=== PATIENT | female | born 1990 | race Caucasian/White ===

== ENCOUNTER 2018-03-24 19:22 | Emergency (ER) | payer OTHER, SELFPAY ==
[2018-03-24 19:31] VITALS: BP 121/98; PULSE 112; RESP 20; TEMP 37.1; O2SAT 100; BMI 26.6
[2018-03-24 19:55] LABS: Add Manual Diff / Slide Review NO; Basophils Percent Auto 0.9 % (0-2); Eosinophils Percent Auto 1.7 % (2-4); Hematocrit 42.7 % (36-46); Hemoglobin 14.2 g/dL (12.0-16.0); Lymphocytes Percent Auto 21.3 % (25-40); Mean Corpuscular HGB Conc 33.3 % (30-36); Mean Corpuscular Hemoglobin 31.9 PG (26-34); Mean Corpuscular Volume 95.7 fL (80-100); Monocytes Percent Auto 8.5 % (3-14); Neutrophils Absolute Auto 3800 /uL (3000-5900); Neutrophils Percent Auto 67.6 % (50-75); Platelet Count 272 X10^3/uL (150-400); Red Blood Cell Count 4.46 X10^6/uL (4.0-5.2); Red Cell Distribution Width 13.8 % (11.6-14.8); White Blood Cell Count 5.7 X10^3/uL (4.5-11.0)
[2018-03-24] MEDS: METOCLOPRAMIDE 10 MG/2 ML INJ IV (19:59)
[2018-03-24] MEDS: HYDROMORPHONE 1 MG INJ IV ×3 (19:59→21:45)
[2018-03-24] MEDS: diphenhydrAMINE 50 MG/ML VIAL 25 MG IV (19:59)
[2018-03-24 20:00] LABS: INR 1.1 (0.9-1.3); Prothrombin Time 11.7 SECONDS (10.1-12.7)
[2018-03-24] MEDS: SODIUM CHLORIDE 0.9% 1,000 ML 1000 ML IV (20:01)
[2018-03-24 20:03] LABS: PTT Partial Thromboplastin Tim 31 SECONDS (26.4-36.2)
[2018-03-24 20:04] LABS: Alanine Aminotransferase 27 IU/L (9-52); Albumin 4.8 g/dL (3.5-5.0); Albumin Globulin Ratio 1.4 (1.0-2.8); Alkaline Phosphatase 82 U/L (38-126); Aspartate Aminotransferase 47 IU/L (14-36); BUN Creatinine Ratio 11.4 (6-22); Bilirubin Total 0.7 mg/dL (0.2-1.3); Blood Urea Nitrogen 8 mg/dL (7-17); Carbon Dioxide 26 mmol/L (22-32); Chloride 101 mmol/L (98-107); Estimated Glomerular Filt Rate > 60.0 mL/min (>60); Globulin 3.5 g/dL (1.7-4.1); Glucose 105 mg/dL (70-100); Lactate Dehydrogenase 659 U/L (313-618); Lipase 35 U/L (23-300); Potassium 4.5 mmol/L (3.4-5.1); Sodium 142 mmol/L (137-145); Total Protein 8.3 g/dL (6.3-8.2)
[2018-03-24 20:05] LABS: HEMOLYSIS 58 (0-50)
[2018-03-24 20:14] VITALS: BP 127/97; PULSE 110; RESP 16; O2SAT 97
--- NOTE | 2018-03-24 20:21 | ED.ABDPAIN ---
HPI - Abdominal Pain General Chief Complaint: Abdominal Pain Stated Complaint: Severe abdominal pain, nausea Time Seen by Provider: 03/24/18 19:26 Source: patient and family Mode of arrival: ambulatory Limitations: no limitations History of Present Illness HPI narrative: 28-year-old female, nonsmoker with extensive history of chronic pancreatitis presents with a chief complaint of epigastric pain, nausea, vomiting and inability to tolerate food or liquids since being discharged from [facility] yesterday. 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 Since being discharged she has not been able to eat or drink anything due to provocation of her pain as well as persistent vomiting. Has stated her pain is worse with eating or drinking, she denies any palliation, but admits to radiation to her back. She is now dizzy, weak and lightheaded. She denies any fever. She states this feels the same as prior episodes of pancreatitis and not unlike what caused her admission a few days ago. Related Data Allergies Allergy/AdvReac Type Severity Reaction Status Date / Time clindamycin Allergy Verified 03/24/18 19:35 guaifenesin [From Mucinex] Allergy Verified 03/24/18 19:35 haloperidol [From Haldol] Allergy Verified 03/24/18 19:35 ketorolac [From Toradol] Allergy Verified 03/24/18 19:35 metoclopramide [From Reglan] Allergy Verified 03/24/18 19:35 promethazine [From Phenergan] Allergy Verified 03/24/18 19:35 zolpidem [From Ambien] Allergy Verified 03/24/18 19:35 Review of Systems Review of Systems All systems reviewed & are unremarkable except as noted in HPI and below Constitutional Denies chills, Denies fever(s), Denies lethargy and Denies weakness Eyes Denies change in vision, Denies eye discharge, Denies irritation and Denies loss of vision ENT Ears, Nose, Mouth, and Throat: Denies change in voice, Denies neck pain and Denies sore throat Cardiovascular Denies chest pain, Denies irregular heart rhythm, Denies lightheadedness, Denies palpitations, Denies dyspnea, Denies dyspnea on exertion and Denies orthopnea Respiratory Denies cough, Denies dyspnea, Denies dyspnea on exertion and Denies wheezing Gastrointestinal Gastrointestinal: Reports abdominal pain, Denies change in bowel habits, Denies diarrhea, Reports nausea and Reports vomiting Genitourinary Denies hematuria, Denies flank pain, Denies urinary incontinence and Denies urinary urgency Musculoskeletal Denies neck pain Integumentary/Breasts Denies pruritus, Denies erythema, Denies rash and Denies wounds Neurologic Denies confusion, Denies loss of vision and Denies weakness Psychiatric Denies anxiety, Denies confusion, Denies depression, Denies homicidal ideation and Denies suicidal ideation Endocrine Denies palpitations Hematologic/Lymphatic Denies easy bruising Allergic/Immunologic Denies wheezing PFSH Medical History Gastroparesis (Acute) Pancreatitis (Acute) Surgical History Hx of cholecystectomy (Acute) Social History Smoking Status: Never smoker Exam Narrative Exam Narrative: GENERAL: 28F, tearful, obviously in pain, clutching her epigastrum and an emesis bag HEAD: Atraumatic. Normocephalic. No temporal or scalp tenderness. EYES: Pupils equal round and reactive. Extraocular motions intact. No scleral icterus. No injection or drainage. ENT: Nose without bleeding, purulent drainage or septal hematoma. Throat without erythema, tonsillar hypertrophy or exudate. Uvula midline. Airway patent. NECK: Trachea midline. No JVD or lymphadenopathy. Supple, nontender, no meningeal signs. CARDIOVASCULAR: Regular rate and rhythm without murmurs, gallops, or rubs. RESPIRATORY: Clear to auscultation. Breath sounds equal bilaterally. No wheezes, rales, or rhonchi. GASTROINTESTINAL: Abdomen soft, quite tender in epigastrum, nondistended. No hepato-splenomegaly, or palpable masses. No guarding. EXTREMITIES: No clubbing, cyanosis, or edema. No joint tenderness, effusion, or edema noted. BACK: Nontender without deformity or crepitance. No flank tenderness. NEURO: AOx3. SKIN: No rash or erythema. Initial Vital Signs Initial Vital Signs: Vital Signs Temperature 98.7 F 03/24/18 19:31 Pulse Rate 112 H 03/24/18 19:31 Respiratory Rate 20 03/24/18 19:31 Blood Pressure 121/98 H 03/24/18 19:31 Pulse Oximetry 100 03/24/18 19:31 Course Orders Ordered: ED Orders 03/24/18 19:45 Complete Blood Count AUTO DIFF Stat Comprehensive Metabolic Panel Stat Lactate Dehydrogenase Stat Lipase Stat Partial Thromboplastin Time Stat Prothrombin Time INR Stat Discontinued Medications Diphenhydramine HCl (Benadryl) 25 mg IV NOW ONE Stop: 03/24/18 19:40 Last Admin: 03/24/18 19:59 Dose: 25 mg Hydromorphone HCl (Dilaudid) 1 mg IV Q1HR PRN PRN Reason: Pain, Severe (7-10) Stop: 03/24/18 21:01 Last Admin: 03/24/18 20:51 Dose: 1 mg Admin: 03/24/18 19:59 Dose: 1 mg Hydromorphone HCl (Dilaudid) 1 mg IV Q1HR PRN PRN Reason: Pain, Severe (7-10) Hydromorphone HCl (Dilaudid) 1 mg IV NOW ONE Stop: 03/24/18 21:45 Last Admin: 03/24/18 21:45 Dose: 1 mg Sodium Chloride (Normal Saline 0.9%) 1,000 mls @ 1,000 mls/hr IV BOLUS ONE Stop: 03/24/18 20:58 Last Infusion: 03/24/18 21:59 Dose: 0 mls/hr Admin: 03/24/18 20:01 Dose: 1,000 mls/hr Metoclopramide HCl (Reglan) 10 mg IV NOW ONE Stop: 03/24/18 19:40 Last Admin: 03/24/18 19:59 Dose: 10 mg Pantoprazole Sodium (Protonix) 40 mg IV NOW ONE Stop: 03/24/18 20:39 Last Admin: 03/24/18 20:53 Dose: 40 mg Reevaluation(s) Reevaluation #1: still having pain, requesting more dilaudid Time: 20:30 Consultations Consultation #1: call to hospitalist for transfer. Happy to accept Vital Signs - 8 hr 03/24/18 19:31 03/24/18 20:14 03/24/18 21:20 Temperature 98.7 F Pulse Rate 112 H 110 H 104 H Respiratory Rate 20 16 18 Blood Pressure 121/98 H Blood Pressure [Left Arm] 127/97 H 113/90 Pulse Oximetry 100 97 98 03/24/18 21:48 Temperature Pulse Rate 107 H Respiratory Rate 18 Blood Pressure Blood Pressure [Left Arm] 124/86 Pulse Oximetry 99 MDM - Abdominal Pain Differential Diagnosis Differential diagnosis: Likely abdominal pain and pancreatitis Medical Records Attestation: I reviewed the patient's medical records. Lab Data Attestation: I reviewed the patient's lab results. Result diagrams: 03/24/18 19:45 03/24/18 19:45 Lab Results 03/24/18 03/24/18 03/24/18 Range/Units 19:45 19:45 19:45 WBC 5.7 (4.5-11.0) X10^3/uL RBC 4.46 (4.0-5.2) X10^6/uL Hgb 14.2 (12.0-16.0) g/dL Hct 42.7 (36-46) % MCV 95.7 (80-100) fL MCH 31.9 (26-34) PG MCHC 33.3 (30-36) % RDW 13.8 (11.6-14.8) % Plt Count 272 (150-400) X10^3/uL Neut % (Auto) 67.6 (50-75) % Lymph % (Auto) 21.3 L (25-40) % Lawrence % (Auto) 8.5 (3-14) % Eos % (Auto) 1.7 L (2-4) % Baso % (Auto) 0.9 (0-2) % Neut # (Auto) 3800 (1145-3909) /uL PT 11.7 (10.1-12.7) SECONDS INR 1.1 (0.9-1.3) APTT 31 (26.4-36.2) SECONDS Sodium 142 (137-145) mmol/L Potassium 4.5 (3.4-5.1) mmol/L Chloride 101 (98-107) mmol/L Carbon Dioxide 26 (22-32) mmol/L BUN 8 (7-17) mg/dL Creatinine 0.70 (0.52-1.04) mg/dL Estimated GFR > 60.0 (>60) mL/min BUN/Creatinine Ratio 11.4 (6-22) Glucose 105 H (70-100) mg/dL Calcium 10.0 (8.4-10.2) mg/dL Total Bilirubin 0.7 (0.2-1.3) mg/dL AST 47 H (14-36) IU/L ALT 27 (9-52) IU/L Alkaline Phosphatase 82 (38-126) U/L Lactate Dehydrogenase 659 H (313-618) U/L Total Protein 8.3 H (6.3-8.2) g/dL Albumin 4.8 (3.5-5.0) g/dL Globulin 3.5 (1.7-4.1) g/dL Albumin/Globulin Ratio 1.4 (1.0-2.8) Lipase 35 (23-300) U/L MDM Narrative Medical decision making narrative: 28-year-old female with long history of pancreatitis and recent hospitalization at outside facility presents with intractable pain and vomiting as well as inability to eat and drink. Labs are essentially unremarkable but patient states this is her norm. Given lack of available specialty care at our facility and desire to maintain continuity of care transfer to [facility] is most reasonable and in the patient's best interest Discharge Plan Departure Patient Disposition: [facility] Clinical Impression: Acute pancreatitis Discharge Date/Time: 03/24/18 22:00 Interventions: ED Discharge Assessment Last Done: 03/24/18 22:00
[2018-03-24] MEDS: PANTOPRAZOLE 40 MG VIAL IV (20:53)
[2018-03-24 21:20] VITALS: BP 113/90; PULSE 104; RESP 18; O2SAT 98
[2018-03-24 21:48] VITALS: BP 124/86; PULSE 107; RESP 18; O2SAT 99
== END 2018-03-24 22:00 | disposition short-term general hospital (02) ==
PROVIDERS: Emergency Provider Emergency Medicine
DX: K85.90 Acute pancreatitis without necrosis or infection, unspecified (principal)
CPT/HCPCS: 36591; 80053; 83615; 83690; 85025; 85610; 85730; 96361; 96374; 96375; 99283; 99284; C9113; J1170; J1200; J2765

== ENCOUNTER 2018-03-28 17:20 | Emergency (ER) | payer OTHER, SELFPAY ==
[2018-03-28 17:56] VITALS: BP 153/103; PULSE 117; RESP 22; TEMP 37.1; O2SAT 99; BMI 26.6
[2018-03-28] MEDS: SODIUM CHLORIDE 0.9% 1,000 ML 150 ML IV (19:50)
--- NOTE | 2018-03-28 19:50 | ED.ABDPAIN ---
HPI - Abdominal Pain General Chief Complaint: Abdominal Pain Stated Complaint: STATES SEVERE UPPER ABDOMINAL PAIN WITH N/V Time Seen by Provider: 03/28/18 19:20 Source: patient Mode of arrival: ambulatory Limitations: no limitations History of Present Illness HPI narrative: Patient states she has a history of chronic pancreatitis, and has a major ?flare up? about every 3 or 4 months. She states her last flare-up was in October. Patient states that for about the past week, she has been having upper abdominal pain and nausea. She was seen here around that time, and was worked up, with ultimate transfer to [facility] due to bed availability issues. Patient states she stated [facility] for 3-4 days, and then was discharged. However, patient states that she has continued to have symptoms at home, and that her home medications are not providing adequate relief. 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 She has had a cholecystectomy for biliary sludge and pancreatitis. She has been told that she may need to have stenting or other procedure to widen her duct if she continues to have bouts of pancreatitis. Patient denies alcohol use. Related Data Allergies Allergy/AdvReac Type Severity Reaction Status Date / Time clindamycin Allergy Rash Verified 03/28/18 18:02 guaifenesin [From Mucinex] Allergy Rash Verified 03/28/18 18:02 haloperidol [From Haldol] Allergy Irritable Verified 03/28/18 18:02 ketorolac [From Toradol] Allergy Anxiety Verified 03/28/18 18:02 metoclopramide [From Reglan] Allergy Anxiety Verified 03/28/18 18:02 promethazine [From Phenergan] Allergy Anxiety Verified 03/28/18 18:02 zolpidem [From Ambien] Allergy Hallucinati Verified 03/28/18 18:02 ng Review of Systems Review of Systems All systems reviewed & are unremarkable except as noted in HPI and below Constitutional Denies chills, Denies fever(s), Denies lethargy and Denies weakness Eyes Denies change in vision, Denies eye discharge, Denies irritation and Denies loss of vision ENT Ears, Nose, Mouth, and Throat: Denies change in voice, Denies neck pain and Denies sore throat Cardiovascular Denies chest pain, Denies irregular heart rhythm, Denies lightheadedness, Denies palpitations, Denies dyspnea, Denies dyspnea on exertion and Denies orthopnea Respiratory Denies cough, Denies dyspnea, Denies dyspnea on exertion and Denies wheezing Gastrointestinal Gastrointestinal: Reports abdominal pain, Denies change in bowel habits, Denies diarrhea, Reports nausea and Reports vomiting Genitourinary Denies hematuria, Denies flank pain, Denies urinary incontinence and Denies urinary urgency Musculoskeletal Denies neck pain Integumentary/Breasts Denies pruritus, Denies erythema, Denies rash and Denies wounds Neurologic Denies confusion, Denies loss of vision and Denies weakness Psychiatric Denies anxiety, Denies confusion, Denies depression, Denies homicidal ideation and Denies suicidal ideation Endocrine Denies palpitations Hematologic/Lymphatic Denies easy bruising Allergic/Immunologic Denies wheezing [facility] Medical History Gastroparesis (Acute) Pancreatitis (Acute) Surgical History Hx of cholecystectomy (Acute) Social History Smoking Status: Never smoker Exam Narrative Exam Narrative: The patient appears moderately uncomfortable. Initial Vital Signs Initial Vital Signs: Vital Signs Temperature 98.7 F 03/28/18 17:56 Pulse Rate 117 H 03/28/18 17:56 Respiratory Rate 22 03/28/18 17:56 Blood Pressure 153/103 H 03/28/18 17:56 Pulse Oximetry 99 03/28/18 17:56 Const General: cooperative and well developed Nutritional Appearance: well nourished Orientation: alert, awake, oriented x3 and not confused [facility] Head: normocephalic and atraumatic Ears: external ears normal Nose: external nose normal and No nasal discharge Face and sinus: face symmetric and No dry mucous membranes Mouth: oral mucosae normal and moist mucous membranes Teeth and gingiva: dentition normal Eyes General: appearance normal, both eyes and all related structures Eyelids: eyelids normal Conjunctivae: conjunctivae normal Sclera: sclerae normal Pupils: PERRL EOM: EOM intact bilaterally Neck Neck: normal visual inspection, trachea midline, No lymphadenopathy, No midline deformity and No JVD Lymphatic: No lymphedema Chest Chest: normal inspection of the chest Resp Effort & Inspection: normal respiratory effort, able to speak in complete sentences, no respiratory distress and no use of accessory muscles Auscultation: clear to auscultation bilaterally, no rales, no rhonchi and no wheezes Cardio Rate: regular rate Rhythm: regular rhythm Heart Sounds: no click, no gallops, no murmurs and no rubs Pulses: normal peripheral pulses GI Inspection: non-distended Palpation: soft, no hepatosplenomegaly, No guarding, No pulsatile mass and tender (Moderate, epigastrium and left upper quadrant.) Back/Spine/Pelvis Back: No CVA tenderness Cervical Spine: cervical ROM normal and No pain with cervical ROM Thoracic/Lumbar Spine: thoracic and lumbar spine normal to inspection Skin General: no rashes or lesions noted, No jaundice and No petechiae Neuro General: alert, oriented x3, gait normal and no focal motor deficits Speech: speech normal Extrem General: full ROM, no clubbing, cyanosis or edema, no pedal edema and no calf tenderness Psych Appearance: well kempt Mental Status: mental status grossly normal Attitude: cooperative Thought Content: normal and suicidality Judgment: judgment good Course Course Narrative: Patient was worked up with laboratory studies, and treated with IV fluids, Dilaudid, Benadryl, and Reglan. Labs were unremarkable. CT scan of the abdomen and pelvis was performed, and also found to be unremarkable. Patient did require a cane other round of analgesia and antiemetics, but was found to be feeling quite a bit better after this. I did discuss with her that her studies are unremarkable, and that she will need to follow up with her primary doctor to figure out a long-term, workable plan for her chronic abdominal pain. The patient is deemed stable for discharge home. We have discussed the usual indications for return. Orders Ordered: ED Orders 03/28/18 19:45 Complete Blood Count AUTO DIFF Stat Comprehensive Metabolic Panel Stat Lipase Stat 03/28/18 22:24 CT abdomen pelvis w con Stat Discontinued Medications Diphenhydramine HCl (Benadryl) 25 mg IV NOW ONE Stop: 03/28/18 19:51 Last Admin: 03/28/18 20:06 Dose: 25 mg Diphenhydramine HCl (Benadryl) 25 mg IV NOW ONE Stop: 03/29/18 00:38 Last Admin: 03/29/18 00:48 Dose: 25 mg Hydromorphone HCl (Dilaudid) 1 mg IV NOW ONE Stop: 03/28/18 19:57 Last Admin: 03/28/18 20:06 Dose: 1 mg Hydromorphone HCl (Dilaudid) 2 mg IV NOW ONE Stop: 03/28/18 21:07 Last Admin: 03/28/18 21:25 Dose: 2 mg Hydromorphone HCl (Dilaudid) 2 mg IV NOW ONE Stop: 03/28/18 22:51 Last Admin: 03/29/18 00:48 Dose: 2 mg Hydroxyzine HCl (Vistaril) 50 mg IM NOW ONE Stop: 03/28/18 22:50 Last Admin: 03/29/18 01:04 Dose: Not Given Sodium Chloride (Normal Saline 0.9%) 1,000 mls @ 150 mls/hr IV CONT DHIRAJ Last Infusion: 03/28/18 22:15 Dose: 0 mls/hr Infusion: 03/28/18 20:30 Dose: 1,000 mls/hr Admin: 03/28/18 19:50 Dose: 150 mls/hr Sodium Chloride (Normal Saline 0.9%) 1,000 mls @ 1,000 mls/hr IV BOLUS ONE Stop: 03/28/18 20:49 Last Admin: 03/28/18 22:57 Dose: Metoclopramide HCl (Reglan) 10 mg IV NOW ONE Stop: 03/28/18 19:51 Last Admin: 03/28/18 20:06 Dose: 10 mg Prochlorperazine (Compazine) 10 mg IV NOW ONE Stop: 03/29/18 00:38 Last Admin: 03/29/18 00:48 Dose: 10 mg Vital Signs - 8 hr 03/28/18 21:51 03/29/18 01:07 Temperature 98.2 F Pulse Rate 94 H 80 Respiratory Rate 17 18 Blood Pressure 133/92 H Blood Pressure [Left Wrist] 133/98 H Pulse Oximetry 96 100 MDM - Abdominal Pain Medical Records Attestation: I reviewed the patient's medical records. Lab Data Attestation: I reviewed the patient's lab results. Result diagrams: 03/28/18 19:45 03/28/18 19:45 Lab Results 11/26/18 11/26/18 Range/Units 19:45 19:45 WBC 6.8 (4.5-11.0) X10^3/uL RBC 4.25 (4.0-5.2) X10^6/uL Hgb 13.7 (12.0-16.0) g/dL Hct 40.0 (36-46) % MCV 94.0 (80-100) fL MCH 32.2 (26-34) PG MCHC 34.3 (30-36) % RDW 13.1 (11.6-14.8) % Plt Count 292 (150-400) X10^3/uL Neut % (Auto) 64.9 (50-75) % Lymph % (Auto) 26.5 (25-40) % Banner % (Auto) 7.1 (3-14) % Eos % (Auto) 1.1 L (2-4) % Baso % (Auto) 0.4 (0-2) % Neut # (Auto) 4400 (1831-1943) /uL Sodium 142 (137-145) mmol/L Potassium 3.9 (3.4-5.1) mmol/L Chloride 101 (98-107) mmol/L Carbon Dioxide 27 (22-32) mmol/L BUN 5 L (7-17) mg/dL Creatinine 0.90 (0.52-1.04) mg/dL Estimated GFR > 60.0 (>60) mL/min BUN/Creatinine Ratio 5.6 L (6-22) Glucose 103 H (70-100) mg/dL Calcium 9.8 (8.4-10.2) mg/dL Total Bilirubin 0.4 (0.2-1.3) mg/dL AST 24 (14-36) IU/L ALT 20 (9-52) IU/L Alkaline Phosphatase 72 (38-126) U/L Total Protein 7.8 (6.3-8.2) g/dL Albumin 4.5 (3.5-5.0) g/dL Globulin 3.3 (1.7-4.1) g/dL Albumin/Globulin Ratio 1.4 (1.0-2.8) Lipase 26 (23-300) U/L Point of care testing: Urine Dip Bedside Urine Glucose Negative Bedside Urine Bilirubin - Negative Bedside Urine Ketone - Negative Urine Specific [place] 1.010 Bedside Urine Occult Blood - Negative Bedside Urine pH 8.5 Bedside Urine Protein - Negative Bedside Urine Urobilinogen - Negative Bedside Urine Nitrite - Negative Bedside Urine Leukocytes - Negative Esterase Imaging Data CT scan - abdomen: Radiologist's impression: 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 Possible mild gastroenteritis or ileus, correlate clinically. Normal appendix. Discharge Plan Departure Patient Disposition: Home Clinical Impression: Abdominal pain Discharge Date/Time: 03/29/18 01:09 Interventions: ED Discharge Assessment Last Done: 03/29/18 01:07 Instructions: DI for Abdominal Pain-Adult Activity Restrictions/Additional Instructions: Your labs look good. Your CT is still being evaluated by the radiologist, but no obvious abnormalities have shown up in the preliminary evaluation. Please take your pain and nausea medications at home, as needed, and follow up with your doctor within the next couple of days.
[2018-03-28 19:57] LABS: Add Manual Diff / Slide Review NO; Basophils Percent Auto 0.4 % (0-2); Eosinophils Percent Auto 1.1 % (2-4); Hemoglobin 13.7 g/dL (12.0-16.0); Lymphocytes Percent Auto 26.5 % (25-40); Mean Corpuscular HGB Conc 34.3 % (30-36); Mean Corpuscular Hemoglobin 32.2 PG (26-34); Monocytes Percent Auto 7.1 % (3-14); Neutrophils Absolute Auto 4400 /uL (3000-5900); Neutrophils Percent Auto 64.9 % (50-75); Platelet Count 292 X10^3/uL (150-400); Red Blood Cell Count 4.25 X10^6/uL (4.0-5.2); Red Cell Distribution Width 13.1 % (11.6-14.8); White Blood Cell Count 6.8 X10^3/uL (4.5-11.0)
[2018-03-28] MEDS: HYDROMORPHONE 1 MG INJ IV (20:06)
[2018-03-28] MEDS: diphenhydrAMINE 50 MG/ML VIAL 25 MG IV (20:06)
[2018-03-28] MEDS: METOCLOPRAMIDE 10 MG/2 ML INJ IV (20:06)
[2018-03-28 20:09] LABS: Alanine Aminotransferase 20 IU/L (9-52); Albumin 4.5 g/dL (3.5-5.0); Albumin Globulin Ratio 1.4 (1.0-2.8); Alkaline Phosphatase 72 U/L (38-126); Aspartate Aminotransferase 24 IU/L (14-36); BUN Creatinine Ratio 5.6 (6-22); Bilirubin Total 0.4 mg/dL (0.2-1.3); Blood Urea Nitrogen 5 mg/dL (7-17); Calcium 9.8 mg/dL (8.4-10.2); Carbon Dioxide 27 mmol/L (22-32); Chloride 101 mmol/L (98-107); Estimated Glomerular Filt Rate > 60.0 mL/min (>60); Globulin 3.3 g/dL (1.7-4.1); Glucose 103 mg/dL (70-100); HEMOLYSIS < 15 (0-50); Lipase 26 U/L (23-300); Potassium 3.9 mmol/L (3.4-5.1); Sodium 142 mmol/L (137-145); Total Protein 7.8 g/dL (6.3-8.2)
[2018-03-28] MEDS: HYDROMORPHONE 1 MG INJ 2 MG IV (21:25)
[2018-03-28 21:51] VITALS: BP 133/98; PULSE 94; RESP 17; O2SAT 96
--- NOTE | 2018-03-28 22:24 | DI.CT.S_ITS ---
PROCEDURE: CT ABDOMEN PELVIS W CON INDICATIONS: abdominal pain TECHNIQUE: After the administration of intravenous contrast, 5 mm thick sections acquired from the diaphragm to the symphysis. 5 mm coronal and sagittal reformats were acquired. For radiation dose reduction, the following was used: automated exposure control, adjustment of mA and/or kV according to patient size. COMPARISON: [facility], CT, CT ABDOMEN PELVIS WITH CONTRAST, 01/18/2018, 18:46. FINDINGS: Image quality: Excellent. ABDOMEN: Lung bases: Lung bases are clear. Heart size is normal. Solid organs: Liver is normal in size and enhancement. Gallbladder is surgically absent. Biliary system is non dilated. Pancreas enhances normally. Spleen is normal in size and enhancement. No adrenal nodules. Kidneys demonstrate normal size and enhancement, without hydronephrosis. Peritoneum and bowel: Moderate amount of fluid within the small bowel. Normal appendix. Bowel loops demonstrate otherwise normal wall thickness and caliber. No free fluid or air. Nodes and vessels: No retroperitoneal or mesenteric adenopathy by size criteria. Aorta and inferior vena cava are normal in size. Miscellaneous: There is a fat containing umbilical hernia and ring 10 mm. PELVIS: Genitourinary: Bladder wall thickness is normal. Miscellaneous: No inguinal hernias or adenopathy. Bones: No suspicious bony lesions. No vertebral body compression fractures. IMPRESSION: 1. Findings consistent with mild gastroenteritis in the appropriate clinical setting. Clinical correlation recommended. 2. Normal appendix. 3. Concordant with preliminary interpretation. Dictated by: Rosanna Lowery M.D. on 03/29/2018 at 8:18 Approved by: Rosanna Lowery M.D. on 03/29/2018 at 8:21
[2018-03-29] MEDS: PROCHLORPERAZINE 10 MG/2 ML VIAL IV (00:48)
[2018-03-29] MEDS: diphenhydrAMINE 50 MG/ML VIAL 25 MG IV (00:48)
[2018-03-29] MEDS: HYDROMORPHONE 1 MG INJ 2 MG IV (00:48)
[2018-03-29 01:07] VITALS: BP 133/92; PULSE 80; RESP 18; TEMP 36.8; O2SAT 100
== END 2018-03-29 01:09 | disposition home or self-care (01) ==
PROVIDERS: Emergency Provider Emergency Medicine
DX: R10.9 Unspecified abdominal pain (principal)
CPT/HCPCS: 36591; 74177; 80053; 81003; 83690; 85025; 96361; 96374; 96375; 96376; 99283; 99285; J0780; J1170; J1200; J2765

== ENCOUNTER 2018-03-29 22:22 | Emergency (ER) | payer OTHER, SELFPAY ==
[2018-03-29 22:25] VITALS: BP 139/104; PULSE 101; RESP 22; TEMP 36.3; O2SAT 100
--- NOTE | 2018-03-29 22:33 | ED.ABDPAIN ---
HPI - Abdominal Pain General Chief Complaint: Abdominal Pain Stated Complaint: Abd Pain Time Seen by Provider: 03/29/18 22:27 Source: patient Mode of arrival: ambulatory Limitations: no limitations History of Present Illness HPI narrative: Patient is a 28-year-old female here in the emergency department today for evaluation of abdominal pain. Patient states that she has a history of pancreatitis. She has been seen here in this emergency department several times in the past 7-10 days. She was transferred to [facility] during 1 of these visits. she was transferred there according to that note secondary to pancreatitis because this is where her GI doctor was located. She states that she was there for 4 days. She did state that she left against medical advice. She states that her signed her out [facility] because he was unhappy with all the doctors were keeping him informed of her medical condition. On the day of discharge she was seen here in this emergency department which was approximately 24 hr ago. Received multiple doses of pain medication and nausea medication. She was discharged home after feeling better. She returns today for the same symptoms. She has not seen her primary doctor, her GI doctor, or her shipyard painter helper. She states that she always gets pancreatitis and that my labs are always normal. she does have a VICKY report showing 55 emergency department visits in the past year. The vast majority of these or for abdominal pain. Related Data Allergies Allergy/AdvReac Type Severity Reaction Status Date / Time clindamycin Allergy Rash Verified 03/29/18 22:30 guaifenesin [From Mucinex] Allergy Rash Verified 03/29/18 22:30 haloperidol [From Haldol] Allergy Irritable Verified 03/29/18 22:30 ketorolac [From Toradol] Allergy Anxiety Verified 03/29/18 22:30 metoclopramide [From Reglan] Allergy Anxiety Verified 03/29/18 22:30 promethazine [From Phenergan] Allergy Anxiety Verified 03/29/18 22:30 zolpidem [From Ambien] Allergy Hallucinati Verified 03/29/18 22:30 ng Review of Systems Constitutional Denies fever(s) and Denies headache(s) ENT Ears, Nose, Mouth, and Throat: Denies headache(s) Cardiovascular Denies chest pain and Denies dyspnea Respiratory Denies dyspnea Gastrointestinal Gastrointestinal: Reports abdominal pain, Denies melena, Denies change in bowel habits, Denies constipation, Reports nausea, Reports vomiting and Denies hematemesis Genitourinary Denies dysuria and Denies vaginal discharge Musculoskeletal Denies myalgias and Denies arthralgias Integumentary/Breasts Denies rash Neurologic Denies headache(s) Hematologic/Lymphatic Comments: not on anticoagulation [facility] Social History marital status: Smoking Status: Never smoker Exam Initial Vital Signs Initial Vital Signs: Vital Signs Temperature 97.4 F L 03/29/18 22:25 Pulse Rate 101 H 03/29/18 22:25 Respiratory Rate 22 03/29/18 22:25 Blood Pressure 139/104 H 03/29/18 22:25 Pulse Oximetry 100 03/29/18 22:25 Const General: cooperative, well developed, well groomed and No acute distress Orientation: alert, awake and oriented x3 HENMT Head: normal to inspection and normocephalic Resp Effort & Inspection: normal respiratory effort Cardio Rate: regular rate GI Inspection: non-distended Palpation: soft, No firm, No guarding, No rigid and tender ( epigastric and left upper quadrant) Skin Rashes: no rashes Neuro General: alert, awake and oriented x3 Extrem General: normal to inspection and capillary refill normal Psych Appearance: grossly normal and well kempt Course Orders Ordered: ED Orders 03/29/18 23:29 Basic Metabolic Panel Stat Complete Blood Count AUTO DIFF Stat Hepatic (Liver) Panel Stat Lipase Stat Discontinued Medications Hydrocodone Bitart/Acetaminophen ([place] 5/325) 1 tab PO NOW ONE Stop: 03/30/18 01:27 Last Admin: 03/30/18 01:37 Dose: 1 tab Diphenhydramine HCl (Benadryl) 25 mg IV NOW ONE Stop: 03/29/18 22:45 Last Admin: 03/29/18 23:44 Dose: 25 mg Diphenhydramine HCl (Benadryl) 25 mg IV NOW ONE Stop: 03/30/18 01:27 Last Admin: 03/30/18 01:37 Dose: 25 mg Hydromorphone HCl (Dilaudid) 1 mg IV NOW ONE Stop: 03/29/18 22:45 Last Admin: 03/29/18 23:44 Dose: 1 mg Hydromorphone HCl (Dilaudid) 2 mg IV NOW ONE Stop: 03/30/18 00:33 Last Admin: 03/30/18 00:50 Dose: 2 mg Sodium Chloride (Normal Saline 0.9%) 1,000 mls @ 150 mls/hr IV CONT DHIRAJ Sodium Chloride (Normal Saline 0.9%) 1,000 mls @ 1,000 mls/hr IV BOLUS ONE Stop: 03/29/18 23:43 Last Infusion: 03/30/18 01:18 Dose: 0 mls/hr Admin: 03/30/18 00:13 Dose: 1,000 mls/hr Metoclopramide HCl (Reglan) 10 mg IV NOW ONE Stop: 03/29/18 22:45 Last Admin: 03/29/18 23:44 Dose: 10 mg Prochlorperazine (Compazine) 5 mg IV NOW ONE Stop: 03/30/18 01:27 Last Admin: 03/30/18 01:36 Dose: 5 mg Vital Signs - 8 hr 03/29/18 22:25 03/30/18 01:50 Temperature 97.4 F L Pulse Rate 101 H 80 Respiratory Rate 22 18 Blood Pressure 139/104 H Blood Pressure [Right Arm] 123/86 Pulse Oximetry 100 99 MDM - Abdominal Pain Medical Records Attestation: I reviewed the patient's medical records. Lab Data Attestation: I reviewed the patient's lab results. Result diagrams: 03/29/18 23:29 03/29/18 23:29 Lab Results 03/29/18 03/29/18 Range/Units 23:29 23:29 WBC 7.7 (4.5-11.0) X10^3/uL RBC 4.17 (4.0-5.2) X10^6/uL Hgb 13.4 (12.0-16.0) g/dL Hct 39.7 (36-46) % MCV 95.2 (80-100) fL MCH 32.2 (26-34) PG MCHC 33.8 (30-36) % RDW 13.4 (11.6-14.8) % Plt Count 286 (150-400) X10^3/uL Neut % (Auto) 61.5 (50-75) % Lymph % (Auto) 27.7 (25-40) % [place] % (Auto) 8.3 (3-14) % Eos % (Auto) 2.0 (2-4) % Baso % (Auto) 0.5 (0-2) % Neut # (Auto) 4700 (5688-4657) /uL Sodium 140 (137-145) mmol/L Potassium 4.5 (3.4-5.1) mmol/L Chloride 101 (98-107) mmol/L Carbon Dioxide 25 (22-32) mmol/L BUN 10 (7-17) mg/dL Creatinine 0.80 (0.52-1.04) mg/dL Estimated GFR > 60.0 (>60) mL/min BUN/Creatinine Ratio 12.5 (6-22) Glucose 100 (70-100) mg/dL Calcium 9.5 (8.4-10.2) mg/dL Total Bilirubin 0.4 (0.2-1.3) mg/dL Conjugated Bilirubin 0.0 (0.0-0.3) md/dL Unconjugated Bilirubin 0.1 (0.0-1.1) mg/dL AST 27 (14-36) IU/L ALT 16 (9-52) IU/L Alkaline Phosphatase 60 (38-126) U/L Total Protein 7.6 (6.3-8.2) g/dL Albumin 4.4 (3.5-5.0) g/dL Globulin 3.2 (1.7-4.1) g/dL Albumin/Globulin Ratio 1.4 (1.0-2.8) Lipase 24 (23-300) U/L MDM Narrative Medical decision making narrative: patient again with normal labs here in the emergency department. She does have epigastric and left upper quadrant tenderness. Multiple allergies to medications. I do have a strong suspicion for drug-seeking behavior in this individual given her multiple emergency department visits over the past year. She does take oral Dilaudid at home. She received a total of 5 mg of Dilaudid during her last emergency department visit within the past 24 hr. Patient questioned every medication that she was being given and how much of that medication that she was being given. She asked for specific medications And at certain doses. After receiving her 1st dose of pain medication here in the emergency department I told the patient that I would only give her 1 more dose of pain meds. I informed her that Jennifer evans would most likely be reluctant to take her back for admission because she left against medical advice during her last visit. I also informed her that it would be difficult to find another GI specialist to take her for transport given her normal lab results. I had a long discussion with her and her . I did inform her that the emergency department does not treat chronic pain. I informed her that she needed to contact her primary care doctor, her shipyard painter helper and her GI doctor to come up with the plan as to further treatment of any of her symptoms. just prior to discharge the patient's asked me if I could give her more pain medication through the IV to get her home. I told her that I would give her 1 oral pain medication which she did tolerate. The patient was discharged home with return precautions. Prior to this note being completed we received a call from [facility] stating that the patient checked into their emergency department with abdominal pain. Discharge Plan Departure Patient Disposition: Home Clinical Impression: Abdominal pain Discharge Date/Time: 03/30/18 02:07 Interventions: ED Discharge Assessment Last Done: 03/30/18 02:06 Instructions: DI for Abdominal Pain-Adult Activity Restrictions/Additional Instructions: your chronic abdominal pain /pancreatitis needs to be managed by her shipyard painter helper, primary care doctor and GI provider. The emergency department does not provide chronic pain control. you need to talk with your GI provider about what to do if your symptoms worsen. Call your primary care doctor tomorrow for follow-up. Continue all of your medications as directed
[2018-03-29 23:38] LABS: Add Manual Diff / Slide Review NO; Basophils Percent Auto 0.5 % (0-2); Hematocrit 39.7 % (36-46); Hemoglobin 13.4 g/dL (12.0-16.0); Lymphocytes Percent Auto 27.7 % (25-40); Mean Corpuscular HGB Conc 33.8 % (30-36); Mean Corpuscular Hemoglobin 32.2 PG (26-34); Mean Corpuscular Volume 95.2 fL (80-100); Monocytes Percent Auto 8.3 % (3-14); Neutrophils Absolute Auto 4700 /uL (3000-5900); Neutrophils Percent Auto 61.5 % (50-75); Platelet Count 286 X10^3/uL (150-400); Red Blood Cell Count 4.17 X10^6/uL (4.0-5.2); Red Cell Distribution Width 13.4 % (11.6-14.8); White Blood Cell Count 7.7 X10^3/uL (4.5-11.0)
[2018-03-29 23:43] LABS: Alanine Aminotransferase 16 IU/L (9-52); Albumin 4.4 g/dL (3.5-5.0); Albumin Globulin Ratio 1.4 (1.0-2.8); Alkaline Phosphatase 60 U/L (38-126); Aspartate Aminotransferase 27 IU/L (14-36); BUN Creatinine Ratio 12.5 (6-22); Bilirubin Total 0.4 mg/dL (0.2-1.3); Bilirubin Unconjugated 0.1 mg/dL (0.0-1.1); Blood Urea Nitrogen 10 mg/dL (7-17); Calcium 9.5 mg/dL (8.4-10.2); Carbon Dioxide 25 mmol/L (22-32); Chloride 101 mmol/L (98-107); Estimated Glomerular Filt Rate > 60.0 mL/min (>60); Globulin 3.2 g/dL (1.7-4.1); Glucose 100 mg/dL (70-100); HEMOLYSIS 38 (0-50); Lipase 24 U/L (23-300); Potassium 4.5 mmol/L (3.4-5.1); Sodium 140 mmol/L (137-145); Total Protein 7.6 g/dL (6.3-8.2)
[2018-03-29] MEDS: HYDROMORPHONE 0.5 MG INJ 1 MG IV (23:44)
[2018-03-29] MEDS: METOCLOPRAMIDE 10 MG/2 ML INJ IV (23:44)
[2018-03-29] MEDS: diphenhydrAMINE 50 MG/ML VIAL 25 MG IV (23:44)
[2018-03-30] MEDS: SODIUM CHLORIDE 0.9% 1,000 ML 1000 ML IV (00:13)
[2018-03-30] MEDS: HYDROMORPHONE 1 MG INJ 2 MG IV (00:50)
[2018-03-30] MEDS: PROCHLORPERAZINE 10 MG/2 ML VIAL 5 MG IV (01:36)
[2018-03-30] MEDS: HYDROCODONE/ACET 5/325 TABLET 1 TAB PO (01:37)
[2018-03-30] MEDS: diphenhydrAMINE 50 MG/ML VIAL 25 MG IV (01:37)
[2018-03-30 01:50] VITALS: BP 123/86; PULSE 80; RESP 18; O2SAT 99
== END 2018-03-30 02:07 | disposition home or self-care (01) ==
PROVIDERS: Emergency Provider Emergency Medicine
DX: R10.9 Unspecified abdominal pain (principal)
CPT/HCPCS: 36591; 80048; 80076; 83690; 85025; 96361; 96374; 96375; 96376; 99283; 99284; J0780; J1170; J1200; J2765

== ENCOUNTER 2018-04-03 08:49 | Emergency (ER) | payer OTHER, SELFPAY ==
[2018-04-03 08:50] VITALS: BP 126/99; PULSE 116; RESP 18; TEMP 36.9; O2SAT 100; BMI 26.6
--- NOTE | 2018-04-03 08:50 | ED.ABDPAIN ---
HPI - Abdominal Pain General Chief Complaint: Abdominal Pain Stated Complaint: severe abdominal pain, vomitting Time Seen by Provider: 04/03/18 08:49 Source: patient Mode of arrival: ambulatory Limitations: no limitations History of Present Illness HPI narrative: Patient is a 28-year-old female who I evaluated this merge department in the past for which she states is a chronic pancreatitis and chronic abdominal pain. She returns today for her abdominal pain. She states that she drank wine last night and started vomiting. States she has been unable to hold down her pain medication. She states that is the upper abdominal pain. Related Data Allergies Allergy/AdvReac Type Severity Reaction Status Date / Time clindamycin Allergy Rash Verified 04/03/18 08:58 guaifenesin [From Mucinex] Allergy Rash Verified 04/03/18 08:58 haloperidol [From Haldol] Allergy Irritable Verified 04/03/18 08:58 ketorolac [From Toradol] Allergy Anxiety Verified 04/03/18 08:58 metoclopramide [From Reglan] Allergy Anxiety Verified 04/03/18 08:58 promethazine [From Phenergan] Allergy Anxiety Verified 04/03/18 08:58 zolpidem [From Ambien] Allergy Hallucinati Verified 04/03/18 08:58 ng Review of Systems Constitutional Denies fever(s) Cardiovascular Denies dyspnea Respiratory Denies dyspnea Gastrointestinal Gastrointestinal: Reports abdominal pain, Reports nausea and Reports vomiting Integumentary/Breasts Denies rash Hematologic/Lymphatic Comments: Not on anticoagulation PFSH Social History marital status: Smoking Status: Never smoker Exam Initial Vital Signs Initial Vital Signs: Vital Signs Temperature 98.4 F 04/03/18 08:50 Pulse Rate 116 H 04/03/18 08:50 Respiratory Rate 18 04/03/18 08:50 Blood Pressure 126/99 H 04/03/18 08:50 Pulse Oximetry 100 04/03/18 08:50 Const General: well developed and well groomed Orientation: alert, awake and oriented x3 Resp Effort & Inspection: normal respiratory effort Auscultation: clear to auscultation bilaterally Cardio Rate: regular rate Rhythm: regular rhythm GI Inspection: non-distended Palpation: tender (Upper abdomen) Skin Lesions: no lesions Rashes: no rashes Neuro General: alert, awake and oriented x3 Extrem General: normal to inspection and capillary refill normal Psych Appearance: grossly normal and well kempt Course Orders Ordered: ED Orders 04/03/18 09:15 Complete Blood Count AUTO DIFF Stat Comprehensive Metabolic Panel Stat Lipase Stat Test Serum,Qual Stat Discontinued Medications Diphenhydramine HCl (Benadryl) 25 mg IV NOW ONE Stop: 04/03/18 09:04 Last Admin: 04/03/18 09:43 Dose: 25 mg Sodium Chloride (Normal Saline 0.9%) 1,000 mls @ 1,000 mls/hr IV BOLUS ONE Stop: 04/03/18 09:55 Last Admin: 04/03/18 09:43 Dose: 1,000 mls/hr Metoclopramide HCl (Reglan) 10 mg IV NOW ONE Stop: 04/03/18 09:04 Last Admin: 04/03/18 09:43 Dose: 10 mg Vital Signs - 8 hr 04/03/18 08:50 04/03/18 09:57 Temperature 98.4 F Pulse Rate 116 H 120 H Respiratory Rate 18 24 Blood Pressure 126/99 H Blood Pressure [Left Arm] 136/100 H Pulse Oximetry 100 96 MDM - Abdominal Pain Lab Data Attestation: I reviewed the patient's lab results. Result diagrams: 04/03/18 09:15 04/03/18 09:15 Lab Results 04/03/18 04/03/18 04/03/18 Range/Units 09:15 09:15 09:15 WBC 9.2 (4.5-11.0) X10^3/uL RBC 4.56 (4.0-5.2) X10^6/uL Hgb 14.8 (12.0-16.0) g/dL Hct 42.6 (36-46) % MCV 93.5 (80-100) fL MCH 32.4 (26-34) PG MCHC 34.7 (30-36) % RDW 13.4 (11.6-14.8) % Plt Count 361 (150-400) X10^3/uL Neut % (Auto) 57.0 (50-75) % Lymph % (Auto) 34.8 (25-40) % [place] % (Auto) 5.8 (3-14) % Eos % (Auto) 1.5 L (2-4) % Baso % (Auto) 0.9 (0-2) % Neut # (Auto) 5200 (7079-6142) /uL Sodium 145 (137-145) mmol/L Potassium 4.1 (3.4-5.1) mmol/L Chloride 101 (98-107) mmol/L Carbon Dioxide 24 (22-32) mmol/L BUN 11 (7-17) mg/dL Creatinine 0.80 (0.52-1.04) mg/dL Estimated GFR > 60.0 (>60) mL/min BUN/Creatinine Ratio 13.8 (6-22) Glucose 87 (70-100) mg/dL Calcium 9.5 (8.4-10.2) mg/dL Total Bilirubin 0.3 (0.2-1.3) mg/dL AST 37 H (14-36) IU/L ALT 25 (9-52) IU/L Alkaline Phosphatase 84 (38-126) U/L Total Protein 8.3 H (6.3-8.2) g/dL Albumin 4.9 (3.5-5.0) g/dL Globulin 3.4 (1.7-4.1) g/dL Albumin/Globulin Ratio 1.4 (1.0-2.8) Lipase 29 (23-300) U/L Serum , Qual Negative (Negative) MDM Narrative Medical decision making narrative: Patient's labs today were again unremarkable. She again has the epigastric abdominal pain. Since I evaluated her in the emergency department on March 29 and discharged her after midnight on March 30 she has since been to [facility] on March 30 [facility] March 31 and was evaluated at [facility] in [place] this morning prior to coming here to this emergency department. Upon my initial conversation with her I informed her that I would treat her nausea however she would not be receiving any opioid pain medications. I informed her that I would treat her with non opioid options. She stated that she did feel better after the Reglan and Benadryl and was asking to go home. The patient has had 59 visits in the past year. I did inform her of this. I informed her that she needed to contact her primary care doctor today and also her electrostatic painter today to get a grasp on how to treat her pain issues. Her is at bedside for these discussions. They expressed understanding. Discharge Plan Departure Patient Disposition: Home Clinical Impression: Abdominal pain, Nausea & vomiting Instructions: DI for Abdominal Pain-Adult Activity Restrictions/Additional Instructions: You have had 59 emergency department visits in the past year. You do need to contact your primary care doctor and also your electrostatic painter. These individuals need to be the ones treating your chronic pain and you need to come up with a plan with your electrostatic painter to treat increase in your pain. This emergency department does not treat chronic pain. You can return to the emergency department for any new symptoms.
[2018-04-03 09:21] LABS: Add Manual Diff / Slide Review NO; Basophils Percent Auto 0.9 % (0-2); Eosinophils Percent Auto 1.5 % (2-4); Hematocrit 42.6 % (36-46); Hemoglobin 14.8 g/dL (12.0-16.0); Lymphocytes Percent Auto 34.8 % (25-40); Mean Corpuscular HGB Conc 34.7 % (30-36); Mean Corpuscular Hemoglobin 32.4 PG (26-34); Mean Corpuscular Volume 93.5 fL (80-100); Monocytes Percent Auto 5.8 % (3-14); Neutrophils Absolute Auto 5200 /uL (3000-5900); Platelet Count 361 X10^3/uL (150-400); Red Blood Cell Count 4.56 X10^6/uL (4.0-5.2); Red Cell Distribution Width 13.4 % (11.6-14.8); White Blood Cell Count 9.2 X10^3/uL (4.5-11.0)
[2018-04-03 09:33] LABS: Alanine Aminotransferase 25 IU/L (9-52); Albumin 4.9 g/dL (3.5-5.0); Albumin Globulin Ratio 1.4 (1.0-2.8); Alkaline Phosphatase 84 U/L (38-126); Aspartate Aminotransferase 37 IU/L (14-36); BUN Creatinine Ratio 13.8 (6-22); Bilirubin Total 0.3 mg/dL (0.2-1.3); Blood Urea Nitrogen 11 mg/dL (7-17); Calcium 9.5 mg/dL (8.4-10.2); Carbon Dioxide 24 mmol/L (22-32); Chloride 101 mmol/L (98-107); Estimated Glomerular Filt Rate > 60.0 mL/min (>60); Globulin 3.4 g/dL (1.7-4.1); Glucose 87 mg/dL (70-100); HEMOLYSIS 19 (0-50); Lipase 29 U/L (23-300); Potassium 4.1 mmol/L (3.4-5.1); Sodium 145 mmol/L (137-145); Total Protein 8.3 g/dL (6.3-8.2)
[2018-04-03 09:38] LABS: Pregnancy Test Serum,Qual Negative (Negative)
[2018-04-03] MEDS: SODIUM CHLORIDE 0.9% 1,000 ML 1000 ML IV (09:43)
[2018-04-03] MEDS: METOCLOPRAMIDE 10 MG/2 ML INJ IV (09:43)
[2018-04-03] MEDS: diphenhydrAMINE 50 MG/ML VIAL 25 MG IV (09:43)
--- NOTE | 2018-04-03 09:55 | PC.NURSE ---
as soon as medications given, then pt requested to go home. dr velazquez made aware/
[2018-04-03 09:57] VITALS: BP 136/100; PULSE 120; RESP 24; O2SAT 96
--- NOTE | 2018-04-03 09:58 | PC.NURSE ---
crying, states, she is not getting treatment anywhere she go, she was evaluated at [facility], no treatment given.
--- NOTE | 2018-04-03 10:20 | PC.NURSE ---
by franco doe rn
--- NOTE | 2018-04-03 10:21 | PC.NURSE ---
on arrival, crying and doubled over and restless, skin warm dry pink.
== END 2018-04-03 10:25 | disposition home or self-care (01) ==
PROVIDERS: Emergency Provider Emergency Medicine
DX: R10.9 Unspecified abdominal pain (principal); R11.2 Nausea with vomiting, unspecified
CPT/HCPCS: 36415; 36591; 80053; 83690; 84703; 85025; 96361; 96374; 96375; 99283; 99284; J1200; J2765

== ENCOUNTER 2019-04-14 21:35 | Emergency (ER) | payer OTHER, SELFPAY ==
[2019-04-14 21:42] VITALS: BP 141/67; PULSE 120; RESP 20; TEMP 36.8; O2SAT 100; BMI 27.4
--- NOTE | 2019-04-14 22:35 | ED_ITS ---
HPI - General Adult General Chief complaint: Abdominal Pain Stated complaint: NAUSEA LOWER ABD PAIN Time Seen by Provider: 04/14/19 22:19 Source: patient Mode of arrival: Ambulatory Limitations: no limitations History of Present Illness HPI narrative: 29-year-old female here for evaluation of lower abdominal pain and nausea and vomiting. Patient underwent a laparoscopic surgery today for evaluation of endometriosis. She stated that she was told that she did have several areas cauterized. With discharged home today. Since then she has had increasing pain and vomiting. States she could not take her pain medication at home. States that the Zofran and Phenergan she had on was not improving his Related Data Allergies Allergy/AdvReac Type Severity Reaction Status Date / Time clindamycin Allergy Rash Verified 04/14/19 21:47 guaifenesin [From Mucinex] Allergy Rash Verified 04/14/19 21:47 haloperidol [From Haldol] Allergy Irritable Verified 04/14/19 21:47 ketorolac [From Toradol] Allergy Anxiety Verified 04/14/19 21:47 metoclopramide [From Reglan] Allergy Anxiety Verified 04/14/19 21:47 promethazine [From Phenergan] Allergy Anxiety Verified 04/14/19 21:47 zolpidem [From Ambien] Allergy Hallucinati Verified 04/14/19 21:47 ng Review of Systems Constitutional Constitutional: Denies fever(s) Cardiovascular Cardiovascular: Denies chest pain and Denies dyspnea Respiratory Respiratory: Denies dyspnea Gastrointestinal Gastrointestinal: Reports abdominal pain, Reports nausea and Reports vomiting Genitourinary Genitourinary: Denies dysuria Musculoskeletal Musculoskeletal: Denies arthralgias Integumentary/Breasts Skin/Breast: Denies rash Neurologic Neurologic: Denies behavioral changes Psychiatric Psychiatric: Denies behavioral changes Patient History Social History (Updated 03/30/18 @ 04:03 by Ramone De León DO) marital status: Smoking Status: Never smoker Smoking Status: Never smoker alcohol intake frequency: a few times a month Substance Use Type: does not use Exam Initial Vital Signs Initial Vital Signs: Vital Signs Temperature 98.2 F 04/14/19 21:42 Pulse Rate 120 H 04/14/19 21:42 Respiratory Rate 20 04/14/19 21:42 Blood Pressure 141/67 H 04/14/19 21:42 Pulse Oximetry 100 04/14/19 21:42 Const General: cooperative, healthy appearing and well developed [facility] Head: normal to inspection and normocephalic Resp Effort & Inspection: normal respiratory effort Auscultation: clear to auscultation bilaterally GI Palpation: soft and tender (Diffuse) Skin Other: Surgical incisions consistent with her stated surgery today Neuro General: alert and awake Cognition: normal cognition Speech: speech normal Extrem General: normal to inspection and capillary refill normal Psych Appearance: grossly normal and well kempt Course Orders Ordered: Discontinued Medications Diphenhydramine HCl (Benadryl) 25 mg IV NOW ONE Stop: 04/14/19 23:58 Last Admin: 04/15/19 00:00 Dose: 25 mg Documented by: KELLEY Hydromorphone HCl (Dilaudid) 1 mg IV NOW ONE Stop: 04/14/19 22:37 Last Admin: 04/14/19 22:43 Dose: 1 mg Documented by: KELLEY Hydromorphone HCl (Dilaudid) 1 mg IV NOW ONE Stop: 04/14/19 23:44 Last Admin: 04/14/19 23:55 Dose: 1 mg Documented by: KELLEY Sodium Chloride (Normal Saline 0.9%) 1,000 mls @ 1,000 mls/hr IV BOLUS ONE Stop: 04/14/19 23:35 Last Infusion: 04/14/19 23:51 Dose: 0 mls/hr Documented by: Admin: 04/14/19 22:43 Dose: 1,000 mls/hr Documented by: KELLEY Ondansetron HCl (Zofran) 4 mg IV NOW ONE Stop: 04/14/19 22:37 Last Admin: 04/14/19 22:43 Dose: 4 mg Documented by: KELLEY Prochlorperazine (Compazine) 10 mg IV NOW ONE Stop: 04/14/19 23:50 Last Admin: 04/14/19 23:54 Dose: 10 mg Documented by: KELLEY Vital Signs Vital signs: Vital Signs - 8 hr 04/14/19 21:42 04/14/19 22:40 04/15/19 00:52 Temperature 98.2 F Pulse Rate 120 H 100 H 97 H Respiratory Rate 20 24 Blood Pressure 141/67 H Blood Pressure [Right Arm] 138/87 138/87 Pulse Oximetry 100 98 98 Medical Decision Making Lab Data Lab results reviewed: Yes I reviewed the patient's lab results. Labs: Point of Care Testing Test Results Negative Urine Dip Bedside Urine Glucose Negative Bedside Urine Bilirubin - Negative Bedside Urine Ketone - Negative Urine Specific [place] 1.010 Bedside Urine Occult Blood - Negative Bedside Urine pH 7.0 Bedside Urine Protein +/- 15 Bedside Urine Urobilinogen - Negative Bedside Urine Nitrite - Negative Bedside Urine Leukocytes - Negative Esterase Point of care testing: Point of Care Testing Test Results Negative Urine Dip Bedside Urine Glucose Negative Bedside Urine Bilirubin - Negative Bedside Urine Ketone - Negative Urine Specific [place] 1.010 Bedside Urine Occult Blood - Negative Bedside Urine pH 7.0 Bedside Urine Protein +/- 15 Bedside Urine Urobilinogen - Negative Bedside Urine Nitrite - Negative Bedside Urine Leukocytes - Negative Esterase MDM Narrative Medical decision making narrative: I do suspect all of her pain is expected postoperatively. She felt much better after medications here in the emergency department. She was given return precautions follow up instructions. She expressed understanding and agreement Discharge Plan Departure Patient Disposition: Home Clinical Impression: Post-operative pain Discharge Date/Time: 04/15/19 01:23 Instructions: DI for Nausea -- Adult Activity Restrictions/Additional Instructions: Continue all of your postoperative instructions given to you by the surgeon. Keep all of your scheduled medical appointments. Return to the emergency department for any new or worsening symptoms
[2019-04-14 22:40] VITALS: BP 138/87; PULSE 100; RESP 24; O2SAT 98
[2019-04-14] MEDS: HYDROMORPHONE 1 MG INJ IV ×2 (22:43→23:55)
[2019-04-14] MEDS: ONDANSETRON 4 MG/2 ML INJ IV (22:43)
[2019-04-14] MEDS: SODIUM CHLORIDE 0.9% 1,000 ML 1000 ML IV (22:43)
[2019-04-14] MEDS: PROCHLORPERAZINE 10 MG/2 ML VIAL IV (23:54)
[2019-04-15] MEDS: diphenhydrAMINE 50 MG/ML VIAL 25 MG IV
[2019-04-15 00:52] VITALS: BP 138/87; PULSE 97; O2SAT 98
== END 2019-04-15 01:23 | disposition home or self-care (01) ==
PROVIDERS: Emergency Provider Emergency Medicine
DX: G89.18 Other acute postprocedural pain (principal); N80.9 Endometriosis, unspecified; R11.2 Nausea with vomiting, unspecified
CPT/HCPCS: 36415; 81003; 81025; 96361; 96374; 96375; 96376; 99284; J0780; J1170; J1200; J2405

== ENCOUNTER 2019-04-16 15:52 | Emergency (ER) | payer OTHER, SELFPAY ==
[2019-04-16 16:35] VITALS: PULSE 127; RESP 22; TEMP 36.3; O2SAT 100; BMI 27.0
--- NOTE | 2019-04-16 16:41 | DI.RAD.S_ITS ---
PROCEDURE: XR CHEST 1V INDICATIONS: suspected sepsis TECHNIQUE: One view of the chest was acquired. COMPARISON: None. FINDINGS: Surgical changes and devices: None. Lungs and pleura: Lungs are clear. No pleural effusions or pneumothorax. Mediastinum: Mediastinal contours appear normal. Heart size is normal. Bones and chest wall: No suspicious bony lesions. Overlying soft tissues appear unremarkable. IMPRESSION: No acute cardiopulmonary pathology. Dictated by: Dylon Thornton M.D. on 04/16/2019 at 17:37 Approved by: Dylon Thornton M.D. on 04/16/2019 at 17:42
[2019-04-16 17:17] LABS: Add Manual Diff / Slide Review NO; Basophils Absolute Auto 0 /uL (0-100); Basophils Percent Auto 0.6 % (0-2); Eosinophils Absolute Auto 500 /uL (0-450); Eosinophils Percent Auto 5.6 % (2-4); Hematocrit 36.8 % (36-46); Hemoglobin 12.7 g/dL (12.0-16.0); Lymphocytes Absolute Auto 2100 /uL (1100-4500); Lymphocytes Percent Auto 25.2 % (25-40); Mean Corpuscular HGB Conc 34.6 % (30-36); Mean Corpuscular Hemoglobin 32.9 PG (26-34); Mean Corpuscular Volume 95.2 fL (80-100); Monocytes Absolute Auto 900 /uL (0-900); Monocytes Percent Auto 10.4 % (3-14); Neutrophils Absolute Auto 4800 /uL (1500-7000); Neutrophils Percent Auto 58.2 % (50-75); Platelet Count 208 X10^3/uL (150-400); Red Blood Cell Count 3.87 X10^6/uL (4.0-5.2); Red Cell Distribution Width 12.7 % (11.6-14.8); White Blood Cell Count 8.2 X10^3/uL (4.5-11.0)
[2019-04-16 17:18] LABS: INR 0.9 (0.9-1.3); Prothrombin Time 10.4 SECONDS (10.1-12.7)
[2019-04-16 17:21] LABS: PTT Partial Thromboplastin Tim 28 SECONDS (26.4-36.2)
[2019-04-16 17:23] LABS: Lactate (Lactic Acid) 1.9 mmol/L (0.7-2.1)
[2019-04-16 17:25] LABS: Alanine Aminotransferase 14 IU/L (<35); Albumin 4.3 g/dL (3.5-5.0); Albumin Globulin Ratio 1.4 (1.0-2.8); Alkaline Phosphatase 81 U/L (38-126); Aspartate Aminotransferase 34 IU/L (14-36); BUN Creatinine Ratio 8.8 (6-22); Bilirubin Total 0.8 mg/dL (0.2-1.3); Blood Urea Nitrogen 7 mg/dL (7-17); Calcium 9.2 mg/dL (8.4-10.2); Carbon Dioxide 29 mmol/L (22-32); Chloride 100 mmol/L (98-107); Estimated Glomerular Filt Rate > 60.0 mL/min (>60); Glucose 101 mg/dL (70-100); HEMOLYSIS 18 (0-50); Lipase 25 U/L (23-300); Potassium 3.5 mmol/L (3.4-5.1); Sodium 137 mmol/L (137-145); Total Protein 7.3 g/dL (6.3-8.2)
[2019-04-16 17:40] LABS: Procalcitonin < 0.05 ng/mL (<0.5)
--- NOTE | 2019-04-16 18:12 | ED.NAVMDI ---
HPI - Nausea/Vomiting/Diarrhea General Chief complaint: Nausea/Vomiting/Diarrhea Stated complaint: nausea/vomiting/abd pain/surgery Time Seen by Provider: 04/16/19 18:11 Source: patient Mode of arrival: Ambulatory Limitations: no limitations History of Present Illness HPI Narrative: The patient has severe endometriosis. She underwent laparoscopic surgery 3 days ago at [facility] to treat the endometriosis. There apparently several sites or cauterized. She did return to this ER that same day, following the surgery with lower abdominal pain. Lab evaluation was done, she was treated for pain and nausea, it was discharged home with postoperative pain. She returns on her 3rd day postop complained of ongoing pain, no relief. She has no fever. She does have shakes and chills. She has nausea and vomiting. She has no ENT complaints, chest discomfort or respiratory complaints. She is not . She has no urinary complaints with above symptoms. She is not a suffering constipation or diarrhea with the GI symptoms. Related Data Allergies Allergy/AdvReac Type Severity Reaction Status Date / Time clindamycin Allergy Rash Verified 04/14/19 21:47 guaifenesin [From Mucinex] Allergy Rash Verified 04/14/19 21:47 haloperidol [From Haldol] Allergy Irritable Verified 04/14/19 21:47 ketorolac [From Toradol] Allergy Anxiety Verified 04/14/19 21:47 metoclopramide [From Reglan] Allergy Anxiety Verified 04/14/19 21:47 promethazine [From Phenergan] Allergy Anxiety Verified 04/14/19 21:47 zolpidem [From Ambien] Allergy Hallucinati Verified 04/14/19 21:47 ng Review of Systems Review of Systems ROS Unobtainable: All systems reviewed & are unremarkable except as noted in HPI and below Constitutional Constitutional: Denies chills, Denies fever(s), Denies lethargy and Denies weakness Eyes Comments: No eye complaints ENT Ears, Nose, Mouth, and Throat: Denies mouth pain, Denies neck pain, Denies sinus pressure and Denies sore throat Cardiovascular Cardiovascular: Denies chest pain, Denies irregular heart rhythm, Denies lightheadedness, Denies palpitations, Denies dyspnea and Denies orthopnea Respiratory Respiratory: Denies cough, Denies dyspnea and Denies wheezing Gastrointestinal Gastrointestinal: Reports as per HPI, Denies change in bowel habits, Denies diarrhea, Reports nausea and Reports vomiting Comments: Lower abdominal pain as described in HPI. Genitourinary Genitourinary: Denies dysuria Musculoskeletal Musculoskeletal: Denies back pain, Denies neck pain and Denies numbness Integumentary/Breasts Skin/Breast: Denies pruritus, Denies erythema, Denies rash and Denies wounds Neurologic Neurologic: Denies numbness and Denies weakness Endocrine Endocrine: Denies palpitations Allergic/Immunologic Allergic/Immunologic: Denies wheezing Patient History Medical History Endometriosis (Acute) Gastroparesis (Acute) Pancreatitis (Acute) Surgical History H/O laparoscopy (Acute) Hx of cholecystectomy (Acute) Social History marital status: Smoking Status: Never smoker Smoking Status: Never smoker alcohol intake frequency: a few times a month Substance Use Type: does not use Exam Initial Vital Signs Initial Vital Signs: Vital Signs Temperature 97.3 F L 04/16/19 16:35 Pulse Rate 127 H 04/16/19 16:35 Respiratory Rate 22 04/16/19 16:35 Pulse Oximetry 100 04/16/19 16:35 Const General: cooperative and well developed Nutritional Appearance: well nourished Orientation: alert, awake, oriented x3 and not confused Eyes Conjunctivae: conjunctivae normal Resp Effort & Inspection: normal respiratory effort, able to speak in complete sentences, no respiratory distress and no use of accessory muscles Auscultation: clear to auscultation bilaterally, no rales, no rhonchi and no wheezes Cardio Rate: regular rate Rhythm: regular rhythm Heart Sounds: no click, no gallops, no murmurs and no rubs Pulses: normal peripheral pulses GI Inspection: non-distended Palpation: soft Auscultation: normal bowel sounds Other: Lower abdominal diffuse tenderness. No distention. Guarding without rebound. Recent laparoscopy sites, no drainage or evidence of infection. Skin General: no rashes or lesions noted, No jaundice and No petechiae Course Course Course Narrative: The patient was given Dilaudid for pain. She vomited after Zofran. Zofran has not been controlling her nausea at home. Compazine worked well the last time she was here, the Compazine has been repeated. She also has Phenergan suppositories at home, she has not been using his medications. The CT results were discussed with her. CT results and lab results are not consistent with infection or active bleeding. The pelvic fluid is most likely associated with the procedure she had 3 days ago. This should resolve in the next few days, I've advised to return for increasing pain, or fever. Orders Ordered: ED Orders 04/16/19 16:41 XR chest 1V Stat 04/16/19 17:00 Complete Blood Count AUTO DIFF Stat Comprehensive Metabolic Panel Stat Lactate (Lactic Acid) Stat Lipase Stat Partial Thromboplastin Time Stat Procalcitonin Stat Prothrombin Time INR Stat 04/16/19 17:39 Blood Culture Stat 04/16/19 18:31 CT abdomen pelvis w con Stat Discontinued Medications Diphenhydramine HCl (Benadryl) 25 mg IV NOW ONE Stop: 04/16/19 21:56 Last Admin: 04/16/19 22:15 Dose: 25 mg Documented by: IAN Hydromorphone HCl (Dilaudid) 1 mg IV NOW ONE Stop: 04/16/19 18:32 Last Admin: 04/16/19 19:04 Dose: 1 mg Documented by: MARS Hydromorphone HCl (Dilaudid) 0.5 mg IV NOW ONE Stop: 04/16/19 19:55 Last Admin: 04/16/19 20:11 Dose: 0.5 mg Documented by: IAN Hydromorphone HCl (Dilaudid) 1 mg IV NOW ONE Stop: 04/16/19 21:56 Last Admin: 04/16/19 22:16 Dose: 1 mg Documented by: IAN Sodium Chloride (Normal Saline 0.9%) 1,000 mls @ 1,000 mls/hr IV BOLUS ONE Stop: 04/16/19 17:40 Last Infusion: 04/16/19 20:11 Dose: 0 mls/hr Documented by: Admin: 04/16/19 19:04 Dose: 1,000 mls/hr Documented by: MARS Ondansetron HCl (Zofran) 4 mg IV NOW ONE Stop: 04/16/19 18:32 Last Admin: 04/16/19 19:04 Dose: 4 mg Documented by: MARS Ondansetron HCl (Zofran) 4 mg IV NOW ONE Stop: 04/16/19 19:55 Last Admin: 04/16/19 20:11 Dose: 4 mg Documented by: IAN Prochlorperazine (Compazine) 10 mg IV NOW ONE Stop: 04/16/19 21:56 Last Admin: 04/16/19 22:15 Dose: 10 mg Documented by: IAN Vital Signs Vital signs: Vital Signs - 8 hr 04/16/19 21:20 04/16/19 22:18 04/16/19 22:57 Temperature 97.7 F Pulse Rate 105 H 101 H 112 H Respiratory Rate 22 16 16 Blood Pressure 137/79 Blood Pressure [Left Arm] 149/92 H 137/94 H Pulse Oximetry 100 99 97 MDM - Nausea/Vomiting/Diarrhea Lab Data Result diagrams: 04/16/19 17:00 04/16/19 17:00 Labs: Lab Results 04/16/19 04/16/19 04/16/19 Range/Units 17:00 17:00 17:00 WBC 8.2 (4.5-11.0) X10^3/uL RBC 3.87 L (4.0-5.2) X10^6/uL Hgb 12.7 (12.0-16.0) g/dL Hct 36.8 (36-46) % MCV 95.2 (80-100) fL MCH 32.9 (26-34) PG MCHC 34.6 (30-36) % RDW 12.7 (11.6-14.8) % Plt Count 208 (150-400) X10^3/uL Neut % (Auto) 58.2 (50-75) % Lymph % (Auto) 25.2 (25-40) % Kaufman % (Auto) 10.4 (3-14) % Eos % (Auto) 5.6 H (2-4) % Baso % (Auto) 0.6 (0-2) % Neut # (Auto) 4800 (4673-5800) /uL Lymph # (Auto) 2100 (3673-0843) /uL Kaufman # (Auto) 900 (0-900) /uL Eos # (Auto) 500 H (0-450) /uL Baso # (Auto) 0 (0-100) /uL PT 10.4 (10.1-12.7) SECONDS INR 0.9 (0.9-1.3) APTT 28 D (26.4-36.2) SECONDS Sodium (137-145) mmol/L Potassium (3.4-5.1) mmol/L Chloride (98-107) mmol/L Carbon Dioxide (22-32) mmol/L BUN (7-17) mg/dL Creatinine (0.52-1.04) mg/dL Estimated GFR (>60) mL/min BUN/Creatinine Ratio (6-22) Glucose (70-100) mg/dL Lactate (0.7-2.1) mmol/L Calcium (8.4-10.2) mg/dL Total Bilirubin (0.2-1.3) mg/dL AST (14-36) IU/L ALT (<35) IU/L Alkaline Phosphatase (38-126) U/L Total Protein (6.3-8.2) g/dL Albumin (3.5-5.0) g/dL Globulin (1.7-4.1) g/dL Albumin/Globulin Ratio (1.0-2.8) Lipase (23-300) U/L Procalcitonin < 0.05 (<0.5) ng/mL 04/16/19 04/16/19 Range/Units 17:00 17:00 WBC (4.5-11.0) X10^3/uL RBC (4.0-5.2) X10^6/uL Hgb (12.0-16.0) g/dL Hct (36-46) % MCV (80-100) fL MCH (26-34) PG MCHC (30-36) % RDW (11.6-14.8) % Plt Count (150-400) X10^3/uL Neut % (Auto) (50-75) % Lymph % (Auto) (25-40) % Kaufman % (Auto) (3-14) % Eos % (Auto) (2-4) % Baso % (Auto) (0-2) % Neut # (Auto) (3208-2251) /uL Lymph # (Auto) (5810-7727) /uL Kaufman # (Auto) (0-900) /uL Eos # (Auto) (0-450) /uL Baso # (Auto) (0-100) /uL PT (10.1-12.7) SECONDS INR (0.9-1.3) APTT (26.4-36.2) SECONDS Sodium 137 (137-145) mmol/L Potassium 3.5 (3.4-5.1) mmol/L Chloride 100 (98-107) mmol/L Carbon Dioxide 29 (22-32) mmol/L BUN 7 (7-17) mg/dL Creatinine 0.80 (0.52-1.04) mg/dL Estimated GFR > 60.0 (>60) mL/min BUN/Creatinine Ratio 8.8 (6-22) Glucose 101 H (70-100) mg/dL Lactate 1.9 (0.7-2.1) mmol/L Calcium 9.2 (8.4-10.2) mg/dL Total Bilirubin 0.8 (0.2-1.3) mg/dL AST 34 (14-36) IU/L ALT 14 (<35) IU/L Alkaline Phosphatase 81 (38-126) U/L Total Protein 7.3 (6.3-8.2) g/dL Albumin 4.3 (3.5-5.0) g/dL Globulin 3.0 (1.7-4.1) g/dL Albumin/Globulin Ratio 1.4 (1.0-2.8) Lipase 25 (23-300) U/L Procalcitonin (<0.5) ng/mL Point of Care Testing Test Results Negative Urine Dip Bedside Urine Glucose Negative Bedside Urine Bilirubin - Negative Bedside Urine Ketone - Negative Urine Specific Baxley 1.010 Bedside Urine Occult Blood - Negative Bedside Urine pH 7.5 Bedside Urine Protein - Negative Bedside Urine Urobilinogen - Negative Bedside Urine Nitrite - Negative Bedside Urine Leukocytes - Negative Esterase Imaging Data Chest x-ray: Radiologist's impression: No acute cardiopulmonary disease per CT scan - abdomen: Radiologist's impression: 25 Kashif Angel MD [facility] - [place] 29 F 1990 ACTIVITY DATE EXAM STATUS AUTHOR 04/16/19 18:31 Signed Dylon Thornton 04/16/19 16:41 Signed Dylon Thornton [address] [address] [address] Scan Report Signed Patient: Gogo Rosenberg KMR#: [id number] : 1990Acct:[id number] Age/Sex: 29 / FDate of Service: 04/16/19 Loc: ED Accession Number: [id number] Procedure: CT abdomen pelvis w con Ordering Provider: Kashif Angel MD PROCEDURE: CT ABDOMEN PELVIS W CON INDICATIONS: Lower abdominal pain, status post ex lap for endometriosis TECHNIQUE: After the administration of intravenous contrast, 5 mm thick sections acquired from the diaphragm to the symphysis. 5 mm coronal and sagittal reformats were acquired. For radiation dose reduction, the following was used: automated exposure control, adjustment of mA and/or kV according to patient size. COMPARISON: [facility], CT, CT ABDOMEN PELVIS W CON, 03/28/2018, 22:28. FINDINGS: Image quality: Excellent. ABDOMEN: Lung bases: Lung bases are clear. Heart size is normal. Solid organs: Liver is normal in size. Hepatic steatosis is seen. No discrete hepatic lesion. Gallbladder is surgically absent. Biliary system is non dilated. Pancreas enhances normally. Spleen is normal in size and enhancement. No adrenal nodules. Kidneys demonstrate normal size and enhancement, without hydronephrosis. Peritoneum and bowel: Bowel loops demonstrate normal wall thickness and caliber. No abdominal free fluid or free air. Mild fecal stasis in the colon is seen. Nodes and vessels: No retroperitoneal or mesenteric adenopathy by size criteria. Aorta and inferior vena cava are normal in size. Miscellaneous: No ventral hernias. PELVIS: Genitourinary: Bladder wall thickness is normal. Miscellaneous: No inguinal hernias or adenopathy. Moderate amount of free fluid is noted in lower pelvis within the cul-de-sac extending to right hilar region. 1.7 x 1.6 cm right ovarian cyst is seen. No free air is seen. Bones: No suspicious bony lesions. No vertebral body compression fractures. IMPRESSION: 1. Moderate amount of pelvic free fluid extending to right adnexa which may represent postsurgical changes given patient's history of recent ex-lap for endometriosis. No peritoneal free air. No evidence of abscess collection is noted at this time. 2. No bowel obstruction. No abnormal bowel wall thickening. No evidence of acute appendicitis or diverticulitis. Mild fecal stasis in the colon. Dictated by: Dylon Thornton M.D. on 04/16/2019 at 19:57 Approved by: Dylon Thornton M.D. on 04/16/2019 at 20:05 Discharge Plan Departure Patient Disposition: Home Clinical Impression: Post-operative pain Discharge Date/Time: 04/16/19 23:01 Instructions: DI for Vomiting -- Adult Activity Restrictions/Additional Instructions: Drink plenty of fluids, stay well hydrated. Oxycodone every 3-4 hours as needed for pain. Zofran every 4 hours as needed for nausea. Promethazine suppositories every 4 hours as needed for added nausea control. Return the ER for persistent vomiting, fever, or increased pain. Follow-up with your surgeon later this week if symptoms are not improving. Referrals: Prince Zee MD [Primary Care Provider] -
--- NOTE | 2019-04-16 18:31 | DI.CT.S_ITS ---
PROCEDURE: CT ABDOMEN PELVIS W CON INDICATIONS: Lower abdominal pain, status post ex lap for endometriosis TECHNIQUE: After the administration of intravenous contrast, 5 mm thick sections acquired from the diaphragm to the symphysis. 5 mm coronal and sagittal reformats were acquired. For radiation dose reduction, the following was used: automated exposure control, adjustment of mA and/or kV according to patient size. COMPARISON: [facility], CT, CT ABDOMEN PELVIS W CON, 03/28/2018, 22:28. FINDINGS: Image quality: Excellent. ABDOMEN: Lung bases: Lung bases are clear. Heart size is normal. Solid organs: Liver is normal in size. Hepatic steatosis is seen. No discrete hepatic lesion. Gallbladder is surgically absent. Biliary system is non dilated. Pancreas enhances normally. Spleen is normal in size and enhancement. No adrenal nodules. Kidneys demonstrate normal size and enhancement, without hydronephrosis. Peritoneum and bowel: Bowel loops demonstrate normal wall thickness and caliber. No abdominal free fluid or free air. Mild fecal stasis in the colon is seen. Nodes and vessels: No retroperitoneal or mesenteric adenopathy by size criteria. Aorta and inferior vena cava are normal in size. Miscellaneous: No ventral hernias. PELVIS: Genitourinary: Bladder wall thickness is normal. Miscellaneous: No inguinal hernias or adenopathy. Moderate amount of free fluid is noted in lower pelvis within the cul-de-sac extending to right hilar region. 1.7 x 1.6 cm right ovarian cyst is seen. No free air is seen. Bones: No suspicious bony lesions. No vertebral body compression fractures. IMPRESSION: 1. Moderate amount of pelvic free fluid extending to right adnexa which may represent postsurgical changes given patient's history of recent ex-lap for endometriosis. No peritoneal free air. No evidence of abscess collection is noted at this time. 2. No bowel obstruction. No abnormal bowel wall thickening. No evidence of acute appendicitis or diverticulitis. Mild fecal stasis in the colon. Dictated by: Dylon Thornton M.D. on 04/16/2019 at 19:57 Approved by: Dylon Thornton M.D. on 04/16/2019 at 20:05
[2019-04-16] MEDS: ONDANSETRON 4 MG/2 ML INJ IV ×2 (19:04→20:11)
[2019-04-16] MEDS: HYDROMORPHONE 1 MG INJ IV ×2 (19:04→22:16)
[2019-04-16] MEDS: SODIUM CHLORIDE 0.9% 1,000 ML 1000 ML IV (19:04)
[2019-04-16] MEDS: HYDROMORPHONE 0.5 MG INJ IV (20:11)
[2019-04-16 21:20] VITALS: BP 149/92; PULSE 105; RESP 22; O2SAT 100
[2019-04-16] MEDS: PROCHLORPERAZINE 10 MG/2 ML VIAL IV (22:15)
[2019-04-16] MEDS: diphenhydrAMINE 50 MG/ML VIAL 25 MG IV (22:15)
[2019-04-16 22:18] VITALS: BP 137/94; PULSE 101; RESP 16; TEMP 36.5; O2SAT 99
[2019-04-16 22:57] VITALS: BP 137/79; PULSE 112; RESP 16; O2SAT 97
== END 2019-04-16 23:01 | disposition home or self-care (01) ==
PROVIDERS: Emergency Medicine; Emergency Provider Emergency Medicine; PCP Family Medicine
DX: G89.18 Other acute postprocedural pain (principal); R10.30 Lower abdominal pain, unspecified; N80.9 Endometriosis, unspecified
CPT/HCPCS: 36415; 71045; 74177; 80053; 81003; 81025; 83605; 83690; 84145; 85025; 85610; 85730; 87040; 96361; 96374; 96375; 96376; 99284; J0780; J1170; J1200; J2405; Q9967

== ENCOUNTER 2019-05-01 17:37 | Emergency (ER) | payer OTHER, SELFPAY ==
[2019-05-01 17:39] VITALS: BP 138/91; PULSE 126; RESP 28; TEMP 36.8; O2SAT 100; BMI 27.0
[2019-05-01] MEDS: ONDANSETRON 4 MG/2 ML INJ IV (18:07)
[2019-05-01] MEDS: SODIUM CHLORIDE 0.9% 1,000 ML 1000 ML IV ×3 (18:07→19:34)
[2019-05-01 18:13] LABS: Alanine Aminotransferase 27 IU/L (<35); Albumin 5.1 g/dL (3.5-5.0); Albumin Globulin Ratio 1.4 (1.0-2.8); Alkaline Phosphatase 117 U/L (38-126); Aspartate Aminotransferase 101 IU/L (14-36); BUN Creatinine Ratio 12.5 (6-22); Bilirubin Total 0.5 mg/dL (0.2-1.3); Blood Urea Nitrogen 10 mg/dL (7-17); Calcium 9.5 mg/dL (8.4-10.2); Carbon Dioxide 25 mmol/L (22-32); Chloride 100 mmol/L (98-107); Estimated Glomerular Filt Rate > 60.0 mL/min (>60); Globulin 3.6 g/dL (1.7-4.1); Glucose 92 mg/dL (70-100); HEMOLYSIS 16 (0-50); Potassium 4.3 mmol/L (3.4-5.1); Sodium 141 mmol/L (137-145); Total Protein 8.7 g/dL (6.3-8.2)
[2019-05-01 18:14] LABS: Add Manual Diff / Slide Review NO; Basophils Absolute Auto 100 /uL (0-100); Basophils Percent Auto 0.8 % (0-2); Eosinophils Absolute Auto 200 /uL (0-450); Eosinophils Percent Auto 1.8 % (2-4); Hematocrit 42.3 % (36-46); Hemoglobin 14.7 g/dL (12.0-16.0); Lymphocytes Absolute Auto 2700 /uL (1100-4500); Lymphocytes Percent Auto 25.1 % (25-40); Mean Corpuscular HGB Conc 34.7 % (30-36); Mean Corpuscular Hemoglobin 33.4 PG (26-34); Mean Corpuscular Volume 96.5 fL (80-100); Monocytes Absolute Auto 800 /uL (0-900); Neutrophils Absolute Auto 7100 /uL (1500-7000); Neutrophils Percent Auto 65.3 % (50-75); Platelet Count 299 X10^3/uL (150-400); Red Blood Cell Count 4.39 X10^6/uL (4.0-5.2); Red Cell Distribution Width 13.5 % (11.6-14.8); White Blood Cell Count 10.9 X10^3/uL (4.5-11.0)
--- NOTE | 2019-05-01 18:52 | ED_ITS ---
HPI - Abdominal Pain General Chief Complaint: Abdominal Pain Stated Complaint: VOMITING Time Seen by Provider: 05/01/19 18:27 Source: patient Mode of arrival: Ambulatory Limitations: no limitations History of Present Illness HPI narrative: 29-year-old female nonsmoker presents with her in the chief complaint of severe lower abdominal pain. She has had some nausea and vomiting but denies any fever or chills. A few weeks ago she had laparoscopic surgery for endometriosis and has been seen once in the interim for similar symptoms. She was seen by her surgeon in the past few days whom questions whether not her new me to assess has returned. Her pain is worse with motion and improves with rest. She has access to Percocet as well as various antiemetics. MD complaint: abdominal pain Onset (ago): hour(s) Pain Consistency: constant Location: LLQ Severity: moderate Quality: cramping and stabbing Radiation: none Relieving factors: rest Exacerbating factors: movement Related Data Allergies Allergy/AdvReac Type Severity Reaction Status Date / Time clindamycin Allergy Rash Verified 05/01/19 17:39 guaifenesin [From Mucinex] Allergy Rash Verified 05/01/19 17:39 haloperidol [From Haldol] Allergy Irritable Verified 05/01/19 17:39 ketorolac [From Toradol] Allergy Anxiety Verified 05/01/19 17:39 metoclopramide [From Reglan] Allergy Anxiety Verified 05/01/19 17:39 promethazine [From Phenergan] Allergy Anxiety Verified 05/01/19 17:39 zolpidem [From Ambien] Allergy Hallucinati Verified 05/01/19 17:39 ng Review of Systems Constitutional Constitutional: Denies chills, Denies fatigue, Denies fever(s), Denies frequent falls, Denies lethargy and Denies weakness Eyes Eyes: Denies change in vision, Denies eye discharge, Denies irritation and Denies loss of vision ENT Ears, Nose, Mouth, and Throat: Denies change in voice, Denies dizziness, Denies neck pain, Denies sore throat and Denies throat swelling Cardiovascular Cardiovascular: Denies chest pain, Denies irregular heart rhythm, Denies lightheadedness, Denies palpitations, Denies dyspnea, Denies dyspnea on exertion and Denies orthopnea Respiratory Respiratory: Denies cough, Denies dyspnea, Denies dyspnea on exertion and Denies wheezing Gastrointestinal Gastrointestinal: Reports abdominal pain, Denies change in bowel habits, Denies diarrhea, Reports nausea and Reports vomiting Genitourinary Genitourinary: Denies hematuria, Denies flank pain, Denies urinary incontinence and Denies urinary urgency Musculoskeletal Musculoskeletal: Denies back pain, Denies muscle weakness, Denies neck pain, Denies numbness and Denies tingling Integumentary/Breasts Skin/Breast: Denies pruritus, Denies erythema, Denies rash and Denies wounds Neurologic Neurologic: Denies behavioral changes, Denies confusion, Denies dizziness, Denies frequent falls, Denies loss of vision, Denies numbness, Denies tingling and Denies weakness Psychiatric Psychiatric: Denies anxiety, Denies behavioral changes, Denies confusion, Denies depression, Denies homicidal ideation and Denies suicidal ideation Endocrine Endocrine: Denies fatigue, Denies flushing and Denies palpitations Hematologic/Lymphatic Hematologic/Lymphatic: Denies easy bruising Allergic/Immunologic Allergic/Immunologic: Denies urticaria, Denies throat swelling and Denies wheezing Patient History Medical History Endometriosis (Acute) Gastroparesis (Acute) Pancreatitis (Acute) Surgical History H/O laparoscopy (Acute) Hx of cholecystectomy (Acute) Social History marital status: Smoking Status: Never smoker Smoking Status: Never smoker alcohol intake frequency: a few times a month Substance Use Type: does not use Exam Narrative Exam Narrative: GENERAL: [29] year old patient appears stated age. Well- nourished, well-developed patient, in mild distress. In pain, rubbing her abdomen, tearful, holding an emesis bag HEAD: Atraumatic. Normocephalic. EYES: Pupils equal round and reactive. Extraocular motions intact. No scleral icterus. No injection or drainage. ENT: Nose without bleeding, purulent drainage. Throat without erythema, tonsillar hypertrophy or exudate. Airway patent. NECK: Trachea midline. Non tender CARDIOVASCULAR: Regular rate and rhythm without murmurs, gallops, or rubs. RESPIRATORY: Clear to auscultation. Breath sounds equal bilaterally. No wheezes, rales, or rhonchi. GASTROINTESTINAL: Abdomen soft, mild left lower quadrant tenderness, no rebound, nondistended. Incisions clean, dry and intact, no drainage, erythema or dehiscence EXTREMITIES: No edema or joint tenderness. BACK: Nontender without deformity or crepitance. No flank tenderness. NEURO: AOx3. SKIN: No rash or erythema of visible areas Initial Vital Signs Initial Vital Signs: Vital Signs Temperature 98.2 F 05/01/19 17:39 Pulse Rate 126 H 05/01/19 17:39 Respiratory Rate 28 H 05/01/19 17:39 Blood Pressure 138/91 H 05/01/19 17:39 Pulse Oximetry 100 05/01/19 17:39 Course Orders Ordered: Discontinued Medications Diphenhydramine HCl (Benadryl) 25 mg IV NOW ONE Stop: 05/01/19 19:03 Last Admin: 05/01/19 19:33 Dose: 25 mg Documented by: WILFRIDO Hydromorphone HCl (Dilaudid) 1 mg IV NOW ONE Stop: 05/01/19 19:03 Last Admin: 05/01/19 19:33 Dose: 1 mg Documented by: WILFRIDO Sodium Chloride (Normal Saline 0.9%) 1,000 mls @ 1,000 mls/hr IV BOLUS ONE Stop: 05/01/19 18:43 Last Infusion: 05/01/19 20:47 Dose: 0 mls/hr Documented by: Admin: 05/01/19 18:07 Dose: 1,000 mls/hr Documented by: JA Sodium Chloride (Normal Saline 0.9%) 1,000 mls @ 1,000 mls/hr IV BOLUS ONE Stop: 05/01/19 19:51 Last Infusion: 05/01/19 20:48 Dose: 0 mls/hr Documented by: Admin: 05/01/19 19:34 Dose: 1,000 mls/hr Documented by: LYRICEED Sodium Chloride (Normal Saline 0.9%) 1,000 mls @ 1,000 mls/hr IV BOLUS ONE Stop: 05/01/19 20:00 Last Infusion: 05/01/19 20:48 Dose: 0 mls/hr Documented by: Admin: 05/01/19 19:34 Dose: 1,000 mls/hr Documented by: WILFRIDO Ondansetron HCl (Zofran) 4 mg IV NOW ONE Stop: 05/01/19 17:45 Last Admin: 05/01/19 18:07 Dose: 4 mg Documented by: JA Prochlorperazine (Compazine) 10 mg IV NOW ONE Stop: 05/01/19 19:03 Last Admin: 05/01/19 19:33 Dose: 10 mg Documented by: WILFRIDO Vital Signs Vital signs: Vital Signs - 8 hr 05/01/19 17:39 Temperature 98.2 F Pulse Rate 126 H Respiratory Rate 28 H Blood Pressure 138/91 H Pulse Oximetry 100 MDM - Abdominal Pain Lab Data Attestation: I reviewed the patient's lab results. Result diagrams: 05/01/19 17:52 05/01/19 17:52 Labs: Lab Results 05/01/19 05/01/19 05/01/19 Range/Units 17:52 17:52 18:15 WBC 10.9 (4.5-11.0) X10^3/uL RBC 4.39 (4.0-5.2) X10^6/uL Hgb 14.7 (12.0-16.0) g/dL Hct 42.3 (36-46) % MCV 96.5 (80-100) fL MCH 33.4 (26-34) PG MCHC 34.7 (30-36) % RDW 13.5 (11.6-14.8) % Plt Count 299 (150-400) X10^3/uL Neut % (Auto) 65.3 (50-75) % Lymph % (Auto) 25.1 (25-40) % [place] % (Auto) 7.0 (3-14) % Eos % (Auto) 1.8 L (2-4) % Baso % (Auto) 0.8 (0-2) % Neut # (Auto) 7100 H (2000-9423) /uL Lymph # (Auto) 2700 (3903-1098) /uL [place] # (Auto) 800 (0-900) /uL Eos # (Auto) 200 (0-450) /uL Baso # (Auto) 100 (0-100) /uL Sodium 141 (137-145) mmol/L Potassium 4.3 (3.4-5.1) mmol/L Chloride 100 (98-107) mmol/L Carbon Dioxide 25 (22-32) mmol/L BUN 10 (7-17) mg/dL Creatinine 0.80 (0.52-1.04) mg/dL Estimated GFR > 60.0 (>60) mL/min BUN/Creatinine Ratio 12.5 (6-22) Glucose 92 (70-100) mg/dL Calcium 9.5 (8.4-10.2) mg/dL Total Bilirubin 0.5 (0.2-1.3) mg/dL AST 101 H (14-36) IU/L ALT 27 (<35) IU/L Alkaline Phosphatase 117 (38-126) U/L Total Protein 8.7 H (6.3-8.2) g/dL Albumin 5.1 H (3.5-5.0) g/dL Globulin 3.6 (1.7-4.1) g/dL Albumin/Globulin Ratio 1.4 (1.0-2.8) Urine Test Negative (Negative) Point of care testing: Urine Dip Bedside Urine Glucose Negative Bedside Urine Bilirubin - Negative Bedside Urine Ketone - Negative Urine Specific [place] 1.020 Bedside Urine Occult Blood - Negative Bedside Urine pH 6.0 Bedside Urine Protein +/- 15 Bedside Urine Urobilinogen +/- 1mg Bedside Urine Nitrite - Negative Bedside Urine Leukocytes - Negative Esterase Imaging Data CT scan - abdomen/pelvis: Radiologist's Impression: Chart Viewer Diagnostics DATE TYPE STATUS AUTHOR Hx 05/01/19 19:02 Jamir Wright 04/16/19 18:31 Dylon Thornton 04/16/19 16:41 Dylon Thornton 03/28/18 22:24 Rosanna Lowery Anna K 29, F0 1990 [facility]P ER, [facility] 168.91cm 77.111kg BMI: 27.0kg/m? Abdominal Pain Search Chart No Data to Display No Data to Display Rash Rash Irritable Anxiety Anxiety Anxiety Hallucinating ONSET 05/01/19 20:56 Gogo Rosenberg 29 F [address] [address] [address] Scan Report Signed Patient: Gogo Rosenberg KMR#: [id number] : 1990Acct:[id number] Age/Sex: 29 / FDate of Service: 05/01/19 Loc: ED Accession Number: [id number] Procedure: CT abdomen pelvis w con Ordering Provider: Michele Payton D.O. PROCEDURE: CT ABDOMEN PELVIS W CON INDICATIONS: severe LLQ pain, recent surgery, vomiting TECHNIQUE: After the administration of intravenous contrast, 5 mm thick sections acquired from the diaphragm to the symphysis. 5 mm coronal and sagittal reformats were acquired. For radiation dose reduction, the following was used: automated exposure control, adjustment of mA and/or kV according to patient size. COMPARISON: [facility], CT, CT ABDOMEN PELVIS W CON, 04/16/2019, 19:18. FINDINGS: Image quality: Excellent. ABDOMEN: Lung bases: Lung bases are clear. Heart size is normal. Solid organs: Liver is normal in size and enhancement. Gallbladder is surgic ally absent. Biliary system is non dilated. CBD is within normal limits postcholecystectomy. Pancreas enhances normally. Pancreas is atrophic for age. Spleen is normal in size and enhancement. No adrenal nodules. Kidneys demonstrate normal size and enhancement, without hydronephrosis. Peritoneum and bowel: Bowel loops demonstrate normal wall thickness and caliber. No free fluid or air. Nodes and vessels: No retroperitoneal or mesenteric adenopathy by size criteria. Aorta and inferior vena cava are normal in size. Miscellaneous: Small fat-containing periumbilical hernia. PELVIS: Genitourinary: Bladder is only partially distended. Small cyst in the right adnexal region and trace fluid, (08/25), decreased compared to . Right pelvic clip. Right adnexal surgical clip. Uterus is unremarkable. Tampon in the vagina. Miscellaneous: No inguinal hernias or adenopathy. Bones: No suspicious bony lesions. No vertebral body compression fractures. IMPRESSION: Right adnexal cyst is decreased in size. Decreased free fluid in the pelvis. No loculated fluid collection. No bowel obstruction. Dictated by: Jamir Wright M.D. on 05/01/2019 at 20:04 Approved by: Jamir Wright M.D. on 05/01/2019 at 20:10 Discharge Plan Departure Patient Disposition: Home Clinical Impression: Endometriosis, Post-operative pain Discharge Date/Time: 05/01/19 20:57 Instructions: Chronic Pelvic Pain-Female Activity Restrictions/Additional Instructions: *You have been diagnosed with [postoperative pain] *What to do: * continue to take medications as directed *Follow up with your surgeon within 2-3 days, call for an appointment. Let them know you were seen in the Emergency Department and that we ask that you be seen in follow up *Return to ER if you should have any new, worsening or concerning symptoms Referrals: Prince Zee MD [Primary Care Provider] -
--- NOTE | 2019-05-01 19:02 | DI.CT.S_ITS ---
PROCEDURE: CT ABDOMEN PELVIS W CON INDICATIONS: severe LLQ pain, recent surgery, vomiting TECHNIQUE: After the administration of intravenous contrast, 5 mm thick sections acquired from the diaphragm to the symphysis. 5 mm coronal and sagittal reformats were acquired. For radiation dose reduction, the following was used: automated exposure control, adjustment of mA and/or kV according to patient size. COMPARISON: [facility], CT, CT ABDOMEN PELVIS W CON, 04/16/2019, 19:18. FINDINGS: Image quality: Excellent. ABDOMEN: Lung bases: Lung bases are clear. Heart size is normal. Solid organs: Liver is normal in size and enhancement. Gallbladder is surgically absent. Biliary system is non dilated. CBD is within normal limits postcholecystectomy. Pancreas enhances normally. Pancreas is atrophic for age. Spleen is normal in size and enhancement. No adrenal nodules. Kidneys demonstrate normal size and enhancement, without hydronephrosis. Peritoneum and bowel: Bowel loops demonstrate normal wall thickness and caliber. No free fluid or air. Nodes and vessels: No retroperitoneal or mesenteric adenopathy by size criteria. Aorta and inferior vena cava are normal in size. Miscellaneous: Small fat-containing periumbilical hernia. PELVIS: Genitourinary: Bladder is only partially distended. Small cyst in the right adnexal region and trace fluid, (08/25), decreased compared to . Right pelvic clip. Right adnexal surgical clip. Uterus is unremarkable. Tampon in the vagina. Miscellaneous: No inguinal hernias or adenopathy. Bones: No suspicious bony lesions. No vertebral body compression fractures. IMPRESSION: Right adnexal cyst is decreased in size. Decreased free fluid in the pelvis. No loculated fluid collection. No bowel obstruction. Dictated by: Jamir Wright M.D. on 05/01/2019 at 20:04 Approved by: Jamir Wright M.D. on 05/01/2019 at 20:10
[2019-05-01 19:20] VITALS: BP 146/93; PULSE 115; RESP 21; O2SAT 100
[2019-05-01 19:21] LABS: Pregnancy Test Urine Negative (Negative)
[2019-05-01] MEDS: diphenhydrAMINE 50 MG/ML VIAL 25 MG IV (19:33)
[2019-05-01] MEDS: PROCHLORPERAZINE 10 MG/2 ML VIAL IV (19:33)
[2019-05-01] MEDS: HYDROMORPHONE 1 MG INJ IV (19:33)
[2019-05-01 20:00] VITALS: BP 123/72; PULSE 102; RESP 19; O2SAT 98
--- NOTE | 2019-05-01 20:42 | PC.NURSE ---
iv placed in triage by triage nurse
[2019-05-01 20:56] VITALS: BP 131/85; PULSE 98; RESP 14; O2SAT 98
== END 2019-05-01 20:57 | disposition home or self-care (01) ==
PROVIDERS: Emergency Medicine; Emergency Provider Emergency Medicine; PCP Family Medicine
DX: G89.18 Other acute postprocedural pain (principal); R10.30 Lower abdominal pain, unspecified; N80.9 Endometriosis, unspecified
CPT/HCPCS: 36415; 74177; 80053; 81003; 81025; 85025; 96361; 96374; 96375; 99284; J0780; J1170; J1200; J2405; Q9967

== ENCOUNTER 2019-05-30 22:04 | Emergency (ER) | payer OTHER, SELFPAY ==
[2019-05-30 22:07] VITALS: BP 150/102; PULSE 107; RESP 24; TEMP 36.9; O2SAT 100
[2019-05-30] MEDS: ONDANSETRON 4 MG/2 ML INJ IV (22:24)
[2019-05-30 22:29] LABS: Add Manual Diff / Slide Review NO; Basophils Absolute Auto 0 /uL (0-100); Basophils Percent Auto 0.5 % (0-2); Eosinophils Absolute Auto 100 /uL (0-450); Eosinophils Percent Auto 1.2 % (2-4); Hematocrit 38.8 % (36-46); Hemoglobin 13.3 g/dL (12.0-16.0); Lymphocytes Absolute Auto 2500 /uL (1100-4500); Lymphocytes Percent Auto 28.4 % (25-40); Mean Corpuscular HGB Conc 34.3 % (30-36); Mean Corpuscular Hemoglobin 33.3 PG (26-34); Mean Corpuscular Volume 97.1 fL (80-100); Monocytes Absolute Auto 900 /uL (0-900); Monocytes Percent Auto 10.3 % (3-14); Neutrophils Absolute Auto 5200 /uL (1500-7000); Neutrophils Percent Auto 59.6 % (50-75); Platelet Count 239 X10^3/uL (150-400); Red Cell Distribution Width 13.2 % (11.6-14.8); White Blood Cell Count 8.7 X10^3/uL (4.5-11.0)
[2019-05-30] MEDS: SODIUM CHLORIDE 0.9% 1,000 ML 1000 ML IV (22:33)
[2019-05-30 22:36] LABS: Prothrombin Time 11.7 SECONDS (10.1-12.7)
[2019-05-30 22:39] LABS: PTT Partial Thromboplastin Tim 31 SECONDS (26.4-36.2)
[2019-05-30 22:41] LABS: Alanine Aminotransferase 20 IU/L (<35); Albumin Globulin Ratio 1.3 (1.0-2.8); Alkaline Phosphatase 107 U/L (38-126); Aspartate Aminotransferase 59 IU/L (14-36); Bilirubin Total 0.9 mg/dL (0.2-1.3); Blood Urea Nitrogen 12 mg/dL (7-17); Carbon Dioxide 26 mmol/L (22-32); Chloride 95 mmol/L (98-107); Estimated Glomerular Filt Rate > 60.0 mL/min (>60); Globulin 3.9 g/dL (1.7-4.1); Glucose 104 mg/dL (70-100); HEMOLYSIS < 15 (0-50); Lipase 41 U/L (23-300); Potassium 3.3 mmol/L (3.4-5.1); Sodium 136 mmol/L (137-145); Total Protein 8.9 g/dL (6.3-8.2)
[2019-05-30 22:56] LABS: Bacteria Urine Moderate (10-30); RBC Urine 5-10/HPF (0-5/HPF); Squamous Epithelial Cell Urine 5-10 /HPF (0-5/HPF); WBC Urine 1-5/HPF (0-5/HPF)
[2019-05-30 22:57] LABS: Culture Indicated Urine Cult Not Indicated; Mucus Urine 1+ (Negative)
--- NOTE | 2019-05-30 22:58 | ED.GENADULT ---
HPI - General Adult General Chief complaint: Abdominal Pain Stated complaint: nausea, vomiting, abd pain Time Seen by Provider: 05/30/19 22:27 Source: patient Mode of arrival: Ambulatory Limitations: no limitations History of Present Illness HPI narrative: 29-year-old female with a history of endometriosis has had an ablation in the past here for evaluation of nausea and vomiting abdominal pain. She states that had started when she started her menstrual cycle 3 days ago. She is not currently on any control. States that it feels like her normal endometrial pain. She took her home medications that any improvement. Related Data Previous Rx's Medication Instructions Recorded metoclopramide HCl [Reglan] 10 mg PO Q6H PRN #10 tab 05/31/19 Allergies Allergy/AdvReac Type Severity Reaction Status Date / Time clindamycin Allergy Rash Verified 05/30/19 22:10 guaifenesin [From Mucinex] Allergy Rash Verified 05/30/19 22:10 haloperidol [From Haldol] Allergy Irritable Verified 05/30/19 22:10 ketorolac [From Toradol] Allergy Anxiety Verified 05/30/19 22:10 metoclopramide [From Reglan] Allergy Anxiety Verified 05/30/19 22:10 promethazine [From Phenergan] Allergy Anxiety Verified 05/30/19 22:10 zolpidem [From Ambien] Allergy Hallucinati Verified 05/30/19 22:10 ng Review of Systems Constitutional Constitutional: Denies fever(s) Cardiovascular Cardiovascular: Denies chest pain and Denies dyspnea Respiratory Respiratory: Denies dyspnea Gastrointestinal Gastrointestinal: Reports abdominal pain, Reports nausea and Reports vomiting Genitourinary Genitourinary: Denies dysuria Comments: Menstrual cycle Integumentary/Breasts Skin/Breast: Denies lesions and Denies rash Neurologic Neurologic: Denies behavioral changes Psychiatric Psychiatric: Denies behavioral changes Hematologic/Lymphatic Hematologic/Lymphatic: Denies easy bleeding Patient History Medical History Endometriosis (Acute) Gastroparesis (Acute) Pancreatitis (Acute) Social History marital status: Smoking Status: Never smoker Smoking Status: Never smoker alcohol intake frequency: a few times a month Substance Use Type: does not use Exam Initial Vital Signs Initial Vital Signs: Vital Signs Temperature 98.4 F 01/28/20 22:07 Pulse Rate 107 H 05/30/19 22:07 Respiratory Rate 24 05/30/19 22:07 Blood Pressure 150/102 H 05/30/19 22:07 Pulse Oximetry 100 05/30/19 22:07 Const General: cooperative, well developed and well groomed Limitations: mental status not altered HENMT Head: normal to inspection and normocephalic Resp Effort & Inspection: normal respiratory effort Cardio Rate: tachycardic GI Inspection: non-distended Palpation: tender Skin Lesions: no lesions Rashes: no rashes Neuro General: alert, awake and oriented x3 Cognition: normal cognition Speech: speech normal Extrem General: normal to inspection and capillary refill normal Psych Appearance: grossly normal and well kempt Course Orders Ordered: ED Orders 05/30/19 22:23 Complete Blood Count AUTO DIFF Stat Comprehensive Metabolic Panel Stat Lipase Stat Partial Thromboplastin Time Stat Prothrombin Time INR Stat 05/30/19 22:50 Urine Microscopic Stat Discontinued Medications Diphenhydramine HCl (Benadryl) 25 mg IV NOW ONE Stop: 05/30/19 22:59 Last Admin: 05/30/19 23:14 Dose: 25 mg Documented by: ABIGAIL Hydromorphone HCl (Dilaudid) 0.5 mg IV NOW ONE Stop: 05/30/19 22:59 Last Admin: 05/30/19 23:14 Dose: 0.5 mg Documented by: ABIGAIL Hydromorphone HCl (Dilaudid) 0.5 mg IV NOW ONE Stop: 05/31/19 00:12 Last Admin: 05/31/19 00:17 Dose: 0.5 mg Documented by: JESI Sodium Chloride (Normal Saline 0.9%) 1,000 mls @ 1,000 mls/hr IV BOLUS ONE Stop: 05/30/19 23:26 Last Infusion: 05/31/19 00:21 Dose: 0 mls/hr Documented by: Admin: 05/30/19 22:33 Dose: 1,000 mls/hr Documented by: SAULO Metoclopramide HCl (Reglan) 10 mg IV NOW ONE Stop: 05/30/19 22:59 Last Admin: 05/30/19 23:14 Dose: 10 mg Documented by: ABIGAIL Ondansetron HCl (Zofran) 4 mg IV NOW ONE Stop: 05/30/19 22:14 Last Admin: 05/30/19 22:24 Dose: 4 mg Documented by: SAULO Vital Signs Vital signs: Vital Signs - 8 hr 05/30/19 22:07 05/30/19 23:28 Temperature 98.4 F Pulse Rate 107 H 80 Respiratory Rate 24 18 Blood Pressure 150/102 H Blood Pressure [Left Arm] 150/99 H Pulse Oximetry 100 99 Medical Decision Making Lab Data Lab results reviewed: Yes I reviewed the patient's lab results. Result diagrams: 05/30/19 22:23 05/30/19 22:23 Labs: Lab Results 05/30/19 05/30/19 05/30/19 Range/Units 22:23 22:23 22:23 WBC 8.7 (4.5-11.0) X10^3/uL RBC 4.00 (4.0-5.2) X10^6/uL Hgb 13.3 (12.0-16.0) g/dL Hct 38.8 (36-46) % MCV 97.1 (80-100) fL MCH 33.3 (26-34) PG MCHC 34.3 (30-36) % RDW 13.2 (11.6-14.8) % Plt Count 239 (150-400) X10^3/uL Neut % (Auto) 59.6 (50-75) % Lymph % (Auto) 28.4 (25-40) % [place] % (Auto) 10.3 (3-14) % Eos % (Auto) 1.2 L (2-4) % Baso % (Auto) 0.5 (0-2) % Neut # (Auto) 5200 (8567-6294) /uL Lymph # (Auto) 2500 (8571-3371) /uL [place] # (Auto) 900 (0-900) /uL Eos # (Auto) 100 (0-450) /uL Baso # (Auto) 0 (0-100) /uL PT 11.7 (10.1-12.7) SECONDS INR 1.0 (0.9-1.3) APTT 31 D (26.4-36.2) SECONDS Sodium 136 L (137-145) mmol/L Potassium 3.3 L (3.4-5.1) mmol/L Chloride 95 L (98-107) mmol/L Carbon Dioxide 26 (22-32) mmol/L BUN 12 (7-17) mg/dL Creatinine 0.80 (0.52-1.04) mg/dL Estimated GFR > 60.0 (>60) mL/min BUN/Creatinine Ratio 15.0 (6-22) Glucose 104 H (70-100) mg/dL Calcium 10.0 (8.4-10.2) mg/dL Total Bilirubin 0.9 (0.2-1.3) mg/dL AST 59 H (14-36) IU/L ALT 20 (<35) IU/L Alkaline Phosphatase 107 (38-126) U/L Total Protein 8.9 H (6.3-8.2) g/dL Albumin 5.0 (3.5-5.0) g/dL Globulin 3.9 (1.7-4.1) g/dL Albumin/Globulin Ratio 1.3 (1.0-2.8) Lipase 41 (23-300) U/L Urine RBC (0-5/HPF) Urine WBC (0-5/HPF) Ur Squamous Epith Cells (0-5/HPF) Urine Bacteria (None) Urine Mucus (Negative) Urine Yeast (None) Ur Culture Indicated? 05/30/19 Range/Units 22:50 WBC (4.5-11.0) X10^3/uL RBC (4.0-5.2) X10^6/uL Hgb (12.0-16.0) g/dL Hct (36-46) % MCV (80-100) fL MCH (26-34) PG MCHC (30-36) % RDW (11.6-14.8) % Plt Count (150-400) X10^3/uL Neut % (Auto) (50-75) % Lymph % (Auto) (25-40) % [place] % (Auto) (3-14) % Eos % (Auto) (2-4) % Baso % (Auto) (0-2) % Neut # (Auto) (9147-6488) /uL Lymph # (Auto) (3822-5926) /uL [place] # (Auto) (0-900) /uL Eos # (Auto) (0-450) /uL Baso # (Auto) (0-100) /uL PT (10.1-12.7) SECONDS INR (0.9-1.3) APTT (26.4-36.2) SECONDS Sodium (137-145) mmol/L Potassium (3.4-5.1) mmol/L Chloride (98-107) mmol/L Carbon Dioxide (22-32) mmol/L BUN (7-17) mg/dL Creatinine (0.52-1.04) mg/dL Estimated GFR (>60) mL/min BUN/Creatinine Ratio (6-22) Glucose (70-100) mg/dL Calcium (8.4-10.2) mg/dL Total Bilirubin (0.2-1.3) mg/dL AST (14-36) IU/L ALT (<35) IU/L Alkaline Phosphatase (38-126) U/L Total Protein (6.3-8.2) g/dL Albumin (3.5-5.0) g/dL Globulin (1.7-4.1) g/dL Albumin/Globulin Ratio (1.0-2.8) Lipase (23-300) U/L Urine RBC 5-10/hpf H (0-5/HPF) Urine WBC 1-5/hpf (0-5/HPF) Ur Squamous Epith Cells 5-10 /hpf H (0-5/HPF) Urine Bacteria Moderate (10-30) H (None) Urine Mucus 1+ H (Negative) Urine Yeast 0-1/hpf (None) Ur Culture Indicated? Cult not indicated Point of Care Testing Test Results Negative Urine Dip Bedside Urine Glucose Negative Bedside Urine Bilirubin - Negative Bedside Urine Ketone +/- 5 Urine Specific [place] 1.015 Bedside Urine Occult Blood +++ Bedside Urine pH 6.0 Bedside Urine Protein + 30 Bedside Urine Urobilinogen +/- 1mg Bedside Urine Nitrite - Negative Bedside Urine Leukocytes +/- 15 Esterase Point of care testing: Point of Care Testing Test Results Negative Urine Dip Bedside Urine Glucose Negative Bedside Urine Bilirubin - Negative Bedside Urine Ketone +/- 5 Urine Specific [place] 1.015 Bedside Urine Occult Blood +++ Bedside Urine pH 6.0 Bedside Urine Protein + 30 Bedside Urine Urobilinogen +/- 1mg Bedside Urine Nitrite - Negative Bedside Urine Leukocytes +/- 15 Esterase [facility] Narrative Medical decision making narrative: Patient has a reported allergy to Reglan however she stated that her response to it is that she gets very anxious. She states she can take it with Benadryl. She was given Reglan and Benadryl also pain medication. Labs unremarkable. I do suspect that this is for chronic endometrial pain. Patient did ask for multiple doses of pain medication. She has a VICKY report. Would be extremely cautious in the future about medications that she is provided especially opioid pain medication. The report even makes mention of patient leaving Against Medical Advice if not given pain medication. Informed the patient that she should contact her primary provider for follow-up. She was given return precautions. She expressed understanding agreement plan. Discharge Plan Departure Patient Disposition: Home Clinical Impression: Endometriosis Abdominal pain Qualifiers: Abdominal location: generalized Qualified Code(s): R10.84 - Generalized abdominal pain Nausea & vomiting Qualifiers: Vomiting type: unspecified Vomiting Intractability: non-intractable Qualified Code(s): R11.2 - Nausea with vomiting, unspecified Discharge Date/Time: 05/31/19 00:33 Instructions: DI for Endometriosis Activity Restrictions/Additional Instructions: Keep all of your scheduled medical appointments. Take all of your medications as directed. Return to the emergency department for any new or worsening symptoms Prescriptions: New metoclopramide HCl [Reglan] 10 mg tablet 10 mg PO Q6H PRN (Reason: nausea and vomiting) Qty: 10 RF: 0 Referrals: Prince Zee MD [Primary Care Provider] - Stand Alone Forms: Work Release Note
[2019-05-30] MEDS: METOCLOPRAMIDE 10 MG/2 ML INJ IV (23:14)
[2019-05-30] MEDS: diphenhydrAMINE 50 MG/ML VIAL 25 MG IV (23:14)
[2019-05-30] MEDS: HYDROMORPHONE 0.5 MG INJ IV (23:14)
[2019-05-30 23:28] VITALS: BP 150/99; PULSE 80; RESP 18; O2SAT 99
[2019-05-31] MEDS: HYDROMORPHONE 0.5 MG INJ IV (00:17)
== END 2019-05-31 00:33 | disposition home or self-care (01) ==
PROVIDERS: Emergency Provider Emergency Medicine; PCP Family Medicine
DX: N80.9 Endometriosis, unspecified (principal); R10.84 Generalized abdominal pain; R11.2 Nausea with vomiting, unspecified
CPT/HCPCS: 36415; 80053; 81003; 81015; 81025; 83690; 85025; 85610; 85730; 96361; 96374; 96375; 96376; 99284; J1170; J1200; J2405; J2765

== ENCOUNTER 2019-05-31 11:20 | Emergency (ER) | payer OTHER, SELFPAY ==
[2019-05-31 11:25] VITALS: BP 146/114; PULSE 112; RESP 22; TEMP 36.4; O2SAT 100
--- NOTE | 2019-05-31 12:45 | ED_ITS ---
HPI - Abdominal Pain <HUNTER Cao - Last Filed: 05/31/19 22:11> General Chief Complaint: Abdominal Pain Stated Complaint: vomitting bowl problems in yesturday 10 times wors Time Seen by Provider: 05/31/19 12:09 Source: patient Mode of arrival: Ambulatory History of Present Illness HPI narrative: 29-year-old female with a history of endometriosis and pancreatitis, presents emergency department for worsening pelvic pain and increased bleeding since yesterday. Patient reports she saturates a pad every 2 hours, she has been trying to take Zofran and Reglan but has not been able to keep this down his she reports vomiting since 2:00 a.m. due to pain. She has been seen in the emergency department multiple times over the past few months for similar complaints and was recently seen yesterday. Patient has an appointment with her Associate Engineer, Dr. Romo, tomorrow for follow-up. She states she has had surgery in April and had multiple areas cauterized to help with bleeding. Patient denies fevers, chills, diarrhea, shortness of breath, cough, chest pain, or other concerns. Patient has a history of a VICKY report. Related Data Previous Rx's Medication Instructions Recorded metoclopramide HCl [Reglan] 10 mg PO Q6H PRN #10 tab 05/31/19 Allergies Allergy/AdvReac Type Severity Reaction Status Date / Time clindamycin Allergy Rash Verified 05/31/19 12:18 guaifenesin [From Mucinex] Allergy Rash Verified 05/31/19 12:18 haloperidol [From Haldol] Allergy Irritable Verified 05/31/19 12:18 ketorolac [From Toradol] Allergy Anxiety Verified 05/31/19 12:18 metoclopramide [From Reglan] Allergy Anxiety Verified 05/31/19 12:18 promethazine [From Phenergan] Allergy Anxiety Verified 05/31/19 12:18 zolpidem [From Ambien] Allergy Hallucinati Verified 05/31/19 12:18 ng Review of Systems <HUNTER Cao - Last Filed: 05/31/19 22:11> Review of Systems Narrative: REVIEW OF SYSTEMS: GENERAL: Denies fever, chills, malaise, or wt. loss. HENT: No head trauma, sore throat, or dysphagia. EYES: No loss of vision, double vision, eye pain, or irritation. CARDIOVASCULAR: No chest pain, palpitations, or orthopnea. RESPIRATORY: No shortness of breath or cough. GASTROINTESTINAL: Patient reports nausea and vomiting. GENITOURINARY: No flank pain, urinary incontinence, hesitancy, frequency, or dysuria. Patient reports lower pelvic pain, see HPI. MUSCULOSKELETAL: No pain, weakness, or trauma. INTEGUMENTARY: No rash, lesions, or pruritus. NEURO: No numbness, tingling, memory loss, confusion, or headaches. PSYCH: No behavior or mood changes. Patient History <HUNTER Cao - Last Filed: 05/31/19 22:11> Medical History Endometriosis (Acute) Gastroparesis (Acute) Pancreatitis (Acute) Surgical History H/O laparoscopy (Acute) Hx of cholecystectomy (Acute) Social History marital status: Smoking Status: Never smoker Smoking Status: Never smoker alcohol intake frequency: a few times a month Substance Use Type: does not use Exam <HUNTER Cao - Last Filed: 05/31/19 22:11> Initial Vital Signs Initial Vital Signs: Vital Signs Temperature 97.6 F 05/31/19 11:25 Pulse Rate 112 H 05/31/19 11:25 Respiratory Rate 22 05/31/19 11:25 Blood Pressure 146/114 H 05/31/19 11:25 Pulse Oximetry 100 05/31/19 11:25 PHYSICAL EXAMINATION: GENERAL: Well groomed, alert, and cooperative. Patient was hyperventilating and tearful during initial examination, this resolved upon discharge. Answers questions promptly and appropriately. Vital signs noted. HENT: Normocephalic, atraumatic. Hearing intact. Oral mucosa is pink and moist. EYES: Conjunctiva pink, sclera white, no periorbital swelling. CARDIOVASCULAR: S1 and S2 sounds normal. Regular rate and rhythm, no murmurs, clicks, or bruits. No pedal edema. RESPIRATORY: Normal respiratory rate, trachea midline, airway patent. No stridor, nasal flaring or accessory muscle use. Lungs are clear in all [place] without wheeze, rhonchi, or crackles. GASTROINTESTINAL: Bowel sounds normoactive. Abdomen is soft and diffusely tende r, abdominal exam improved after administration pain medication. No organomegaly, no palpable masses. GENITALURINARY: No flank tenderness. MUSCULOSKELETAL: Normal gait and coordination. Equal tone and mass bilaterally. EXTREMITIES: CMS intact, no pedal edema. SKIN: Warm, dry, soft, appropriate color for ethnicity. No lesions, rashes, or wounds to visualized areas. NEURO: Alert and Oriented X 3. Good coordination. No ataxia, or sensory deficits, or cognitive issues. PSYCH: Appropriate affect and mood. <Thomas Esposito MD - Last Filed: 06/01/19 20:14> Initial Vital Signs Initial Vital Signs: Vital Signs Temperature 97.6 F 05/31/19 11:25 Pulse Rate 112 H 05/31/19 11:25 Respiratory Rate 22 05/31/19 11:25 Blood Pressure 146/114 H 05/31/19 11:25 Pulse Oximetry 100 05/31/19 11:25 Course <HUNTER Cao - Last Filed: 05/31/19 22:11> Course Course Narrative: After discussion with patient, patient reports that Toradol gives her anxiety. We discussed how multiple rounds of Dilaudid over the past few days were not helping her pain, after much discussion and confirmation that patient did not have a significant allergic reaction to Toradol such as hives, throat swelling, syncope, or etc, patient was given Toradol and a small dose of Ativan. Patient then refused to have an ultrasound until her pain was appropriately medicated. A small dose of Dilaudid was given. I had an extensive conversation with patient about the use of narcotic medications and her chronic pain management. Patient was given a copy of the narcotic pain management from [facility] and instructed that she can no longer receive narcotics as she has reached a maximum of pain medication for > 3 visits a year. Orders Ordered: Discontinued Medications Hydromorphone HCl (Dilaudid) 0.5 mg IV NOW ONE Stop: 05/31/19 13:32 Last Admin: 05/31/19 13:50 Dose: 0.5 mg Documented by: MEISENB Sodium Chloride (Normal Saline 0.9%) 1,000 mls @ 1,000 mls/hr IV BOLUS ONE Stop: 05/31/19 13:38 Last Infusion: 05/31/19 15:02 Dose: 0 mls/hr Documented by: Admin: 05/31/19 13:51 Dose: 1,000 mls/hr Documented by: EVELYNE Ketorolac Tromethamine (Toradol) 30 mg IV NOW ONE Stop: 05/31/19 12:45 Last Admin: 05/31/19 13:10 Dose: 30 mg Documented by: EVELYNE Lorazepam (Ativan) 0.5 mg IV NOW ONE Stop: 05/31/19 12:45 Last Admin: 05/31/19 13:11 Dose: 0.5 mg Documented by: EVELYNE Ondansetron HCl (Zofran) 4 mg IV NOW ONE Stop: 05/31/19 12:40 Last Admin: 05/31/19 13:10 Dose: 4 mg Documented by: EVELYNE Vital Signs Vital signs: Vital Signs - 8 hr 05/31/19 15:21 Pulse Rate 100 H Blood Pressure 161/74 H Pulse Oximetry 100 <Thomas Esposito MD - Last Filed: 06/01/19 20:14> Orders Ordered: Discontinued Medications Hydromorphone HCl (Dilaudid) 0.5 mg IV NOW ONE Stop: 05/31/19 13:32 Last Admin: 05/31/19 13:50 Dose: 0.5 mg Documented by: EVELYNE Sodium Chloride (Normal Saline 0.9%) 1,000 mls @ 1,000 mls/hr IV BOLUS ONE Stop: 05/31/19 13:38 Last Infusion: 05/31/19 15:02 Dose: 0 mls/hr Documented by: Admin: 05/31/19 13:51 Dose: 1,000 mls/hr Documented by: EVELYNE Ketorolac Tromethamine (Toradol) 30 mg IV NOW ONE Stop: 05/31/19 12:45 Last Admin: 05/31/19 13:10 Dose: 30 mg Documented by: EVELYNE Lorazepam (Ativan) 0.5 mg IV NOW ONE Stop: 05/31/19 12:45 Last Admin: 05/31/19 13:11 Dose: 0.5 mg Documented by: EVELYNE Ondansetron HCl (Zofran) 4 mg IV NOW ONE Stop: 05/31/19 12:40 Last Admin: 05/31/19 13:10 Dose: 4 mg Documented by: EVELYNE Vital Signs Vital signs: Vital Signs - 8 hr 05/31/19 15:21 Pulse Rate 100 H Blood Pressure 161/74 H Pulse Oximetry 100 MDM - Abdominal Pain <HUNTER Cao - Last Filed: 05/31/19 22:11> Medical Records Attestation: I reviewed the patient's medical records. Lab Data Attestation: I reviewed the patient's lab results. Result diagrams: 05/31/19 12:55 05/31/19 12:55 Labs: Lab Results 05/31/19 05/31/19 05/31/19 Range/Units 12:55 12:55 13:10 WBC 5.3 (4.5-11.0) X10^3/uL RBC 4.08 (4.0-5.2) X10^6/uL Hgb 13.6 (12.0-16.0) g/dL Hct 39.6 (36-46) % MCV 97.0 (80-100) fL MCH 33.4 (26-34) PG MCHC 34.4 (30-36) % RDW 13.3 (11.6-14.8) % Plt Count 237 (150-400) X10^3/uL Neut % (Auto) 58.2 (50-75) % Lymph % (Auto) 27.3 (25-40) % [place] % (Auto) 11.7 (3-14) % Eos % (Auto) 2.1 (2-4) % Baso % (Auto) 0.7 (0-2) % Neut # (Auto) 3100 (9526-0025) /uL Lymph # (Auto) 1500 (8218-8815) /uL [place] # (Auto) 600 (0-900) /uL Eos # (Auto) 100 (0-450) /uL Baso # (Auto) 0 (0-100) /uL Sodium 139 (137-145) mmol/L Potassium 3.7 (3.4-5.1) mmol/L Chloride 101 (98-107) mmol/L Carbon Dioxide 22 (22-32) mmol/L BUN 7 (7-17) mg/dL Creatinine 0.70 (0.52-1.04) mg/dL Estimated GFR > 60.0 (>60) mL/min BUN/Creatinine Ratio 10.0 (6-22) Glucose 102 H (70-100) mg/dL Calcium 9.7 (8.4-10.2) mg/dL Total Bilirubin 1.0 (0.2-1.3) mg/dL AST 57 H (14-36) IU/L ALT 21 (<35) IU/L Alkaline Phosphatase 105 (38-126) U/L Total Protein 8.5 H (6.3-8.2) g/dL Albumin 4.8 (3.5-5.0) g/dL Globulin 3.7 (1.7-4.1) g/dL Albumin/Globulin Ratio 1.3 (1.0-2.8) Urine RBC 1-5/hpf (0-5/HPF) Urine WBC None seen (0-5/HPF) Ur Squamous Epith Cells 1-5 /hpf (0-5/HPF) Urine Bacteria None seen (None) Ur Culture Indicated? Cult not indicated Point of care testing: Point of Care Testing Test Results Negative Urine Dip Bedside Urine Glucose Negative Bedside Urine Bilirubin - Negative Bedside Urine Ketone - Negative Urine Specific Orange 1.010 Bedside Urine Occult Blood +++ Bedside Urine pH 7.5 Bedside Urine Protein +/- 15 Bedside Urine Urobilinogen - Negative Bedside Urine Nitrite - Negative Bedside Urine Leukocytes - Negative Esterase Imaging Data US - LITIGATION SERVICES MANAGER: Radiologist's Impression: [address] [address] Ultrasound Report Signed Patient: Gogo Rosenberg KMR#: [id number] : 1990Acct:[id number] Age/Sex: te of Service: 05/31/19 Loc: ED Accession Number: [id number] Procedure: US pelvic complete Ordering Provider: Stacey Taylor PROCEDURE: US PELVIC COMPLETE INDICATIONS: ENDOMETRIOSIS, WORSENING PELVIC PAIN TECHNIQUE: Real-time scanning was performed of the pelvic organs, with image documentation. Additional endovaginal scanning was necessary due to incomplete visualization of the adnexal and endometrial structures by transabdominal scanning. COMPARISON: [facility], CT, CT ABDOMEN PELVIS W CON, 05/01/2019, 19:20. [facility], US, US PELVIC COMPLETE WITH TRANSVAGINAL, 10/19/2018, 12:37. FINDINGS: Transabdominal scanning: Limited scanning through the kidneys shows no hy dronephrosis. No pathologic free abdominal or pelvic fluid. Endovaginal scanning: Uterus: Uterus is normal in size at 7.2 x 2.4 x 4.1 cm. The endometrium measures 5 mm in combined thickness. No focal myometrial lesions are identified. There is no significant fluid contained within the endometrium, which has a homogeneous appearance. Small nabothian cysts involving the cervix are incidentally noted. Ovaries: The right ovary measures 1.9 x 1.7 x 1.6 cm and is normal in size, containing small follicles. No cystic or solid abnormality is present. Blood flow is demonstrated to the right ovary, which is a normal arterial Doppler waveform. The left ovary was not definitely seen. No left adnexal abnormalities are appreciated. IMPRESSION: 1. Unremarkable uterus and right ovary. 2. The left ovary was not identified, felt to be obscured by overlying bowel gas. 3. No pelvic cysts are identified. Dictated by: Keshav Man M.D. on 05/31/2019 at 13:20 Approved by: Keshav Man M.D. on 05/31/2019 at 13:22 MDM Narrative Medical decision making narrative: 29-year-old female with extensive history of endometriosis, has been seen in the emergency department multiple times in the past month including yesterday for similar. She has had 3 scans in the past months. Returns emergency department for continued pelvic pain reports of increased bleeding. Laboratory work is non-remarkable, pelvic ultrasound does not show any concerning etiology. Patient's symptoms improved after pain me dication. I suspect this is most likely chronic endometriosis pain due to description of pain, resolution of pain after administration medication and lack of any concerning findings on laboratory work and ultrasound. Less likely acute abdomen such as appendicitis due to lack of elevated white blood cell count, fevers, or localized right lower quadrant pain. Discussed with patient extensively about cardiac administration the emergency department, she was given a copy of the policy and explained that knees to discuss pain management with her primary care provider as will no longer be able to prescribe her medication as she has been seen multiple times for this in the past year. Patient has an appointment with her facility supervisor tomorrow, she was also encouraged to discuss further testing and a planned if she continues to have pain. Patient agrees with plan of care verbalized understanding. <Thomas Esposito MD - Last Filed: 06/01/19 20:14> Lab Data Labs: Lab Results 05/31/19 05/31/19 05/31/19 Range/Units 12:55 12:55 13:10 WBC 5.3 (4.5-11.0) X10^3/uL RBC 4.08 (4.0-5.2) X10^6/uL Hgb 13.6 (12.0-16.0) g/dL Hct 39.6 (36-46) % MCV 97.0 (80-100) fL MCH 33.4 (26-34) PG MCHC 34.4 (30-36) % RDW 13.3 (11.6-14.8) % Plt Count 237 (150-400) X10^3/uL Neut % (Auto) 58.2 (50-75) % Lymph % (Auto) 27.3 (25-40) % [place] % (Auto) 11.7 (3-14) % Eos % (Auto) 2.1 (2-4) % Baso % (Auto) 0.7 (0-2) % Neut # (Auto) 3100 (1864-4663) /uL Lymph # (Auto) 1500 (3074-3097) /uL [place] # (Auto) 600 (0-900) /uL Eos # (Auto) 100 (0-450) /uL Baso # (Auto) 0 (0-100) /uL Sodium 139 (137-145) mmol/L Potassium 3.7 (3.4-5.1) mmol/L Chloride 101 (98-107) mmol/L Carbon Dioxide 22 (22-32) mmol/L BUN 7 (7-17) mg/dL Creatinine 0.70 (0.52-1.04) mg/dL Estimated GFR > 60.0 (>60) mL/min BUN/Creatinine Ratio 10.0 (6-22) Glucose 102 H (70-100) mg/dL Calcium 9.7 (8.4-10.2) mg/dL Total Bilirubin 1.0 (0.2-1.3) mg/dL AST 57 H (14-36) IU/L ALT 21 (<35) IU/L Alkaline Phosphatase 105 (38-126) U/L Total Protein 8.5 H (6.3-8.2) g/dL Albumin 4.8 (3.5-5.0) g/dL Globulin 3.7 (1.7-4.1) g/dL Albumin/Globulin Ratio 1.3 (1.0-2.8) Urine RBC 1-5/hpf (0-5/HPF) Urine WBC None seen (0-5/HPF) Ur Squamous Epith Cells 1-5 /hpf (0-5/HPF) Urine Bacteria None seen (None) Ur Culture Indicated? Cult not indicated Point of care testing: Point of Care Testing Test Results Negative Urine Dip Bedside Urine Glucose Negative Bedside Urine Bilirubin - Negative Bedside Urine Ketone - Negative Urine Specific Orange 1.010 Bedside Urine Occult Blood +++ Bedside Urine pH 7.5 Bedside Urine Protein +/- 15 Bedside Urine Urobilinogen - Negative Bedside Urine Nitrite - Negative Bedside Urine Leukocytes - Negative Esterase Discharge Plan Departure Patient Disposition: Home Clinical Impression: Endometriosis Nausea & vomiting Qualifiers: Vomiting type: unspecified Vomiting Intractability: non-intractable Qualified Code(s): R11.2 - Nausea with vomiting, unspecified Discharge Date/Time: 05/31/19 15:21 Instructions: DI for Endometriosis Prescriptions: No Action metoclopramide HCl [Reglan] 10 mg tablet 10 mg PO Q6H PRN (Reason: nausea and vomiting) Qty: 10 RF: 0 Referrals: Prince Zee MD [Primary Care Provider] -
[2019-05-31 13:09] LABS: Add Manual Diff / Slide Review NO; Basophils Absolute Auto 0 /uL (0-100); Basophils Percent Auto 0.7 % (0-2); Eosinophils Absolute Auto 100 /uL (0-450); Eosinophils Percent Auto 2.1 % (2-4); Hematocrit 39.6 % (36-46); Hemoglobin 13.6 g/dL (12.0-16.0); Lymphocytes Absolute Auto 1500 /uL (1100-4500); Lymphocytes Percent Auto 27.3 % (25-40); Mean Corpuscular HGB Conc 34.4 % (30-36); Mean Corpuscular Hemoglobin 33.4 PG (26-34); Monocytes Absolute Auto 600 /uL (0-900); Monocytes Percent Auto 11.7 % (3-14); Neutrophils Absolute Auto 3100 /uL (1500-7000); Neutrophils Percent Auto 58.2 % (50-75); Platelet Count 237 X10^3/uL (150-400); Red Blood Cell Count 4.08 X10^6/uL (4.0-5.2); Red Cell Distribution Width 13.3 % (11.6-14.8); White Blood Cell Count 5.3 X10^3/uL (4.5-11.0)
[2019-05-31] MEDS: KETOROLAC 60 MG/2 ML VIAL 30 MG IV (13:10)
[2019-05-31] MEDS: ONDANSETRON 4 MG/2 ML INJ IV (13:10)
[2019-05-31] MEDS: LORazepam 2 MG/ML INJ 0.5 MG IV (13:11)
[2019-05-31 13:17] VITALS: BP 162/94; PULSE 108; RESP 22
[2019-05-31 13:18] LABS: Alanine Aminotransferase 21 IU/L (<35); Albumin 4.8 g/dL (3.5-5.0); Albumin Globulin Ratio 1.3 (1.0-2.8); Alkaline Phosphatase 105 U/L (38-126); Aspartate Aminotransferase 57 IU/L (14-36); Blood Urea Nitrogen 7 mg/dL (7-17); Calcium 9.7 mg/dL (8.4-10.2); Carbon Dioxide 22 mmol/L (22-32); Chloride 101 mmol/L (98-107); Estimated Glomerular Filt Rate > 60.0 mL/min (>60); Globulin 3.7 g/dL (1.7-4.1); Glucose 102 mg/dL (70-100); HEMOLYSIS < 15 (0-50); Potassium 3.7 mmol/L (3.4-5.1); Sodium 139 mmol/L (137-145); Total Protein 8.5 g/dL (6.3-8.2)
[2019-05-31 13:27] LABS: Bacteria Urine None Seen; WBC Urine None Seen (0-5/HPF)
[2019-05-31 13:36] LABS: Culture Indicated Urine Cult Not Indicated; RBC Urine 1-5/HPF (0-5/HPF); Squamous Epithelial Cell Urine 1-5 /HPF (0-5/HPF)
[2019-05-31] MEDS: HYDROMORPHONE 0.5 MG INJ IV (13:50)
[2019-05-31] MEDS: SODIUM CHLORIDE 0.9% 1,000 ML 1000 ML IV (13:51)
[2019-05-31 15:21] VITALS: BP 161/74; PULSE 100; O2SAT 100
== END 2019-05-31 15:21 | disposition home or self-care (01) ==
PROVIDERS: Emergency Provider Nurse Practitioner; PCP Family Medicine
DX: N80.9 Endometriosis, unspecified (principal); R11.2 Nausea with vomiting, unspecified; F41.9 Anxiety disorder, unspecified
CPT/HCPCS: 36415; 76830; 76856; 80053; 81003; 81015; 81025; 85025; 96361; 96374; 96375; 99284; J1170; J1885; J2060; J2405

== ENCOUNTER 2019-06-18 20:14 | Inpatient (IN) | payer OTHER, SELFPAY ==
[2019-06-18] VITALS (9 sets, daily range): BP systolic 122–183; BP diastolic 72–107; PULSE 97–138; RESP 12–39; TEMP 36.9; O2SAT 96–100; BMI 27.4
[2019-06-18 21:00] LABS: Add Manual Diff / Slide Review NO; Basophils Absolute Auto 0 /uL (0-100); Basophils Percent Auto 0.4 % (0-2); Eosinophils Absolute Auto 0 /uL (0-450); Eosinophils Percent Auto 0.5 % (2-4); Hematocrit 40.5 % (36-46); Hemoglobin 13.9 g/dL (12.0-16.0); Lymphocytes Absolute Auto 1400 /uL (1100-4500); Lymphocytes Percent Auto 16.2 % (25-40); Mean Corpuscular HGB Conc 34.3 % (30-36); Mean Corpuscular Hemoglobin 33.2 PG (26-34); Monocytes Absolute Auto 600 /uL (0-900); Monocytes Percent Auto 7.5 % (3-14); Neutrophils Absolute Auto 6500 /uL (1500-7000); Neutrophils Percent Auto 75.4 % (50-75); Platelet Count 147 X10^3/uL (150-400); Red Blood Cell Count 4.18 X10^6/uL (4.0-5.2); Red Cell Distribution Width 13.6 % (11.6-14.8); White Blood Cell Count 8.6 X10^3/uL (4.5-11.0)
--- NOTE | 2019-06-18 21:06 | ED.ABDPAIN ---
HPI - Abdominal Pain General Chief Complaint: Abdominal Pain Stated Complaint: thinks full blown pancretits attack Time Seen by Provider: 06/18/19 20:46 Source: patient Mode of arrival: Family Vehicle Limitations: no limitations History of Present Illness HPI narrative: 29-year-old female nonsmoker with extensive history of endometriosis and pancreatitis presents with a chief complaint of severe epigastric pain with radiation to her back which started after drinking wine last night. She can't keep anything down and has significant epigastric pain, this is very reminiscent of her prior episodes of pancreatitis. She has a surgically absent gallbladder. She denies any fever chills nor change in bowel habits. She denies dysuria, frequency or urgency. MD complaint: abdominal pain Onset (ago): hour(s) Pain Consistency: constant Location: epigastric Severity: severe Quality: stabbing Radiation: back Relieving factors: rest Exacerbating factors: eating and movement Associated symptoms: nausea and vomiting Related Data Previous Rx's Medication Instructions Recorded metoclopramide HCl [Reglan] 10 mg PO Q6H PRN #10 tab 05/31/19 Allergies Allergy/AdvReac Type Severity Reaction Status Date / Time clindamycin Allergy Rash Verified 06/18/19 20:28 guaifenesin [From Mucinex] Allergy Rash Verified 06/18/19 20:28 haloperidol [From Haldol] Allergy Irritable Verified 06/18/19 20:28 ketorolac [From Toradol] Allergy Anxiety Verified 06/18/19 20:28 metoclopramide [From Reglan] Allergy Anxiety Verified 06/18/19 20:28 promethazine [From Phenergan] Allergy Anxiety Verified 06/18/19 20:28 zolpidem [From Ambien] Allergy Hallucinati Verified 06/18/19 20:28 ng Review of Systems Constitutional Constitutional: Denies chills, Denies fatigue, Denies fever(s), Denies frequent falls, Denies lethargy and Denies weakness Eyes Eyes: Denies change in vision, Denies eye discharge, Denies irritation and Denies loss of vision ENT Ears, Nose, Mouth, and Throat: Denies change in voice, Denies dizziness, Denies neck pain, Denies sore throat and Denies throat swelling Cardiovascular Cardiovascular: Denies chest pain, Denies irregular heart rhythm, Denies lightheadedness, Denies palpitations, Denies dyspnea, Denies dyspnea on exertion and Denies orthopnea Respiratory Respiratory: Denies cough, Denies dyspnea, Denies dyspnea on exertion and Denies wheezing Gastrointestinal Gastrointestinal: Reports abdominal pain, Denies change in bowel habits, Denies diarrhea, Reports nausea and Reports vomiting Genitourinary Genitourinary: Denies hematuria, Denies flank pain, Denies urinary incontinence and Denies urinary urgency Musculoskeletal Musculoskeletal: Denies back pain, Denies muscle weakness, Denies neck pain, Denies numbness and Denies tingling Integumentary/Breasts Skin/Breast: Denies pruritus, Denies erythema, Denies rash and Denies wounds Neurologic Neurologic: Denies behavioral changes, Denies confusion, Denies dizziness, Denies frequent falls, Denies loss of vision, Denies numbness, Denies tingling and Denies weakness Psychiatric Psychiatric: Denies anxiety, Denies behavioral changes, Denies confusion, Denies depression, Denies homicidal ideation and Denies suicidal ideation Endocrine Endocrine: Denies fatigue, Denies flushing and Denies palpitations Hematologic/Lymphatic Hematologic/Lymphatic: Denies easy bruising Allergic/Immunologic Allergic/Immunologic: Denies urticaria, Denies throat swelling and Denies wheezing Patient History Medical History Endometriosis (Acute) Gastroparesis (Acute) Pancreatitis (Acute) Surgical History H/O laparoscopy (Acute) Hx of cholecystectomy (Acute) Social History marital status: household members: spouse and children Smoking Status: Never smoker Smoking Status: Never smoker alcohol intake frequency: a few times a month Substance Use Type: does not use Exam Narrative Exam Narrative: GENERAL: [29] year old patient appears stated age. Well-nourished, well-developed patient, in moderate, clutching her epigastrium and holding an emesis bag. HEAD: Atraumatic. Normocephalic. EYES: Pupils equal round and reactive. Extraocular motions intact. No scleral icterus. No injection or drainage. ENT: Nose without bleeding, purulent drainage. Throat without erythema, tonsillar hypertrophy or exudate. Airway patent. NECK: Trachea midline. Non tender CARDIOVASCULAR: Regular rate and rhythm without murmurs, gallops, or rubs. RESPIRATORY: Clear to auscultation. Breath sounds equal bilaterally. No wheezes, rales, or rhonchi. GASTROINTESTINAL: Abdomen soft, severe epigastric pain to palpation, nondistended. EXTREMITIES: No edema or joint tenderness. BACK: Nontender without deformity or crepitance. No flank tenderness. NEURO: AOx3. SKIN: No rash or erythema of visible areas Initial Vital Signs Initial Vital Signs: Vital Signs Temperature 98.4 F 06/18/19 20:22 Pulse Rate 133 H 06/18/19 20:22 Respiratory Rate 26 H 06/18/19 20:22 Blood Pressure 158/107 H 06/18/19 20:22 Pulse Oximetry 100 06/18/19 20:22 Course Orders Ordered: Diphenhydramine HCl (Benadryl) 25 mg IV Q6HR PRN PRN Reason: Nausea Last Admin: 06/19/19 03:45 Dose: 25 mg Documented by: LORETTA Hydromorphone HCl (Dilaudid) 2 mg IV Q3H PRN PRN Reason: Pain, Severe (7-10) Last Admin: 06/19/19 05:38 Dose: 2 mg Documented by: Admin: 06/19/19 02:37 Dose: 2 mg Documented by: LORETTA Lactated Ringer's (Lactated Ringers) 1,000 mls @ 200 mls/hr IV CONT DHIRAJ Last Admin: 06/19/19 05:44 Dose: 200 mls/hr Documented by: Infusion: 06/19/19 05:44 Dose: 200 mls/hr Documented by: Admin: 06/19/19 01:27 Dose: 200 mls/hr Documented by: LORETTA Naloxone HCl (Narcan) 0.2 mg IV Q2MIN PRN PRN Reason: Opiate Reversal Prochlorperazine (Compazine) 10 mg IV Q6HR PRN PRN Reason: Nausea Last Admin: 06/19/19 03:40 Dose: 10 mg Documented by: LORETTA Discontinued Medications Diphenhydramine HCl (Benadryl) 25 mg IV NOW ONE Stop: 06/18/19 23:43 Last Admin: 06/18/19 23:48 Dose: 25 mg Documented by: LUIS ANTONIO Hydromorphone HCl (Dilaudid) 1 mg IV NOW ONE Stop: 06/18/19 21:54 Last Admin: 06/18/19 21:59 Dose: 1 mg Documented by: LUIS ANTONIO Hydromorphone HCl (Dilaudid) 1 mg IV NOW ONE Stop: 06/18/19 22:38 Last Admin: 06/18/19 22:44 Dose: 1 mg Documented by: LUIS ANTONIO Hydromorphone HCl (Dilaudid) 1 mg IV Q2HR DHIRAJ Last Admin: 06/19/19 00:47 Dose: 1 mg Documented by: LORETTA Sodium Chloride (Normal Saline 0.9%) 1,000 mls @ 1,000 mls/hr IV BOLUS ONE Stop: 06/18/19 22:52 Last Infusion: 06/18/19 23:00 Dose: 0 mls/hr Documented by: LUIS ANTONIO Admin: 06/18/19 21:59 Dose: 1,000 mls/hr Documented by: LUIS ANTONIO Ketorolac Tromethamine (Toradol) 30 mg IV NOW ONE Stop: 06/19/19 04:01 Last Admin: 06/19/19 03:45 Dose: 30 mg Documented by: LORETTA Ondansetron HCl (Zofran) 4 mg IV NOW ONE Stop: 06/18/19 21:54 Last Admin: 06/18/19 21:59 Dose: 4 mg Documented by: LUIS ANTONIO Pantoprazole Sodium (Protonix) 40 mg IV NOW ONE Stop: 06/18/19 22:43 Last Admin: 06/18/19 22:44 Dose: 40 mg Documented by: LUIS ANTONIO Vital Signs Vital signs: Vital Signs - 8 hr 06/18/19 20:22 06/18/19 20:55 Temperature 98.4 F Pulse Rate 133 H 115 H Respiratory Rate 26 H 12 Blood Pressure 158/107 H Blood Pressure [Left Arm] 158/97 H Pulse Oximetry 100 98 MDM - Abdominal Pain Lab Data Result diagrams: 06/18/19 20:53 06/19/19 06:34 Labs: Lab Results 06/18/19 06/18/19 06/18/19 Range/Units 20:53 20:53 20:53 WBC 8.6 (4.5-11.0) X10^3/uL RBC 4.18 (4.0-5.2) X10^6/uL Hgb 13.9 (12.0-16.0) g/dL Hct 40.5 (36-46) % MCV 97.0 (80-100) fL MCH 33.2 (26-34) PG MCHC 34.3 (30-36) % RDW 13.6 (11.6-14.8) % Plt Count 147 L (150-400) X10^3/uL Neut % (Auto) 75.4 H (50-75) % Lymph % (Auto) 16.2 L (25-40) % [place] % (Auto) 7.5 (3-14) % Eos % (Auto) 0.5 L (2-4) % Baso % (Auto) 0.4 (0-2) % Neut # (Auto) 6500 (3302-6346) /uL Lymph # (Auto) 1400 (5878-6526) /uL [place] # (Auto) 600 (0-900) /uL Eos # (Auto) 0 (0-450) /uL Baso # (Auto) 0 (0-100) /uL PT 11.5 (10.1-12.7) SECONDS INR 1.0 (0.9-1.3) APTT 30 (26.4-36.2) SECONDS Sodium 137 (137-145) mmol/L Potassium 3.9 (3.4-5.1) mmol/L Chloride 99 (98-107) mmol/L Carbon Dioxide 26 (22-32) mmol/L BUN 9 (7-17) mg/dL Creatinine 0.70 (0.52-1.04) mg/dL Estimated GFR > 60.0 (>60) mL/min BUN/Creatinine Ratio 12.9 (6-22) Glucose 128 H (70-100) mg/dL Calcium 9.9 (8.4-10.2) mg/dL Total Bilirubin 0.7 (0.2-1.3) mg/dL AST 48 H (14-36) IU/L ALT 18 (<35) IU/L Alkaline Phosphatase 113 (38-126) U/L Lactate Dehydrogenase (313-618) U/L Total Protein 8.4 H (6.3-8.2) g/dL Albumin 4.7 (3.5-5.0) g/dL Globulin 3.7 (1.7-4.1) g/dL Albumin/Globulin Ratio 1.3 (1.0-2.8) Lipase 790 H (23-300) U/L Urine RBC (0-5/HPF) Urine WBC (0-5/HPF) Ur Squamous Epith Cells (0-5/HPF) Urine Bacteria (None) Urine Yeast (None) Ur Culture Indicated? Urine Test (Negative) Ethyl Alcohol ( - 10) mg/dL 06/18/19 06/18/19 06/18/19 Range/Units 20:53 21:05 21:05 WBC (4.5-11.0) X10^3/uL RBC (4.0-5.2) X10^6/uL Hgb (12.0-16.0) g/dL Hct (36-46) % MCV (80-100) fL MCH (26-34) PG MCHC (30-36) % RDW (11.6-14.8) % Plt Count (150-400) X10^3/uL Neut % (Auto) (50-75) % Lymph % (Auto) (25-40) % [place] % (Auto) (3-14) % Eos % (Auto) (2-4) % Baso % (Auto) (0-2) % Neut # (Auto) (8442-0352) /uL Lymph # (Auto) (3781-0708) /uL [place] # (Auto) (0-900) /uL Eos # (Auto) (0-450) /uL Baso # (Auto) (0-100) /uL PT (10.1-12.7) SECONDS INR (0.9-1.3) APTT (26.4-36.2) SECONDS Sodium (137-145) mmol/L Potassium (3.4-5.1) mmol/L Chloride (98-107) mmol/L Carbon Dioxide (22-32) mmol/L BUN (7-17) mg/dL Creatinine (0.52-1.04) mg/dL Estimated GFR (>60) mL/min BUN/Creatinine Ratio (6-22) Glucose (70-100) mg/dL Calcium (8.4-10.2) mg/dL Total Bilirubin (0.2-1.3) mg/dL AST (14-36) IU/L ALT (<35) IU/L Alkaline Phosphatase (38-126) U/L Lactate Dehydrogenase 545 (313-618) U/L Total Protein (6.3-8.2) g/dL Albumin (3.5-5.0) g/dL Globulin (1.7-4.1) g/dL Albumin/Globulin Ratio (1.0-2.8) Lipase (23-300) U/L Urine RBC None seen (0-5/HPF) Urine WBC None seen (0-5/HPF) Ur Squamous Epith Cells 0-1 /hpf (0-5/HPF) Urine Bacteria Occasional (0-1) (None) Urine Yeast 0-1/hpf (None) Ur Culture Indicated? Cult not indicated Urine Test Negative (Negative) Ethyl Alcohol < 10 ( - 10) mg/dL Point of care testing: Point of Care Testing Test Results Negative Urine Dip Bedside Urine Glucose Negative Bedside Urine Bilirubin + 1 Bedside Urine Ketone +/- 5 Urine Specific [place] 1.030 Bedside Urine Occult Blood - Negative Bedside Urine pH 6.0 Bedside Urine Protein + 30 Bedside Urine Urobilinogen +/- 1mg Bedside Urine Nitrite - Negative Bedside Urine Leukocytes - Negative Esterase MDM Narrative Medical decision making narrative: Patient with known history of pancreatitis has epigastric pain with radiation to her back after consumes wine. Her lipase is in the upper 700s and patient has required multiple doses of narcotic pain meds yet still unable to tolerate oral medications or liquids. Patient will require hospitalization for ongoing pain control and evaluation of her symptoms. Her pain was certainly moving in the right direction with IV Dilaudid, however after administration of Protonix it seemed to exacerbate her symptoms. Discharge Plan Departure Patient Disposition: Admitted as Observation Clinical Impression: Acute pancreatitis Qualifiers: Pancreatitis type: alcohol induced Acute pancreatitis complication: unspecified Qualified Code(s): K85.20 - Alcohol induced acute pancreatitis without necrosis or infection Discharge Date/Time: 06/18/19 23:50 Admit Date/Time: 06/18/19 23:00 Admit Provider: Dmitriy Samayoa
[2019-06-18 21:09] LABS: Prothrombin Time 11.5 SECONDS (10.1-12.7)
[2019-06-18 21:11] LABS: Alanine Aminotransferase 18 IU/L (<35); Albumin 4.7 g/dL (3.5-5.0); Albumin Globulin Ratio 1.3 (1.0-2.8); Alkaline Phosphatase 113 U/L (38-126); Aspartate Aminotransferase 48 IU/L (14-36); BUN Creatinine Ratio 12.9 (6-22); Bilirubin Total 0.7 mg/dL (0.2-1.3); Blood Urea Nitrogen 9 mg/dL (7-17); Calcium 9.9 mg/dL (8.4-10.2); Carbon Dioxide 26 mmol/L (22-32); Chloride 99 mmol/L (98-107); Estimated Glomerular Filt Rate > 60.0 mL/min (>60); Globulin 3.7 g/dL (1.7-4.1); Glucose 128 mg/dL (70-100); HEMOLYSIS < 15 (0-50); Lipase 790 U/L (23-300); Potassium 3.9 mmol/L (3.4-5.1); Sodium 137 mmol/L (137-145); Total Protein 8.4 g/dL (6.3-8.2)
[2019-06-18 21:12] LABS: PTT Partial Thromboplastin Tim 30 SECONDS (26.4-36.2)
[2019-06-18 21:27] LABS: RBC Urine None Seen (0-5/HPF); WBC Urine None Seen (0-5/HPF)
[2019-06-18 21:46] LABS: Bacteria Urine Occasional (0-1); Squamous Epithelial Cell Urine 0-1 /HPF (0-5/HPF)
[2019-06-18 21:47] LABS: Culture Indicated Urine Cult Not Indicated
[2019-06-18] MEDS: SODIUM CHLORIDE 0.9% 1,000 ML 1000 ML IV (21:59)
[2019-06-18] MEDS: ONDANSETRON 4 MG/2 ML INJ IV (21:59)
[2019-06-18] MEDS: HYDROMORPHONE 1 MG INJ IV ×2 (21:59→22:44)
[2019-06-18 22:07] LABS: Ethanol (ETOH) < 10 mg/dL; Lactate Dehydrogenase 545 U/L (313-618)
[2019-06-18] MEDS: PANTOPRAZOLE 40 MG VIAL IV (22:44)
[2019-06-18] MEDS: diphenhydrAMINE 50 MG/ML VIAL 25 MG IV (23:48)
--- NOTE | 2019-06-18 23:56 | P.HP_ITS ---
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 Patient describes pain as severe and cramping. She also sensation of pressure in the chest, specifically noting I feel that I'm having a heart attack.Associated symptoms include nausea. Patient denies palpitations, dizziness/lightheadedness, and diaphoresis. Symptoms noted earlier within 12 hours on day of ED presentation, progressively worsening. Patient notes that she has been suffering from URI symptoms in the past week. Earlier in the day she has taken a cough suppressant and believes that it has ex acerbated her pain. Also, patient was treated with IV protonix in ED, which she also felt has exacerbated her pain. Patient reports prior history of recurrent pancreatitis. She is unable to note the diagnosed etiology of prior events. She has not had a pancreatic flare since removal of her gallbladder 18 months ago. Patient admits to drinking alcohol the prior. Patient presents with abdominal pain that appears to be out of proportion. Lipase is 790. No other imaging was done in ED. Patient has a history of a biliary sludge, s/p cholecystectomy at age of 13. At age 16 patient was diagnosed w/toxic shock syndrome with further complications by HS and renal failure. Since being treated for toxic shock syndrome patient has had recurrent episodes of pancreatitis, which she was told may contributing to recurrence. It appears that the patient has seen multiple specialists. 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 This was told to her by gas turbine assembler in [place], Dr. Smith. ED Presentation & Work-Up VS. T 98.4 BP 158/107 HR 133 RR 26 SpO2 100% Labs, 06/18 2052 WBC 8.6 HGB 13.9 PLT 147 PT 11.5 INR 1.0 aPTT 30 NA 137 K 3.9 Cl 99 CA 9.9 GLU 128 CO2 26 BUN 9 Cr 0.7 BUN:Cr 12.9 T.Bili 0.7 AST 48 ALT 18 ALT 113 LDH 545 Lipase 790 EtOH < 10 UA negative. In the ED patient received 2 mg hydromorphone IV (total), 4 mg of Zofran IV, 40 mg IV Protonix, and 1L NS bolus. Treatment provided in ED was insufficient and patient continued to have persistent abdominal pain. Patient History Medical History Endometriosis (Acute) Gastroparesis (Acute) Pancreatitis (Acute) Surgical History H/O laparoscopy (Acute) Hx of cholecystectomy (Acute) Family & Social History Safety & Behavioral: Feels Safe in Current Yes Environment Been Physically Hurt or No Threatened By a Person Tobacco & Substance use: Smoking Status Never smoker alcohol intake frequency a few times a month Substance Use Type does not use Meds Home Medications and Allergies Home Medications Medication Instructions Recorded Confirmed Type metoclopramide HCl [Reglan] 10 mg PO Q6H PRN #10 tab 05/31/19 06/19/19 Rx Allergies Allergy/AdvReac Type Severity Reaction Status Date / Time clindamycin Allergy Rash Verified 06/18/19 20:28 guaifenesin [From Mucinex] Allergy Rash Verified 06/18/19 20:28 haloperidol [From Haldol] Allergy Irritable Verified 06/18/19 20:28 ketorolac [From Toradol] Allergy Anxiety Verified 06/18/19 20:28 metoclopramide [From Reglan] Allergy Anxiety Verified 06/18/19 20:28 promethazine [From Phenergan] Allergy Anxiety Verified 06/18/19 20:28 zolpidem [From Ambien] Allergy Hallucinati Verified 06/18/19 20:28 ng Review of Systems Review of Systems ROS: Yes All systems reviewed with the patient and are negative except as otherwise documented Exam Vital Signs (past 8 hours): - 06/18/19 20:22 06/18/19 20:55 06/18/19 21:00 Temperature 98.4 F Pulse Rate 133 H 115 H 109 H Respiratory Rate 26 H 12 13 Blood Pressure 158/107 H Blood Pressure [Left Arm] 158/97 H 122/83 Pulse Oximetry 100 98 98 06/18/19 21:30 06/18/19 22:00 06/18/19 22:30 Temperature Pulse Rate 138 H 115 H 102 H Respiratory Rate 39 H 22 27 H Blood Pressure Blood Pressure [Left Arm] 153/96 H 183/72 H 136/80 Pulse Oximetry 99 98 96 Oxygen Delivery Method Room Air Narrative Exam Narrative: Constitutional: Patient appears to be in severe pain Given patient's behavior, pain appears to be out of proportion Neurologic: AOx3, no focal neurological deficits Head: NC, AT Eyes: PERRL, EOMI, Ears: external ears normal, no otorrhea Nose: external nose normal, no rhinorrhea or epistaxis Throat: dry MM, oropharynx w/o exudate Neck: no masses, lymphadenopathy, or JVD Chest / Respiratory: No palpable chest discomfort, tachypneic and tachycardic, CTAB Heart / CV: S1S2, no murmur Abdomen / GI: round, RUQ and epigastric tenderness, ND, + BS, no organomegaly : no suprapubic tenderness, no CVA Peripheral / Vascular: warm to touch, DP and PT pulses palpable, no edema Musc: full ROM of upper and lower extremities, adequate muscle tone and bulk Skin: no ecchymosis or suspicious lesions / ulcers Objective Labs Result Diagrams: 06/19/19 06:34 06/19/19 06:34 Labs: Laboratory Results - last 24 hr 06/18/19 06/18/19 06/18/19 20:53 20:53 20:53 WBC 8.6 RBC 4.18 Hgb 13.9 Hct 40.5 MCV 97.0 MCH 33.2 MCHC 34.3 RDW 13.6 Plt Count 147 L Neut % (Auto) 75.4 H Lymph % (Auto) 16.2 L [place] % (Auto) 7.5 Eos % (Auto) 0.5 L Baso % (Auto) 0.4 Neut # (Auto) 6500 Lymph # (Auto) 1400 [place] # (Auto) 600 Eos # (Auto) 0 Baso # (Auto) 0 PT 11.5 INR 1.0 APTT 30 Sodium 137 Potassium 3.9 Chloride 99 Carbon Dioxide 26 BUN 9 Creatinine 0.70 Estimated GFR > 60.0 BUN/Creatinine Ratio 12.9 Glucose 128 H Calcium 9.9 Total Bilirubin 0.7 AST 48 H ALT 18 Alkaline Phosphatase 113 Lactate Dehydrogenase Total Protein 8.4 H Albumin 4.7 Globulin 3.7 Albumin/Globulin Ratio 1.3 Lipase 790 H Urine RBC Urine WBC Ur Squamous Epith Cells Urine Bacteria Urine Yeast Ur Culture Indicated? Ethyl Alcohol 06/18/19 06/18/19 20:53 21:05 WBC RBC Hgb Hct MCV MCH MCHC RDW Plt Count Neut % (Auto) Lymph % (Auto) [place] % (Auto) Eos % (Auto) Baso % (Auto) Neut # (Auto) Lymph # (Auto) [place] # (Auto) Eos # (Auto) Baso # (Auto) PT INR APTT Sodium Potassium Chloride Carbon Dioxide BUN Creatinine Estimated GFR BUN/Creatinine Ratio Glucose Calcium Total Bilirubin AST ALT Alkaline Phosphatase Lactate Dehydrogenase 545 Total Protein Albumin Globulin Albumin/Globulin Ratio Lipase Urine RBC None seen Urine WBC None seen Ur Squamous Epith Cells 0-1 /hpf Urine Bacteria Occasional (0-1) Urine Yeast 0-1/hpf Ur Culture Indicated? Cult not indicated Ethyl Alcohol < 10 Assessment & Plan Assessment & Plan narrative: Patient is being admitted under observation status for right upper quadrant intractable abdominal pain. Intractable abdominal pain, acute, present on admission, active - Recurrent pancreatitis ??? suspected etiology of severe ampulary or papillary stenosis - Check Trop and lactate - CT of A/P in am - IVF, lactated Ringer's 200 ml/hr - Pain control w/ dilaudid 2 mg Q3H prn, combination of benadryl w/ anti- emetic... will trial for 12-24 hours, then re-evaluate patient is insisting on the aforementioned regimen and refuses to trial other alternatives - Tele and continuous pulse ox monitoring - VS Q4H - Urine , Urine tox screen - AM labs CMP, CBC, lipase Full Code. No formal health directive. is the designated surrogate decision maker. Home medications reviewed and reconciled accordingly VTE prophylaxis w/ SCDs
[2019-06-19] VITALS (11 sets, daily range): BP systolic 102–153; BP diastolic 59–93; PULSE 18–108; RESP 16–117; TEMP 36.2–37; O2SAT 91–99; BMI 27.4
--- NOTE | 2019-06-19 00:28 | PC.ADMIT ---
[facility] [facility] Admission Note: Pt arrived to unit at 1210 without issues via w/c. Alert and oriented x4. and child at bedside. Pt restless and reporting abdominal pain of 9/10. Reports that she keeps getting spams and says I need dilaudid that is what they usually do and it works Pt refusing bed alarm at this time, reports her pain is less when standing. Admission assessment done. Pt has no other complaints at this time. Pain reported at [facility]. The patient,Gogo Rosenberg,29 y/o, was given written information regarding hospital policies, unit procedures and contact persons. Patient's smoking status: Never smoker. Vital Signs - 8 hr 06/18/19 20:22 06/18/19 20:55 06/18/19 21:00 Temperature 98.4 F Pulse Rate 133 H 115 H 109 H Respiratory Rate 26 H 12 13 Blood Pressure 158/107 H Blood Pressure [Left Arm] 158/97 H 122/83 Pulse Oximetry 100 98 98 06/18/19 21:30 06/18/19 22:00 06/18/19 22:30 Temperature Pulse Rate 138 H 115 H 102 H Respiratory Rate 39 H 22 27 H Blood Pressure Blood Pressure [Left Arm] 153/96 H 183/72 H 136/80 Pulse Oximetry 99 98 96 06/18/19 23:00 06/18/19 23:18 06/18/19 23:30 Temperature Pulse Rate 97 H 138 H 112 H Respiratory Rate 14 33 H 34 H Blood Pressure Blood Pressure [Left Arm] 134/85 134/84 139/104 H Pulse Oximetry 98 98 97 06/19/19 00:26 Temperature 97.2 F L Pulse Rate 105 H Respiratory Rate 18 Blood Pressure 153/92 H Blood Pressure [Left Arm] Pulse Oximetry 99
[2019-06-19] MEDS: HYDROMORPHONE 2 MG INJ 1 MG IV (00:47)
[2019-06-19 01:10] LABS: Lactate (Lactic Acid) 1.3 mmol/L (0.7-2.1)
[2019-06-19 01:22] LABS: Troponin I < 0.012 ng/mL (0.01-0.034)
[2019-06-19] MEDS: LACTATED RINGERS 1,000 ML 200 ML IV ×5 (01:27→21:55)
[2019-06-19 02:10] LABS: Pregnancy Test Urine Negative (Negative)
[2019-06-19] MEDS: HYDROMORPHONE 2 MG INJ IV ×7 (02:37→21:44)
--- NOTE | 2019-06-19 02:48 | PC.NURSE ---
Pt in position on side of bed reporting 10/10 abdominal pain. HR upto 150s. Minerva HARRISON notified. New order for dilaudid given. VO Minerva HARRISON give tordol and benedryl at 0400. Pt HR now back down to 104 and BP 115/77, Or sat at 98% on RA. WCTM
[2019-06-19] MEDS: PROCHLORPERAZINE 10 MG/2 ML VIAL IV ×2 (03:40→13:42)
[2019-06-19] MEDS: diphenhydrAMINE 50 MG/ML VIAL 25 MG IV ×2 (03:45→13:42)
[2019-06-19] MEDS: KETOROLAC 30 MG/ML VIAL IV (03:45)
[2019-06-19 06:44] LABS: Add Manual Diff / Slide Review NO; Basophils Absolute Auto 0 /uL (0-100); Basophils Percent Auto 0.3 % (0-2); Eosinophils Absolute Auto 100 /uL (0-450); Eosinophils Percent Auto 1.9 % (2-4); Hematocrit 34.6 % (36-46); Hemoglobin 11.9 g/dL (12.0-16.0); Lymphocytes Absolute Auto 1100 /uL (1100-4500); Lymphocytes Percent Auto 22.1 % (25-40); Mean Corpuscular HGB Conc 34.3 % (30-36); Mean Corpuscular Hemoglobin 33.3 PG (26-34); Mean Corpuscular Volume 97.1 fL (80-100); Monocytes Absolute Auto 500 /uL (0-900); Monocytes Percent Auto 9.6 % (3-14); Neutrophils Absolute Auto 3400 /uL (1500-7000); Neutrophils Percent Auto 66.1 % (50-75); Platelet Count 120 X10^3/uL (150-400); Red Blood Cell Count 3.56 X10^6/uL (4.0-5.2); Red Cell Distribution Width 13.3 % (11.6-14.8); White Blood Cell Count 5.1 X10^3/uL (4.5-11.0)
[2019-06-19 06:56] LABS: Alanine Aminotransferase 60 IU/L (<35); Albumin 3.8 g/dL (3.5-5.0); Albumin Globulin Ratio 1.2 (1.0-2.8); Alkaline Phosphatase 112 U/L (38-126); Aspartate Aminotransferase 494 IU/L (14-36); Bilirubin Total 1.2 mg/dL (0.2-1.3); Blood Urea Nitrogen 7 mg/dL (7-17); Calcium 8.7 mg/dL (8.4-10.2); Carbon Dioxide 29 mmol/L (22-32); Chloride 101 mmol/L (98-107); Estimated Glomerular Filt Rate > 60.0 mL/min (>60); Globulin 3.1 g/dL (1.7-4.1); Glucose 100 mg/dL (70-100); HEMOLYSIS < 15 (0-50); Potassium 3.8 mmol/L (3.4-5.1); Sodium 138 mmol/L (137-145); Total Protein 6.9 g/dL (6.3-8.2)
[2019-06-19 07:04] LABS: Lipase 3519 U/L (23-300)
[2019-06-19] MEDS: ONDANSETRON 4 MG/2 ML INJ IV ×3 (07:54→22:24)
--- NOTE | 2019-06-19 08:47 | DI.CT.S_ITS ---
PROCEDURE: CT ABDOMEN PELVIS W CON INDICATIONS: intractable abdominal pain TECHNIQUE: After the administration of oral and intravenous contrast, 5 mm thick sections acquired from the diaphragms to the symphysis. 5 mm thick coronal and sagittal reformats were performed. For radiation dose reduction, the following was used: automated exposure control, adjustment of mA and/or kV according to patient size. COMPARISON: [facility], MR, MR ABDOMEN MRCP, 11/08/2017, 12:13. [facility], CT, CT ABDOMEN PELVIS WITH CONTRAST, 11/06/2017, 19:40. [facility], CT, CT ABDOMEN PELVIS W CON, 04/16/2019, 19:18. [facility], US, US PELVIC COMPLETE, 05/31/2019, 13:47. [facility], CT, CT ABDOMEN PELVIS W CON, 05/01/2019, 19:20. FINDINGS: Image quality: Excellent. ABDOMEN: Lung bases: Minimal atelectasis. No effusion. Heart size is normal. Solid organs: Liver is normal in size and enhancement. Gallbladder is surgically absent. Biliary system is mildly prominent. The CBD measures 9 mm similar to 11/06/2017. CBD tapers distally. There is trace fluid adjacent to the neck of the pancreas, (06/29), new. No pancreatic necrosis identified. The pancreatic duct is within normal limits. There is also trace fluid surrounding the second portion of the duodenum and tracking inferiorly in the retroperitoneum. Spleen is normal in size and enhancement. No adrenal nodules. Kidneys are normal in size and enhancement, without hydronephrosis. Peritoneum and bowel: Edema surrounding the second portion the duodenum. Stomach, small bowel, and colon loops are otherwise normal in caliber and wall thickness. No free fluid or air. Appendix appears normal in caliber. Nodes and vessels: No retroperitoneal or mesenteric adenopathy. Aorta and inferior vena cava are normal in caliber. Miscellaneous: Small fat-containing periumbilical hernia. PELVIS: Genitourinary: Bladder wall thickness is normal. Question of right ovarian cyst measuring approximately 2.9 cm. Small nabothian cysts. Miscellaneous: No inguinal hernias or adenopathy. Bones: No suspicious bony lesions. No vertebral body compression fractures. IMPRESSION: 1. Small volume of retroperitoneal fluid surrounding the pancreas and duodenum. Findings suspicious for acute interstitial edematous pancreatitis. -No loculated fluid collection or pancreatic necrosis identified at this time. 2. Stable mild prominence of the extrahepatic bile duct. Post cholecystectomy. 3. Probable small right ovarian cyst. Dictated by: Jamir Wright M.D. on 06/19/2019 at 10:02 Approved by: Jamir Wright M.D. on 06/19/2019 at 10:14
[2019-06-19 12:14] LABS: UR Morphine/Opiate cutoff 300 Negative (Negative); Ur Creatinine Normal (Normal); Ur Specific Gravity Normal (Normal); Urine Amphetamines Negative (Negative); Urine Barbiturates Negative (Negative); Urine Benzodiazepines Negative (Negative); Urine Cocaine Negative (Negative); Urine MDMA Negative (Negative); Urine Methadone Negative (Negative); Urine Methamphetamines Negative (Negative); Urine Oxycodone Positive (Negative); Urine Phencyclidine Negative (Negative); Urine Tetrahydrocannabinol Negative (Negative); Urine Tricyclic Antidepressant Negative (Negative); Urine pH Normal (Normal)
--- NOTE | 2019-06-19 12:14 | CM.DANOTE ---
Patient is a 29 year old female who was admitted on 06/18/19 for Pancreatitis Attack. Pt has [employer] PPO for insurance and her PCP is Dr. Prince Zee. EMR was reviewed. Per MD, pt with acute pancreatitis and to have fluids and pain management to get pain better controlled. Pt has hx of toxic shock, gallbladder removal 18 months ago. If pt does not improve, may require hospital transfer for higher level of care. SW attempted bedside assessment but pt's pain was better controlled for the moment and was finally sleeping soundly. Plan: SW to follow for bedside assessment later today towards determining any d/c planning needs and supports at home. 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 No Advance Directives on File No History Provided By Patient,Family Member,Medical Record Has Patient been admitted in last 30 No days? Prior Living Arrangements House Household Members spouse,children Type of transporation used prior to Drives own vehicle admit Independent with ADL's Yes Is patient alert and oriented? Yes Caregiver for Another Yes Comment Waiting to see how pt progresses while at the hospital Barriers to Discharge No Discharge Plan Home Transportation Arrangement Family available for transport at d/c if pt safe for return home Review Status In Process Please Provide Date Initial DC 06/19/19 Assessment Was Performed Next Review Type Continued Stay Review
--- NOTE | 2019-06-19 17:45 | PM.PN.1 ---
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 The patient is resting in bed and appears moderately uncomfortable but not in acute distress. She endorses epigastric pain and intermittent nausea. She has been eating sips and chips of ice for which I have instructed her and nursing staff that she needs to remain strict NPO status. She has no other complaints and denies headache, shortness of breath, chest pain, fever, chills, dysuria, diarrhea or constipation. She is voiding without difficulty. She is up ambulating without assistance and minimally due to pain. Exam Vital Signs (past 8 hours): - 06/19/19 13:00 06/19/19 13:42 06/19/19 16:00 Temperature 97.9 F 97.1 F L Pulse Rate 94 H 101 H 104 H Respiratory Rate 16 16 Blood Pressure 102/62 117/65 118/84 Pulse Oximetry 97 91 Oxygen Delivery Method Room Air Oxygen Flow Rate 0 Narrative Exam Narrative: General: Young female sitting in bed and in no acute distress, appears moderately uncomfortable, well-developed, well-nourished, appropriately interactive. HEENT: Normocephalic, atraumatic. External ears without defect. Pupils equal, round, and reactive to light. Anicteric sclerae, moist conjunctivae, and no lid lag. Oropharynx free of erythema and cobble stoning with moist mucosa. Neck: Supple with full range of motion. No jugular venous distension. No lymphadenopathy or thyromegaly. Cardiovascular: Regular rhythm, tachycardic, without murmurs, rubs, or gallops appreciated Pulmonary: Clear to auscultation bilaterally without crackles, wheezes, or rhonchi. Normal respiratory effort with no use of accessory muscles. Abdomen: Soft, tenderness to palpation in epigastrium with mild rebound, nondistended. No hepatosplenomegaly or masses appreciated. Extremities: No clubbing, cyanosis, or edema. Skin: Normal temperature, turgor, and texture; no rash, ulcers, or subcutaneous nodules appreciated. Neurological: Cranial nerves grossly intact. Psychiatric: Normal mood and affect. Alert and oriented to person, place, and time. Objective Labs Result Diagrams: 06/19/19 06:34 06/19/19 06:34 Labs: Laboratory Results - last 24 hr 06/18/19 06/18/19 06/18/19 20:53 20:53 20:53 WBC 8.6 RBC 4.18 Hgb 13.9 Hct 40.5 MCV 97.0 MCH 33.2 MCHC 34.3 RDW 13.6 Plt Count 147 L Neut % (Auto) 75.4 H Lymph % (Auto) 16.2 L [place] % (Auto) 7.5 Eos % (Auto) 0.5 L Baso % (Auto) 0.4 Neut # (Auto) 6500 Lymph # (Auto) 1400 [place] # (Auto) 600 Eos # (Auto) 0 Baso # (Auto) 0 PT 11.5 INR 1.0 APTT 30 Sodium 137 Potassium 3.9 Chloride 99 Carbon Dioxide 26 BUN 9 Creatinine 0.70 Estimated GFR > 60.0 BUN/Creatinine Ratio 12.9 Glucose 128 H Lactate Calcium 9.9 Total Bilirubin 0.7 AST 48 H ALT 18 Alkaline Phosphatase 113 Lactate Dehydrogenase Troponin I Total Protein 8.4 H Albumin 4.7 Globulin 3.7 Albumin/Globulin Ratio 1.3 Lipase 790 H Urine RBC Urine WBC Ur Squamous Epith Cells Urine Bacteria Urine Yeast Ur Culture Indicated? Urine Test U Opiates 300ng/mL cut Ur Oxycodone Screen Urine Methadone Screen Ur Barbiturates Screen U Tricyclic Antidepress Ur Phencyclidine Scrn Ur Amphetamines Screen U Methamphetamines Scrn Ur MDMA Scrn (Ecstasy) U Benzodiazepines Scrn Urine Cocaine Screen U Marijuana (THC) Screen Ethyl Alcohol 06/18/19 06/18/19 06/18/19 20:53 21:05 21:05 WBC RBC Hgb Hct MCV MCH MCHC RDW Plt Count Neut % (Auto) Lymph % (Auto) [place] % (Auto) Eos % (Auto) Baso % (Auto) Neut # (Auto) Lymph # (Auto) [place] # (Auto) Eos # (Auto) Baso # (Auto) PT INR APTT Sodium Potassium Chloride Carbon Dioxide BUN Creatinine Estimated GFR BUN/Creatinine Ratio Glucose Lactate Calcium Total Bilirubin AST ALT Alkaline Phosphatase Lactate Dehydrogenase 545 Troponin I Total Protein Albumin Globulin Albumin/Globulin Ratio Lipase Urine RBC None seen Urine WBC None seen Ur Squamous Epith Cells 0-1 /hpf Urine Bacteria Occasional (0-1) Urine Yeast 0-1/hpf Ur Culture Indicated? Cult not indicated Urine Test Negative U Opiates 300ng/mL cut Ur Oxycodone Screen Urine Methadone Screen Ur Barbiturates Screen U Tricyclic Antidepress Ur Phencyclidine Scrn Ur Amphetamines Screen U Methamphetamines Scrn Ur MDMA Scrn (Ecstasy) U Benzodiazepines Scrn Urine Cocaine Screen U Marijuana (THC) Screen Ethyl Alcohol < 10 06/18/19 06/19/19 06/19/19 21:05 00:55 00:55 WBC RBC Hgb Hct MCV MCH MCHC RDW Plt Count Neut % (Auto) Lymph % (Auto) [place] % (Auto) Eos % (Auto) Baso % (Auto) Neut # (Auto) Lymph # (Auto) [place] # (Auto) Eos # (Auto) Baso # (Auto) PT INR APTT Sodium Potassium Chloride Carbon Dioxide BUN Creatinine Estimated GFR BUN/Creatinine Ratio Glucose Lactate 1.3 Calcium Total Bilirubin AST ALT Alkaline Phosphatase Lactate Dehydrogenase Troponin I < 0.012 Total Protein Albumin Globulin Albumin/Globulin Ratio Lipase Urine RBC Urine WBC Ur Squamous Epith Cells Urine Bacteria Urine Yeast Ur Culture Indicated? Urine Test U Opiates 300ng/mL cut Negative Ur Oxycodone Screen Positive H Urine Methadone Screen Negative Ur Barbiturates Screen Negative U Tricyclic Antidepress Negative Ur Phencyclidine Scrn Negative Ur Amphetamines Screen Negative U Methamphetamines Scrn Negative Ur MDMA Scrn (Ecstasy) Negative U Benzodiazepines Scrn Negative Urine Cocaine Screen Negative U Marijuana (THC) Screen Negative Ethyl Alcohol 06/19/19 06/19/19 06:34 06:34 WBC 5.1 RBC 3.56 L Hgb 11.9 L Hct 34.6 L MCV 97.1 MCH 33.3 MCHC 34.3 RDW 13.3 Plt Count 120 L Neut % (Auto) 66.1 Lymph % (Auto) 22.1 L [place] % (Auto) 9.6 Eos % (Auto) 1.9 L Baso % (Auto) 0.3 Neut # (Auto) 3400 Lymph # (Auto) 1100 [place] # (Auto) 500 Eos # (Auto) 100 Baso # (Auto) 0 PT INR APTT Sodium 138 Potassium 3.8 Chloride 101 Carbon Dioxide 29 BUN 7 Creatinine 0.70 Estimated GFR > 60.0 BUN/Creatinine Ratio 10.0 Glucose 100 Lactate Calcium 8.7 Total Bilirubin 1.2 AST 494 H ALT 60 H Alkaline Phosphatase 112 Lactate Dehydrogenase Troponin I Total Protein 6.9 Albumin 3.8 Globulin 3.1 Albumin/Globulin Ratio 1.2 Lipase 3519 H D Urine RBC Urine WBC Ur Squamous Epith Cells Urine Bacteria Urine Yeast Ur Culture Indicated? 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 1. Acute pancreatitis, present on admission. Active. 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 Patient endorses recent fatty food intake and 1 alcoholic beverage of wine 2 days ago. -CT abdomen and pelvis with contrast demonstrated small volume of retroperitoneal fluid surrounding the pancreas and duodenum suspicious for acute interstitial edematous pancreatitis.No loculated fluid collection or pancreatic necrosis identified at this time. Stable mild prominence of the extrahepatic bile duct. Post cholecystectomy. -Continue lactated Ringer's at 200 mL/hr. -Continue conservative management with pain control with Dilaudid 2 mg every 3 hours as needed for moderate to severe abdominal pain and patient insisting on antinausea medication with Compazine 10 mg every 6 hours and Benadryl 25 mg every 6 hours as needed for nausea. Also added Zofran 4 mg every 4 hours as needed for nausea. -Continue telemetry and continuous pulse ox monitoring with high-dose narcotic. -Serum test negative. -Urine toxicology screen positive for oxycodone otherwise negative. -Ordered lipid panel, pending. -Plan for MRCP tomorrow to further assess hepatobiliary and pancreatic anatomy. 2. Mild transaminitis, present on admission. Active. -Likely secondary to acute pancreatitis as above. -Initial LFTs: Total bilirubin 0.7, AST 48, ALT 18 and alk-phos one hundred thirteen. LFTs increased to total bilirubin 1.2, AST for 94, ALT 60, and alk-phos 112. -Continue to monitor LFTs daily. Code status: Full Code. No formal health directive. is the designated surrogate decision maker. VTE prophylaxis: SCDs Disposition: Patient remains hospitalized L likely discharge in several days once acute pancreatitis has improved/resolved. Quality VTE Deep Vein Thrombosis/Pulmonary Embolism Present on Admission: No
--- NOTE | 2019-06-19 18:38 | PC.NURSE ---
Evening note: At shift change/bedside report I observed Gogo standing at side of bed, leaning on bed in tripod position, rating upper middle abdomen/epigastric pain 9. I asked her if she would get into bed, I then administered Dilaudid 2 mg IV per prn orders. Within minutes she was closing eyes, appearing relaxed, dozing for a few seconds then startles back awake. RA oxygen 98%, respirations 16/minute, oriented x 3. HR tachy 95 bpm-110 bpm. Tele monitoring continues, rhythm is sinus. Patient ambulated to with SBA, voided 200 ml bright eli urine. Back to bed. Instructed to call nurse for any needs/concerns. (Alarm active for safety r/t fall risk due to dilaudid administration.) Dr Siegel in room to see patient, when she came out of room she asked me to give Gogo Dilaudid 2 mg IV now & to place continuous pulse ox which was done. Pre-med, patient awake, RA oxygen 98% while awake & talking. HR 120 bpm. She is observably uncomfortable, in position holding side rails. Within 10 minutes of med administration she started to doze off, RA oxygen sats dipping to 85% more than one time. Startles awake, able to bring O2 sat back up to 95% but quickly dozed off and sats dipping to 85-87% 2L O2 applied via NC, I notified Dr Siegel of desaturation & need for O2. Patient's speech is very quiet, slurred words, unable to understand her, I asked her to repeat herself several times. Appears very sedated, unable to rate pain on # scale, saying a lot better but it's still there, pointing to middle epigastric region. Then dozing again, respirations 14/minute, snoring at times. Gogo's spouse & son here visiting but now gone, spouse requesting that if there are any changes or concerns overnight to call him, phone # written on white board. I notified Sabrina Cortez RN of patient's status/need for continuous pulse ox monitoring.
[2019-06-19 19:13] LABS: Cholesterol 165 mg/dL (140-199); HDL Cholesterol 46 mg/dL (40-60); LDL Cholesterol Calculated 105 mg/dL (<100); Triglycerides 68 mg/dL (35-150)
[2019-06-20] VITALS (9 sets, daily range): BP systolic 105–124; BP diastolic 53–90; PULSE 111–149; RESP 15–22; TEMP 36.4–37.5; O2SAT 93–100
[2019-06-20] MEDS: diphenhydrAMINE 50 MG/ML VIAL 25 MG IV ×2 (00:22→23:40)
[2019-06-20] MEDS: PROCHLORPERAZINE 10 MG/2 ML VIAL IV ×2 (00:27→23:39)
[2019-06-20] MEDS: KETOROLAC 30 MG/ML VIAL IV (00:33)
[2019-06-20] MEDS: HYDROMORPHONE 2 MG INJ IV ×8 (00:44→23:29)
[2019-06-20] MEDS: LACTATED RINGERS 1,000 ML 200 ML IV ×2 (03:43→10:53)
[2019-06-20 06:47] LABS: Alanine Aminotransferase 85 IU/L (<35); Albumin 3.2 g/dL (3.5-5.0); Albumin Globulin Ratio 1.1 (1.0-2.8); Alkaline Phosphatase 114 U/L (38-126); Aspartate Aminotransferase 259 IU/L (14-36); Bilirubin Total 1.2 mg/dL (0.2-1.3); Blood Urea Nitrogen 3 mg/dL (7-17); Calcium 8.3 mg/dL (8.4-10.2); Carbon Dioxide 25 mmol/L (22-32); Chloride 99 mmol/L (98-107); Estimated Glomerular Filt Rate > 60.0 mL/min (>60); Globulin 2.9 g/dL (1.7-4.1); Glucose 56 mg/dL (70-100); HEMOLYSIS 40 (0-50); Lipase 636 U/L (23-300); Potassium 4.1 mmol/L (3.4-5.1); Sodium 135 mmol/L (137-145); Total Protein 6.1 g/dL (6.3-8.2)
--- NOTE | 2019-06-20 06:57 | PC.NURSE ---
zeroed bed this is within 2 lbs of what patient says she weighs
[2019-06-20 07:58] LABS: Add Manual Diff / Slide Review NO; Basophils Absolute Auto 0 /uL (0-100); Basophils Percent Auto 0.1 % (0-2); Eosinophils Absolute Auto 200 /uL (0-450); Eosinophils Percent Auto 1.9 % (2-4); Hematocrit 32.5 % (36-46); Hemoglobin 11.3 g/dL (12.0-16.0); Lymphocytes Absolute Auto 900 /uL (1100-4500); Lymphocytes Percent Auto 10.3 % (25-40); Mean Corpuscular HGB Conc 34.6 % (30-36); Mean Corpuscular Hemoglobin 33.9 PG (26-34); Mean Corpuscular Volume 97.9 fL (80-100); Monocytes Absolute Auto 500 /uL (0-900); Monocytes Percent Auto 5.7 % (3-14); Neutrophils Absolute Auto 7200 /uL (1500-7000); Platelet Count 97 X10^3/uL (150-400); Red Blood Cell Count 3.32 X10^6/uL (4.0-5.2); Red Cell Distribution Width 13.4 % (11.6-14.8); White Blood Cell Count 8.7 X10^3/uL (4.5-11.0)
[2019-06-20] MEDS: ENOXAPARIN 40 MG/0.4 ML SYRINGE SUBCUT (08:14)
[2019-06-20] MEDS: ONDANSETRON 4 MG/2 ML INJ IV (08:15)
--- NOTE | 2019-06-20 11:05 | CM.DANOTE ---
DCP Assess: Per MD, pt continues to have pain management issues and plan is to get MRCP scan to determine any further medical needs and waiting Lipase levels. Plan is to treat conservatively and pt may still need a hospital transfer if she does not improve and this is around pt's 11th episode of pancreatitis. SW met bedside with pt and explained role and updated white board and pt obviously in pain and not feeling well and has been sleeping a fair bit. Pt confirms she lives at home with her spouse and children and spouse is available for assist at home if needed and is headed into the hospital now and will be bedside in a bit. Pt confirms she is independent at baseline and has family support. Pt is unsure if she will have any d/c planning needs once she is medically stable but preference is definitely to d/c home with family. Plan: SW to follow closely to determine if there are any identified discharge planning needs and if pt will be safe for d/c home with family support when medically stable. FLORENCE Coates
--- NOTE | 2019-06-20 11:45 | DI.MRI.S_ITS ---
PROCEDURE: MR ABDOMEN WO CON INDICATIONS: recurrent pancreatitis (10+episodes) TECHNIQUE: Coronal HASTE through the abdomen, axial 2-D FLASH in- and [id number], and breath-hold T2 FSE with fat saturation through the biliary system and pancreas. Oblique coronal and axial thin-slice HASTE, radial thick-slab HASTE centered on the extrahepatic bile ducts. Intravenous secretin: Not requested. COMPARISON: [facility], CT, CT ABDOMEN PELVIS W CON, 06/19/2019, 8:35. FINDINGS: Image quality: Excellent. Pancreas and biliary system: Intra- and extra-hepatic biliary ducts are non dilated. Pancreas is normal in morphology, without adjacent soft tissue edema. Pancreatic duct is mildly enlarged in caliber as can be seen on prior CT scanning, with a proportionate reduction in pancreatic parenchyma through the pancreatic head, neck, body and tail symmetrically. The common bile duct is mildly dilated above the level of the pancreatic head, up to 1.3 cm, and within the pancreatic head region the duct tapers rapidly to 6 mm in caliber, and even less as the ampulla is approached, but there is no calculus or sludge within the duct lumen. Gallbladder has been previously resected. Other solid organs: Liver is normal in size. Spleen is normal in size. No adrenal nodules. Both kidneys are normal in size, without hydronephrosis. Nodes and vessels: No retroperitoneal or mesenteric adenopathy by size criteria. Aorta and inferior vena cava are normal in size. Bowel and peritoneum: Unenhanced bowel loops are normal in caliber. No free fluid. Lung bases: No basal pleural effusions. Heart size is normal. Bones and soft tissues: No ventral hernias. Bone marrow is of normal overall signal. IMPRESSION: The patient provides a clinical history of chronic episodic pancreatitis, and the pancreatic parenchyma shows a pattern of glandular atrophy through the head/neck/body and tail. The pancreatic duct is symmetrically and proportionately mildly enlarged consistent with glandular atrophy as the underlying cause. A mass lesion or pancreatic ductal calculus is not seen. The common duct also appears free of duct calculus or sludge. Prior cholecystectomy. Common duct caliber above the pancreatic head is up to 1.3 cm, and smoothly tapers through the pancreatic head is 6 mm to approximately 3 mm, presumably secondary to fibrotic scarring from episodic pancreatitis. Dictated by: Austin Jaimes M.D. on 06/20/2019 at 16:39 Approved by: Austin Jaimes M.D. on 06/20/2019 at 16:46
[2019-06-20] MEDS: DEXTROSE 5%-0.9% NS 1,000 ML 150 ML IV ×2 (12:45→20:33)
--- NOTE | 2019-06-20 13:47 | PC.NURSE ---
Addendum entered by Nilsa Donaldson R.N. 06/20/19 15:46: At 1435, rechecked BG Finger stick by TELECOMMUNICATIONS ANALYST for 110. Pt given PRN IV Dilaudid at 1445 prior to MRI, pt did not want PRN Anti-emetic at this time. Pt left for MRI at 1450, back at 1525 to room via wheelchair. Original Note: Day Shift- Pt A&OX4, able to make needs known using call light. Rates 2-8/10 sharp, throbbing, radiating pain to upper abd and tender, radiating to mid back. Pain management plan discussed. IV prn Dilaudid given at 0815 and 1120 for 8/10 pain, decreased to so, so, 5/10 on FLACC upon reassessment. States having nausea, no belching, gagging, burping. PRN Zofran given at 0815 with satisfactory effect. Pt states abd feels bloated, tender to upper abd bilateral, straight across. Passing flatus. Pt strict NPO, pt states having her own lip balm and encouraged to use mouth moisturizer, swabs with water and lemon swabs also provided. Pt indep in washing out mouth with water/mouthwash mix. Per Dr. Siegel noted lab glucose 56, BG fingerstick checked at 1240 for 55, pt is noted to be closing eyes during conversation and reopens spontaneously, states feeling tired. Ambulation in room with steady gait. Verbal order from Dr. Siegel for D5NS at 200mls/hr then changed to 150mls/hr hung, see MAR. Recheck BG FS in [address] Siegel to make sure trending to WNL. Verbal order taken for U/A collection, pt aware. Pt had reported having painful urination to lower and mid back bilateral, new for pt. Denied pain at urethral site, itching, frequency. Urine is clear and concentrated dark yellow/eli. Plan for MRI around 1500.
[2019-06-20 14:03] LABS: Hemoglobin A1C% w Est Avg Glu 4.9 % (4.0-6.0)
--- NOTE | 2019-06-20 15:25 | P.PN_ITS ---
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 The patient is resting in bed and appears mildly uncomfortable but not in acute distress. She endorses sharp stabbing epigastric pain radiating straight through to back that is controlled with IV narcotic and improved since yesterday. Plan to continue IV fluids switch to normal saline with 5% dextrose for glucose source as patient had mild hypoglycemia, pain control, MRCP this afternoon to further assess pancreatic anatomy, and possible advancement of diet to clears later today. The patient has no other complaints and denies headache, shortness of breath, chest pain, fever, chills, dysuria, diarrhea or constipation. She is voiding without difficulty. She is up ambulating without assistance and minimally due to pain. Exam Vital Signs (past 8 hours): - 06/20/19 08:00 06/20/19 08:15 06/20/19 11:32 Temperature 97.6 F Pulse Rate 112 H Respiratory Rate 18 Blood Pressure 105/67 Pulse Oximetry 100 93 97 06/20/19 12:00 Temperature 98.8 F Pulse Rate 114 H Respiratory Rate 18 Blood Pressure 107/63 Pulse Oximetry 94 Oxygen Delivery Method Room Air Oxygen Flow Rate 0 Narrative Exam Narrative: General: Young female sitting in bed and in no acute distress, appears modera tely uncomfortable, well-developed, well-nourished, appropriately interactive. HEENT: Normocephalic, atraumatic. External ears without defect. Pupils equal, round, and reactive to light. Anicteric sclerae, moist conjunctivae, and no lid lag. Oropharynx free of erythema and cobble stoning with moist mucosa. Neck: Supple with full range of motion. No jugular venous distension. No lymphadenopathy or thyromegaly. Cardiovascular: Regular rhythm, tachycardic, without murmurs, rubs, or gallops appreciated Pulmonary: Clear to auscultation bilaterally without crackles, wheezes, or rhonchi. Normal respiratory effort with no use of accessory muscles. Abdomen: Soft, moderate tenderness to palpation in epigastrium slightly improved, nondistended. No hepatosplenomegaly or masses appreciated. Extremities: No clubbing, cyanosis, or edema. Skin: Normal temperature, turgor, and texture; no rash, ulcers, or subcutaneous nodules appreciated. Neurological: Cranial nerves grossly intact. Psychiatric: Normal mood and affect. Alert and oriented to person, place, and time. Objective Labs Result Diagrams: 06/20/19 07:30 06/20/19 05:50 Labs: Laboratory Results - last 24 hr 06/19/19 06/20/19 06/20/19 06:34 05:50 07:30 WBC 8.7 D RBC 3.32 L Hgb 11.3 L Hct 32.5 L MCV 97.9 MCH 33.9 MCHC 34.6 RDW 13.4 Plt Count 97 L Neut % (Auto) 82.0 H Lymph % (Auto) 10.3 L [place] % (Auto) 5.7 Eos % (Auto) 1.9 L Baso % (Auto) 0.1 Neut # (Auto) 7200 H Lymph # (Auto) 900 L [place] # (Auto) 500 Eos # (Auto) 200 Baso # (Auto) 0 Sodium 135 L Potassium 4.1 Chloride 99 Carbon Dioxide 25 BUN 3 L Creatinine 0.60 Estimated GFR > 60.0 BUN/Creatinine Ratio 5.0 L Glucose 56 L Hemoglobin A1c Calcium 8.3 L Total Bilirubin 1.2 AST 259 H ALT 85 H Alkaline Phosphatase 114 Total Protein 6.1 L Albumin 3.2 L Globulin 2.9 Albumin/Globulin Ratio 1.1 Triglycerides 68 Cholesterol 165 LDL Cholesterol, Calc 105 H HDL Cholesterol 46 Lipase 636 H D 06/20/19 07:30 WBC RBC Hgb Hct MCV MCH MCHC RDW Plt Count Neut % (Auto) Lymph % (Auto) [place] % (Auto) Eos % (Auto) Baso % (Auto) Neut # (Auto) Lymph # (Auto) [place] # (Auto) Eos # (Auto) Baso # (Auto) Sodium Potassium Chloride Carbon Dioxide BUN Creatinine Estimated GFR BUN/Creatinine Ratio Glucose Hemoglobin A1c 4.9 Calcium Total Bilirubin AST ALT Alkaline Phosphatase Total Protein Albumin Globulin Albumin/Globulin Ratio Triglycerides Cholesterol LDL Cholesterol, Calc HDL Cholesterol Lipase Assessment & Plan Assessment & Plan narrative: Gogo Rosenberg is a 29-year-old female with a past medical history significant for endometriosis, ovarian cyst, recurrent pancreatitis, and 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 1. Acute pancreatitis, present on admission. 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 Patient endorses recent fatty food intake and 1 alcoholic beverage of wine 2 days ago. -CT abdomen and pelvis with contrast demonstrated small volume of retroperitoneal fluid surrounding the pancreas and duodenum suspicious for acute interstitial edematous pancreatitis.No loculated fluid collection or pancreatic necrosis identified at this time. Stable mild prominence of the extrahepatic bile duct. Post cholecystectomy. -Switched to LR to D5 NS at 150 mL/hr for glucose source as patient's glucose was trending low to 60. -Continue conservative management with pain control with Dilaudid 2 mg every 3 hours as needed for moderate to severe abdominal pain and patient insisting on antinausea medication with Compazine 10 mg every 6 hours and Benadryl 25 mg every 6 hours as needed for nausea. Also added Zofran 4 mg every 4 hours as needed for nausea. -Continue NPO and consider advancing diet to clears later today. -Continue telemetry and continuous pulse ox monitoring with high-dose narcotic. -Serum test negative. -Urine toxicology screen positive for oxycodone otherwise negative. -Triglycerides within normal limits at 68 and noncontributory. -Ordered MRCP to further assess hepatobiliary and pancreatic anatomy, pending. 2. Mild transaminitis, present on admission. Improving -Likely secondary to acute pancreatitis as above. -Initial LFTs: Total bilirubin 0.7, AST 48, ALT 18 and alk-phos one hundred thirteen. LFTs increased to total bilirubin 1.2, AST for 94, ALT 60, and alk-phos 112. -Continue to monitor LFTs daily. Code status: Full Code. No formal health directive. is the designated surrogate decision maker. VTE prophylaxis: SCDs Disposition: Patient remains hospitalized and will likely discharge home in 1-2 days once acute pancreatitis has improved/resolved. Quality VTE Deep Vein Thrombosis/Pulmonary Embolism Present on Admission: No
[2019-06-20 18:22] LABS: Appearance Urine UA CLEAR; Bilirubin Urine UA NEGATIVE (NEGATIVE); Color Urine UA YELLOW; Glucose Urine UA NEGATIVE (Negative); Ketones Urine UA 3+ (NEGATIVE); Leukocyte Esterase Urine UA NEGATIVE (NEGATIVE); Nitrite Urine UA NEGATIVE (Negative); Occult Blood Urine UA NEGATIVE (Negative); Protein Urine UA TRACE (Negative); Specific Gravity Urine UA 1.025 (1.000-1.035); Urobilinogen Urine UA 0.2 E.U./dL (0.2)
[2019-06-20 19:09] LABS: Bacteria Urine Moderate (10-30); Culture Indicated Urine Specimen Cultured; RBC Urine 0-1/HPF (0-5/HPF); Squamous Epithelial Cell Urine 1-5 /HPF (0-5/HPF); WBC Urine 5-10/HPF (0-5/HPF)
[2019-06-21] MEDS: DEXTROSE 5%-0.9% NS 1,000 ML 150 ML IV (03:05)
[2019-06-21] MEDS: HYDROMORPHONE 2 MG INJ IV ×2 (03:05→06:58)
[2019-06-21 06:46] LABS: BUN Creatinine Ratio 3.3 (6-22); Blood Urea Nitrogen < 2 mg/dL (7-17); Calcium 7.7 mg/dL (8.4-10.2); Carbon Dioxide 28 mmol/L (22-32); Chloride 102 mmol/L (98-107); Estimated Glomerular Filt Rate > 60.0 mL/min (>60); Glucose 152 mg/dL (70-100); HEMOLYSIS 35 (0-50); Lipase 216 U/L (23-300); Potassium 3.8 mmol/L (3.4-5.1); Sodium 134 mmol/L (137-145)
[2019-06-21 06:47] LABS: Add Manual Diff / Slide Review NO; Basophils Absolute Auto 0 /uL (0-100); Basophils Percent Auto 0.4 % (0-2); Eosinophils Absolute Auto 200 /uL (0-450); Hematocrit 33.2 % (36-46); Hemoglobin 11.5 g/dL (12.0-16.0); Lymphocytes Absolute Auto 900 /uL (1100-4500); Mean Corpuscular HGB Conc 34.7 % (30-36); Mean Corpuscular Volume 97.8 fL (80-100); Monocytes Absolute Auto 600 /uL (0-900); Monocytes Percent Auto 8.7 % (3-14); Neutrophils Absolute Auto 5600 /uL (1500-7000); Neutrophils Percent Auto 75.9 % (50-75); Platelet Count 98 X10^3/uL (150-400); Red Blood Cell Count 3.39 X10^6/uL (4.0-5.2); White Blood Cell Count 7.4 X10^3/uL (4.5-11.0)
[2019-06-21 06:53] VITALS: BP 119/59; PULSE 103; RESP 16; TEMP 37.2; O2SAT 93
[2019-06-21] MEDS: PROCHLORPERAZINE 10 MG/2 ML VIAL IV (06:59)
[2019-06-21] MEDS: diphenhydrAMINE 50 MG/ML VIAL 25 MG IV (07:05)
--- NOTE | 2019-06-21 07:50 | PC.NURSE ---
Patient still continues to have 8/10 pain Q3 2mg Dilaudid given PRN. Patient also has some nausea. Compazine and Zofran given PRN, along with Bendadry for anxiety.
[2019-06-21 08:10] VITALS: BP 102/58; PULSE 109; RESP 16; TEMP 37; O2SAT 91
[2019-06-21] MEDS: OXYCODONE IR 5 MG TABLET PO (10:09)
[2019-06-21 10:43] VITALS: O2SAT 86; O2SAT 97
--- NOTE | 2019-06-21 11:38 | P.DS_ITS ---
History of Present Illness History of Present Illness Date Patient Seen: 06/18/19 Chief complaint: thinks full blown pancretits attack Narrative: Written by Dmitriy HARRISON: The patient is a 29-year-old female with PMH of endometriosis, ovarian cyst, pancreatitis, h/o toxic shock syndrome (complicated by HUS and renal failure) Patient presented to the ED on 06/18/19 out of concern for pain in the RUQ of the abdomen and epigastric area. Patient describes pain as severe and cramping. She also sensation of pressure in the chest, specifically noting I feel that I'm having a heart attack.Associated symptoms include nausea. Patient denies palpitations, dizziness/lightheadedness, and diaphoresis. Symptoms noted earlier within 12 hours on day of ED presentation, progressively worsening. Patient notes that she has been suffering from URI symptoms in the past week. Earlier in the day she has taken a cough suppressant and believes that it has ex acerbated her pain. Also, patient was treated with IV protonix in ED, which she also felt has exacerbated her pain. Patient reports prior history of recurrent pancreatitis. She is unable to note the diagnosed etiology of prior events. She has not had a pancreatic flare since removal of her gallbladder 18 months ago. Patient admits to drinking alcohol the prior. Patient presents with abdominal pain that appears to be out of proportion. Lipase is 790. No other imaging was done in ED. Patient has a history of a biliary sludge, s/p cholecystectomy at age of 13. At age 16 patient was diagnosed w/toxic shock syndrome with further complications by HS and renal failure. Since being treated for toxic shock syndrome patient has had recurrent episodes of pancreatitis, which she was told may contributing to recurrence. It appears that the patient has seen multiple specialists. 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 This was told to her by physician practice administrator in [place], Dr. Smith. ED Presentation & Work-Up VS. T 98.4 BP 158/107 HR 133 RR 26 SpO2 100% Labs, 06/18 2052 WBC 8.6 HGB 13.9 PLT 147 PT 11.5 INR 1.0 aPTT 30 NA 137 K 3.9 Cl 99 CA 9.9 GLU 128 CO2 26 BUN 9 Cr 0.7 BUN:Cr 12.9 T.Bili 0.7 AST 48 ALT 18 ALT 113 LDH 545 Lipase 790 EtOH < 10 UA negative. In the ED patient received 2 mg hydromorphone IV (total), 4 mg of Zofran IV, 40 mg IV Protonix, and 1L NS bolus. Treatment provided in ED was insufficient and patient continued to have pe rsistent abdominal pain. Discharge Providers Provider Date of admission: 06/18/19 23:00 Discharge Date: 06/21/19 Primary care physician: Prince Saadia MD Consults: 06/21/19 07:42 Consult to Dietitian, Adult Routine Comment: Reason For Exam: recurrent pancreatitis Discharge provider: Dinah Siegel DO Summary Hospital Course Discharge Diagnosis: 1. Acute pancreatitis, present on admission. Resolved. 2. Mild transaminitis, present on admission. Resolving. 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 1. Acute pancreatitis, present on admission. Resolved. 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 Patient endorses recent fatty food intake and 1 alcoholic beverage of wine 2 days ago. -CT abdomen and pelvis with contrast demonstrated small volume of retro peritoneal fluid surrounding the pancreas and duodenum suspicious for acute interstitial edematous pancreatitis.No loculated fluid collection or pancreatic necrosis identified at this time. Stable mild prominence of the extrahepatic bile duct. Post cholecystectomy. -Initial lipase 3519. Lipase trended down to normal now 216. -Continued IV fluids with D5 NS until adequately hydrated and tolerating PO intake then discontinued. -Continued pain control with IV dilaudid then titrated to oxycodone 5 mg every 4 hours. Patient's pain has significantly improved. -Patient insisted on antinausea medication with Compazine 10 mg every 6 hours and Benadryl 25 mg every 6 hours as needed for nausea. Also added Zofran 4 mg every 4 hours as needed for nausea. -Continued NPO for approximately 24 hours then slowly advance diet as tolerated. Patient tolerating clear liquid and soft diet/low residue/low-fat diet. -Continued telemetry and continuous pulse ox monitoring with high-dose narcotic. -Serum test negative. -Urine toxicology screen positive for oxycodone otherwise negative. -Triglycerides within normal limits at 68 and noncontributory. -MRCP demonstrated pancreatic parenchyma shows a pattern of glandular atrophy through the head/neck/body and tail. The pancreatic duct is symmetrically and proportionately mildly enlarged consistent with glandular atrophy as the underlying cause. A mass lesion or pancreaticductal calculus is not seen. The common duct also appears free of duct calculus or sludge. Prior cholecystectomy. Common duct caliber above the pancreatic head is up to 1.3 cm, and smoothly tapers through the pancreatic head is 6 mm to approximately 3 mm, presumably se condary to fibrotic scarring from episodic pancreatitis. -Recommended patient have PCP place expedited referral placed to GI for possible common bile duct dilatation or stenting as this is her now 11th episode of pancreatitis. 2. Mild transaminitis, present on admission. Resolving. -Likely secondary to acute pancreatitis as above. -Initial LFTs: Total bilirubin 0.7, AST 48, ALT 18 and alk-phos 113. LFTs increased to total bilirubin 1.2, AST for 94, ALT 60, and alk-phos 112. LFTs mostly normalized with total bilirubin normal at 0.5, AST slightly elevated at 78, ALT slightly elevated at 43, and alk-phos normal at 95. -Continued to monitor LFTs daily. Exam Vital Signs (past 8 hours): - 06/21/19 06:53 06/21/19 08:10 06/21/19 10:43 Temperature 99.0 F 98.6 F Pulse Rate 103 H 109 H Respiratory Rate 16 16 Blood Pressure 119/59 L 102/58 L Pulse Oximetry 93 91 97 Oxygen Delivery Method Room Air Oxygen Flow Rate 1 Narrative Exam Narrative: General: Young female sitting in bed and in no acute distress, appears moderately uncomfortable, well-developed, well-nourished, appropriately interactive. HEENT: Normocephalic, atraumatic. External ears without defect. Pupils equal, round, and reactive to light. Anicteric sclerae, moist conjunctivae, and no lid lag. Oropharynx free of erythema and cobble stoning with moist mucosa. Neck: Supple with full range of motion. No jugular venous distension. No lymphadenopathy or thyromegaly. Cardiovascular: Regular rhythm, tachycardic, without murmurs, rubs, or gallops appreciated Pulmonary: Clear to auscultation bilaterally without crackles, wheezes, or rhonchi. Normal respiratory effort with no use of accessory muscles. Abdomen: Soft, mild tenderness to palpation in epigastrium that is improved, nondistended. No hepatosplenomegaly or masses appreciated. Extremities: No clubbing, cyanosis, or edema. Skin: Normal temperature, turgor, and texture; no rash, ulcers, or subcutaneous nodules appreciated. Neurological: Cranial nerves grossly intact. Psychiatric: Normal mood and affect. Alert and oriented to person, place, and time. Objective Labs Result Diagrams: 06/21/19 06:20 06/21/19 06:20 Labs: Laboratory Results - last 24 hr 06/20/19 06/20/19 06/20/19 07:30 07:30 18:05 WBC 8.7 D RBC 3.32 L Hgb 11.3 L Hct 32.5 L MCV 97.9 MCH 33.9 MCHC 34.6 RDW 13.4 Plt Count 97 L Neut % (Auto) 82.0 H Lymph % (Auto) 10.3 L [place] % (Auto) 5.7 Eos % (Auto) 1.9 L Baso % (Auto) 0.1 Neut # (Auto) 7200 H Lymph # (Auto) 900 L [place] # (Auto) 500 Eos # (Auto) 200 Baso # (Auto) 0 Sodium Potassium Chloride Carbon Dioxide BUN Creatinine Estimated GFR BUN/Creatinine Ratio Glucose Hemoglobin A1c 4.9 Calcium Lipase Urine Color Yellow Urine Appearance Clear Urine pH 5.0 Ur Specific [place] 1.025 Urine Protein Trace H Urine Glucose (UA) Negative Urine Ketones 3+ H Urine Occult Blood Negative Urine Nitrate Negative Urine Bilirubin Negative Urine Urobilinogen 0.2 Ur Leukocyte Esterase Negative Urine RBC 0-1/hpf Urine WBC 5-10/hpf H Ur Squamous Epith Cells 1-5 /hpf Urine Bacteria Moderate (10-30) H Urine Yeast 0-1/hpf Ur Culture Indicated? Specimen cultured 06/21/19 06/21/19 06/21/19 06:20 06:20 06:20 WBC 7.4 RBC 3.39 L Hgb 11.5 L Hct 33.2 L MCV 97.8 MCH 34.0 MCHC 34.7 RDW 13.0 Plt Count 98 L Neut % (Auto) 75.9 H Lymph % (Auto) 12.0 L [place] % (Auto) 8.7 Eos % (Auto) 3.0 Baso % (Auto) 0.4 Neut # (Auto) 5600 Lymph # (Auto) 900 L [place] # (Auto) 600 Eos # (Auto) 200 Baso # (Auto) 0 Sodium 134 L Potassium 3.8 Chloride 102 Carbon Dioxide 28 BUN < 2 L Creatinine 0.60 Estimated GFR > 60.0 BUN/Creatinine Ratio 3.3 L Glucose 152 H Hemoglobin A1c Calcium 7.7 L Lipase 216 D Urine Color Urine Appearance Urine pH Ur Specific [place] Urine Protein Urine Glucose (UA) Urine Ketones Urine Occult Blood Urine Nitrate Urine Bilirubin Urine Urobilinogen Ur Leukocyte Esterase Urine RBC Urine WBC Ur Squamous Epith Cells Urine Bacteria Urine Yeast Ur Culture Indicated? Discharge Plan Discharge Plan Patient Disposition: Home Discharge comment: You're being discharged home. You had another episode of recurrent pancreatitis due to to common bile duct stenosis with consumption of fatty foods and alcohol use. Please avoid alcohol and fatty foods. Continue to slowly advance your diet as tolerated. You may need to be on clear liquid diet for several days and advanced to low residue/low-fat diet as instructed by dietitian. Please follow-up with your primary care physician, Dr. Zee, regarding your hospitalization and for expedited referral to gastroenterology. You will likely need your common bile duct opened up with a repeat sp hincterotomy and possibly stent placement in 2-4 weeks to prevent this from recurring. You have been prescribed oxycodone 5-325 mg every 6 hours to take for severe pain only. Please do not take this medication with alcohol and/or driving. Your urine culture had no growth. Discharge orders & Medications Prescriptions: New oxycodone 5 mg Tablet 5 mg PO Q4HR PRN (Reason: Pain, Moderate (4-6)) Qty: 10 RF: 0 Continued metoclopramide HCl [Reglan] 10 mg tablet 10 mg PO Q6H PRN (Reason: nausea and vomiting) Qty: 10 RF: 0 Follow up/Referrals: Prince Zee MD [Primary Care Provider] - 3-5 Days (YOU HAVE AN APPOINTMENT SCHEDULED WITH DR. ZEE ON THIS Wednesday06/23/2019 AT 11:50.) Diet/Activity/Treatments Diet: Diet as Tolerated Activity: Activity as tolerated Visit Report/Discharge Packet Instructions: Eating a Diet Low in Saturated Fat, Trans Fat, and Cholesterol, Acute Pancreatitis, Fat-Restricted Diet, Low-Fiber/Low-Residue Diet, DI for Prescription Opioid Use Discharge Data Primary Care Provider: Prince Saadia Discharges patient from system. Discharge Date/Time: 06/21/19 12:20 Quality VTE Deep Vein Thrombosis/Pulmonary Embolism Present on Admission: No
[2019-06-21 11:46] LABS: Alanine Aminotransferase 43 IU/L (<35); Albumin 2.6 g/dL (3.5-5.0); Alkaline Phosphatase 95 U/L (38-126); Aspartate Aminotransferase 78 IU/L (14-36); Bilirubin Total 0.5 mg/dL (0.2-1.3); Bilirubin Unconjugated 0.3 mg/dL (0.0-1.1); Globulin 2.6 g/dL (1.7-4.1); HEMOLYSIS 33 (0-50); Total Protein 5.2 g/dL (6.3-8.2)
== END 2019-06-21 12:20 | disposition home or self-care (01) | DRG 438 ==
LOC: ED 23:00 → AC 23:03
PROVIDERS: Internal Medicine; Admitting Provider Nurse Practitioner Gerontology; Emergency Provider Emergency Medicine; PCP Family Medicine; Referring Provider Emergency Medicine; Visit Provider Nurse Practitioner Gerontology
DX: K86.1 Other chronic pancreatitis (principal); K83.1 Obstruction of bile duct; K91.89 Other postprocedural complications and disorders of digestive system
CPT/HCPCS: 36415; 74177; 74181; 80048; 80053; 80061; 80076; 80305; 80320; 81001; 81003; 81015; 81025; 82962; 83036; 83605; 83615; 83690; 84484; 85025; 85610; 85730; 87086; 93005; 94762; 96361; 96374; 96375; 96376; 99284; C9113; J0780; J1170; J1200; J1650; J1885; J2405; Q9967

== ENCOUNTER 2019-08-08 16:06 | Emergency (ER) | payer OTHER, SELFPAY ==
[2019-06-19 00:13] VITALS: BMI 27.4
[2019-08-08 16:15] VITALS: BP 160/112; PULSE 132; RESP 14; TEMP 36.7; O2SAT 99; BMI 27.4
--- NOTE | 2019-08-08 16:56 | DI.RAD.S_ITS ---
PROCEDURE: XR CHEST 2V INDICATIONS: epigastric pain, hx of pancreatitis TECHNIQUE: 2 views of the chest were acquired. COMPARISON: [facility], , XR CHEST 1V, 04/16/2019, 17:28. FINDINGS: Surgical changes and devices: Cholecystectomy clips are seen. Lungs and pleura: Lungs are clear. No pleural effusions or pneumothorax. Mediastinum: Mediastinal contours are normal. Heart size is normal. Bones and chest wall: No suspicious bony abnormalities. Soft tissues appear unremarkable. IMPRESSION: Clear lungs. Cholecystectomy clips are noted. Dictated by: Jamil Whitaker M.D. on 08/08/2019 at 16:20 Approved by: Jamil Whitaker M.D. on 08/08/2019 at 16:21
--- NOTE | 2019-08-08 17:22 | ED_ITS ---
HPI - Abdominal Pain <HUNTER Gonzalez - Last Filed: 08/08/19 19:39> General Chief Complaint: Abdominal Pain Stated Complaint: abd pain, n/v Time Seen by Provider: 08/08/19 16:35 Source: patient Mode of arrival: Ambulatory Limitations: no limitations History of Present Illness HPI narrative: This is a 29-year-old female, nonsmoker, who presents to ED with chief complaint of epigastric pain radiating to back with nausea and vomiting for last 2 days. Patient reports onset of discomfort yesterday which became worse today with vomiting. She reports is not able to tolerate fluids or food and has been vomiting 4-5 times without blood in emesis. Patient reports pain increases with eating and describes as sharp and stabbing pain and feels like her insight is twisted. Reports temperature has been from 99.0-99.8 for about a week. She reports subjective chills and hot. Patient was in [place] 2 weeks ago and had taken increased alcohol intake which she should not haven't. Patient also is taking new control pill Nyla and she had called her OBGYN and PCP whether this medication can cause pancreatitis exacerbation which she was told unlikely. She was suggested to come to ED for an evaluation and pain management per her PCP . Patient has history of pancreatitis with common bile duct stenosis. Patient also has history of endometriosis but her pain is usually in lower abdomen and during her period. LMP was about 2 weeks ago. Patient also reports started having diarrhea before coming into ED. Patient had taken oxycodone and Zofran at home which is not effective to manage her pain. Past surgical history as exploratory surgery for endometriosis, ov emilia cyst removal, cholecystectomy, to breast reduction surgery with complication of infection. Related Data Previous Rx's Medication Instructions Recorded metoclopramide HCl [Reglan] 10 mg PO Q6H PRN #10 tab 05/31/19 oxycodone 5 mg PO Q4HR PRN #10 tab 06/21/19 Allergies Allergy/AdvReac Type Severity Reaction Status Date / Time clindamycin Allergy Rash Verified 08/08/19 16:22 guaifenesin [From Mucinex] Allergy Rash Verified 08/08/19 16:22 haloperidol [From Haldol] AdvReac Irritable Verified 08/08/19 16:58 ketorolac [From Toradol] AdvReac Anxiety Verified 08/08/19 16:58 metoclopramide [From Reglan] AdvReac Anxiety Verified 08/08/19 16:58 promethazine [From Phenergan] AdvReac Anxiety Verified 08/08/19 16:58 zolpidem [From Ambien] AdvReac Hallucinati Verified 08/08/19 16:58 ng Review of Systems <HUNTER Gonzalez - Last Filed: 08/08/19 19:39> Review of Systems Narrative: General: Denies (+) fever, (+) chills, fatigue, malaise, sweats. HEENT: Denies sinus pain, ear pain, sore throat, difficulty swallowing, dizziness. Respiratory: Denies dyspnea, cough, wheezing, hemoptysis, sputum. Cardiovascular: Denies chest pain, palpitations, orthopnea, edema. Gastrointestinal: See HPI : Denies dysuria, frequency, incontinence, hematuria, urinary retention. Musculoskeletal: Denies weakness, joint pain or bony pain. Skin: Denies rash, skin lesions, or other. Neurologic: Denies weakness, headache, numbness, change in speech, confusion, seizures, incoordination. Psychiatric: No concerning psychosocial issues. 12-point review of systems is negative except for those stated above. Patient History <HUNTER Gonzalez - Last Filed: 08/08/19 19:39> Medical History Endometriosis (Acute) Gastroparesis (Acute) Pancreatitis (Acute) Surgical History H/O laparoscopy (Acute) Hx of cholecystectomy (Acute) Social History marital status: household members: spouse and children Smoking Status: Never smoker Smoking Status: Never smoker alcohol intake frequency: a few times a month Substance Use Type: does not use Exam <HUNTER Gonzalez - Last Filed: 08/08/19 19:39> Narrative Exam Narrative: General appearance: well developed, well nourished, in no acute distress. Head: normocephalic, atraumatic, no scalp lesions, non-tender. ENT: Hearing grossly intact. Nose without bleeding, purulent discharge. Mucous membrane moist, no mucosal lesion. Throat without erythema, tonsillar hypertrophy or exudate. Uvula in midline, airway patent. Neck/Thyroid: neck supple, full range of motion, no visible masses or meningeal signs. No JVD, non-tender without lymphadenopathy. Skin: no suspicious rashes, lesions over visible areas. Warm and dry and appropriate color for ethnicity. Heart: no clubbing, no cyanosis, no edema. S1 and S2 normal. RRR w/o murmurs, clicks, or bruits. Lungs: Breathing even and unlabored. Lung sounds clear to auscultate in all lobes. No stridor. No accessory muscles used. Able to speak in full sentences. Chest: normal shape and expansion. Abdomen: non-obese, non-distended. No rebound tenderness, no olivo's sign and soft to palpate. Bowel sounds are active in 4 quadrants. Neurologic: alert and oriented. Cognitive exam, COMP[employer]IST and PNS grossly intact on informal exam. Psych: good eye contact, normal affect. Initial Vital Signs Initial Vital Signs: Vital Signs Temperature 98.1 F 08/08/19 16:15 Pulse Rate 132 H 08/08/19 16:15 Respiratory Rate 14 08/08/19 16:15 Blood Pressure 160/112 H 08/08/19 16:15 Pulse Oximetry 99 08/08/19 16:15 <Shreya Lea DO - Last Filed: 08/11/19 22:28> Initial Vital Signs Initial Vital Signs: Vital Signs Temperature 98.1 F 08/08/19 16:15 Pulse Rate 132 H 08/08/19 16:15 Respiratory Rate 14 08/08/19 16:15 Blood Pressure 160/112 H 08/08/19 16:15 Pulse Oximetry 99 08/08/19 16:15 Scores <HUNTER Gonzalez - Last Filed: 08/08/19 19:39> GCS Ibis coma scale eye opening: Spontaneous Ibis coma scale verbal response: Orientated [place] coma scale motor response: Obey commands Ibis coma scale total score: 15 Course <HUNTER Gonzalez - Last Filed: 08/08/19 19:39> Orders Ordered: Discontinued Medications Sodium Chloride (Normal Saline 0.9%) 1,000 mls @ 999 mls/hr IV BOLUS ONE Stop: 08/08/19 17:55 Last Infusion: 08/08/19 18:46 Dose: 0 mls/hr Documented by: Admin: 08/08/19 17:53 Dose: 999 mls/hr Documented by: HUSSEIN Lorazepam (Ativan) 1 mg IV NOW ONE Stop: 08/08/19 16:56 Last Admin: 08/08/19 17:54 Dose: 1 mg Documented by: HUSSEIN Ondansetron HCl (Zofran) 4 mg IV NOW ONE Stop: 08/08/19 16:56 Last Admin: 08/08/19 17:53 Dose: 4 mg Documented by: HUSSEIN Ondansetron HCl (Zofran) 4 mg IV NOW ONE Stop: 08/08/19 18:23 Last Admin: 08/08/19 18:29 Dose: 4 mg Documented by: KELLEY Pantoprazole Sodium (Protonix) 40 mg IV NOW ONE Stop: 08/08/19 16:56 Last Admin: 08/08/19 17:53 Dose: 40 mg Documented by: HUSSEIN Vital Signs Vital signs: Vital Signs - 8 hr 08/08/19 16:15 08/08/19 18:47 Temperature 98.1 F Pulse Rate 132 H 111 H Respiratory Rate 14 Blood Pressure 160/112 H 154/96 H Pulse Oximetry 99 99 <Shreya Lea DO - Last Filed: 08/11/19 22:28> Orders Ordered: Discontinued Medications Sodium Chloride (Normal Saline 0.9%) 1,000 mls @ 999 mls/hr IV BOLUS ONE Stop: 08/08/19 17:55 Last Infusion: 08/08/19 18:46 Dose: 0 mls/hr Documented by: Admin: 08/08/19 17:53 Dose: 999 mls/hr Documented by: HUSSEIN Lorazepam (Ativan) 1 mg IV NOW ONE Stop: 08/08/19 16:56 Last Admin: 08/08/19 17:54 Dose: 1 mg Documented by: HUSSEIN Ondansetron HCl (Zofran) 4 mg IV NOW ONE Stop: 08/08/19 16:56 Last Admin: 08/08/19 17:53 Dose: 4 mg Documented by: MMCFARL Ondansetron HCl (Zofran) 4 mg IV NOW ONE Stop: 08/08/19 18:23 Last Admin: 08/08/19 18:29 Dose: 4 mg Documented by: KBROTEM Pantoprazole Sodium (Protonix) 40 mg IV NOW ONE Stop: 08/08/19 16:56 Last Admin: 08/08/19 17:53 Dose: 40 mg Documented by: MMCFARL Vital Signs Vital signs: Vital Signs - 8 hr 08/08/19 16:15 08/08/19 18:47 Temperature 98.1 F Pulse Rate 132 H 111 H Respiratory Rate 14 Blood Pressure 160/112 H 154/96 H Pulse Oximetry 99 99 MDM - Abdominal Pain <Anam HUNTER Rojas - Last Filed: 08/08/19 19:39> Differential Diagnosis Differential diagnosis: Likely abdominal pain, endometriosis and pancreatitis Medical Records Attestation: I reviewed the patient's medical records. Lab Data Attestation: I reviewed the patient's lab results. Result diagrams: 08/08/19 17:40 08/08/19 17:40 Labs: Lab Results 08/08/19 08/08/19 Range/Units 17:40 17:40 WBC 6.2 (4.5-11.0) X10^3/uL RBC 4.60 (4.0-5.2) X10^6/uL Hgb 15.2 (12.0-16.0) g/dL Hct 44.2 (36-46) % MCV 96.2 (80-100) fL MCH 33.1 (26-34) PG MCHC 34.4 (30-36) % RDW 13.8 (11.6-14.8) % Plt Count 259 (150-400) X10^3/uL Neut % (Auto) 66.7 (50-75) % Lymph % (Auto) 25.5 (25-40) % [place] % (Auto) 5.4 (3-14) % Eos % (Auto) 1.4 L (2-4) % Baso % (Auto) 1.0 (0-2) % Neut # (Auto) 4100 (0885-2806) /uL Lymph # (Auto) 1600 (7731-1780) /uL [place] # (Auto) 300 (0-900) /uL Eos # (Auto) 100 (0-450) /uL Baso # (Auto) 100 (0-100) /uL Sodium 141 (137-145) mmol/L Potassium 4.1 (3.4-5.1) mmol/L Chloride 100 (98-107) mmol/L Carbon Dioxide 25 (22-32) mmol/L BUN 9 (7-17) mg/dL Creatinine 0.70 (0.52-1.04) mg/dL Estimated GFR > 60.0 (>60) mL/min BUN/Creatinine Ratio 12.9 (6-22) Glucose 104 H (70-100) mg/dL Calcium 10.5 H (8.4-10.2) mg/dL Total Bilirubin 0.6 (0.2-1.3) mg/dL AST 62 H (14-36) IU/L ALT 23 (<35) IU/L Alkaline Phosphatase 109 (38-126) U/L Total Protein 10.2 H* (6.3-8.2) g/dL Albumin 5.5 H (3.5-5.0) g/dL Globulin 4.7 H (1.7-4.1) g/dL Albumin/Globulin Ratio 1.2 (1.0-2.8) Lipase 42 (23-300) U/L Point of care testing: Point of Care Testing Test Results Negative Urine Dip Bedside Urine Glucose Negative Bedside Urine Bilirubin - Negative Bedside Urine Ketone - Negative Urine Specific [place] 1.010 Bedside Urine Occult Blood - Negative Bedside Urine pH 6.0 Bedside Urine Protein - Negative Bedside Urine Urobilinogen - Negative Bedside Urine Nitrite - Negative Bedside Urine Leukocytes - Negative Esterase MDM Narrative Medical decision making narrative: This is a 29-year-old female who frequently visits this and other ED with abdominal pain according to online ED visit report. Patient reports she has been having epigastric pain with nausea since yesterday and vomiting and diarrhea which started today with subjective chills and T-max of 99.8? during last week. Patient has history of pancreatitis, endometriosis, cholecystectomy. Patient states she has pain medication oxycodone at home but was unable to tolerate due to nausea and vomiting. Physical exam was unremarkable. Had difficult time obtaining a IV and after several attempts were able to obtain IV access with blood draw. Patient rec eived IV infusion of normal saline. There is no leukocytosis today. Chemistry test was unremarkable. Elevated of AST of 62 with normal ALT and alkaline phosphatase. Lipase was normal. There was slightly increased total protein of 10.2 with albumin of 5.5 and globulin of 4.7. There is no increase in BUN, creatinine, BUN/creatinine ratio to consider dehydration. Urine test was negative for infection and urine test was negative. Urine specific gravity was 1.010 which is lower than normal limits and to consider dehydration. Patient was medicated with Ativan 1 mg, Zofran 4 mg while waiting for lab test. According to ED visit notes it was recommended to consider treating patient with nonnarcotic medication and she had visited ER 60 5 times during last year. He was also recommended to educate patient refer back to her PCP and appropriate ER utilization. Patient states she was suggested to visit ED her her primary care physician to treat her pain and an evaluation today. I spoke with patient with the findings and it is not likely her pancreatitis is causing her pain. I spoke with the patient there is limited pain management regimen since she has allergies to Toradol, Haldol, and Reglan but to offer another dose of Ativan. Patient states she is still nauseated and offered another dose of Zofran and to try oral oxycodone medication since she has this medication at home that she could try this medicine when her nausea is improved. Also Benadryl was offered whether to help her abdominal discomfort. Patient declined Ativan, oxycodone, Benadryl and states she is ready to go home if all the lab results are within normal. Patient suggested at least wait until 1 L IV fluid infusion has completed before leaving ED. patient agrees to receive a 2nd dose of Zofran before leaving ED. advised return to ED if worsening symptoms, fever, unable to tolerate any fluids, signs of dehydration and to follow-up with her PCP. Advised to take small sips frequently to prevent dehydration. Patient verbalized understanding and in agreement with treatment plan. Tachycardia of 132 improved to 111 before leaving ED and noted hypertension. 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 <Shreya Lea, - Last Filed: 08/11/19 22:28> Lab Data Labs: Lab Results 08/08/19 08/08/19 Range/Units 17:40 17:40 WBC 6.2 (4.5-11.0) X10^3/uL RBC 4.60 (4.0-5.2) X10^6/uL Hgb 15.2 (12.0-16.0) g/dL Hct 44.2 (36-46) % MCV 96.2 (80-100) fL MCH 33.1 (26-34) PG MCHC 34.4 (30-36) % RDW 13.8 (11.6-14.8) % Plt Count 259 (150-400) X10^3/uL Neut % (Auto) 66.7 (50-75) % Lymph % (Auto) 25.5 (25-40) % [place] % (Auto) 5.4 (3-14) % Eos % (Auto) 1.4 L (2-4) % Baso % (Auto) 1.0 (0-2) % Neut # (Auto) 4100 (1895-8661) /uL Lymph # (Auto) 1600 (3968-9087) /uL [place] # (Auto) 300 (0-900) /uL Eos # (Auto) 100 (0-450) /uL Baso # (Auto) 100 (0-100) /uL Sodium 141 (137-145) mmol/L Potassium 4.1 (3.4-5.1) mmol/L Chloride 100 (98-107) mmol/L Carbon Dioxide 25 (22-32) mmol/L BUN 9 (7-17) mg/dL Creatinine 0.70 (0.52-1.04) mg/dL Estimated GFR > 60.0 (>60) mL/min BUN/Creatinine Ratio 12.9 (6-22) Glucose 104 H (70-100) mg/dL Calcium 10.5 H (8.4-10.2) mg/dL Total Bilirubin 0.6 (0.2-1.3) mg/dL AST 62 H (14-36) IU/L ALT 23 (<35) IU/L Alkaline Phosphatase 109 (38-126) U/L Total Protein 10.2 H* (6.3-8.2) g/dL Albumin 5.5 H (3.5-5.0) g/dL Globulin 4.7 H (1.7-4.1) g/dL Albumin/Globulin Ratio 1.2 (1.0-2.8) Lipase 42 (23-300) U/L Point of care testing: Point of Care Testing Test Results Negative Urine Dip Bedside Urine Glucose Negative Bedside Urine Bilirubin - Negative Bedside Urine Ketone - Negative Urine Specific [place] 1.010 Bedside Urine Occult Blood - Negative Bedside Urine pH 6.0 Bedside Urine Protein - Negative Bedside Urine Urobilinogen - Negative Bedside Urine Nitrite - Negative Bedside Urine Leukocytes - Negative Esterase Discharge Plan Departure Patient Disposition: Home Clinical Impression: Abdominal pain Qualifiers: Abdominal location: epigastric Qualified Code(s): R10.13 - Epigastric pain Nausea & vomiting Qualifiers: Vomiting type: unspecified Vomiting Intractability: unspecified Qualified Code(s): R11.2 - Nausea with vomiting, unspecified Discharge Date/Time: 08/08/19 18:49 Instructions: DI for Abdominal Pain-Adult, Nausea and Vomiting-Adult Activity Restrictions/Additional Instructions: You have been diagnosed with [epigastric pain and vomiting. Chest x-ray was clear and no acute findings. Lab tests are assuring. There was no leukocytosis. Unremarkable chemistry test. Mildly elevated AST of 62 but otherwise normal liver function test and lipase. Total protein was mildly elevated as 10.2 with albumin of 5.5 and global in of 4.7. UA indicates no infection and test was negative. You were medicated with IV fluid while in ED with 2 doses of Zofran and a dose of Ativan.]. What to do: *Take your medications as directed. Please continue to take your outpatient medication for pain and nausea. No new medications to go home with today. Please hydrate well with small sips of liquid to prevent dehydration. *Follow up with your primary care provider in 2-3 days, call for an appointment. Let them know you were seen in the ED and that we asked you to be seen in follow up. *Return to ED if you have any new, worsening, or concerning symptoms, such as [f ever, worsening pain, chest pain, breathing difficulty, unable to tolerate fluids or any acute concerns]. Prescriptions: No Action metoclopramide HCl [Reglan] 10 mg tablet 10 mg PO Q6H PRN (Reason: nausea and vomiting) Qty: 10 RF: 0 oxycodone 5 mg Tablet 5 mg PO Q4HR PRN (Reason: Pain, Moderate (4-6)) Qty: 10 RF: 0 Referrals: Prince Zee MD [Primary Care Provider] -
[2019-08-08 17:47] LABS: Add Manual Diff / Slide Review NO; Basophils Absolute Auto 100 /uL (0-100); Eosinophils Absolute Auto 100 /uL (0-450); Eosinophils Percent Auto 1.4 % (2-4); Hematocrit 44.2 % (36-46); Hemoglobin 15.2 g/dL (12.0-16.0); Lymphocytes Absolute Auto 1600 /uL (1100-4500); Lymphocytes Percent Auto 25.5 % (25-40); Mean Corpuscular HGB Conc 34.4 % (30-36); Mean Corpuscular Hemoglobin 33.1 PG (26-34); Mean Corpuscular Volume 96.2 fL (80-100); Monocytes Absolute Auto 300 /uL (0-900); Monocytes Percent Auto 5.4 % (3-14); Neutrophils Absolute Auto 4100 /uL (1500-7000); Neutrophils Percent Auto 66.7 % (50-75); Platelet Count 259 X10^3/uL (150-400); Red Cell Distribution Width 13.8 % (11.6-14.8); White Blood Cell Count 6.2 X10^3/uL (4.5-11.0)
[2019-08-08] MEDS: PANTOPRAZOLE 40 MG VIAL IV (17:53)
[2019-08-08] MEDS: SODIUM CHLORIDE 0.9% 1,000 ML 999 ML IV (17:53)
[2019-08-08] MEDS: ONDANSETRON 4 MG/2 ML INJ IV ×2 (17:53→18:29)
[2019-08-08] MEDS: LORazepam 2 MG/ML INJ 1 MG IV (17:54)
[2019-08-08 17:58] LABS: Alanine Aminotransferase 23 IU/L (<35); Albumin 5.5 g/dL (3.5-5.0); Albumin Globulin Ratio 1.2 (1.0-2.8); Alkaline Phosphatase 109 U/L (38-126); Aspartate Aminotransferase 62 IU/L (14-36); BUN Creatinine Ratio 12.9 (6-22); Bilirubin Total 0.6 mg/dL (0.2-1.3); Blood Urea Nitrogen 9 mg/dL (7-17); Calcium 10.5 mg/dL (8.4-10.2); Carbon Dioxide 25 mmol/L (22-32); Chloride 100 mmol/L (98-107); Estimated Glomerular Filt Rate > 60.0 mL/min (>60); Globulin 4.7 g/dL (1.7-4.1); Glucose 104 mg/dL (70-100); HEMOLYSIS < 15 (0-50); Lipase 42 U/L (23-300); Potassium 4.1 mmol/L (3.4-5.1); Sodium 141 mmol/L (137-145)
[2019-08-08 18:04] LABS: Total Protein 10.2 g/dL (6.3-8.2)
[2019-08-08 18:47] VITALS: BP 154/96; PULSE 111; O2SAT 99
== END 2019-08-08 18:49 | disposition home or self-care (01) ==
PROVIDERS: Emergency Provider Nurse Practitioner Family; PCP Family Medicine; Referring Provider Family Medicine
DX: R10.13 Epigastric pain (principal); R11.2 Nausea with vomiting, unspecified
CPT/HCPCS: 36415; 71046; 80053; 81003; 81025; 83690; 85025; 93005; 96361; 96374; 96375; 96376; 99284; C9113; J2060; J2405

== ENCOUNTER 2019-11-26 20:35 | Emergency (ER) | payer OTHER, SELFPAY ==
[2019-06-19 00:13] VITALS: BMI 27.4
[2019-11-26 20:36] VITALS: BP 145/91; PULSE 116; RESP 14; TEMP 36.9; O2SAT 100; BMI 26.4
--- NOTE | 2019-11-26 21:19 | PC.NURSE ---
Attempted IV access x1 RAC,unsuccessful.Pt has very poor vein access due to numerous ER visits here & several other hospitals. Pt states refused to go back to [facility] (hospital where she has had her surgical procedures) due to personal reasons.Pt states [place] here from [place] [address] Pt is AOX4.Skin PWD.VSS.Oral mucosa moist.No acute signs of dehydration noted.BS good x 4 quad.
[2019-11-26 21:25] VITALS: BP 145/82; BP 158/93; PULSE 114; PULSE 118; PULSE 123
--- NOTE | 2019-11-26 21:30 | ED_ITS ---
HPI - General Adult General Chief complaint: Abdominal Pain Stated complaint: severe upper abd pain, nausea, vomiting Time Seen by Provider: 11/26/19 21:15 Source: patient Mode of arrival: Ambulatory Limitations: no limitations History of Present Illness HPI narrative: Patient is a 29-year-old female who over the past several weeks has had multiple procedures at outside facilities to include ERCP, endoscopy with stent placement, repeat endoscopy with removal and then replacement of stents. The initial procedure was done at [facility] in [facility]. Subsequent procedures were done with the [facility] in [facility]. Patient states she was just discharged from the [facility] at the middle of last week. She comes to the emergency department today for continued/worsening epigastric pain and nausea. She denies any fevers. No bowel changes. She states she was told that if her symptoms worsen that she should come back to the emergency department for further evaluation. She did talk with the operative provider at the end of last week who stated that the pain that she was having could be normal given the proximity to the procedures that she had. She states since that conversation the symptoms have continued. Related Data Previous Rx's Medication Instructions Recorded metoclopramide HCl [Reglan] 10 mg PO Q6H PRN #10 tab 05/31/19 oxycodone 5 mg PO Q4HR PRN #10 tab 06/21/19 Allergies Allergy/AdvReac Type Severity Reaction Status Date / Time clindamycin Allergy Rash Verified 11/26/19 20:46 guaifenesin [From Mucinex] Allergy Rash Verified 11/26/19 20:46 morphine Allergy Verified 11/26/19 20:46 haloperidol [From Haldol] AdvReac Irritable Verified 11/26/19 20:46 ketorolac [From Toradol] AdvReac Anxiety Verified 11/26/19 20:46 metoclopramide [From Reglan] AdvReac Anxiety Verified 11/26/19 20:46 promethazine [From Phenergan] AdvReac Anxiety Verified 11/26/19 20:46 zolpidem [From Ambien] AdvReac Hallucinati Verified 11/26/19 20:46 ng Review of Systems Constitutional Constitutional: Denies fever(s) and Reports headache(s) ENT Ears, Nose, Mouth, and Throat: Reports headache(s) Cardiovascular Cardiovascular: Denies chest pain and Denies dyspnea Respiratory Respiratory: Denies cough and Denies dyspnea Gastrointestinal Gastrointestinal: Reports abdominal pain, Denies change in bowel habits and Reports nausea Genitourinary Genitourinary: Denies dysuria Genitourinary: Denies dysuria Musculoskeletal Musculoskeletal: Denies arthralgias and Denies myalgias Integumentary/Breasts Skin/Breast: Denies lesions and Denies rash Neurologic Neurologic: Denies behavioral changes and Reports headache(s) Psychiatric Psychiatric: Denies behavioral changes Hematologic/Lymphatic Hematologic/Lymphatic: Denies easy bleeding and Denies easy bruising Patient History Medical History Endometriosis (Acute) Gastroparesis (Acute) Pancreatitis (Acute) Surgical History H/O laparoscopy (Acute) Hx of cholecystectomy (Acute) Social History marital status: household members: spouse and children Smoking Status: Never smoker Smoking Status: Never smoker alcohol intake frequency: a few times a month Substance Use Type: does not use Exam Initial Vital Signs Initial Vital Signs: Vital Signs Temperature 98.4 F 11/26/19 20:36 Pulse Rate 116 H 11/26/19 20:36 Respiratory Rate 14 11/26/19 20:36 Blood Pressure 145/91 H 11/26/19 20:36 Pulse Oximetry 100 11/26/19 20:36 Const General: cooperative Limitations: mental status not altered Resp Effort & Inspection: normal respiratory effort Cardio Rate: tachycardic GI Inspection: non-distended Palpation: soft and tender (Epigastric region) Skin Lesions: no lesions Rashes: no rashes Neuro General: patient alert and patient awake Cognition: normal cognition Speech: speech normal Extrem General: normal to inspection and capillary refill normal Psych Appearance: grossly normal and well kempt Course Orders Ordered: Discontinued Medications Diphenhydramine HCl (Benadryl) 25 mg IV NOW ONE Stop: 11/26/19 22:50 Last Admin: 11/26/19 23:27 Dose: 25 mg Documented by: CTRINGA Hydromorphone HCl (Dilaudid) 1 mg IV NOW ONE Stop: 11/26/19 21:32 Last Admin: 11/26/19 21:55 Dose: 1 mg Documented by: [email or web address] Hydromorphone HCl (Dilaudid) 0.5 mg IV NOW ONE Stop: 11/26/19 22:50 Last Admin: 11/26/19 23:27 Dose: 0.5 mg Documented by: [email or web address] Sodium Chloride (Normal Saline 0.9%) 1,000 mls @ 125 mls/hr IV CONT DHIRAJ Last Infusion: 11/26/19 23:50 Dose: 0 mls/hr Documented by: [email or web address] Admin: 11/26/19 21:43 Dose: 125 mls/hr Documented by: [email or web address] Metoclopramide HCl (Reglan) 10 mg IV NOW ONE Stop: 11/26/19 22:50 Last Admin: 11/26/19 23:27 Dose: 10 mg Documented by: [email or web address] Ondansetron HCl (Zofran) 4 mg IV NOW ONE Stop: 11/26/19 21:32 Last Admin: 11/26/19 21:44 Dose: 4 mg Documented by: [email or web address] Vital Signs Vital signs: Vital Signs - 8 hr 11/26/19 23:53 Pulse Rate 96 H Respiratory Rate 16 Blood Pressure 120/80 Pulse Oximetry 100 Medical Decision Making Lab Data Lab results reviewed: Yes I reviewed the patient's lab results. Result diagrams: 11/26/19 21:20 11/26/19 21:20 Labs: Lab Results 11/26/19 11/26/19 11/26/19 Range/Units 21:20 21:20 21:20 WBC 9.1 (4.5-11.0) X10^3/uL RBC 4.21 (4.0-5.2) X10^6/uL Hgb 14.0 (12.0-16.0) g/dL Hct 41.5 (36-46) % MCV 98.5 (80-100) fL MCH 33.2 (26-34) PG MCHC 33.7 (30-36) % RDW 13.0 (11.6-14.8) % Plt Count 263 (150-400) X10^3/uL Neut % (Auto) 65.9 (50-75) % Lymph % (Auto) 24.4 L (25-40) % [place] % (Auto) 7.4 (3-14) % Eos % (Auto) 1.8 L (2-4) % Baso % (Auto) 0.5 (0-2) % Neut # (Auto) 6000 (7595-6209) /uL Lymph # (Auto) 2200 (3078-4570) /uL [place] # (Auto) 700 (0-900) /uL Eos # (Auto) 200 (0-450) /uL Baso # (Auto) 0 (0-100) /uL Sodium 137 (137-145) mmol/L Potassium 3.4 (3.4-5.1) mmol/L Chloride 103 (98-107) mmol/L Carbon Dioxide 23 (22-32) mmol/L BUN 4 L (7-17) mg/dL Creatinine 0.67 (0.52-1.04) mg/dL Estimated GFR > 60.0 (>60) mL/min BUN/Creatinine Ratio 6.0 (6-22) Glucose 128 H (70-100) mg/dL Lactate 2.1 (0.7-2.1) mmol/L Calcium 9.7 (8.4-10.2) mg/dL Total Bilirubin 0.5 (0.2-1.3) mg/dL AST 43 H (14-36) IU/L ALT 23 (<35) IU/L Alkaline Phosphatase 69 (38-126) U/L Total Protein 7.6 (6.3-8.2) g/dL Albumin 4.4 (3.5-5.0) g/dL Globulin 3.2 (1.7-4.1) g/dL Albumin/Globulin Ratio 1.4 (1.0-2.8) Lipase 37 (23-300) U/L Point of Care Testing Test Results Negative Urine Dip Bedside Urine Glucose Negative Bedside Urine Bilirubin - Negative Bedside Urine Ketone - Negative Urine Specific [place] 1.010 Bedside Urine Occult Blood - Negative Bedside Urine pH 7.5 Bedside Urine Protein - Negative Bedside Urine Urobilinogen - Negative Bedside Urine Nitrite - Negative Bedside Urine Leukocytes - Negative Esterase Point of care testing: Point of Care Testing Test Results Negative Urine Dip Bedside Urine Glucose Negative Bedside Urine Bilirubin - Negative Bedside Urine Ketone - Negative Urine Specific [place] 1.010 Bedside Urine Occult Blood - Negative Bedside Urine pH 7.5 Bedside Urine Protein - Negative Bedside Urine Urobilinogen - Negative Bedside Urine Nitrite - Negative Bedside Urine Leukocytes - Negative Esterase MDM Narrative Medical decision making narrative: Patient's labs are unremarkable. Patient did asked multiple times for IV pain medication. She stated that her allergy to Reglan is that she becomes very anxious. She states she can receive Reglan if given with Benadryl. She specifically asked for this combination of medications. I did discuss the case with the on-call GI provider at [facility]. They were able to review the notes stated that it is unlikely that with a lack of any changes in the laboratory results that there would be an issue with the stent placed. I did discuss this with the patient. We did discuss the possibility of a CT scan to evaluate for other etiology however after this discussion the patient opted not to have any radiologic studies perfo rmed. She did ask for more pain medication after that. Informed the patient that she would receive 1 more dose of medicine and then will be discharged home as there does not appear to be any emergent condition. Patient was given return precautions and follow-up instructions. She will contact her GI provider for follow-up. She expressed understanding and agreement. Discharge Plan Departure Patient Disposition: Home Clinical Impression: Abdominal pain Qualifiers: Abdominal location: epigastric Qualified Code(s): R10.13 - Epigastric pain Discharge Date/Time: 11/26/19 23:50 Instructions: DI for Abdominal Pain-Adult Activity Restrictions/Additional Instructions: Recommend that you continue with your home pain regimen like we discussed. Tomorrow contact her GI provider for a follow-up. Return to the emergency dep artment for any new or worsening symptoms Prescriptions: No Action metoclopramide HCl [Reglan] 10 mg tablet 10 mg PO Q6H PRN (Reason: nausea and vomiting) Qty: 10 RF: 0 oxycodone 5 mg Tablet 5 mg PO Q4HR PRN (Reason: Pain, Moderate (4-6)) Qty: 10 RF: 0 Referrals: Prince Zee MD [Primary Care Provider] -
[2019-11-26 21:41] LABS: Add Manual Diff / Slide Review NO; Basophils Absolute Auto 0 /uL (0-100); Basophils Percent Auto 0.5 % (0-2); Eosinophils Absolute Auto 200 /uL (0-450); Eosinophils Percent Auto 1.8 % (2-4); Hematocrit 41.5 % (36-46); Lymphocytes Absolute Auto 2200 /uL (1100-4500); Lymphocytes Percent Auto 24.4 % (25-40); Mean Corpuscular HGB Conc 33.7 % (30-36); Mean Corpuscular Hemoglobin 33.2 PG (26-34); Mean Corpuscular Volume 98.5 fL (80-100); Monocytes Absolute Auto 700 /uL (0-900); Monocytes Percent Auto 7.4 % (3-14); Neutrophils Absolute Auto 6000 /uL (1500-7000); Neutrophils Percent Auto 65.9 % (50-75); Platelet Count 263 X10^3/uL (150-400); Red Blood Cell Count 4.21 X10^6/uL (4.0-5.2); White Blood Cell Count 9.1 X10^3/uL (4.5-11.0)
[2019-11-26] MEDS: SODIUM CHLORIDE 0.9% 1,000 ML 125 ML IV (21:43)
[2019-11-26] MEDS: ONDANSETRON 4 MG/2 ML INJ IV (21:44)
[2019-11-26 21:50] LABS: Alanine Aminotransferase 23 IU/L (<35); Albumin 4.4 g/dL (3.5-5.0); Albumin Globulin Ratio 1.4 (1.0-2.8); Alkaline Phosphatase 69 U/L (38-126); Aspartate Aminotransferase 43 IU/L (14-36); Bilirubin Total 0.5 mg/dL (0.2-1.3); Blood Urea Nitrogen 4 mg/dL (7-17); Calcium 9.7 mg/dL (8.4-10.2); Carbon Dioxide 23 mmol/L (22-32); Chloride 103 mmol/L (98-107); Estimated Glomerular Filt Rate > 60.0 mL/min (>60); Globulin 3.2 g/dL (1.7-4.1); Glucose 128 mg/dL (70-100); HEMOLYSIS 16 (0-50); Lipase 37 U/L (23-300); Potassium 3.4 mmol/L (3.4-5.1); Sodium 137 mmol/L (137-145); Total Protein 7.6 g/dL (6.3-8.2)
[2019-11-26 21:51] LABS: Lactate (Lactic Acid) 2.1 mmol/L (0.7-2.1)
[2019-11-26] MEDS: HYDROMORPHONE 1 MG INJ IV (21:55)
[2019-11-26 22:19] VITALS: BP 131/91; PULSE 91; RESP 16; TEMP 37; O2SAT 100
[2019-11-26 22:20] VITALS: TEMP 37
[2019-11-26] MEDS: HYDROMORPHONE 0.5 MG INJ IV (23:27)
[2019-11-26] MEDS: METOCLOPRAMIDE 10 MG/2 ML INJ IV (23:27)
[2019-11-26] MEDS: diphenhydrAMINE 50 MG/ML VIAL 25 MG IV (23:27)
[2019-11-26 23:53] VITALS: BP 120/80; PULSE 96; RESP 16; O2SAT 100
== END 2019-11-26 23:50 | disposition home or self-care (01) ==
PROVIDERS: Emergency Provider Emergency Medicine; PCP Family Medicine
DX: R10.13 Epigastric pain (principal); R11.0 Nausea; R00.0 Tachycardia, unspecified; Z98.890 Other specified postprocedural states
CPT/HCPCS: 36415; 80053; 81003; 81025; 83605; 83690; 85025; 96361; 96374; 96375; 96376; 99284; J1170; J1200; J2405; J2765

== ENCOUNTER 2019-12-07 17:11 | Emergency (ER) | payer OTHER, SELFPAY ==
[2019-06-19 00:13] VITALS: BMI 27.4
[2019-12-07 17:15] VITALS: BP 141/103; PULSE 105; RESP 18; TEMP 36.7; O2SAT 100; BMI 26.4
--- NOTE | 2019-12-07 17:54 | DI.CT.S_ITS ---
PROCEDURE: CT ABDOMEN PELVIS W CON INDICATIONS: R abd pain TECHNIQUE: After the administration of intravenous contrast, 5 mm thick sections acquired from the diaphragm to the symphysis. 5 mm coronal and sagittal reformats were acquired. For radiation dose reduction, the following was used: automated exposure control, adjustment of mA and/or kV according to patient size. COMPARISON: [facility], CT, CT ABDOMEN PELVIS WITH CONTRAST, 11/16/2019, 0:13. [facility], CT, CT ABDOMEN PELVIS WITH CONTRAST, 10/26/2019, 23:13. [facility], CT, CT ABDOMEN PELVIS WITH CONTRAST, 09/12/2019, 15:47. [facility], CT, CT ABDOMEN PELVIS WITH CONTRAST, 08/15/2019, 20:02. [facility], CT, CT ABDOMEN PELVIS WITH CONTRAST, 08/10/2019, 14:33. [facility], CT, CT ABDOMEN PELVIS W CON, 06/19/2019, 8:35. [facility], CT, CT ABDOMEN PELVIS W CON, 05/01/2019, 19:20. [facility], CT, CT ABDOMEN PELVIS W CON, 04/16/2019, 19:18. [facility], CT, CT KUB, 10/19/2018, 11:30. [facility], CT, CT ABDOMEN PELVIS W CON, 03/28/2018, 22:28. [facility], CT, CT ABDOMEN PELVIS WITH CONTRAST, 01/18/2018, 18:46. [facility], CT, CT ABDOMEN PELVIS WITH CONTRAST, 01/10/2018, 17:17. [facility], CT, CT ABDOMEN PELVIS WITH CONTRAST, 11/10/2017, 12:09. [facility], CT, CT ABDOMEN PELVIS WITH CONTRAST, 11/06/2017, 19:40. FINDINGS: Image quality: Excellent. ABDOMEN: Lung bases: Lung bases are clear. Heart size is normal. Solid organs: Liver is normal in size and enhancement. Gallbladder is surgically absent. Biliary system is non dilated. Biliary stent has been placed in the interval since prior examination. Pneumobilia noted. Pancreas enhances normally. Pancreatic stent is been removed. Spleen is normal in size and enhancement. No adrenal nodules. Kidneys demonstrate normal size and enhancement, without hydronephrosis. Peritoneum and bowel: Bowel loops demonstrate normal wall thickness and caliber. No free fluid or air. Appendix is surgically absent Nodes and vessels: No retroperitoneal or mesenteric adenopathy by size criteria. Aorta and inferior vena cava are normal in size. Miscellaneous: No ventral hernias. PELVIS: Genitourinary: Bladder wall thickness is normal. Miscellaneous: No inguinal hernias or adenopathy. Bones: No suspicious bony lesions. No vertebral body compression fractures. IMPRESSION: 1. Status post removal of pancreatic duct stent and placement of biliary stent. No biliary tree dilatation. 2. No free fluid or free air. 3. No dilated loops of bowel. 4. Status post cholecystectomy and appendectomy. Dictated by: Theresa Vale MD, PhD on 12/07/2019 at 19:22 Approved by: Theresa Vale MD, PhD on 12/07/2019 at 19:28
[2019-12-07 18:05] LABS: Bacteria Urine None Seen
--- NOTE | 2019-12-07 18:09 | ED.ABDPAIN ---
HPI - Abdominal Pain <Stacey TaylorHUNTER - Last Filed: 12/07/19 21:02> General Chief Complaint: Abdominal Pain Stated Complaint: stomach pains Time Seen by Provider: 12/07/19 17:38 Source: patient Mode of arrival: Ambulatory Limitations: no limitations History of Present Illness HPI narrative: 29yo female with a history of pancreatitis, endometriosis, multiple ERCPs, and chronic abdominal pain, presents emergency department for pain and vomiting. Patient states she had a previous ERCP that showed pre malignant lesions, her 2nd ERCP was negative for any changes. Patient states she does need a 3rd ERCP as a tie breaker. Patient states she does completed the 2nd ERCP and was admitted to [address] for pain management. Patient was discharged today, she states on the way home she ate some bread and some putting and developed vomiting and pain. She did not take any of her medications that were prescribed her at this time as she has not filled them. She states ?I can not keep anything down ?. Patient requested pain medication and nausea medication. She states the pain is located in her right upper quadrant/epigastric area which has been consistent over the past few weeks. Patient denies any other symptoms such as fevers, chills, chest pain, shortness of breath, dizziness, or any other concerns. I later spoke with Dr. Mccollum from [facility] who performed patient's recent ERCP approximately 10 days ago. He described patient as having extensive visit without any explanation of chronic abdominal pain. We discussed patient's chart notes which indicated patient had seen pain management multiple times and narcotic disorder was highly suspect, discussed pain contract. He also explained that patient has been to multiple hospitals including , [facility], , and [place] for similar complaints. We discussed there was no concern for complications post procedure, suggesting food should not cause such complications. He recommended continued with prescribed medications of gabapentin and oxycodone for discharge that patient already has had. I discussed all this with patient. She states ?I was not aware that I was placed on a pain contract. I did not sign anything. If I would have known this and would have just went back to [place]. My last pain contract in [place] had me sign. Related Data Previous Rx's Medication Instructions Recorded metoclopramide HCl [Reglan] 10 mg PO Q6H PRN #10 tab 05/31/19 oxycodone 5 mg PO Q4HR PRN #10 tab 06/21/19 Allergies Allergy/AdvReac Type Severity Reaction Status Date / Time clindamycin Allergy Rash Verified 11/26/19 20:46 guaifenesin [From Mucinex] Allergy Rash Verified 11/26/19 20:46 morphine Allergy Verified 11/26/19 20:46 haloperidol [From Haldol] AdvReac Irritable Verified 11/26/19 20:46 ketorolac [From Toradol] AdvReac Anxiety Verified 11/26/19 20:46 metoclopramide [From Reglan] AdvReac Anxiety Verified 11/26/19 20:46 promethazine [From Phenergan] AdvReac Anxiety Verified 11/26/19 20:46 zolpidem [From Ambien] AdvReac Hallucinati Verified 11/26/19 20:46 ng Review of Systems <HUNTER Cao - Last Filed: 12/07/19 21:02> Review of Systems Narrative: REVIEW OF SYSTEMS: GENERAL: Denies fever. HENT: No head trauma, sore throat, or dysphagia. EYES: No vision changes. CARDIOVASCULAR: No chest pain. RESPIRATORY: No shortness of breath, GASTROINTESTINAL: Complains of RUQ abdominal pain, see HPI GENITOURINARY: No flank pain, urinary incontinence, hesitancy, frequency, or dysuria. No vaginal discharge or dyspareunia. Denies concerns for STIs MUSCULOSKELETAL: No pain, weakness, or trauma. INTEGUMENTARY: No rash, lesions, or pruritus. NEURO: No numbness or tingling. PSYCH: No behavior or mood changes. Patient History <HUNTER Cao - Last Filed: 12/07/19 21:02> Medical History Endometriosis (Acute) Gastroparesis (Acute) Pancreatitis (Acute) Surgical History H/O laparoscopy (Acute) Hx of cholecystectomy (Acute) Social History marital status: household members: spouse and children Smoking Status: Never smoker Smoking Status: Never smoker alcohol intake frequency: a few times a month Substance Use Type: does not use Exam <HUNTER Cao - Last Filed: 12/07/19 21:02> Initial Vital Signs Initial Vital Signs: Vital Signs Temperature 98.0 F 12/07/19 17:15 Pulse Rate 105 H 12/07/19 17:15 Respiratory Rate 18 12/07/19 17:15 Blood Pressure 141/103 H 12/07/19 17:15 Pulse Oximetry 100 12/07/19 17:15 PHYSICAL EXAMINATION: GENERAL: Well groomed, alert, and cooperative. Answers questions promptly and appropriately. Vital signs noted. HENT: Normocephalic, atraumatic. Hearing intact. Oral mucosa is pink and moist. EYES: Conjunctiva pink, sclera white, no periorbital swelling. CARDIOVASCULAR: S1 and S2 sounds normal. Tachycardia, regular rhythm, no murmurs, clicks, or bruits. No pedal edema. RESPIRATORY: Normal respiratory rate, trachea midline, airway patent. No stridor, nasal flaring or accessory muscle use. Lungs are clear in all [place] without wheeze, rhonchi, or crackles. GASTROINTESTINAL: Bowel sounds normoactive. Abdomen soft, epigastric and right upper quadrant tenderness with palpation. No notable vomiting during examination. GENITALURINARY: No flank tenderness. MUSCULOSKELETAL: Normal gait and coordination. Equal tone and mass bilaterally. EXTREMITIES: CMS intact, no pedal edema. SKIN: Warm, dry, soft, appropriate color for ethnicity. No lesions, rashes, or wounds to visualized areas. NEURO: Alert and Oriented X 3. Good coordination. No ataxia, or sensory deficits, or cognitive issues. PSYCH: Appropriate affect and mood. <Madeleine Tijerina MD - Last Filed: 12/08/19 02:02> Initial Vital Signs Initial Vital Signs: Vital Signs Temperature 98.0 F 12/07/19 17:15 Pulse Rate 105 H 12/07/19 17:15 Respiratory Rate 18 12/07/19 17:15 Blood Pressure 141/103 H 12/07/19 17:15 Pulse Oximetry 100 12/07/19 17:15 Course <HUNTER Cao - Last Filed: 12/07/19 21:02> Course Course Narrative: Patient was given initial dose of oxycodone, no vomiting was seen during her stay in the emergency department. I later spoke with Dr. Mccollum from [facility] who performed patient's recent ERCP approximately 10 days ago. He described patient as having extensive visit without any explanation of chronic abdominal pain. We discussed patient's chart notes which indicated patient had seen pain management multiple times and narcotic disorder was highly suspect, discussed pain contract. He also explained that patient has been to multiple hospitals including , [facility], , and [place] for similar complaints. We discussed there was no concern for complications post procedure, suggesting food should not cause such complications. He recommended continued with prescribed medications of gabapentin and oxycodone for discharge that patient already has had. I discussed all this with patient. She states ?I was not aware that I was placed on a pain contract. I did not sign anything. If I would have known this and would have just went back to [place]. My last pain contract in [place] had me sign. Orders Ordered: ED Orders 12/07/19 17:54 CT abdomen pelvis w con Stat 12/07/19 18:00 Urine Microscopic Stat 12/07/19 18:23 Complete Blood Count AUTO DIFF Stat Comprehensive Metabolic Panel Stat Lipase Stat Discontinued Medications Hydromorphone HCl (Dilaudid) 0.5 mg IV NOW ONE Stop: 12/07/19 19:22 Last Admin: 12/07/19 20:14 Dose: Not Given Documented by: KELLEY Sodium Chloride (Normal Saline 0.9%) 1,000 mls @ 1,000 mls/hr IV BOLUS ONE Stop: 12/07/19 18:52 Last Infusion: 12/07/19 20:14 Dose: 0 mls/hr Documented by: Admin: 12/07/19 18:44 Dose: 1,000 mls/hr Documented by: CRISTIANE Ondansetron HCl (Zofran) 4 mg IV NOW ONE Stop: 12/07/19 17:54 Last Admin: 12/07/19 18:41 Dose: 4 mg Documented by: CRISTIANE Oxycodone/Acetaminophen (Percocet 5/325) 1 tab PO NOW ONE Stop: 12/07/19 18:03 Last Admin: 12/07/19 18:44 Dose: 1 tab Documented by: CRISTIANE Consultations Consultation #1: Patient staffed with Dr. Tijerina discussed test, test results, plan of care. Vital Signs Vital signs: Vital Signs - 8 hr 12/07/19 19:40 12/07/19 20:01 Pulse Rate 111 H 102 H Blood Pressure 142/101 H 131/94 H Pulse Oximetry 98 100 <Madeleine Tijerina MD - Last Filed: 12/08/19 02:02> Orders Ordered: ED Orders 12/07/19 17:54 CT abdomen pelvis w con Stat 12/07/19 18:00 Urine Microscopic Stat 12/07/19 18:23 Complete Blood Count AUTO DIFF Stat Comprehensive Metabolic Panel Stat Lipase Stat Discontinued Medications Hydromorphone HCl (Dilaudid) 0.5 mg IV NOW ONE Stop: 12/07/19 19:22 Last Admin: 12/07/19 20:14 Dose: Not Given Documented by: KELLEY Sodium Chloride (Normal Saline 0.9%) 1,000 mls @ 1,000 mls/hr IV BOLUS ONE Stop: 12/07/19 18:52 Last Infusion: 12/07/19 20:14 Dose: 0 mls/hr Documented by: Admin: 12/07/19 18:44 Dose: 1,000 mls/hr Documented by: CRISTIANE Ondansetron HCl (Zofran) 4 mg IV NOW ONE Stop: 12/07/19 17:54 Last Admin: 12/07/19 18:41 Dose: 4 mg Documented by: CRISTIANE Oxycodone/Acetaminophen (Percocet 5/325) 1 tab PO NOW ONE Stop: 12/07/19 18:03 Last Admin: 12/07/19 18:44 Dose: 1 tab Documented by: CRISTIANE Vital Signs Vital signs: Vital Signs - 8 hr 12/07/19 19:40 12/07/19 20:01 Pulse Rate 111 H 102 H Blood Pressure 142/101 H 131/94 H Pulse Oximetry 98 100 MDM - Abdominal Pain <HUNTER Cao - Last Filed: 12/07/19 21:02> Medical Records Attestation: I reviewed the patient's medical records. Lab Data Attestation: I reviewed the patient's lab results. Result diagrams: 12/07/19 18:23 12/07/19 18:23 Labs: Lab Results 12/07/19 12/07/19 12/07/19 Range/Units 18:00 18:23 18:23 WBC 6.5 (4.5-11.0) X10^3/uL RBC 4.23 (4.0-5.2) X10^6/uL Hgb 14.0 (12.0-16.0) g/dL Hct 40.6 (36-46) % MCV 96.1 (80-100) fL MCH 33.1 (26-34) PG MCHC 34.4 (30-36) % RDW 12.6 (11.6-14.8) % Plt Count 270 (150-400) X10^3/uL Neut % (Auto) 60.1 (50-75) % Lymph % (Auto) 22.4 L (25-40) % [place] % (Auto) 10.9 (3-14) % Eos % (Auto) 6.0 H (2-4) % Baso % (Auto) 0.6 (0-2) % Neut # (Auto) 3900 (8115-9906) /uL Lymph # (Auto) 1500 (4987-0845) /uL [place] # (Auto) 700 (0-900) /uL Eos # (Auto) 400 (0-450) /uL Baso # (Auto) 0 (0-100) /uL Sodium 137 (137-145) mmol/L Potassium 3.5 (3.4-5.1) mmol/L Chloride 98 (98-107) mmol/L Carbon Dioxide 29 (22-32) mmol/L BUN 4 L (7-17) mg/dL Creatinine 0.55 (0.52-1.04) mg/dL Estimated GFR > 60.0 (>60) mL/min BUN/Creatinine Ratio 7.3 (6-22) Glucose 125 H (70-100) mg/dL Calcium 9.9 (8.4-10.2) mg/dL Total Bilirubin 0.5 (0.2-1.3) mg/dL AST 33 (14-36) IU/L ALT 14 (<35) IU/L Alkaline Phosphatase 68 (38-126) U/L Total Protein 7.2 (6.3-8.2) g/dL Albumin 4.2 (3.5-5.0) g/dL Globulin 3.0 (1.7-4.1) g/dL Albumin/Globulin Ratio 1.4 (1.0-2.8) Lipase 26 (23-300) U/L Urine RBC 0-1/hpf (0-5/HPF) Urine WBC 5-10/hpf H (0-5/HPF) Ur Squamous Epith Cells 10-30 /hpf H D (0-5/HPF) Urine Bacteria None seen (None) Ur Culture Indicated? Cult not indicated Point of care testing: Point of Care Testing Test Results Negative Urine Dip Bedside Urine Glucose Negative Bedside Urine Bilirubin - Negative Urine Specific Edwards 1.015 Bedside Urine Occult Blood - Negative Bedside Urine pH 7.0 Bedside Urine Protein - Negative Bedside Urine Urobilinogen - Negative Bedside Urine Nitrite - Negative Bedside Urine Leukocytes ++ 125 Esterase Imaging Data ABd CT: Radiologist's Impression: [address] [address] [address] Scan Report Signed Patient: Gogo Rosenberg KMR#: [id number] : 1990Acct:[id number] Age/Sex: 29 FDate of Service: 12/07/19 Loc: ED Accession Number: [id number] Procedure: CT abdomen pelvis w con Ordering Provider: Stacey Taylor PROCEDURE: CT ABDOMEN PELVIS W CON INDICATIONS: R abd pain TECHNIQUE: After the administration of intravenous contrast, 5 mm thick sections acquired from the diaphragm to the symphysis. 5 mm coronal and sagittal reformats were acquired. For radiation dose reduction, the following was used: automated exposure control, adjustment of mA and/or kV according to patient size. COMPARISON: [facility], CT, CT ABDOMEN PELVIS WITH CONTRAST, 11/16/2019, 0:13. [facility], CT, CT ABDOMEN PELVIS WITH CONTRAST, 10/26/2019, 23:13. [facility], CT, CT ABDOMEN PELVIS WITH CONTRAST, 09/12/2019, 15:47. [facility], CT, CT ABDOMEN PELVIS WITH CONTRAST, 08/15/2019, 20:02. [facility], CT, CT ABDOMEN PELVIS WITH CONTRAST, 08/10/2019, 14:33. [facility], CT, CT ABDOMEN PELVIS W CON, 06/19/2019, 8:35. [facility], CT, CT ABDOMEN PELVIS W CON, 05/01/2019, 19:20. [facility], CT, CT ABDOMEN PELVIS W CON, 04/16/2019, 19:18. [facility], CT, CT KUB, 10/19/2018, 11:30. [facility], CT, CT ABDOMEN PELVIS W CON, 03/28/2018, 22:28. [facility], CT, CT ABDOMEN PELVIS WITH CONTRAST, 01/18/2018, 18:46. [facility], CT, CT ABDOMEN PELVIS WITH CONTRAST, 01/10/2018, 17:17. [facility], CT, CT ABDOMEN PELVIS WITH CONTRAST, 11/10/2017, 12:09. [facility], CT, CT ABDOMEN PELVIS WITH CONTRAST, 11/06/2017, 19:40. FINDINGS: Image quality: Excellent. ABDOMEN: Lung bases: Lung bases are clear. Heart size is normal. Solid organs: Liver is normal in size and enhancement. Gallbladder is surgically absent. Biliary system is non dilated. Biliary stent has been placed in the interval since prior examination. Pneumobilia noted. Pancreas enhances normally. Pancreatic stent is been removed. Spleen is normal in size and enhancement. No adrenal nodules. Kidneys demonstrate normal size and enhancement, without hydronephrosis. Peritoneum and bowel: Bowel loops demonstrate normal wall thickness and caliber. No free fluid or air. Appendix is surgically absent Nodes and vessels: No retroperitoneal or mesenteric adenopathy by size criteria. Aorta and inferior vena cava are normal in size. Miscellaneous: No ventral hernias. PELVIS: Genitourinary: Bladder wall thickness is normal. Miscellaneous: No inguinal hernias or adenopathy. Bones: No suspicious bony lesions. No vertebral body compression fractures. IMPRESSION: 1. Status post removal of pancreatic duct stent and placement of biliary stent. No biliary tree dilatation. 2. No free fluid or free air. 3. No dilated loops of bowel. 4. Status post cholecystectomy and appendectomy. Dictated by: Theresa Vale MD, PhD on 12/07/2019 at 19:22 Approved by: Theresa Vale MD, PhD on 12/07/2019 at 19:28 MDM Narrative Medical decision making narrative: 29-year-old female with chronic abdominal pain in a large VICKY presents emergency department for vomiting and worsening pain when eating bread and putting on the way home from [facility]. Abdominal CT negative for any concerning etiology. Observed within normal limits. I am unsure the exact cause of pain but differential includes functional abdominal pain, significant concern for narcotic dependence. Less likely infectious etiology due to lack of fever, normal white blood cell count, and lack of concerning changes on CT. Less likely pancreatitis as lipase is within normal limits. Less likely stone given prior negative ERCP 10 days ago, CT within normal limits. After discussion with [place] providers about patient's pain management, increased concern for opioid dependence. Discussed this with patient, she was encouraged to take her gabapentin and oxycodone that was prescribed her today. She was encouraged to follow up with her PCP in the next week for further evaluation. Return precautions given for new or worsening symptoms. Patient agreed to plan of care verbalized understanding. <Madeleine Tijerina MD - Last Filed: 12/08/19 02:02> Lab Data Labs: Lab Results 12/07/19 12/07/19 12/07/19 Range/Units 18:00 18:23 18:23 WBC 6.5 (4.5-11.0) X10^3/uL RBC 4.23 (4.0-5.2) X10^6/uL Hgb 14.0 (12.0-16.0) g/dL Hct 40.6 (36-46) % MCV 96.1 (80-100) fL MCH 33.1 (26-34) PG MCHC 34.4 (30-36) % RDW 12.6 (11.6-14.8) % Plt Count 270 (150-400) X10^3/uL Neut % (Auto) 60.1 (50-75) % Lymph % (Auto) 22.4 L (25-40) % [place] % (Auto) 10.9 (3-14) % Eos % (Auto) 6.0 H (2-4) % Baso % (Auto) 0.6 (0-2) % Neut # (Auto) 3900 (6079-2673) /uL Lymph # (Auto) 1500 (1099-5763) /uL [place] # (Auto) 700 (0-900) /uL Eos # (Auto) 400 (0-450) /uL Baso # (Auto) 0 (0-100) /uL Sodium 137 (137-145) mmol/L Potassium 3.5 (3.4-5.1) mmol/L Chloride 98 (98-107) mmol/L Carbon Dioxide 29 (22-32) mmol/L BUN 4 L (7-17) mg/dL Creatinine 0.55 (0.52-1.04) mg/dL Estimated GFR > 60.0 (>60) mL/min BUN/Creatinine Ratio 7.3 (6-22) Glucose 125 H (70-100) mg/dL Calcium 9.9 (8.4-10.2) mg/dL Total Bilirubin 0.5 (0.2-1.3) mg/dL AST 33 (14-36) IU/L ALT 14 (<35) IU/L Alkaline Phosphatase 68 (38-126) U/L Total Protein 7.2 (6.3-8.2) g/dL Albumin 4.2 (3.5-5.0) g/dL Globulin 3.0 (1.7-4.1) g/dL Albumin/Globulin Ratio 1.4 (1.0-2.8) Lipase 26 (23-300) U/L Urine RBC 0-1/hpf (0-5/HPF) Urine WBC 5-10/hpf H (0-5/HPF) Ur Squamous Epith Cells 10-30 /hpf H D (0-5/HPF) Urine Bacteria None seen (None) Ur Culture Indicated? Cult not indicated Point of care testing: Point of Care Testing Test Results Negative Urine Dip Bedside Urine Glucose Negative Bedside Urine Bilirubin - Negative Urine Specific Edwards 1.015 Bedside Urine Occult Blood - Negative Bedside Urine pH 7.0 Bedside Urine Protein - Negative Bedside Urine Urobilinogen - Negative Bedside Urine Nitrite - Negative Bedside Urine Leukocytes ++ 125 Esterase Discharge Plan Departure Patient Disposition: Home Clinical Impression: Abdominal pain Qualifiers: Abdominal location: generalized Qualified Code(s): R10.84 - Generalized abdominal pain Discharge Date/Time: 12/07/19 20:09 Instructions: DI for Abdominal Pain-Adult Activity Restrictions/Additional Instructions: Thank you for entrusting me with your care today. As discussed, your CT and laboratory work are non-remarkable. I spoke with Dr. Mccollum at [facility], we reviewed your current test results, no need for admission at this time. Recommends feeling your prescriptions and taking them immediately. Please schedule an appointment with your doctor in the next few weeks for follow-up. If he does agree was [facility]'s pain contract, please contact them directly. Return emergency department for chest pain, shortness of breath, high fevers, or any other concerns. Prescriptions: No Action metoclopramide HCl [Reglan] 10 mg tablet 10 mg PO Q6H PRN (Reason: nausea and vomiting) Qty: 10 RF: 0 oxycodone 5 mg Tablet 5 mg PO Q4HR PRN (Reason: Pain, Moderate (4-6)) Qty: 10 RF: 0 Referrals: Prince Zee MD [Primary Care Provider] - <Madeleine Tijerina MD - Last Filed: 12/08/19 02:02> [facility] I was immediately available in the department for consultation throughout this patient's visit. I agree with documentation as above. Madeleine Tijerina MD
[2019-12-07 18:12] LABS: Culture Indicated Urine Cult Not Indicated; RBC Urine 0-1/HPF (0-5/HPF); Squamous Epithelial Cell Urine 10-30 /HPF (0-5/HPF); WBC Urine 5-10/HPF (0-5/HPF)
[2019-12-07 18:31] LABS: Add Manual Diff / Slide Review NO; Basophils Absolute Auto 0 /uL (0-100); Basophils Percent Auto 0.6 % (0-2); Eosinophils Absolute Auto 400 /uL (0-450); Hematocrit 40.6 % (36-46); Lymphocytes Absolute Auto 1500 /uL (1100-4500); Lymphocytes Percent Auto 22.4 % (25-40); Mean Corpuscular HGB Conc 34.4 % (30-36); Mean Corpuscular Hemoglobin 33.1 PG (26-34); Mean Corpuscular Volume 96.1 fL (80-100); Monocytes Absolute Auto 700 /uL (0-900); Monocytes Percent Auto 10.9 % (3-14); Neutrophils Absolute Auto 3900 /uL (1500-7000); Neutrophils Percent Auto 60.1 % (50-75); Platelet Count 270 X10^3/uL (150-400); Red Blood Cell Count 4.23 X10^6/uL (4.0-5.2); Red Cell Distribution Width 12.6 % (11.6-14.8); White Blood Cell Count 6.5 X10^3/uL (4.5-11.0)
[2019-12-07 18:41] LABS: Alanine Aminotransferase 14 IU/L (<35); Albumin 4.2 g/dL (3.5-5.0); Albumin Globulin Ratio 1.4 (1.0-2.8); Alkaline Phosphatase 68 U/L (38-126); Aspartate Aminotransferase 33 IU/L (14-36); BUN Creatinine Ratio 7.3 (6-22); Bilirubin Total 0.5 mg/dL (0.2-1.3); Blood Urea Nitrogen 4 mg/dL (7-17); Calcium 9.9 mg/dL (8.4-10.2); Carbon Dioxide 29 mmol/L (22-32); Chloride 98 mmol/L (98-107); Estimated Glomerular Filt Rate > 60.0 mL/min (>60); Glucose 125 mg/dL (70-100); HEMOLYSIS 19 (0-50); Lipase 26 U/L (23-300); Potassium 3.5 mmol/L (3.4-5.1); Sodium 137 mmol/L (137-145); Total Protein 7.2 g/dL (6.3-8.2)
[2019-12-07] MEDS: ONDANSETRON 4 MG/2 ML INJ IV (18:41)
[2019-12-07] MEDS: OXYCODONE/ACETAMINOPHEN 5/325 TABLET 1 TAB PO (18:44)
[2019-12-07] MEDS: SODIUM CHLORIDE 0.9% 1,000 ML 1000 ML IV (18:44)
[2019-12-07 19:40] VITALS: BP 142/101; PULSE 111; O2SAT 98
[2019-12-07 20:01] VITALS: BP 131/94; PULSE 102; O2SAT 100
== END 2019-12-07 20:09 | disposition home or self-care (01) ==
PROVIDERS: Emergency Provider Nurse Practitioner; PCP Family Medicine; Referring Provider Family Medicine
DX: R10.84 Generalized abdominal pain (principal); R11.10 Vomiting, unspecified
CPT/HCPCS: 74177; 80053; 81003; 81015; 81025; 83690; 85025; 96361; 96374; 99284; J2405; Q9967

== ENCOUNTER 2020-08-04 10:51 | Emergency (ER) | payer OTHER, SELFPAY ==
[2019-06-19 00:13] VITALS: BMI 27.4
[2020-08-04] VITALS (13 sets, daily range): BP systolic 100–184; BP diastolic 70–135; PULSE 67–139; RESP 14–19; TEMP 37.2; O2SAT 94–100; BMI 25.8
--- NOTE | 2020-08-04 11:20 | PC.NURSE ---
two unsuccessful iv attempts, pt tolerated well, areas have dressing placed.
--- NOTE | 2020-08-04 11:28 | ED_ITS ---
HPI - Abdominal Pain General Chief Complaint: Recheck/Abnormal Lab/Rx Stated Complaint: vomitting/tummy pain Time Seen by Provider: 08/04/20 11:18 Source: patient Mode of arrival: Ambulatory Limitations: no limitations History of Present Illness HPI narrative: Patient is a 30-year-old female presents with abdominal pain. She has a history of chronic abdominal pain from endometriosis. She was seen by a specialist at [facility] in [place] and had exploratory surgery 4 days ago. She has since had ongoing abdominal pain and has progressively gotten worse. She was seen evaluated at [facility] yesterday she denies having a CT done. She says her pain has intensified today she has been nauseous and vomiting unable to keep her medications down. She does have a pain contract. She denies fever or chills no chest pain shortness of breath painful or frequent urination. She is shaking and appears to be in quite a bit of pain. MD complaint: abdominal pain Onset (ago): day(s) Pain Consistency: constant Location: diffuse Quality: stabbing and sharp Related Data Previous Rx's Medication Instructions Recorded metoclopramide HCl [Reglan] 10 mg PO Q6H PRN #10 tab 05/31/19 oxycodone 5 mg PO Q4HR PRN #10 tab 06/21/19 Allergies Allergy/AdvReac Type Severity Reaction Status Date / Time clindamycin Allergy Rash Verified 11/26/19 20:46 guaifenesin [From Mucinex] Allergy Rash Verified 11/26/19 20:46 morphine Allergy Verified 11/26/19 20:46 haloperidol [From Haldol] AdvReac Irritable Verified 11/26/19 20:46 ketorolac [From Toradol] AdvReac Anxiety Verified 11/26/19 20:46 metoclopramide [From Reglan] AdvReac Anxiety Verified 11/26/19 20:46 promethazine [From Phenergan] AdvReac Anxiety Verified 11/26/19 20:46 zolpidem [From Ambien] AdvReac Hallucinati Verified 11/26/19 20:46 ng Review of Systems Review of Systems Narrative: GENERAL: Denies chills, fatigue, malaise, fever, sweats, travel HEENT: Denies sinus pain, ear pain, sore throat, difficulty swallowing, neck pain RESPIRATORY: Denies dyspnea, cough, wheezing, hemoptysis, sputum. CARDIOVASCULAR: Denies chest pain, palpitations, orthopnea, edema GASTROINTESTINAL: See HPI : Denies dysuria, frequency, incontinence, hematuria, urinary retention, flank pain. MUSCULOSKELETAL: Denies weakness, joint pain, or bony pain SKIN: No rash, no erythema, no pruritus NEUROLOGIC: Denies weakness, dizziness, headache, numbness, change in speech, confusion PSYCHIATRIC: No concerning psychosocial issues. 12 point review of systems is negative except for those stated above and HPI Patient History Medical History (Updated 08/04/20 @ 14:34 by Perri Yeboah DO) Endometriosis Gastroparesis Pancreatitis Surgical History H/O laparoscopy Hx of cholecystectomy Social History marital status: household members: spouse and children Smoking Status: Never smoker Smoking Status: Never smoker alcohol intake frequency: a few times a month Substance Use Type: does not use Exam Initial Vital Signs Initial Vital Signs: Vital Signs Temperature 99.0 F 08/04/20 11:16 Pulse Rate 112 H 08/04/20 11:16 Respiratory Rate 19 08/04/20 11:16 Blood Pressure 178/135 H 08/04/20 11:16 Pulse Oximetry 100 08/04/20 11:16 GENERAL: 30-year-old female shaking sitting on side of bed appears in severe pain in pain HEENT: Head atraumatic,EOMI, pupils reactive, face symmetric, moist mucous membranes CARDIOVASCULAR: Regular rate and rhythm without murmurs, rubs or gallops. RESPIRATORY: Breath sounds equal bilaterally, no wheezes rales or rhonchi. ABDOMEN: Soft, diffuse tenderness incision sites appear well no erythema EXTREMITIES: Normal range of motion, no clubbing or edema. Neurovascularly intact NEUROLOGICAL: Alert and oriented x4.Normal gait and speech. SKIN: Warm, dry, no laceration, no petechiae, no rashes or lesions. Course Orders Ordered: ED Orders 08/04/20 11:20 Complete Blood Count AUTO DIFF Stat Comprehensive Metabolic Panel Stat Lipase Stat 08/04/20 11:33 CT abdomen pelvis w con Stat Discontinued Medications Diphenhydramine HCl (Diphenhydramine 50 Mg/Ml Vial) 25 mg IV NOW ONE Stop: 08/04/20 13:06 Last Admin: 08/04/20 13:14 Dose: 25 mg Documented by: DARIAN Hydromorphone HCl (Hydromorphone 1 Mg Inj) 1 mg IV NOW ONE Stop: 08/04/20 11:34 Last Admin: 08/04/20 11:37 Dose: 1 mg Documented by: DARIAN Hydromorphone HCl (Hydromorphone 1 Mg Inj) 1 mg IV NOW ONE Stop: 08/04/20 12:29 Last Admin: 08/04/20 12:33 Dose: 1 mg Documented by: DARIAN Hydromorphone HCl (Hydromorphone 1 Mg Inj) 1 mg IV NOW ONE Stop: 08/04/20 13:58 Last Admin: 08/04/20 14:03 Dose: 1 mg Documented by: DARIAN Sodium Chloride (Normal Saline 0.9%) 1,000 mls @ 1,000 mls/hr IV CONT DHIRAJ Last Infusion: 08/04/20 14:00 Dose: 0 mls/hr Documented by: Admin: 08/04/20 11:36 Dose: 1,000 mls/hr Documented by: DARIAN Metoclopramide HCl (Metoclopramide 10 Mg/2 Ml Inj) 10 mg IV NOW ONE Stop: 08/04/20 13:06 Last Admin: 08/04/20 13:14 Dose: 10 mg Documented by: DARIAN Ondansetron HCl (Ondansetron 4 Mg/2 Ml Inj) 4 mg IV NOW ONE Stop: 08/04/20 11:19 Last Admin: 08/04/20 11:36 Dose: 4 mg Documented by: DARIAN Ondansetron HCl (Ondansetron 4 Mg/2 Ml Inj) 4 mg IV NOW ONE Stop: 08/04/20 12:30 Last Admin: 08/04/20 12:33 Dose: 4 mg Documented by: DARIAN Pantoprazole Sodium (Pantoprazole 40 Mg Vial) 40 mg IV NOW ONE Stop: 08/04/20 14:01 Last Admin: 08/04/20 14:03 Dose: 40 mg Documented by: DARIAN Vital Signs Vital signs: Vital Signs - 8 hr 08/04/20 11:16 08/04/20 11:44 08/04/20 12:25 Temperature 99.0 F Pulse Rate 112 H 118 H 125 H Respiratory Rate 19 Blood Pressure 178/135 H Pulse Oximetry 100 97 99 08/04/20 12:30 08/04/20 13:00 08/04/20 13:02 Temperature Pulse Rate 119 H 107 H 108 H Respiratory Rate Blood Pressure 141/108 H 124/76 129/85 Pulse Oximetry 99 98 98 08/04/20 13:04 08/04/20 13:30 08/04/20 14:04 Temperature Pulse Rate 122 H 93 H 139 H Respiratory Rate Blood Pressure 184/97 H 135/70 130/88 Pulse Oximetry 99 98 98 08/04/20 14:30 08/04/20 14:31 08/04/20 14:32 Temperature Pulse Rate 103 H 120 H 119 H Respiratory Rate Blood Pressure 100/75 102/81 104/78 Pulse Oximetry 94 94 96 08/04/20 14:38 Temperature Pulse Rate 67 Respiratory Rate 14 Blood Pressure 102/80 Pulse Oximetry 98 MDM - Abdominal Pain Lab Data Attestation: I reviewed the patient's lab results. Result diagrams: 08/04/20 11:20 08/04/20 11:20 Labs: Lab Results 08/04/20 08/04/20 Range/Units 11:20 11:20 WBC 7.1 (4.5-11.0) X10^3/uL RBC 4.06 (4.0-5.2) X10^6/uL Hgb 13.5 (12.0-16.0) g/dL Hct 39.7 (36-46) % MCV 97.9 (80-100) fL MCH 33.3 (26-34) PG MCHC 34.0 (30-36) % RDW 13.0 (11.6-14.8) % Plt Count 154 (150-400) X10^3/uL Neut % (Auto) 50.2 (50-75) % Lymph % (Auto) 34.6 (25-40) % [place] % (Auto) 9.0 (3-14) % Eos % (Auto) 5.7 H (2-4) % Baso % (Auto) 0.5 (0-2) % Neut # (Auto) 3600 (5397-3338) /uL Lymph # (Auto) 2500 (0924-4565) /uL Upson # (Auto) 600 (0-900) /uL Eos # (Auto) 400 (0-450) /uL Baso # (Auto) 0 (0-100) /uL Sodium 134 L (137-145) mmol/L Potassium 4.1 (3.4-5.1) mmol/L Chloride 96 L (98-107) mmol/L Carbon Dioxide 26 (22-32) mmol/L BUN 7 (7-17) mg/dL Creatinine 0.63 (0.52-1.04) mg/dL Estimated GFR > 60.0 (>60) mL/min BUN/Creatinine Ratio 11.1 (6-22) Glucose 93 (70-100) mg/dL Calcium 9.7 (8.4-10.2) mg/dL Total Bilirubin 0.4 (0.2-1.3) mg/dL AST 53 H (14-36) IU/L ALT 24 (<35) IU/L Alkaline Phosphatase 104 (38-126) U/L Total Protein 8.0 (6.3-8.2) g/dL Albumin 4.5 (3.5-5.0) g/dL Globulin 3.5 (1.7-4.1) g/dL Albumin/Globulin Ratio 1.3 (1.0-2.8) Lipase 288 (23-300) U/L Point of care testing: Point of Care Testing Test Results Negative Urine Dip Bedside Urine Glucose Negative Bedside Urine Bilirubin - Negative Bedside Urine Ketone - Negative Urine Specific [place] 1.015 Bedside Urine Occult Blood +++ Bedside Urine pH 7.5 Bedside Urine Urobilinogen - Negative Bedside Urine Nitrite - Negative Bedside Urine Leukocytes + [address] scan - abdomen/pelvis: Radiologist's Impression: PROCEDURE: CT ABDOMEN PELVIS W CON INDICATIONS: ab pain vomiting recent surgery for endometriosis TECHNIQUE: After the administration of intravenous contrast, 5 mm thick sections acquired from the diaphragm to the symphysis. 5 mm coronal and sagittal reformats were acquired. For radiation dose reduction, the following was used: automated exposure control, adjustment of mA and/or kV according to patient size. COMPARISON: [facility], CT, CT ABDOMEN PELVIS WITH CONTRAST, 03/15/2020, 18:09. [facility], CT, CT ABDOMEN PELVIS W CON, 12/07/2019, 18:41. FINDINGS: Image quality: Excellent. ABDOMEN: Lung bases: Lung bases are clear. Heart size is normal. Solid organs: Diffuse hypoattenuation of the liver. And there are few scattered foci of pneumobilia likely secondary to presence of a biliary stent. The gallbladder is surgically absent. The pancreatic duct measures 6 millimeter in diameter. No pancreatic parenchymal abnormality. Normal appearance of the spleen and adrenal glands. Normal enhancement of the kidneys. No hydronephrosis. Peritoneum and bowel: Bowel loops demonstrate normal wall thickness and caliber. No free air in the. The appendix is surgically absent. No free fluid in the upper abdomen. Nodes and vessels: No retroperitoneal or mesenteric adenopathy by size criteria. Aorta and inferior vena cava are normal in size. Miscellaneous: No ventral hernias. PELVIS: Genitourinary: Bladder wall thickness is normal. There is a small volume of free fluid in the pelvis. Within the intraperitoneal portion of the right pelvic floor, there are multiple faint enhancing nodular structures measuring up to 11 millimeter in diameter, some of which may arise along the serosal margin of the sigmoid colon. The uterus is anteverted containing an intra uterine device. There is a focus of air in the bladder. Miscellaneous: No inguinal hernias or adenopathy. Bones: No suspicious bony lesions. No vertebral body compression fractures. IMPRESSION: 1. Air within the bladder lumen. This could be secondary to recent instrum entation or gas producing urinary tract infection. 2. Mild pancreatic duct dilation. Biliary duct stent in expected location. No evidence of intrahepatic or extrahepatic biliary ductal dilation. 3. Several faint nodular enhancing structures in the lower right pelvis. Given reported history of recent endometrial intervention, this may be sequela of this surgery or residual endometrial implants. Consider nonurgent MRI of the pelvis if warranted for further evaluation. 4. Mild hepatic steatosis. Dictated by: Solo Carpenter M.D. on 08/04/2020 at 11:16 MDM Narrative Medical decision making narrative: Patient is having intense severe abdominal pain. She is having intractable nausea vomiting abdominal pain unable to keep her medications down. She is tachycardic initially but normal blood pressure. She is given IV fluids and IV nausea medication and pain medication. She continued to ask for more pain medication the longer she was in the emergency department. She has now had 3 mg of Dilaudid in the emergency department. She is on pain contract. Records from [facility] were received and re viewed she had abdominal x-ray along with pelvic ultrasound. There she actually had Ativan multiple doses of anti nausea medication couple different doses of pain medication. Today CT did not show any abnormality either. Blood work is overall reassuring. She is shaking and vomiting and in intense pain. Blood work continues to be reassuring. She continues to have elevated heart rate however she is quite anxious on continues to dry heave. I have explained to her that after the 3rd dose of Dilaudid I will not be giving her any more narcotic medications. She understands. I discussed with her that she needs to follow up with her surgeon. She does not meet admission criteria here. She was rehydrated with 1 L of IV fluids well in the emergency department. Close outpatient follow-up advised and return precautions were given. Discharge Plan Departure Patient Disposition: Home Clinical Impression: Acute postoperative abdominal pain Instructions: DI for Abdominal Pain-Adult Activity Restrictions/Additional Instructions: *You have been diagnosed with postoperative abdominal pain *What to do: You will need to follow-up with your surgeon and primary care provider in regards to pain medication *Continue to take medications as directed *Follow up with your primary care provider in 2-3 days *Return to ER if you should have persistent vomiting, fevers, severe pain or any new, worsening or concerning symptoms Prescriptions: No Action metoclopramide HCl [Reglan] 10 mg tablet 10 mg PO Q6H PRN (Reason: nausea and vomiting) Qty: 10 RF: 0 oxycodone 5 mg Tablet 5 mg PO Q4HR PRN (Reason: Pain, Moderate (4-6)) Qty: 10 RF: 0 Referrals: Prince Zee MD [Primary Care Provider] -
--- NOTE | 2020-08-04 11:31 | PC.NURSE ---
Pt had a procedure to place an IUD and to remove endometriosis tissue 2 days ago and ever since has had severe lower abd pain, n/v. Pt appears ill feeling. Unable to sit still d/t pain, prefers sitting up on the edge of the bed.
[2020-08-04 11:33] LABS: Add Manual Diff / Slide Review NO; Basophils Absolute Auto 0 /uL (0-100); Basophils Percent Auto 0.5 % (0-2); Eosinophils Absolute Auto 400 /uL (0-450); Eosinophils Percent Auto 5.7 % (2-4); Hematocrit 39.7 % (36-46); Hemoglobin 13.5 g/dL (12.0-16.0); Lymphocytes Absolute Auto 2500 /uL (1100-4500); Lymphocytes Percent Auto 34.6 % (25-40); Mean Corpuscular Hemoglobin 33.3 PG (26-34); Mean Corpuscular Volume 97.9 fL (80-100); Monocytes Absolute Auto 600 /uL (0-900); Neutrophils Absolute Auto 3600 /uL (1500-7000); Neutrophils Percent Auto 50.2 % (50-75); Platelet Count 154 X10^3/uL (150-400); Red Blood Cell Count 4.06 X10^6/uL (4.0-5.2); White Blood Cell Count 7.1 X10^3/uL (4.5-11.0)
--- NOTE | 2020-08-04 11:33 | DI.CT.S_ITS ---
PROCEDURE: CT ABDOMEN PELVIS W CON INDICATIONS: ab pain vomiting recent surgery for endometriosis TECHNIQUE: After the administration of intravenous contrast, 5 mm thick sections acquired from the diaphragm to the symphysis. 5 mm coronal and sagittal reformats were acquired. For radiation dose reduction, the following was used: automated exposure control, adjustment of mA and/or kV according to patient size. COMPARISON: [facility], CT, CT ABDOMEN PELVIS WITH CONTRAST, 03/15/2020, 18:09. [facility], CT, CT ABDOMEN PELVIS W CON, 12/07/2019, 18:41. FINDINGS: Image quality: Excellent. ABDOMEN: Lung bases: Lung bases are clear. Heart size is normal. Solid organs: Diffuse hypoattenuation of the liver. And there are few scattered foci of pneumobilia likely secondary to presence of a biliary stent. The gallbladder is surgically absent. The pancreatic duct measures 6 millimeter in diameter. No pancreatic parenchymal abnormality. Normal appearance of the spleen and adrenal glands. Normal enhancement of the kidneys. No hydronephrosis. Peritoneum and bowel: Bowel loops demonstrate normal wall thickness and caliber. No free air in the. The appendix is surgically absent. No free fluid in the upper abdomen. Nodes and vessels: No retroperitoneal or mesenteric adenopathy by size criteria. Aorta and inferior vena cava are normal in size. Miscellaneous: No ventral hernias. PELVIS: Genitourinary: Bladder wall thickness is normal. There is a small volume of free fluid in the pelvis. Within the intraperitoneal portion of the right pelvic floor, there are multiple faint enhancing nodular structures measuring up to 11 millimeter in diameter, some of which may arise along the serosal margin of the sigmoid colon. The uterus is anteverted containing an intra uterine device. There is a focus of air in the bladder. Miscellaneous: No inguinal hernias or adenopathy. Bones: No suspicious bony lesions. No vertebral body compression fractures. IMPRESSION: 1. Air within the bladder lumen. This could be secondary to recent instrumentation or gas producing urinary tract infection. 2. Mild pancreatic duct dilation. Biliary duct stent in expected location. No evidence of intrahepatic or extrahepatic biliary ductal dilation. 3. Several faint nodular enhancing structures in the lower right pelvis. Given reported history of recent endometrial intervention, this may be sequela of this surgery or residual endometrial implants. Consider nonurgent MRI of the pelvis if warranted for further evaluation. 4. Mild hepatic steatosis. Dictated by: Solo Carpenter M.D. on 08/04/2020 at 11:16 Approved by: Solo Carpenter M.D. on 08/04/2020 at 11:32
[2020-08-04] MEDS: ONDANSETRON 4 MG/2 ML INJ IV ×2 (11:36→12:33)
[2020-08-04] MEDS: SODIUM CHLORIDE 0.9% 1,000 ML 1000 ML IV (11:36)
[2020-08-04] MEDS: HYDROMORPHONE 1 MG INJ IV ×3 (11:37→14:03)
[2020-08-04 11:45] LABS: Alanine Aminotransferase 24 IU/L (<35); Albumin 4.5 g/dL (3.5-5.0); Albumin Globulin Ratio 1.3 (1.0-2.8); Alkaline Phosphatase 104 U/L (38-126); Aspartate Aminotransferase 53 IU/L (14-36); BUN Creatinine Ratio 11.1 (6-22); Bilirubin Total 0.4 mg/dL (0.2-1.3); Blood Urea Nitrogen 7 mg/dL (7-17); Calcium 9.7 mg/dL (8.4-10.2); Carbon Dioxide 26 mmol/L (22-32); Chloride 96 mmol/L (98-107); Estimated Glomerular Filt Rate > 60.0 mL/min (>60); Globulin 3.5 g/dL (1.7-4.1); Glucose 93 mg/dL (70-100); HEMOLYSIS 28 (0-50); Lipase 288 U/L (23-300); Potassium 4.1 mmol/L (3.4-5.1); Sodium 134 mmol/L (137-145)
[2020-08-04] MEDS: METOCLOPRAMIDE 10 MG/2 ML INJ IV (13:14)
[2020-08-04] MEDS: diphenhydrAMINE 50 MG/ML VIAL 25 MG IV (13:14)
[2020-08-04] MEDS: PANTOPRAZOLE 40 MG VIAL IV (14:03)
--- NOTE | 2020-08-04 14:41 | PC.NURSE ---
at 1315 pt vomiting, reported to dr. fan.
== END 2020-08-04 14:42 | disposition home or self-care (01) ==
PROVIDERS: Emergency Provider Emergency Medicine; PCP Family Medicine
DX: G89.18 Other acute postprocedural pain (principal); R10.9 Unspecified abdominal pain
CPT/HCPCS: 36415; 74177; 80053; 81003; 81025; 83690; 85025; 96361; 96374; 96375; 96376; 99284; C9113; J1170; J1200; J2405; J2765; Q9967

== ENCOUNTER 2025-02-14 17:38 | Inpatient (IN) | payer OTHER, SELFPAY ==
[2019-06-19 00:13] VITALS: BMI 27.4
[2025-02-14] VITALS (17 sets, daily range): BP systolic 114–172; BP diastolic 78–94; PULSE 112–128; RESP 12–39; TEMP 37.3; O2SAT 95–100; BMI 19.8
--- NOTE | 2025-02-14 18:03 | DI.RAD.S_ITS ---
PROCEDURE: XR CHEST 1V INDICATIONS: suspected sepsis TECHNIQUE: One view of the chest was acquired. COMPARISON: [facility], CR, XR CHEST 2V, 08/08/2019, 16:56. FINDINGS: Surgical changes and devices: Right internal jugular central venous catheter with tip at the expected location of the cavoatrial junction. Surgical clips in the mid abdomen. Lungs and pleura: Lungs are clear. No pleural effusions or pneumothorax. Mediastinum: Mediastinal contours appear normal. Heart size is normal. Bones and chest wall: No suspicious bony lesions. Overlying soft tissues appear unremarkable. IMPRESSION: No acute cardiopulmonary abnormality is seen. Dictated by: Richard Cortés M.D. on 02/14/2025 at 19:25 Approved by: Richard Cortés M.D. on 02/14/2025 at 19:25
--- NOTE | 2025-02-14 18:49 | EKG_ITS ---
[address] [address] Test Date: 2025-02-14 Pat Name: Gogo Rosenberg Department: [facility] Room: Gender: Female Director Loss Prevention: WHITNEY : 1990 Requested By: Order Number: [id number] Reading MD: Thomas Canas MD Measurements Intervals [place] Rate: 117 P: 71 MD: 114 QRS: 86 QRSD: 74 T: 36 QT: 318 QTc: 443 Interpretive Statements Sinus tachycardia Electronically Signed On 02-15-2025 7:20:55 PDT by Thomas Canas MD
[2025-02-14 18:54] LABS: Base Excess VBG 5.0 mmol/L (0-4); HCO3 VBG 25 mmol/L (24-28); Oxygen Saturation VBG 94 % (70-75); PCO2 VBG 22.6 mmHg (45-50); PO2 VBG 53 mmHg (35-45); Total CO2 VBG 23 mmol/L (24-29); pH VBG 7.65 (7.33-7.43)
[2025-02-14] MEDS: SODIUM CHLORIDE 0.9% 1,000 ML 1000 ML IV ×2 (19:15→21:20)
[2025-02-14] MEDS: ONDANSETRON 4 MG/2 ML INJ IV ×2 (19:15→20:07)
[2025-02-14 19:16] LABS: Add Manual Diff / Slide Review YES; Alanine Aminotransferase 14 IU/L (<35); Albumin 4.9 g/dL (3.5-5.0); Albumin Globulin Ratio 1.2 (1.0-2.8); Alkaline Phosphatase 125 U/L (38-126); Blood Urea Nitrogen 18 mg/dL (7-17); Calcium 9.7 mg/dL (8.4-10.2); Carbon Dioxide 24 mmol/L (22-32); Chloride 94 mmol/L (98-107); Estimated Glomerular Filt Rate > 60 mL/min (>60); Globulin 4.0 g/dL (1.7-4.1); Hematocrit 32.1 % (36-46); Hemoglobin 10.5 g/dL (12.0-16.0); Lactate (Lactic Acid) 2.4 mmol/L (0.7-2.1); Mean Corpuscular HGB Conc 32.8 % (30-36); Mean Corpuscular Hemoglobin 29.6 PG (26-34); Mean Corpuscular Volume 90.1 fL (80-100); Platelet Count 287 X10^3/uL (150-400); Sodium 132 mmol/L (137-145); Total Protein 8.9 g/dL (6.3-8.2)
[2025-02-14 19:30] LABS: HEMOLYSIS 96 (0-50); Lipase < 10 U/L (23-300); Potassium 5.1 mmol/L (3.4-5.1)
--- NOTE | 2025-02-14 19:30 | ED_ITS ---
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 Patient has also had prior volvulus. 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 Patient presents with increased abdominal pain over the last week notes fevers at home of 100.7 she has had nausea or vomiting persistently throughout the week. She has noticed some bright red blood with emesis but also some bright red blood intermittently with thin solid stools. She notes increase of left lower quadrant pain in the left rectal ease areas well as the epigastric region. She is scheduled for a select soy sigmoidoscopy for the bleeding. Patient denies chest pain or shortness of breath. She denies any dysuria urgency or frequency she does note some lower back pain. She has noticed maybe little bit less urine output. She notes her glucose has been elevated this week in the 400 range she does use long and short-acting insulin. Patient states home medications include insulin short and long-acting, Creon, pantoprazole for ulcers and gastritis, oxycodone and Zofran PRN. She states most recent hospitalization was at [facility] had upper endoscopy at that time was discharged on the pantoprazole for newly found ulcer/gastritis. She has been seen at [facility] as well as [facility]. They were encouraged by her primary care to come here to have a fresh set of eyes. Patient denies tobacco, denies regular alcohol denies any recreational drugs. Patient has a multiple allergies to medications including clindamycin, Mucinex, Ambien, Toradol, Phenergan, Reglan, Haldol, droperidol, Compazine. She notes she does tend to do well with Zofran and Benadryl for antiemetics. Her PCP is in [place]. She has seen Gastroenterology in the past she is following with the [facility] who did her pancreatectomy and splenectomy. Related Data Previous Rx's ?Medication ?Instructions ?Recorded metoclopramide HCl 10 mg tablet 10 mg PO Q6H PRN nause a and 05/31/19 (Reglan) vomiting #10 tabs oxycodone 5 mg tablet 5 mg PO Q4HR PRN Pain, Moder ate 06/21/19 (4-6) #10 tabs Allergies Allergy/AdvReac Type Severity Reaction Status Date / Time clindamycin Allergy Rash Verified 02/14/25 17:58 guaifenesin (From Mucinex) Allergy Rash Verified 02/14/25 17:58 morphine Allergy Verified 02/14/25 17:58 haloperidol (From Haldol) AdvReac Irritable Verified 02/14/25 17:58 ketorolac (From Toradol) AdvReac Anxiety Verified 02/14/25 17:58 metoclopramide (From Reglan) AdvReac Anxiety Verified 02/14/25 17:58 promethazine (From Phenergan) AdvReac Anxiety Verified 02/14/25 17:58 zolpidem (From Ambien) AdvReac Hallucinati Verified 02/14/25 17:58 ng Review of Systems Review of Systems ROS Unobtainable: All systems reviewed & are unremarkable except as noted in HPI and below Patient History Medical History (Updated 02/14/25 @ 22:24 by Shreya Lea DO) Endometriosis Gastroparesis Pancreatitis Surgical History H/O laparoscopy Hx of cholecystectomy Social History marital status: household members: spouse and children Smoking Status: Unknown if ever smoked Smoking Status: Unknown if ever smoked alcohol intake frequency: a few times a month Exam Narrative Exam Narrative: GENERAL: Alert and oriented x three, female in moderate distress HEENT: Head normocephalic, atraumatic, EOMI, pupils reactive, face symmetric, moist mucous membranes NECK: Supple, full range of motion CARDIOVASCULAR: Regular rate and rhythm without murmurs, rubs or gallops. No JVD. No edema bilateral lower extremities. RESPIRATORY: Breath sounds equal bilaterally, no wheezes rales or rhonchi. No tachypnea or accessory muscle use ABDOMEN: Soft, generalized tenderness. Normoactive bowel sounds all 4 quadrants. No guarding or rebound, rigidity, no mass : No CVA tenderness EXTREMITIES: Normal range of motion, no clubbing or edema. Neurovascularly intact NEUROLOGICAL: Cranial nerves II through XII grossly intact. Moving all extremities SKIN: Warm, dry, no petechiae, no rashes or lesions. Initial Vital Signs Initial Vital Signs: Vital Signs Temperature 99.1 F 02/14/25 17:40 Pulse Rate 127 H 02/14/25 17:40 Respiratory Rate 24 02/14/25 17:40 Blood Pressure 172/85 H 02/14/25 17:40 Pulse Oximetry 98 02/14/25 17:40 Oxygen Delivery Method Room Air 02/14/25 17:40 Course Orders Ordered: ED Orders 02/14/25 18:03 XR chest 1V Stat PTT Partial Thromboplastin Agustin Stat Prothrombin Time INR Stat EKG-12 Lead Stat RT Consult Eval and Treat NOW 02/14/25 18:40 Blood Culture Stat Complete Blood Count AUTO DIFF Stat Comprehensive Metabolic Panel Stat Lactate (Lactic Acid) Stat Lipase Stat Test Serum,Qual Stat Procalcitonin Stat 02/14/25 18:51 Venous Blood Gas Routine 02/14/25 19:59 CT abdomen pelvis w con Stat 02/14/25 22:16 Consult to General Surgery Stat Diphenhydramine HCl (Diphenhydramine 50 Mg/Ml Vial) 50 mg IV Q4HR PRN PRN Reason: nausea Last Admin: 02/15/25 00:38 Dose: 50 mg Documented By: LEONARDA Hydromorphone HCl (Hydromorphone 2 Mg/Ml Syringe) 2 mg IV Q2H PRN PRN Reason: Pain, Severe (7-10) Last Admin: 02/15/25 00:38 Dose: 2 mg Documented By: Sodium Chloride (Normal Saline 0.9%) 1,000 mls @ 100 mls/hr IV CONT DHIRAJ Last Admin: 02/15/25 00:39 Dose: 100 mls/hr Documented By: Naloxone HCl (Naloxone 0.4 Mg/Ml Vial) 0.2 mg IV Q2MIN PRN PRN Reason: Opiate Reversal Discontinued Medications Diphenhydramine HCl (Diphenhydramine 50 Mg/Ml Vial) 50 mg IV NOW ONE Stop: 02/14/25 21:11 Last Admin: 02/14/25 21:26 Dose: 50 mg Documented By: PAMELA Hydromorphone HCl (Hydromorphone 1 Mg/Ml Syringe) 1 mg IV NOW ONE Stop: 02/14/25 18:53 Last Admin: 02/14/25 19:15 Dose: 1 mg Documented By: PAMELA Hydromorphone HCl (Hydromorphone 1 Mg/Ml Syringe) 1 mg IV NOW ONE Stop: 02/14/25 20:00 Last Admin: 02/14/25 20:07 Dose: 1 mg Documented By: ARSALAN Hydromorphone HCl (Hydromorphone 1 Mg/Ml Syringe) 1 mg IV NOW ONE Stop: 02/14/25 22:25 Last Admin: 02/14/25 22:30 Dose: 1 mg Documented By: PAMELA Sodium Chloride (Normal Saline 0.9%) 1,000 mls @ 1,000 mls/hr IV BOLUS ONE Stop: 02/14/25 19:02 Last Infusion: 02/14/25 20:15 Dose: Infused Documented By: Admin: 02/14/25 19:15 Dose: 1,000 mls/hr Documented By: PAMELA Sodium Chloride (Normal Saline 0.9%) 1,000 mls @ 1,000 mls/hr IV BOLUS ONE Stop: 02/14/25 20:32 Last Infusion: 02/14/25 22:52 Dose: Infused Documented By: Admin: 02/14/25 21:20 Dose: 1,000 mls/hr Documented By: PAMELA Insulin Glargine (Insulin Glargine 100 Unit/Ml 3ml Pen) 10 unit SUBCUT NOW ONE Stop: 02/14/25 22:33 Last Admin: 02/14/25 23:05 Dose: 10 unit Documented By: PAMELA Co-signed By: JOHNATHAN Insulin Human Regular (Insulin Regular 100 Unit/Ml 3 Ml Vial) 10 unit SUBCUT NOW ONE Stop: 02/14/25 20:07 Last Admin: 02/14/25 20:29 Dose: 10 unit Documented By: ARSALAN Co-signed By: CLIFFORD Ondansetron HCl (Ondansetron 4 Mg/2 Ml Inj) 4 mg IV NOW PRN PRN Reason: Nausea And Vomiting Last Admin: 02/14/25 19:15 Dose: 4 mg Documented By: PAMELA Ondansetron HCl (Ondansetron 4 Mg Odt) 4 mg PO NOW PRN PRN Reason: Nausea And Vomiting Ondansetron HCl (Ondansetron 4 Mg/2 Ml Inj) 4 mg IV NOW ONE Stop: 02/14/25 20:00 Last Admin: 02/14/25 20:07 Dose: 4 mg Documented By: ARSALAN Pantoprazole Sodium (Pantoprazole 40 Mg Vial) 40 mg IV NOW ONE Stop: 02/14/25 20:07 Last Admin: 02/14/25 20:29 Dose: 40 mg Documented By: ARSALAN Vital Signs Vital signs: Vital Signs - 8 hr 02/14/25 17:40 02/14/25 18:13 02/14/25 18:30 Temperature 99.1 F Pulse Rate 127 H 120 H 123 H Respiratory Rate 24 39 H 35 H Blood Pressure 172/85 H Pulse Oximetry 98 99 100 Oxygen Delivery Method Room Air 02/14/25 19:00 02/14/25 19:08 02/14/25 19:08 Temperature Pulse Rate 121 H 119 H Respiratory Rate 29 H 26 H Blood Pressure 129/81 Pulse Oximetry 100 100 Oxygen Delivery Method 02/14/25 19:35 02/14/25 19:36 02/14/25 19:36 Temperature Pulse Rate 125 H 117 H Respiratory Rate 23 Blood Pressure 122/93 H Pulse Oximetry 99 100 Oxygen Delivery Method 02/14/25 20:00 02/14/25 20:01 02/14/25 20:01 Temperature Pulse Rate 119 H 112 H Respiratory Rate 34 H 27 H Blood Pressure 138/78 Pulse Oximetry 95 99 Oxygen Delivery Method Room Air 02/14/25 20:30 02/14/25 21:05 02/14/25 21:05 Temperature Pulse Rate 116 H 128 H Respiratory Rate 22 13 Blood Pressure 114/91 H Pulse Oximetry 100 100 Oxygen Delivery Method 02/14/25 21:47 02/14/25 21:48 02/14/25 21:48 Temperature Pulse Rate 124 H 120 H Respiratory Rate 18 Blood Pressure 124/91 H Pulse Oximetry 100 Oxygen Delivery Method 02/14/25 22:00 02/14/25 22:00 02/14/25 22:30 Temperature Pulse Rate 122 H Respiratory Rate 23 Blood Pressure 135/89 150/94 H Pulse Oximetry 100 Oxygen Delivery Method 02/14/25 22:30 02/14/25 23:07 Temperature Pulse Rate 126 H 112 H Respiratory Rate 22 Blood Pressure Pulse Oximetry 100 Oxygen Delivery Method Room Air MDM - Abdominal Pain Lab Data 02/14/25 18:40 02/14/25 18:40 Labs: Lab Results 02/14/25 02/14/25 02/14/25 Range/Units 18:40 18:51 21:13 WBC 5.9 (4.5-11.0) X10^3/uL RBC 3.56 L (4.0-5.2) X10^6/uL Hgb 10.5 L (12.0-16.0) g/dL Hct 32.1 L (36-46) % MCV 90.1 (80-100) fL MCH 29.6 (26-34) PG MCHC 32.8 (30-36) % RDW 17.6 H (11.6-14.8) % Plt Count 287 (150-400) X10^3/uL Neut % (Auto) Not Reportable Lymph % (Auto) Not Reportable [place] % (Auto) Not Reportable Eos % (Auto) Not Reportable Baso % (Auto) Not Reportable Lymph # (Auto) Not Reportable [place] # (Auto) Not Reportable Baso # (Auto) Not Reportable Total Counted 100 Seg Neutrophils % 68.0 (38-70) % Lymphocytes % (Manual) 25.0 (25-45) % Monocytes % (Manual) 5.0 (2-11) % Eosinophils % (Manual) 2.0 (2-4) % Neutrophils # (Manual) 4012 (8218-7085) /uL RBC Morphology See below Poikilocytosis 1+ H Target Cells 1+ H VBG pH 7.65 H (7.33-7.43) VBG pCO2 22.6 L (45-50) mmHg VBG pO2 53 H (35-45) mmHg VBG HCO3 25 (24-28) mmol/L VBG Total CO2 23 L (24-29) mmol/L VBG O2 Saturation 94 H (70-75) % VBG Base Excess 5.0 H (0-4) mmol/L FiO2 % 21.0 % % Sodium 132 L (137-145) mmol/L Potassium 5.1 (3.4-5.1) mmol/L Chloride 94 L (98-107) mmol/L Carbon Dioxide 24 (22-32) mmol/L BUN 18 H (7-17) mg/dL Creatinine 0.54 (0.52-1.04) mg/dL Estimated GFR > 60 (>60) mL/min BUN/Creatinine Ratio 33.3 H (6-22) Glucose 458 H* (70-99) mg/dL POC Whole Bld Glucose 340 H (70-99) mg/dL Lactate 2.4 H (0.7-2.1) mmol/L Calcium 9.7 (8.4-10.2) mg/dL Total Bilirubin 0.9 (0.2-1.3) mg/dL AST 39 H (14-36) IU/L ALT 14 (<35) IU/L Alkaline Phosphatase 125 (38-126) U/L Total Protein 8.9 H (6.3-8.2) g/dL Albumin 4.9 (3.5-5.0) g/dL Globulin 4.0 (1.7-4.1) g/dL Albumin/Globulin Ratio 1.2 (1.0-2.8) Lipase < 10 L (23-300) U/L Procalcitonin 0.059 (<0.5) ng/mL Serum , Qual Negative (Negative) 02/14/25 02/14/25 Range/Units 21:33 22:58 WBC (4.5-11.0) X10^3/uL RBC (4.0-5.2) X10^6/uL Hgb (12.0-16.0) g/dL Hct (36-46) % MCV (80-100) fL MCH (26-34) PG MCHC (30-36) % RDW (11.6-14.8) % Plt Count (150-400) X10^3/uL Neut % (Auto) Lymph % (Auto) [place] % (Auto) Eos % (Auto) Baso % (Auto) Lymph # (Auto) [place] # (Auto) Baso # (Auto) Total Counted Seg Neutrophils % (38-70) % Lymphocytes % (Manual) (25-45) % Monocytes % (Manual) (2-11) % Eosinophils % (Manual) (2-4) % Neutrophils # (Manual) (3494-1238) /uL RBC Morphology Poikilocytosis Target Cells VBG pH (7.33-7.43) VBG pCO2 (45-50) mmHg VBG pO2 (35-45) mmHg VBG HCO3 (24-28) mmol/L VBG Total CO2 (24-29) mmol/L VBG O2 Saturation (70-75) % VBG Base Excess (0-4) mmol/L FiO2 % % Sodium (137-145) mmol/L Potassium (3.4-5.1) mmol/L Chloride (98-107) mmol/L Carbon Dioxide (22-32) mmol/L BUN (7-17) mg/dL Creatinine (0.52-1.04) mg/dL Estimated GFR (>60) mL/min BUN/Creatinine Ratio (6-22) Glucose (70-99) mg/dL POC Whole Bld Glucose 198 H D (70-99) mg/dL Lactate 3.1 H (0.7-2.1) mmol/L Calcium (8.4-10.2) mg/dL Total Bilirubin (0.2-1.3) mg/dL AST (14-36) IU/L ALT (<35) IU/L Alkaline Phosphatase (38-126) U/L Total Protein (6.3-8.2) g/dL Albumin (3.5-5.0) g/dL Globulin (1.7-4.1) g/dL Albumin/Globulin Ratio (1.0-2.8) Lipase (23-300) U/L Procalcitonin (<0.5) ng/mL Serum , Qual (Negative) Point of care testing: Point of Care Testing Test Results Negative Urine Dip Bedside Urine Glucose 1000 mg/dl Bedside Urine Bilirubin - Negative Bedside Urine Ketone - Negative Urine Specific [place] 1.010 Bedside Urine Occult Blood - Negative Bedside Urine pH 7.0 Bedside Urine Protein - Negative Bedside Urine Urobilinogen - Negative Bedside Urine Nitrite - Negative Bedside Urine Leukocytes - Negative Esterase ECG Data Attestation: I personally reviewed and interpreted this ECG as follows: Prior ECG tracings: available for review Interpretation: EKG shows sinus tachycardia rate of 117 MO 114 QRS is 74 QTC of 443, no acute ST elevation or depression appreciated. No prior for comparison. MDM Narrative Medical decision making narrative: VBG shows a pH of 7.65 pCO2 22, PO2 of 53, bicarb of 23. Labs show white count 5.9 hemoglobin 10.5 platelets of 287. Chemistries shows sodium 132 pH of 5.1 chloride 94 CO2 of 24 BUN 18 creatinine 0.54 patient's glucose is 458, lactate is 2.4 with a AST of 39 normal bilirubin, ALT alk-phos and lipase less than 10. Procalcitonin is 0.059. Patient does have blood cultures ordered. Patient had 2 L of fluid and repeat lactate did trend upwards to 3.1. Point of care urine preg is negative, point of care urine shows glucose no nitrates no leuks no protein, no urobilinogen, negative for blood. Negative for ketones. EKG shows sinus tachycardia rate of 117, no prior for comparison. CT abdomen and pelvis, gallbladder surgically absent prior Whipple, surgically absent spleen, normal colonic caliber without significant wall thickening no abnormal intraperitoneal fluid or free air. Postop changes as above no acute findings with the abdomen or pelvis. Records requested from [facility] for her most recent admission 2 weeks ago. Patient received fluids, pain medications, antiemetics, insulin. Rechecked of glucose after fluids and insulin. Patient has not had her evening long-acting insulin states she uses 6 units of glargine. 35-year-old female with complicated abdominal history who presents with complaint of acute on chronic abdominal pain, she reports fevers but afebrile here, nausea or vomiting for the past week labs show hyperglycemia, she has had some improvement with fluids to this but lactate did increase from the 2 range to 3.1. She has nonspecific abdominal exam CT is negative. Spoke with Dr. Dias, general surgery at 2210. Freed patient's history, hyperglycemia, lactate was elevated elevated slightly more here in the department. She has been a little bit persistently tachycardic, CT imaging is negative, patient's other labs are overall appropriate except for hyperglycemia. He is happy to consult on patient with plan for admission to hospitalist. Spoke with Dr. Alves, he accepts for observation for persistent abdominal pain, tachycardia, elevated lactate, hyperglycemia. Discharge Plan Departure Patient Disposition: Admitted as Observation Clinical Impression: Abdominal pain, Hyperglycemia, Acidosis, lactic Admit Date/Time: 02/14/25 23:21 Admit Provider: Jon Duval
[2025-02-14 19:31] LABS: Glucose 458 mg/dL (70-99)
[2025-02-14 19:32] LABS: Procalcitonin 0.059 ng/mL (<0.5)
[2025-02-14 19:39] LABS: Eosinophils Percent Manual 2.0 % (2-4); Lymphocytes Percent Manual 25.0 % (25-45); Monocytes Percent Manual 5.0 % (2-11); Neutrophils Absolute Manual 4012 /uL (3000-5900); Segmented Neutrophils Percent 68.0 % (38-70); Total Cells Counted 100
[2025-02-14 19:41] LABS: Poikilocytosis 1+
[2025-02-14 19:42] LABS: Target Cells 1+
--- NOTE | 2025-02-14 19:59 | DI.CT.S_ITS ---
PROCEDURE: CT ABDOMEN PELVIS W CON INDICATIONS: abd pain LLQ/rectal, hx colorectal ca treated, pancreas/sple TECHNIQUE: After the administration of intravenous contrast, axial sections acquired from the lung bases to the pubic symphysis. Coronal and sagittal reformats were performed. For radiation dose reduction, the following was used: automated exposure control, adjustment of mA and/or kV according to patient size. COMPARISON: [facility], CT, CT ABDOMEN PELVIS WITH CONTRAST, 01/31/2025, 19:01. Located Within [facility], CT, CT ABDOMEN PELVIS W CON, 08/04/2020, 11:51. FINDINGS: Image quality: Diagnostic. Lower Chest: No significant findings. ABDOMEN: Liver: No solid mass. Gallbladder: Surgically absent. Biliary ducts: No biliary dilation. Pancreas: Prior Whipple. Spleen: Surgically absent. Adrenal Glands: No adrenal nodules. Kidneys and Ureters: No hydronephrosis. No solid mass. No complex renal cystic lesion which requires follow up. Stomach and Bowel: Normal colonic caliber, without significant wall thickening. Postoperative changes from Whipple as well as likely appendectomy. Peritoneum: No abnormal intraperitoneal fluid. No free air. Ventral Wall: No significant ventral hernia. Abdominal Nodes: No retroperitoneal or mesenteric adenopathy by size criteria. Vessels: Aorta and inferior vena cava are normal in size. PELVIS: Pelvic Organs: Intrauterine device in place. Bladder: No bladder wall thickening, accounting for underdistention. Pelvic Nodes: No enlarged lymph nodes. Miscellaneous: No inguinal hernias are seen. Bones: No aggressive osseous abnormality. IMPRESSION: 1. No acute findings within the abdomen or pelvis. 2. Postoperative changes as above. Dictated by: Murtaza Hubbard M.D. on 02/14/2025 at 20:35 Approved by: Murtaza Hubbard M.D. on 02/14/2025 at 20:39
[2025-02-14 20:08] LABS: Pregnancy Test Serum,Qual Negative (Negative)
[2025-02-14] MEDS: PANTOPRAZOLE 40 MG VIAL IV (20:29)
[2025-02-14] MEDS: INSULIN REGULAR 100 UNIT/ML 3 ML VIAL 10 UNIT SUBCUT (20:29)
[2025-02-14 20:37] LABS: Reflexed Lactate in 2 Hours Y
[2025-02-14] MEDS: diphenhydrAMINE 50 MG/ML VIAL IV (21:26)
[2025-02-14 21:51] LABS: Lactate 2HR (Lactic Acid Rflx) 3.1 mmol/L (0.7-2.1)
[2025-02-14] MEDS: INSULIN GLARGINE 100 UNIT/ML 3ML PEN 10 UNIT SUBCUT (23:05)
[2025-02-15] MEDS: diphenhydrAMINE 50 MG/ML VIAL IV ×6 (00:38→20:44)
[2025-02-15] MEDS: HYDROmorphone 2 MG/ML SYRINGE IV ×12 (00:38→22:55)
[2025-02-15] MEDS: SODIUM CHLORIDE 0.9% 1,000 ML 100 ML IV ×2 (00:39→10:37)
--- NOTE | 2025-02-15 06:47 | PM.HP.1 ---
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 Extensive ED workup - VBG shows a pH of 7.65 pCO2 22, PO2 of 53, bicarb of 23. Labs show white count 5.9 hemoglobin 10.5 platelets of 287. Chemistries shows sodium 132 pH of 5.1 chloride 94 CO2 of 24 BUN 18 creatinine 0.54 patient's glucose is 458, lactate is 2.4 with a AST of 39 normal bilirubin, ALT alk-phos and lipase less than 10. Procalcitonin is 0.059. Patient does have blood cultures ordered. Patient had 2 L of fluid and repeat lactate did trend upwards to 3.1. Point of care urine preg is negative, point of care urine shows glucose no nitrates no leuks no protein, no urobilinogen, negative for blood. Negative for ketones. EKG shows sinus tachycardia rate of 117, no prior for comparison. CT abdomen and pelvis, gallbladder surgically absent prior Whipple, surgically absent spleen, normal colonic caliber without significant wall thickening no abnormal intraperitoneal fluid or free air. Postop changes as above no acute findings with the abdomen or pelvis. Discussed with surgeon grails web application developer who could consult if needed. Placed in observation for intractable nausea, vomiting, abdominal pain. [facility] Medical History (Updated 02/15/25 @ 06:56 by Jon Alves MD) Endometriosis Gastroparesis Pancreatitis Surgical History H/O laparoscopy Hx of cholecystectomy Social History marital status: household members: spouse and children Smoking Status: Unknown if ever smoked Meds Home Medications and Allergies Home Medications ?Medication ?Instructions ?Recorded ?Confirmed ?Type metoclopramide HCl 10 mg tablet 10 mg PO Q6H PRN nausea and 05/31/19 06/19/19 Rx (Reglan) vomiting #10 tabs oxycodone 5 mg tablet 5 mg PO Q4HR PRN Pain, Moderate 06/21/19 Rx (4-6) #10 tabs Allergies Allergy/AdvReac Type Severity Reaction Status Date / Time clindamycin Allergy Rash Verified 02/14/25 17:58 guaifenesin (From Mucinex) Allergy Rash Verified 02/14/25 17:58 morphine Allergy Verified 02/14/25 17:58 haloperidol (From Haldol) AdvReac Irritable Verified 02/14/25 17:58 ketorolac (From Toradol) AdvReac Anxiety Verified 02/14/25 17:58 metoclopramide (From Reglan) AdvReac Anxiety Verified 02/14/25 17:58 promethazine (From Phenergan) AdvReac Anxiety Verified 02/14/25 17:58 zolpidem (From Ambien) AdvReac Hallucinati Verified 02/14/25 17:58 ng Review of Systems ENT Comments: General - fever at home, not in ED GI - nausea, vomiting, abdominal pain CVS - w/o chest pain RS - w/o cough Exam Vital Signs (past 8 hours): - 02/14/25 23:07 02/14/25 23:38 02/14/25 23:48 Temperature 99.1 F Pulse Rate 112 H 114 H Respiratory Rate 12 Blood Pressure 122/88 Pulse Oximetry 100 Oxygen Delivery Method Room Air Oxygen Delivery Method Room Air Narrative Exam Narrative: General - in distress, nauseated HEENT - normocephalic GI - abdomen not distended RS - tachypneic Neuro - anxious Objective ECG Impression: Sinus tachycardia [address] scan - abdomen: Radiologist's impression: 1. No acute findings within the abdomen or pelvis. 2. Postoperative changes as above. Labs 02/14/25 18:40 02/14/25 18:40 Labs: Laboratory Results - last 24 hr 02/14/25 02/14/25 02/14/25 18:40 18:51 21:13 WBC 5.9 RBC 3.56 L Hgb 10.5 L Hct 32.1 L MCV 90.1 MCH 29.6 MCHC 32.8 RDW 17.6 H Plt Count 287 Neut % (Auto) Not Reportable Lymph % (Auto) Not Reportable [place] % (Auto) Not Reportable Eos % (Auto) Not Reportable Baso % (Auto) Not Reportable Lymph # (Auto) Not Reportable [place] # (Auto) Not Reportable Baso # (Auto) Not Reportable Total Counted 100 Seg Neutrophils % 68.0 Lymphocytes % (Manual) 25.0 Monocytes % (Manual) 5.0 Eosinophils % (Manual) 2.0 Neutrophils # (Manual) 4012 RBC Morphology See below Poikilocytosis 1+ H Target Cells 1+ H VBG pH 7.65 H VBG pCO2 22.6 L VBG pO2 53 H VBG HCO3 25 VBG Total CO2 23 L VBG O2 Saturation 94 H VBG Base Excess 5.0 H FiO2 % 21.0 % Sodium 132 L Potassium 5.1 Chloride 94 L Carbon Dioxide 24 BUN 18 H Creatinine 0.54 Estimated GFR > 60 BUN/Creatinine Ratio 33.3 H Glucose 458 H* POC Whole Bld Glucose 340 H Lactate 2.4 H Calcium 9.7 Total Bilirubin 0.9 AST 39 H ALT 14 Alkaline Phosphatase 125 Total Protein 8.9 H Albumin 4.9 Globulin 4.0 Albumin/Globulin Ratio 1.2 Lipase < 10 L Procalcitonin 0.059 Serum , Qual Negative 02/14/25 02/14/25 02/15/25 21:33 22:58 01:25 WBC RBC Hgb Hct MCV MCH MCHC RDW Plt Count Neut % (Auto) Lymph % (Auto) [place] % (Auto) Eos % (Auto) Baso % (Auto) Lymph # (Auto) [place] # (Auto) Baso # (Auto) Total Counted Seg Neutrophils % Lymphocytes % (Manual) Monocytes % (Manual) Eosinophils % (Manual) Neutrophils # (Manual) RBC Morphology Poikilocytosis Target Cells VBG pH VBG pCO2 VBG pO2 VBG HCO3 VBG Total CO2 VBG O2 Saturation VBG Base Excess FiO2 % Sodium Potassium Chloride Carbon Dioxide BUN Creatinine Estimated GFR BUN/Creatinine Ratio Glucose POC Whole Bld Glucose 198 H D 78 D Lactate 3.1 H Calcium Total Bilirubin AST ALT Alkaline Phosphatase Total Protein Albumin Globulin Albumin/Globulin Ratio Lipase Procalcitonin Serum , Qual Assessment & Plan Assessment and plan (1) Intractable nausea and vomiting: Status: Acute (2) Abdominal pain: Status: Acute (3) Gastroparesis: Status: Acute (4) Diabetes: Status: Acute Assessment & Plan narrative: Intractable nausea / vomiting / abdominal pain - Hx of diabetic gastroparesis - apparently allergic to Reglan - patient requesting regimen of Dilaudid and Benadryl - prn surgical evaluation DM - SS - not clear if takes anything at home GI prophylaxis - PPI DVT prophylaxis - SCDs Patient consented to telemedicine, audio-visual encounter with RN assisting with exam. Patient located at [facility], provider located in [place]. Time-Based Coding :: [TOTAL MINUTES] spent with patient and on the chart (including review of chart, obtaining history, exam, reviewing outside data, placing orders, documenting exam and treatment plan, and counseling patient) on [DATE]. Quality VTE Deep Vein Thrombosis/Pulmonary Embolism Present on Admission: No
--- NOTE | 2025-02-15 08:55 | P.CONS_ITS ---
History of Present Illness Consult details Date Patient Seen: 02/15/25 Time Patient Seen: 08:56 Chief complaint: fever , high bloodsugar , adb pain n/v Reason for consult: Abdominal pain Requesting provider: Shreya Lea Narrative: Surgery consult requested by ED for 35yo F, complex surgical history, admitted to hospitalist service. S/P Frieda, requires insulin after pancreatectomy. H/O colorectal cancer s/p chemoradiation. C/O abdominal pain, LGT, n/v. Recent EGD at [facility], sigmoidoscopy scheduled. Followed by [facility] s/p Frieda, established with gastroenterology. CT abd/pelvis without acute finding. Labs unremarkable. 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 Patient has also had prior volvulus. 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 Patient presents with increased abdominal pain over the last week notes fevers at home of 100.7 she has had nausea or vomiting persistently throughout the week. She has noticed some bright red blood with emesis but also some bright red blood intermittently with thin solid stools. She notes increase of left lower quadrant pain in the left rectal ease areas well as the epigastric region. She is scheduled for a select soy sigmoidoscopy for the bleeding. Patient denies chest pain or shortness of breath. She denies any dysuria urgency or frequency she does note some lower back pain. She has noticed maybe little bit less urine output. She notes her glucose has been elevated this week in the 400 range she does use long and short-acting insulin. Patient states home medications include insulin short and long-acting, Creon, pantoprazole for ulcers and gastritis, oxycodone and Zofran PRN. She states most recent hospitalization was at [facility] had upper endoscopy at that time was discharged on the pantoprazole for newly found ulcer/gastritis. She has been seen at [facility] as well as [facility]. They were encouraged by her primary care to come here to have a fresh set of eyes. Patient denies tobacco, denies regular alcohol denies any recreational drugs. Patient has a multiple allergies to medications including clindamycin, Mucinex, Ambien, Toradol, Phenergan, Reglan, Haldol, droperidol, Compazine. She notes she does tend to do well with Zofran and Benadryl for antiemetics. Her PCP is in [place]. She has seen Gastroenterology in the past she is following with the [facility] who did her pancreatectomy and splenectomy. Meds Home Medications and Allergies Home Medications ?Medication ?Instructions ?Recorded ?Confirmed ?Type metoclopramide HCl 10 mg tablet 10 mg PO Q6H PRN nause a and 05/31/19 06/19/19 Rx (Reglan) vomiting #10 tabs oxycodone 5 mg tablet 5 mg PO Q4HR PRN Pain, Moder ate 06/21/19 Rx (4-6) #10 tabs Allergies Allergy/AdvReac Type Severity Reaction Status Date / Time clindamycin Allergy Rash Verified 02/14/25 17:58 guaifenesin (From Mucinex) Allergy Rash Verified 02/14/25 17:58 morphine Allergy Verified 02/14/25 17:58 haloperidol (From Haldol) AdvReac Irritable Verified 02/14/25 17:58 ketorolac (From Toradol) AdvReac Anxiety Verified 02/14/25 17:58 metoclopramide (From Reglan) AdvReac Anxiety Verified 02/14/25 17:58 promethazine (From Phenergan) AdvReac Anxiety Verified 02/14/25 17:58 zolpidem (From Ambien) AdvReac Hallucinati Verified 02/14/25 17:58 ng Exam Vital Signs (past 8 hours): Oxygen Delivery Method Room Air Const General: comfortable Orientation: alert, awake and oriented x3 Resp Effort & Inspection: normal respiratory effort and able to speak in complete sentences Cardio Rate: regular rate GI Other: ABD: soft, ND, healed midline incision without hernia, voluntary guarding with exam, non-peritoneal exam Objective Labs 02/14/25 18:40 02/14/25 18:40 Labs: Laboratory Results - last 24 hr 02/14/25 02/14/25 02/14/25 18:40 18:51 21:13 WBC 5.9 RBC 3.56 L Hgb 10.5 L Hct 32.1 L MCV 90.1 MCH 29.6 MCHC 32.8 RDW 17.6 H Plt Count 287 Neut % (Auto) Not Reportable Lymph % (Auto) Not Reportable [place] % (Auto) Not Reportable Eos % (Auto) Not Reportable Baso % (Auto) Not Reportable Lymph # (Auto) Not Reportable [place] # (Auto) Not Reportable Baso # (Auto) Not Reportable Total Counted 100 Seg Neutrophils % 68.0 Lymphocytes % (Manual) 25.0 Monocytes % (Manual) 5.0 Eosinophils % (Manual) 2.0 Neutrophils # (Manual) 4012 RBC Morphology See below Poikilocytosis 1+ H Target Cells 1+ H VBG pH 7.65 H VBG pCO2 22.6 L VBG pO2 53 H VBG HCO3 25 VBG Total CO2 23 L VBG O2 Saturation 94 H VBG Base Excess 5.0 H FiO2 % 21.0 % Sodium 132 L Potassium 5.1 Chloride 94 L Carbon Dioxide 24 BUN 18 H Creatinine 0.54 Estimated GFR > 60 BUN/Creatinine Ratio 33.3 H Glucose 458 H* POC Whole Bld Glucose 340 H Lactate 2.4 H Calcium 9.7 Total Bilirubin 0.9 AST 39 H ALT 14 Alkaline Phosphatase 125 Total Protein 8.9 H Albumin 4.9 Globulin 4.0 Albumin/Globulin Ratio 1.2 Lipase < 10 L Procalcitonin 0.059 Serum , Qual Negative 02/14/25 02/14/25 02/15/25 21:33 22:58 01:25 WBC RBC Hgb Hct MCV MCH MCHC RDW Plt Count Neut % (Auto) Lymph % (Auto) [place] % (Auto) Eos % (Auto) Baso % (Auto) Lymph # (Auto) [place] # (Auto) Baso # (Auto) Total Counted Seg Neutrophils % Lymphocytes % (Manual) Monocytes % (Manual) Eosinophils % (Manual) Neutrophils # (Manual) RBC Morphology Poikilocytosis Target Cells VBG pH VBG pCO2 VBG pO2 VBG HCO3 VBG Total CO2 VBG O2 Saturation VBG Base Excess FiO2 % Sodium Potassium Chloride Carbon Dioxide BUN Creatinine Estimated GFR BUN/Creatinine Ratio Glucose POC Whole Bld Glucose 198 H D 78 D Lactate 3.1 H Calcium Total Bilirubin AST ALT Alkaline Phosphatase Total Protein Albumin Globulin Albumin/Globulin Ratio Lipase Procalcitonin Serum , Qual 02/15/25 07:46 WBC RBC Hgb Hct MCV MCH MCHC RDW Plt Count Neut % (Auto) Lymph % (Auto) [place] % (Auto) Eos % (Auto) Baso % (Auto) Lymph # (Auto) [place] # (Auto) Baso # (Auto) Total Counted Seg Neutrophils % Lymphocytes % (Manual) Monocytes % (Manual) Eosinophils % (Manual) Neutrophils # (Manual) RBC Morphology Poikilocytosis Target Cells VBG pH VBG pCO2 VBG pO2 VBG HCO3 VBG Total CO2 VBG O2 Saturation VBG Base Excess FiO2 % Sodium Potassium Chloride Carbon Dioxide BUN Creatinine Estimated GFR BUN/Creatinine Ratio Glucose POC Whole Bld Glucose 112 H Lactate Calcium Total Bilirubin AST ALT Alkaline Phosphatase Total Protein Albumin Globulin Albumin/Globulin Ratio Lipase Procalcitonin Serum , Qual PFSH Medical History (Updated 02/15/25 @ 06:56 by Jon Alves MD) Endometriosis Gastroparesis Pancreatitis Surgical History H/O laparoscopy Hx of cholecystectomy Social History marital status: household members: spouse and children Tobacco & Substance Use Smoking Status: Unknown if ever smoked Assessment & Plan Assessment and plan (1) Abdominal pain: Status: Acute Plan Abdominal pain, unclear etiology. CT without obstruction, abscess, acute surgical findings. Labs unremarkable. Will follow. Time-Based Coding :: [TOTAL MINUTES] spent with patient and on the chart (including review of chart, obtaining history, exam, reviewing outside data, placing orders, documenting exam and treatment plan, and counseling patient) on [DATE]. PROFEE Charge Codes Inpatient or Observation consultation: 68152
--- NOTE | 2025-02-15 10:28 | P.HP_ITS ---
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 Extensive ED workup - VBG shows a pH of 7.65 pCO2 22, PO2 of 53, bicarb of 23. Labs show a white count 5.9, hemoglobin 10.5 and platelets of 287. Chemistries shows a sodium of 132, K of 5.1, chloride 94, CO2 of 24, BUN 18, creatinine 0.54, glucose is 458, lactate is 2.4 with an AST of 39, normal bilirubin, ALT, alk-phos and a lipase less than 10. Procalcitonin is 0.059. Blood cultures done. She received 2 L of fluid and a repeat lactate did trend upwards to 3.1. Urine preg is negative, urine shows glucose, no nitrates, no leuks, no protein, no urobilinogen, negative for blood and ketones. EKG shows sinus tachycardia rate of 117, no prior for comparison. CT abdomen and pelvis, gallbladder surgically absent prior Whipple, surgically absent spleen, normal colonic caliber without significant wall thickening no abnormal intraperitoneal fluid or free air. No acute findings with the abdomen or pelvis. She has been taking the Protonix for the last 2 weeks but says that her nausea/vomiting/abdominal pain began flaring again within 3 days returning home from her last hospitalization at [facility] where she had the EGD done that diagnosed her with the gastritis/ulcer disease. She continues to have occasional blood in her stool and says that GI at [facility] is planning a sigmoidoscopy. Her colon cancer was stage III and she recalls that per last imaging she now has only scarring in that location. She is on TPN for 12 hours at night and uses her pancreatic enzymes only when she tries to eat. Her concern is that a recurrent cycling febrile condition has not been clarified. At home her temperature was 100.7?. Since arrival here the max has been 99.1. She will need to be ruled out for hyperthyroidism and for pulmonary embolism along with UTI. The procalcitonin is not significantly elevated and the white blood count is 5.9. My review of the CT film shows additionally a very enlarged liver and a normal-appearing uterus with a Mirena type IUD in place. She has chronic tachycardia, usually just above 100, which has also not been clarified. She has a cardiology consult pending. We will check her TSH again. She is opioid dependent, with home oxycodone, and says she was recently referred to a specialist in opioid use disorder who told her that she does not have OUD but instead has some abdominal process causing the pain. She is tender in the epigastric area consistent with the known gastritis and also has some bladder level tenderness. The possibility of THC use will need to be clarified. ECG Impression: Sinus tachycardia [address] scan - abdomen: Radiologist's impression: 1. No acute findings within the abdomen or pelvis. 2. Postoperative changes as above. Labs Results - last 24 hr 02/14/25 02/14/25 02/14/25 18:40 18:51 21:13 WBC 5.9 RBC 3.56 L Hgb 10.5 L Hct 32.1 L MCV 90.1 MCH 29.6 MCHC 32.8 RDW 17.6 H Plt Count 287 Neut % (Auto) Not Reportable Lymph % (Auto) Not Reportable [place] % (Auto) Not Reportable Eos % (Auto) Not Reportable Baso % (Auto) Not Reportable Lymph # (Auto) Not Reportable [place] # (Auto) Not Reportable Baso # (Auto) Not Reportable Total Counted 100 Seg Neutrophils % 68.0 Lymphocytes % (Manual) 25.0 Monocytes % (Manual) 5.0 Eosinophils % (Manual) 2.0 Neutrophils # (Manual) 4012 RBC Morphology See below Poikilocytosis 1+ H Target Cells 1+ H VBG pH 7.65 H VBG pCO2 22.6 L VBG pO2 53 H VBG HCO3 25 VBG Total CO2 23 L VBG O2 Saturation 94 H VBG Base Excess 5.0 H FiO2 % 21.0 % Sodium 132 L Potassium 5.1 Chloride 94 L Carbon Dioxide 24 BUN 18 H Creatinine 0.54 Estimated GFR > 60 BUN/Creatinine Ratio 33.3 H Glucose 458 H* POC Whole Bld Glucose 340 H Lactate 2.4 H Calcium 9.7 Total Bilirubin 0.9 AST 39 H ALT 14 Alkaline Phosphatase 125 Total Protein 8.9 H Albumin 4.9 Globulin 4.0 Albumin/Globulin Ratio 1.2 Lipase < 10 L Procalcitonin 0.059 Serum , Qual Negative 02/14/25 02/14/25 02/15/25 21:33 22:58 01:25 WBC RBC Hgb Hct MCV MCH MCHC RDW Plt Count Neut % (Auto) Lymph % (Auto) [place] % (Auto) Eos % (Auto) Baso % (Auto) Lymph # (Auto) [place] # (Auto) Baso # (Auto) Total Counted Seg Neutrophils % Lymphocytes % (Manual) Monocytes % (Manual) Eosinophils % (Manual) Neutrophils # (Manual) RBC Morphology Poikilocytosis Target Cells VBG pH VBG pCO2 VBG pO2 VBG HCO3 VBG Total CO2 VBG O2 Saturation VBG Base Excess FiO2 % Sodium Potassium Chloride Carbon Dioxide BUN Creatinine Estimated GFR BUN/Creatinine Ratio Glucose POC Whole Bld Glucose 198 H D 78 D Lactate 3.1 H Calcium Total Bilirubin AST ALT Alkaline Phosphatase Total Protein Albumin Globulin Albumin/Globulin Ratio Lipase Procalcitonin Serum , Qual Assessment & Plan Assessment and plan Intractable nausea / vomiting / abdominal pain / blood in stools - Hx of diabetic gastroparesis/Gastritis/Ulcer/Pancreatectomy/Colon Cancer - apparently allergic to Reglan - patient requesting regimen of Dilaudid and Benadryl - Dr. Dias is following, Sigmoidoscopy is planned as an outpatient - IV Protonix - Bowel Rest - Dietary Consult - UDS (r/o THC use) Home Fevers - WBC 5.9, Procalcitonin 0.059, CXR negative - 100.8 at home, 99.1 here - No signs of Lymphoma or RCC on CT scan - Blood Cultures pending, consider port/line infection - Rule out UTI/PE/Hyperthyroidism - D dimer 491 - UA pending - TSH pending Normocytic Anemia - Hgb on admission of 10.5, down to 8.6 on recheck. Follow. MCV 91. - Check B12 and Iron. - Components of Chronic Disease and reports of blood in stool - Recent EGD done showing Gastritis/Ulcer - Outpatient Sigmoidoscopy pending. DM secondary to Pancreatectomy - SS Insulin - Pancreatic Enzymes Protein Calorie Malnutrition/Malabsorption - TPN - Dietary Consult - Pancreatic Enzymes (when resumes PO) Chronic Opioid Dependence - Recent eval for possible OUD - Oxycodone at home GI prophylaxis - PPI DVT prophylaxis - SCDs PFSH Medical History (Updated 02/15/25 @ 12:03 by Cuco Lyn MD) TSS (toxic shock syndrome) IUD (intrauterine device) in place Gastritis Chronic tachycardia Colon cancer Fever of undetermined origin On total parenteral nutrition (TPN) Endometriosis Gastroparesis Pancreatitis Surgical History (Updated 02/15/25 @ 12:03 by Cuco Lyn MD) History of splenectomy History of pancreatectomy H/O Whipple procedure H/O laparoscopy Hx of cholecystectomy Family History Son No problems noted. Social History marital status: household members: spouse and children Smoking Status: Unknown if ever smoked Meds Home Medications and Allergies Home Medications ?Medication ?Instructions ?Recorded ?Confirmed ?Type metoclopramide HCl 10 mg tablet 10 mg PO Q6H PRN nause a and 05/31/19 06/19/19 Rx (Reglan) vomiting #10 tabs oxycodone 5 mg tablet 5 mg PO Q4HR PRN Pain, Moder ate 06/21/19 Rx (4-6) #10 tabs Allergies Allergy/AdvReac Type Severity Reaction Status Date / Time clindamycin Allergy Rash Verified 02/14/25 17:58 guaifenesin (From Mucinex) Allergy Rash Verified 02/14/25 17:58 morphine Allergy Verified 02/14/25 17:58 haloperidol (From Haldol) AdvReac Irritable Verified 02/14/25 17:58 ketorolac (From Toradol) AdvReac Anxiety Verified 02/14/25 17:58 metoclopramide (From Reglan) AdvReac Anxiety Verified 02/14/25 17:58 promethazine (From Phenergan) AdvReac Anxiety Verified 02/14/25 17:58 zolpidem (From Ambien) AdvReac Hallucinati Verified 02/14/25 17:58 ng Review of Systems Review of Systems Narrative: Positive for fevers, abdominal pain, nausea, vomiting, bloody stool. Negative for coughing, shortness breast, dysuria, chest pain, joint pain, sore throat, headache. Exam Vital Signs (past 8 hours): Oxygen Delivery Method Room Air Narrative Exam Narrative: Alert and oriented x3. Appears to be in moderate distress from ongoing nausea and abdominal pain. Pupils are equally round and reactive to light and accommodation. Extraocular muscles are intact. Sclerae are pink nonicteric. Throat looks normal. No lymph nodes are felt head, neck, supraclavicular area. There is no thyromegaly. JVD is less than 6 cm. No carotid bruits are heard. Heart is tachycardic, regular rhythm, no murmur. Lungs are clear to auscultation bilaterally. Abdomen is very hyper reactive to palpation diffusely, quite scaphoid, significant midline scarring, bowel sounds active. Extremities have no ankle edema. Skin has no rash or jaundice. Cranial nerves 2-12 test intact. Motor function is 5/5 throughout. There is no tremor. Reflexes are normal. Objective Labs 02/15/25 11:00 02/15/25 11:00 Labs: Laboratory Results - last 24 hr 02/14/25 02/14/25 02/14/25 18:40 18:51 21:13 WBC 5.9 RBC 3.56 L Hgb 10.5 L Hct 32.1 L MCV 90.1 MCH 29.6 MCHC 32.8 RDW 17.6 H Plt Count 287 Neut % (Auto) Not Reportable Lymph % (Auto) Not Reportable [place] % (Auto) Not Reportable Eos % (Auto) Not Reportable Baso % (Auto) Not Reportable Lymph # (Auto) Not Reportable [place] # (Auto) Not Reportable Baso # (Auto) Not Reportable Total Counted 100 Seg Neutrophils % 68.0 Lymphocytes % (Manual) 25.0 Monocytes % (Manual) 5.0 Eosinophils % (Manual) 2.0 Neutrophils # (Manual) 4012 RBC Morphology See below Poikilocytosis 1+ H Target Cells 1+ H VBG pH 7.65 H VBG pCO2 22.6 L VBG pO2 53 H VBG HCO3 25 VBG Total CO2 23 L VBG O2 Saturation 94 H VBG Base Excess 5.0 H FiO2 % 21.0 % Sodium 132 L Potassium 5.1 Chloride 94 L Carbon Dioxide 24 BUN 18 H Creatinine 0.54 Estimated GFR > 60 BUN/Creatinine Ratio 33.3 H Glucose 458 H* POC Whole Bld Glucose 340 H Lactate 2.4 H Calcium 9.7 Total Bilirubin 0.9 AST 39 H ALT 14 Alkaline Phosphatase 125 Total Protein 8.9 H Albumin 4.9 Globulin 4.0 Albumin/Globulin Ratio 1.2 Lipase < 10 L Procalcitonin 0.059 Serum , Qual Negative 02/14/25 02/14/25 02/15/25 21:33 22:58 01:25 WBC RBC Hgb Hct MCV MCH MCHC RDW Plt Count Neut % (Auto) Lymph % (Auto) [place] % (Auto) Eos % (Auto) Baso % (Auto) Lymph # (Auto) [place] # (Auto) Baso # (Auto) Total Counted Seg Neutrophils % Lymphocytes % (Manual) Monocytes % (Manual) Eosinophils % (Manual) Neutrophils # (Manual) RBC Morphology Poikilocytosis Target Cells VBG pH VBG pCO2 VBG pO2 VBG HCO3 VBG Total CO2 VBG O2 Saturation VBG Base Excess FiO2 % Sodium Potassium Chloride Carbon Dioxide BUN Creatinine Estimated GFR BUN/Creatinine Ratio Glucose POC Whole Bld Glucose 198 H D 78 D Lactate 3.1 H Calcium Total Bilirubin AST ALT Alkaline Phosphatase Total Protein Albumin Globulin Albumin/Globulin Ratio Lipase Procalcitonin Serum , Qual 02/15/25 07:46 WBC RBC Hgb Hct MCV MCH MCHC RDW Plt Count Neut % (Auto) Lymph % (Auto) [place] % (Auto) Eos % (Auto) Baso % (Auto) Lymph # (Auto) [place] # (Auto) Baso # (Auto) Total Counted Seg Neutrophils % Lymphocytes % (Manual) Monocytes % (Manual) Eosinophils % (Manual) Neutrophils # (Manual) RBC Morphology Poikilocytosis Target Cells VBG pH VBG pCO2 VBG pO2 VBG HCO3 VBG Total CO2 VBG O2 Saturation VBG Base Excess FiO2 % Sodium Potassium Chloride Carbon Dioxide BUN Creatinine Estimated GFR BUN/Creatinine Ratio Glucose POC Whole Bld Glucose 112 H Lactate Calcium Total Bilirubin AST ALT Alkaline Phosphatase Total Protein Albumin Globulin Albumin/Globulin Ratio Lipase Procalcitonin Serum , Qual Assessment & Plan Time-Based Coding :: [TOTAL MINUTES] spent with patient and on the chart (including review of chart, obtaining history, exam, reviewing outside data, placing orders, documenting exam and treatment plan, and counseling patient) on [DATE]. Quality VTE Deep Vein Thrombosis/Pulmonary Embolism Present on Admission: No
[2025-02-15 10:35] VITALS: BP 111/60; PULSE 97; RESP 16; TEMP 36.5; O2SAT 98
[2025-02-15 11:11] LABS: Add Manual Diff / Slide Review NO; Hematocrit 26.3 % (36-46); Hemoglobin 8.6 g/dL (12.0-16.0); Lymphocytes Absolute Auto 1600 /uL (1100-4500); Mean Corpuscular HGB Conc 32.5 % (30-36); Mean Corpuscular Hemoglobin 29.6 PG (26-34); Mean Corpuscular Volume 91.1 fL (80-100); Platelet Count 279 X10^3/uL (150-400)
[2025-02-15 11:28] LABS: Blood Urea Nitrogen 10 mg/dL (7-17); Calcium 9.2 mg/dL (8.4-10.2); Carbon Dioxide 27 mmol/L (22-32); Chloride 102 mmol/L (98-107); Estimated Glomerular Filt Rate > 60 mL/min (>60); Glucose 230 mg/dL (70-99); HEMOLYSIS < 15 (0-50); Potassium 4.1 mmol/L (3.4-5.1); Sodium 137 mmol/L (137-145)
[2025-02-15 12:23] LABS: TSH w/ Reflex to FT4 8.51 uIU/mL (0.47-4.68)
[2025-02-15] MEDS: INSULIN LISPRO 100 UNIT/ML 3ML VIAL SUBCUT (12:25)
[2025-02-15 12:36] LABS: HEMOLYSIS < 15 (0-50); Iron 76 ug/dL (37-170)
[2025-02-15 12:47] LABS: Percent Iron Saturation 19 % (15-50); Total Iron Binding Capacity 392 ug/dL (265-497); Transferrin 323 mg/dL (206-381)
--- NOTE | 2025-02-15 12:48 | DIET.CONS ---
Dietary Consultation Note Admission Date: 02/15/2025 12:24 Assessment: 35 y F admitted for abd pain/fever/N/V. Dietitian screened for pt on TPN. Pt is on TPN at home. Hospitalist request start of TPN here. Pt gets TPN from [facility] in [place]. Called [facility] and this is home regimen: 12 hours infusion of 1.55 L providing 1450 calories, 180 g dextrose, 85 g amino acids, 50 g lipids. Pt on Creon when eating, pt doesn't know her dose and doesn't plan to be eating here. Pt reports last night is the only night recently that she skipped her TPN. Does not do any other IV fluids usually unless needed. Ht: 167.64 cm Wt: 55.792 kg BMI: 19.8 UBW: 55-56 kg per [facility] weight Last BM: () MNA: 6 Ignacio Score: 19 Diet: 02/15/25 Lunch Clear Liquid Diet Diet Modifications: Labs: RBC 2.89 X10^6/uL (4.0-5.2) L 02/15/25 11:00 Hgb 8.6 g/dL (12.0-16.0) L 02/15/25 11:00 Hct 26.3 % (36-46) L 02/15/25 11:00 Creatinine 0.61 mg/dL (0.52-1.04) 02/15/25 11:00 Lactate 3.1 mmol/L (0.7-2.1) H 02/14/25 21:33 Iron 76 ug/dL (37-170) 02/15/25 11:00 Nutrition Diagnosis: Altered GI function r/t altercation in GI tract structure/function aeb needing chronic TPN; hx of gastroparesis Interventions: -Recc start of TPN 1.5 L Clinimix 5/20 (goal rate). Can run over 12 hours per pharmacy at 125 mL/hr. 250 mL IVFE 3x/wk. -Adjust fluids as needed - fluid needs 2487-2306 mL/day (35 mL/kg vs Vanessa-segar formula) -Based on formulary available, to meet pt calorie and protein needs adequately, above reccs will provide 75 g more dextrose per day than her home formula, discussed with pharmacy regarding insulin coverage Goal rate plus lipids provides 1534 kcals and 75 g protein meeting 106% energy needs and 88% protein needs. EER: 1450 kcals, 85 g protein, 180 g dextrose, 50 g lipids daily per [facility] Monitoring/Evaluations: TPN tolerance, BG Electronically Signed by: Altagracia Chandler 02/15/25 12:48 Clinical Dietitian [address] [id number]
[2025-02-15 13:28] LABS: Free T4, Direct Thyroxine 0.95 ng/dL (0.78-2.19)
[2025-02-15 13:29] LABS: Vitamin B12 559 pg/mL (239-931)
[2025-02-15] MEDS: DEXTROSE 5%-0.9% NS 1,000 ML 100 ML IV (14:50)
--- NOTE | 2025-02-15 17:03 | DIET.OUTPTC ---
Dietary Outpatient Consult Consult Date:02/13/25 Assessment:?11 y F referred to dietitian for abnormal weight gain. Presents with mother and father. Concerns about weight expressed from father. These concerns originated from his parents who have noted to him that pt is above average weight. Father seems to have grown up in household where food and desserts/unhealthy snacks were more restricted in attempts to help with weight control. Paternal grandfather pushing for pt's father to restrict pt's food intake to support weight loss. Thus, pt's father has questions regarding portions and weight loss for child. Pt being weighed at home on scale. Mother doesn't express these concerns. Wanting pt to have healthy relationship with food. GI symptoms: denies N/V/C/D Diet Recall: sit down with parent for breakfast and dinner B-bagel and fruit or bread+eggs+fruit L-deli cheese sandwich + fruit+ veggies OR chk rice bowl snack: chips/crackers/yogurt D-strifry (light oil use) or spag.+veggies sometimes fruit or dessert, sometimes night snack before bed out to eat 1x/month only water to drink, sometimes milk Activity: daily walk .5-2 miles with father Nutrition Diagnosis:? Food and nutrition related knowledge deficit r/t misguided attempts to prompt weight loss/normal weight in patient aeb father's questions regarding portion sizing Interventions:? Discussed and provided appropriate resources on the following: -Weight loss is not advised. Portion controlling is not advised. Taking weight at home is not advised. Only weights at doctors office needed unless otherwise indicated by medical professional. -Taryn Carias -Taryn diaz feeding child faithfully using hunger/fullness levels -Pt's growth chart -Calcium sources Goals: -Get rid of weight scale or hide it from pt. No more home weights. -Continue with meals and snacks. No grazing between meals and snacks. Pt to decide how much to eat and whether. Parents to decide what to serving, when, where -Do not discuss dieting in front of patient. Have conversation with paternal father if making comments regarding weight/negative food comments in front of patient. -Continue with walks -Add 1 more calcium source in daily (e.g. glass of milk) Expressed to patient that she is growing along her growth curve and she doesn't need to portion size or restrict eating. Monitoring/Evaluations:? F/u in 3 months Electronically Signed by: Altagracia Chandler Clinical Dietitian [address] [address]
[2025-02-15 17:31] VITALS: BP 111/78; PULSE 107; RESP 15; TEMP 36.6; O2SAT 95
[2025-02-15 19:26] LABS: UR Morphine/Opiate cutoff 300 Positive (Negative); Ur Specific Gravity Normal (Normal); Urine MDMA Negative (Negative); Urine Methamphetamines Negative (Negative); Urine Tetrahydrocannabinol Negative (Negative)
[2025-02-15 19:27] LABS: Urine Tricyclic Antidepressant Positive (Negative)
[2025-02-15 20:50] VITALS: BP 125/84; PULSE 101; RESP 18; TEMP 36.7; O2SAT 97
[2025-02-16] MEDS: HYDROmorphone 2 MG/ML SYRINGE IV ×12 (00:44→22:45)
[2025-02-16] MEDS: diphenhydrAMINE 50 MG/ML VIAL IV ×7 (00:44→22:45)
[2025-02-16] MEDS: AA 5 %/CALCIUM/LYTES/DEXT 20 % 1,500 ML with MULTIVITAMIN 10 ML, TRACE ELEMENTS 1 ML, I... 125.917 ML IV (00:51)
[2025-02-16] MEDS: INSULIN LISPRO 100 UNIT/ML 3ML VIAL SUBCUT ×3 (01:09→18:36)
[2025-02-16 04:00] VITALS: BP 130/76; PULSE 104; RESP 18; TEMP 36.4; O2SAT 100
--- NOTE | 2025-02-16 05:04 | PC.NURSE ---
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
[2025-02-16 08:00] VITALS: BP 121/78; PULSE 95; RESP 16; TEMP 36.6; O2SAT 100
[2025-02-16 08:22] LABS: Alanine Aminotransferase 11 IU/L (<35); Albumin 3.8 g/dL (3.5-5.0); Albumin Globulin Ratio 1.2 (1.0-2.8); Alkaline Phosphatase 79 U/L (38-126); Blood Urea Nitrogen 8 mg/dL (7-17); Calcium 8.9 mg/dL (8.4-10.2); Carbon Dioxide 29 mmol/L (22-32); Chloride 99 mmol/L (98-107); Estimated Glomerular Filt Rate > 60 mL/min (>60); Globulin 3.1 g/dL (1.7-4.1); Glucose 240 mg/dL (70-99); HEMOLYSIS 26 (0-50); Potassium 3.9 mmol/L (3.4-5.1); Sodium 137 mmol/L (137-145); Total Protein 6.9 g/dL (6.3-8.2)
[2025-02-16 08:28] LABS: Add Manual Diff / Slide Review NO; Hematocrit 25.6 % (36-46); Hemoglobin 8.3 g/dL (12.0-16.0); Lymphocytes Absolute Auto 1800 /uL (1100-4500); Mean Corpuscular HGB Conc 32.3 % (30-36); Mean Corpuscular Hemoglobin 29.6 PG (26-34); Mean Corpuscular Volume 91.9 fL (80-100); Platelet Count 267 X10^3/uL (150-400)
[2025-02-16] MEDS: PANTOPRAZOLE 40 MG VIAL IV (08:47)
--- NOTE | 2025-02-16 10:20 | P.PN_ITS ---
Subjective Subjective Date Patient Seen: 02/16/25 Time Patient Seen: 09:40 Interval history: Patient is resting in bed using a coloring book. Patient states that her pain is unchanged from previous admissions states she is having crampy abdominal pain but having narrowed stools with rectal bleeding. Patient has a quite complex history note states she has had a Whipple resection but in reviewing her x-ray her whole pancreas appears to have been removed and including her spleen. Patient states she is not having any dumping syndrome or problem but states that she is having severely narrowed stools with rectal bleeding which has been going on for considerable period of time. Patient states she was diagnosed with stage III anal cancer and was treated with radiation and chemo but never had a resection. Patient has never been discuss having possible need for a diverting colostomy as she has considerable stool load within her colon. Patient states she had her total pancreatectomy done in [place] and she had her anal carcinoma treated with radiation and chemo in [place]. Morning laboratory shows WBC of 4.1 hemoglobin is 8.3 hematocrit is 25.6 platelets are 267,000 D-dimer was 491 sodium is 137 potassium 3.9 chloride 99 bicarb is 29 BUN of 8 creatinine 0.5 random blood sugar is 240 total bilirubin normal AST is 50 ALT is 11 alkaline phosphatase is 76. Vitals: Temperature is 98.0? pulse 95 respirations 16 BP is 121/78. ED Heart regular rate and rhythm without murmurs. Lungs clear to auscultation diminished in the bases. Abdomen hypoactive bowel sounds with multiple surgical scars no incisional hernias are noted no rebound or guarding. Impression: Chronic abdominal pain with history of total pancreatectomy and splenectomy Severe anal stenosis with narrowed stools with rectal bleeding patient states she has a history of stage III anal cancer treated with chemo and radiation therapy in [place] Plan: We will discuss with hospitalist that patient may need to have a diverting colostomy but with the amount of abdominal surgery she has had would recommend transfer to a tertiary institution. The patient refuses to go back to [place] but would go to back to [place]. Patient with a severe anal stenosis with a history of radiation doing anal dilatation would be fraught for possible injury. All questions were answered to patient's satisfaction we will discuss with hospitalist for possible transfer. Exam Vital Signs (past 8 hours): - 02/16/25 04:00 02/16/25 08:00 Temperature 97.5 F L 98 F Pulse Rate 104 H 95 H Respiratory Rate 18 16 Blood Pressure 130/76 121/78 Pulse Oximetry 100 100 Oxygen Flow Rate 0 0 Oxygen Delivery Method Room Air Oxygen Flow Rate 0 Objective Labs 02/16/25 07:30 02/16/25 07:30 Labs: Laboratory Results - last 24 hr 02/15/25 02/15/25 02/15/25 11:00 11:45 12:03 WBC 4.3 L RBC 2.89 L Hgb 8.6 L Hct 26.3 L MCV 91.1 MCH 29.6 MCHC 32.5 RDW 17.2 H Plt Count 279 Neut % (Auto) 43.4 L Lymph % (Auto) 37.3 [place] % (Auto) 14.0 Eos % (Auto) 4.1 H Baso % (Auto) 1.2 Neut # (Auto) 1900 Lymph # (Auto) 1600 [place] # (Auto) 600 Eos # (Auto) 200 Baso # (Auto) 100 D-Dimer 491 Sodium 137 Potassium 4.1 Chloride 102 Carbon Dioxide 27 BUN 10 Creatinine 0.61 Estimated GFR > 60 BUN/Creatinine Ratio 16.4 Glucose 230 H D POC Whole Bld Glucose 301 H D Calcium 9.2 Iron 76 TIBC 392 % Saturation 19 Transferrin 323 Total Bilirubin AST ALT Alkaline Phosphatase Total Protein Albumin Globulin Albumin/Globulin Ratio Vitamin B12 559 TSH 8.51 H Free T4 0.95 U Opiates 300ng/mL cut Ur Oxycodone Screen Urine Methadone Screen Ur Barbiturates Screen U Tricyclic Antidepress Ur Phencyclidine Scrn Ur Amphetamines Screen U Methamphetamines Scrn Ur MDMA Scrn (Ecstasy) U Benzodiazepines Scrn Urine Cocaine Screen U Marijuana (THC) Screen Urine pH Urine Specific [place] Ur Creatinine 02/15/25 02/15/25 02/15/25 14:14 14:38 14:56 WBC RBC Hgb Hct MCV MCH MCHC RDW Plt Count Neut % (Auto) Lymph % (Auto) [place] % (Auto) Eos % (Auto) Baso % (Auto) Neut # (Auto) Lymph # (Auto) [place] # (Auto) Eos # (Auto) Baso # (Auto) D-Dimer Sodium Potassium Chloride Carbon Dioxide BUN Creatinine Estimated GFR BUN/Creatinine Ratio Glucose POC Whole Bld Glucose 46 L D 63 L 95 Calcium Iron TIBC % Saturation Transferrin Total Bilirubin AST ALT Alkaline Phosphatase Total Protein Albumin Globulin Albumin/Globulin Ratio Vitamin B12 TSH Free T4 U Opiates 300ng/mL cut Ur Oxycodone Screen Urine Methadone Screen Ur Barbiturates Screen U Tricyclic Antidepress Ur Phencyclidine Scrn Ur Amphetamines Screen U Methamphetamines Scrn Ur MDMA Scrn (Ecstasy) U Benzodiazepines Scrn Urine Cocaine Screen U Marijuana (THC) Screen Urine pH Urine Specific [place] Ur Creatinine 02/15/25 02/15/25 02/15/25 16:55 18:24 18:55 WBC RBC Hgb Hct MCV MCH MCHC RDW Plt Count Neut % (Auto) Lymph % (Auto) [place] % (Auto) Eos % (Auto) Baso % (Auto) Neut # (Auto) Lymph # (Auto) [place] # (Auto) Eos # (Auto) Baso # (Auto) D-Dimer Sodium Potassium Chloride Carbon Dioxide BUN Creatinine Estimated GFR BUN/Creatinine Ratio Glucose POC Whole Bld Glucose 67 L 163 H Calcium Iron TIBC % Saturation Transferrin Total Bilirubin AST ALT Alkaline Phosphatase Total Protein Albumin Globulin Albumin/Globulin Ratio Vitamin B12 TSH Free T4 U Opiates 300ng/mL cut Positive H Ur Oxycodone Screen Positive H Urine Methadone Screen Negative Ur Barbiturates Screen Negative U Tricyclic Antidepress Positive H Ur Phencyclidine Scrn Negative Ur Amphetamines Screen Negative U Methamphetamines Scrn Negative Ur MDMA Scrn (Ecstasy) Negative U Benzodiazepines Scrn Positive H Urine Cocaine Screen Negative U Marijuana (THC) Screen Negative Urine pH Normal Urine Specific [place] Normal Ur Creatinine Normal 02/15/25 02/16/25 02/16/25 20:58 01:07 06:54 WBC RBC Hgb Hct MCV MCH MCHC RDW Plt Count Neut % (Auto) Lymph % (Auto) [place] % (Auto) Eos % (Auto) Baso % (Auto) Neut # (Auto) Lymph # (Auto) [place] # (Auto) Eos # (Auto) Baso # (Auto) D-Dimer Sodium Potassium Chloride Carbon Dioxide BUN Creatinine Estimated GFR BUN/Creatinine Ratio Glucose POC Whole Bld Glucose 359 H D 281 H 371 H Calcium Iron TIBC % Saturation Transferrin Total Bilirubin AST ALT Alkaline Phosphatase Total Protein Albumin Globulin Albumin/Globulin Ratio Vitamin B12 TSH Free T4 U Opiates 300ng/mL cut Ur Oxycodone Screen Urine Methadone Screen Ur Barbiturates Screen U Tricyclic Antidepress Ur Phencyclidine Scrn Ur Amphetamines Screen U Methamphetamines Scrn Ur MDMA Scrn (Ecstasy) U Benzodiazepines Scrn Urine Cocaine Screen U Marijuana (THC) Screen Urine pH Urine Specific [place] Ur Creatinine 02/16/25 07:30 WBC 4.1 L RBC 2.79 L Hgb 8.3 L Hct 25.6 L MCV 91.9 MCH 29.6 MCHC 32.3 RDW 17.2 H Plt Count 267 Neut % (Auto) 38.1 L Lymph % (Auto) 43.2 H [place] % (Auto) 12.0 Eos % (Auto) 5.9 H Baso % (Auto) 0.8 Neut # (Auto) 1600 Lymph # (Auto) 1800 [place] # (Auto) 500 Eos # (Auto) 200 Baso # (Auto) 0 D-Dimer Sodium 137 Potassium 3.9 Chloride 99 Carbon Dioxide 29 BUN 8 Creatinine 0.50 L Estimated GFR > 60 BUN/Creatinine Ratio 16.0 Glucose 240 H POC Whole Bld Glucose Calcium 8.9 Iron TIBC % Saturation Transferrin Total Bilirubin 0.9 AST 50 H ALT 11 Alkaline Phosphatase 79 Total Protein 6.9 Albumin 3.8 Globulin 3.1 Albumin/Globulin Ratio 1.2 Vitamin B12 TSH Free T4 U Opiates 300ng/mL cut Ur Oxycodone Screen Urine Methadone Screen Ur Barbiturates Screen U Tricyclic Antidepress Ur Phencyclidine Scrn Ur Amphetamines Screen U Methamphetamines Scrn Ur MDMA Scrn (Ecstasy) U Benzodiazepines Scrn Urine Cocaine Screen U Marijuana (THC) Screen Urine pH Urine Specific [place] Ur Creatinine PFSH Medical History (Updated 02/15/25 @ 12:03 by Cuco Lyn MD) TSS (toxic shock syndrome) IUD (intrauterine device) in place Gastritis Chronic tachycardia Colon cancer Fever of undetermined origin On total parenteral nutrition (TPN) Endometriosis Gastroparesis Pancreatitis Surgical History (Updated 02/15/25 @ 12:03 by Cuco Lyn MD) History of splenectomy History of pancreatectomy H/O Whipple procedure H/O laparoscopy Hx of cholecystectomy Family History (Updated 02/15/25 @ 12:04 by Cuco Lyn MD) Son No problems noted. Social History marital status: household members: spouse and children Smoking Status: Unknown if ever smoked Assessment & Plan Time-Based Coding :: [TOTAL MINUTES] spent with patient and on the chart (including review of chart, obtaining history, exam, reviewing outside data, placing orders, documenting exam and treatment plan, and counseling patient) on [DATE]. 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
[2025-02-16] MEDS: SODIUM CHLORIDE 0.9% FLUSH 10 ML IV ×2 (10:46→21:20)
--- NOTE | 2025-02-16 12:21 | DIET.PN1 ---
Dietary Progress Note Assessment: f/u Pt may transfer. Discussed with pharmacist BG management if pt remains here and on TPN tonight. Can continue on 1.5 L Clinimix 5/20 continuous over 12 hours at night if pt remains here. Pharmacist to adjust insulin. Ht: 167.64 cm Wt: 55.792 kg BMI: 19.8 Last BM: () MNA: 6 Ignacio Score: 19 Diet: 02/15/25 Lunch Clear Liquid Diet Diet Modifications: Nutrition Percent Meal Consumed 5 02/15/25 18:00 Labs: RBC 2.79 X10^6/uL (4.0-5.2) L 02/16/25 07:30 Hgb 8.3 g/dL (12.0-16.0) L 02/16/25 07:30 Hct 25.6 % (36-46) L 02/16/25 07:30 Creatinine 0.50 mg/dL (0.52-1.04) L 02/16/25 07:30 Lactate 3.1 mmol/L (0.7-2.1) H 02/14/25 21:33 Iron 76 ug/dL (37-170) 02/15/25 11:00 % Saturation 19 % (15-50) 02/15/25 11:00 Electronically Signed by: Altagracia Chandler 02/16/25 12:21 Clinical Dietitian [address] [address]
--- NOTE | 2025-02-16 12:26 | CM.DANOTE ---
Initial DCP Assessment Visit Note Reviewed EMR and team rounds for pt's medical status and updates. Pt resides independently at baseline in her own home with her spouse and children in [place]. She will likely be transferred to a higher level of care hospital in [place] for a diverting colostomy, this is pending bed availability. Payor: Terry CAT Attending: Dr. Tristan Pt is a 35 year-old F with a complicated medical hx, and complicated abdominal surgery hx. 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 She's also had a cholecystectomy, chronic abdominal pain w/rectal bleeding, and gastroparesis. She presented to the ED yesterday with womplaints of worsening abdominal cramping, blood in her emesis, and blood with very minimal bowel movements for the last week. Her blood sugars have also been elevated into the 400's. Pt states that she has been recently seen by 2-different local hospitals with no resolution of her symptoms. CT imaging shows she has a large stool load in her colon. Surgery was consulted, and the plan was made to admit for further evaluation. Surgery is recommending she transfter to [place] to a higher level of care hospital for a diverting colostomy. No further CM needs are identified at this time, and the priority is medical management. Discharge Planning/Care Management Advanced directive, confirm from FAMILY Start: 02/15/25 00:20 Freq: Q24H Status: Active Protocol: Document 02/15/25 00:20 (Rec: 02/15/25 01:41 [id number]) Advance Directive, confirm on record Time 01:40 Person contacted patient Copy received No Advanced directive No available on record CM Discharge Assessment Start: 02/14/25 23:48 Freq: Status: Active Protocol: Document 02/16/25 12:20 DPL (Rec: 02/16/25 12:22 DPL [id number]) Discharge Planning Assessment Assigned Discharge FLORENCE Shook Advance Directives? No Advance Directives No on File History Provided By Patient,Medical Record Has Patient been No admitted in last 30 days? Prior Living House Arrangements Household Members spouse,children Type of Drives own vehicle transporation used prior to admit Independent with ADL Yes 's Is patient alert and Yes oriented? Caregiver for Yes: children Another Comment Pt is pending transfer to a higher level of care hospital. Barriers to No Discharge Discharge Plan Transfer to Higher Level of Care Referrals Initiated None needed Whiteboard Updated Yes in Patient Room with name and ext. # of [employer] Head Matcher Review Status In Process Please Provide Date 02/16/25 Initial DC Assessment Was Performed
[2025-02-16] MEDS: DEXTROSE 5%-0.9% NS 1,000 ML 100 ML IV (13:37)
[2025-02-16 14:00] VITALS: BP 105/67; PULSE 126; RESP 16; TEMP 36.7; O2SAT 99
[2025-02-16] MEDS: ALTEPLASE 2 MG/2 ML VIAL IV (14:57)
--- NOTE | 2025-02-16 15:20 | PM.DS.1 ---
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 Extensive ED workup - VBG shows a pH of 7.65 pCO2 22, PO2 of 53, bicarb of 23. Labs show a white count 5.9, hemoglobin 10.5 and platelets of 287. Chemistries shows a sodium of 132, K of 5.1, chloride 94, CO2 of 24, BUN 18, creatinine 0.54, glucose is 458, lactate is 2.4 with an AST of 39, normal bilirubin, ALT, alk-phos and a lipase less than 10. Procalcitonin is 0.059. Blood cultures done. She received 2 L of fluid and a repeat lactate did trend upwards to 3.1. Urine preg is negative, urine shows glucose, no nitrates, no leuks, no protein, no urobilinogen, negative for blood and ketones. EKG shows sinus tachycardia rate of 117, no prior for comparison. CT abdomen and pelvis, gallbladder surgically absent prior Whipple, surgically absent spleen, normal colonic caliber without significant wall thickening no abnormal intraperitoneal fluid or free air. No acute findings with the abdomen or pelvis. She has been taking the Protonix for the last 2 weeks but says that her nausea/vomiting/abdominal pain began flaring again within 3 days returning home from her last hospitalization at [facility] where she had the EGD done that diagnosed her with the gastritis/ulcer disease. She continues to have occasional blood in her stool and says that GI at [facility] is planning a sigmoidoscopy. Her colon cancer was stage III and she recalls that per last imaging she now has only scarring in that location. She is on TPN for 12 hours at night and uses her pancreatic enzymes only when she tries to eat. Her concern is that a recurrent cycling febrile condition has not been clarified. At home her temperature was 100.7?. Since arrival here the max has been 99.1. She will need to be ruled out for hyperthyroidism and for pulmonary embolism along with UTI. The procalcitonin is not significantly elevated and the white blood count is 5.9. My review of the CT film shows additionally a very enlarged liver and a normal-appearing uterus with a Mirena type IUD in place. She has chronic tachycardia, usually just above 100, which has also not been clarified. She has a cardiology consult pending. We will check her TSH again. She is opioid dependent, with home oxycodone, and says she was recently referred to a specialist in opioid use disorder who told her that she does not have OUD but instead has some abdominal process causing the pain. She is tender in the epigastric area consistent with the known gastritis and also has some bladder level tenderness. Her UDS is negative for THC. Discharge Providers Provider Date of admission: 02/15/25 12:24 Discharge Date: 02/16/25 Consults: 02/14/25 22:16 Consult to General Surgery Stat Comment: Consulting Provider: Anshul Dias Reason for consultation: abdominal pain, elevated lactate Has provider been notified: Yes Discharge provider: Cuco Lyn MD Summary Hospital Course Hospital Course: Intractable nausea / vomiting / abdominal pain / blood in stools / Pencil Thin Stools - Hx of diabetic gastroparesis/Gastritis/Ulcer/Pancreatectomy/Colon Cancer - Surgery suspects she will need anal dilation and/or colostomy. She has been accepted by GS at [facility] so will be transfering as soon as a bed is confirmed. - IV Protonix for gastritis - Bowel Rest - Dietary Consult - UDS ruled out THC related GI condition Home Fevers - WBC 5.9, Procalcitonin 0.059, CXR negative - 100.8 at home, 99.1 here on admission. No fevers since admission. - it's possible that her ongoing subjective sensation of fever/sunburn is an opioid withdrawal symptom. - No signs of Lymphoma or RCC on CT scan - Blood Cultures NG X 24 H so doubt port/line infection - Ruled out UTI/PE/Hyperthyroidism - D dimer 491 - UA 5-10 WBC, No UC done - TSH is high at 8.51. T4 0.95. Normocytic Anemia - Hgb on admission of 10.5, down to 8.6 and then 8.3 on recheck. Follow. MCV 91. - B12 559 and Iron 71. - Components of Chronic Disease and reports of blood in stool - Recent EGD done showing Gastritis/Ulcer - Sigmoid/Anoscopy pending at [facility] after transfer today. DM secondary to Pancreatectomy - SS Insulin - Pancreatic Enzymes Protein Calorie Malnutrition/Malabsorption - TPN - Dietary Consult - Pancreatic Enzymes (when resumes PO) Chronic Opioid Dependence - Recent eval for possible OUD - Oxycodone effective at home - IV Dilaudid effective here - Interesting history of high dose IV/topical Fentanyl pain treatment failure. Relates needing very high doses of dental anesthesia and spinal/epidural anesthesia in the past. Sick Euthyroid syndrome -no singular/isolated symptoms of hypothyroidism. -TSH 8.51 with T4 0.95 -Follow, consider supplementing if TSH continues to rise. Disposition: Appreciate Dr. Lambert coordinating transfer with [facility] general surgery for tonight or tomorrow, hoping for bed availability iesha. Status at Discharge Cognitive/behavioral status at discharge: at baseline, oriented Functional status at discharge: independent ambulation Overall status at discharge: patient is not back to baseline Exam Vital Signs (past 8 hours): - 02/16/25 08:00 02/16/25 14:00 Temperature 98 F 98.1 F Pulse Rate 95 H 126 H Respiratory Rate 16 16 Blood Pressure 121/78 105/67 Pulse Oximetry 100 99 Oxygen Flow Rate 0 Oxygen Delivery Method Room Air Oxygen Flow Rate 0 Narrative Exam Narrative: Alert and oriented x3. Mild distress from breakthrough abdominal pain. Overall she looks better hydrated and calm compared to her initial hospital day here. She discusses that the only opioids that work for her are oral oxycodone and IV Dilaudid. She has been tried on very high doses of IV fentanyl/topical fentanyl without any apparent benefit and similarly does not receive any pain control on oral Dilaudid. She mentions anesthesia struggling to get effective pain control with prior epidural/spinal infusions and additionally dental procedures requiring much more than usual doses of lidocaine treatment. She has been seen by General surgery today who have discussed her anal stricture symptoms and ongoing rectal bleeding with the on-call surgeon at [facility] who has accepted her in transfer. The concern is that she would need anal dilation of the prior colon cancer area versus other similar procedures that could not be safely offered here. Heart is regular rate and rhythm without murmur Lungs are clear to auscultation bilaterally There is no ankle edema Abdomen remains quite scaphoid and diffusely tender/reactive. Objective Labs 02/16/25 07:30 02/16/25 07:30 Labs: Laboratory Results - last 24 hr 02/15/25 02/15/25 02/15/25 16:55 18:24 18:55 WBC RBC Hgb Hct MCV MCH MCHC RDW Plt Count Neut % (Auto) Lymph % (Auto) [place] % (Auto) Eos % (Auto) Baso % (Auto) Neut # (Auto) Lymph # (Auto) [place] # (Auto) Eos # (Auto) Baso # (Auto) Sodium Potassium Chloride Carbon Dioxide BUN Creatinine Estimated GFR BUN/Creatinine Ratio Glucose POC Whole Bld Glucose 67 L 163 H Calcium Total Bilirubin AST ALT Alkaline Phosphatase Total Protein Albumin Globulin Albumin/Globulin Ratio U Opiates 300ng/mL cut Positive H Ur Oxycodone Screen Positive H Urine Methadone Screen Negative Ur Barbiturates Screen Negative U Tricyclic Antidepress Positive H Ur Phencyclidine Scrn Negative Ur Amphetamines Screen Negative U Methamphetamines Scrn Negative Ur MDMA Scrn (Ecstasy) Negative U Benzodiazepines Scrn Positive H Urine Cocaine Screen Negative U Marijuana (THC) Screen Negative Urine pH Normal Urine Specific [place] Normal Ur Creatinine Normal 02/15/25 02/16/25 02/16/25 20:58 01:07 06:54 WBC RBC Hgb Hct MCV MCH MCHC RDW Plt Count Neut % (Auto) Lymph % (Auto) [place] % (Auto) Eos % (Auto) Baso % (Auto) Neut # (Auto) Lymph # (Auto) [place] # (Auto) Eos # (Auto) Baso # (Auto) Sodium Potassium Chloride Carbon Dioxide BUN Creatinine Estimated GFR BUN/Creatinine Ratio Glucose POC Whole Bld Glucose 359 H D 281 H 371 H Calcium Total Bilirubin AST ALT Alkaline Phosphatase Total Protein Albumin Globulin Albumin/Globulin Ratio U Opiates 300ng/mL cut Ur Oxycodone Screen Urine Methadone Screen Ur Barbiturates Screen U Tricyclic Antidepress Ur Phencyclidine Scrn Ur Amphetamines Screen U Methamphetamines Scrn Ur MDMA Scrn (Ecstasy) U Benzodiazepines Scrn Urine Cocaine Screen U Marijuana (THC) Screen Urine pH Urine Specific [place] Ur Creatinine 02/16/25 02/16/25 07:30 15:08 WBC 4.1 L RBC 2.79 L Hgb 8.3 L Hct 25.6 L MCV 91.9 MCH 29.6 MCHC 32.3 RDW 17.2 H Plt Count 267 Neut % (Auto) 38.1 L Lymph % (Auto) 43.2 H [place] % (Auto) 12.0 Eos % (Auto) 5.9 H Baso % (Auto) 0.8 Neut # (Auto) 1600 Lymph # (Auto) 1800 [place] # (Auto) 500 Eos # (Auto) 200 Baso # (Auto) 0 Sodium 137 Potassium 3.9 Chloride 99 Carbon Dioxide 29 BUN 8 Creatinine 0.50 L Estimated GFR > 60 BUN/Creatinine Ratio 16.0 Glucose 240 H POC Whole Bld Glucose 408 H Calcium 8.9 Total Bilirubin 0.9 AST 50 H ALT 11 Alkaline Phosphatase 79 Total Protein 6.9 Albumin 3.8 Globulin 3.1 Albumin/Globulin Ratio 1.2 U Opiates 300ng/mL cut Ur Oxycodone Screen Urine Methadone Screen Ur Barbiturates Screen U Tricyclic Antidepress Ur Phencyclidine Scrn Ur Amphetamines Screen U Methamphetamines Scrn Ur MDMA Scrn (Ecstasy) U Benzodiazepines Scrn Urine Cocaine Screen U Marijuana (THC) Screen Urine pH Urine Specific [place] Ur Creatinine PFSH Medical History (Updated 02/15/25 @ 12:03 by Cuco Lyn MD) TSS (toxic shock syndrome) IUD (intrauterine device) in place Gastritis Chronic tachycardia Colon cancer Fever of undetermined origin On total parenteral nutrition (TPN) Endometriosis Gastroparesis Pancreatitis Surgical History (Updated 02/15/25 @ 12:03 by Cuco Lyn MD) History of splenectomy History of pancreatectomy H/O Whipple procedure H/O laparoscopy Hx of cholecystectomy Family History (Updated 02/15/25 @ 12:04 by Cuco Lyn MD) Son No problems noted. Social History marital status: household members: spouse and children Smoking Status: Unknown if ever smoked Discharge Plan Discharge Plan Patient Disposition: [facility] Other facility: [facility] Under care of provider: Dr. Wolf Nuñez Diet/Activity/Treatments Diet: Diet as Tolerated Liquid consistency: Normal/Thin Food texture: Regular Quality VTE Deep Vein Thrombosis/Pulmonary Embolism Present on Admission: No
[2025-02-16 18:00] VITALS: BP 114/70; PULSE 99; RESP 16; TEMP 36.6; O2SAT 100
--- NOTE | 2025-02-16 19:25 | PC.NURSE ---
Pt continues w/ 8-9 abdominal pain & nausea Received Dilaudid q 2 hr and Benadryl q 4 for nausea Had minimal relief Continue w/ plan of care.
[2025-02-16 20:00] VITALS: BP 113/69; PULSE 98; RESP 18; TEMP 36.7; O2SAT 100
[2025-02-16] MEDS: FAT EMULSIONS 50 GM/250 ML EMULSION IV (21:07)
[2025-02-16] MEDS: AA 5 %/CALCIUM/LYTES/DEXT 20 % 1,500 ML with MULTIVITAMIN 10 ML, TRACE ELEMENTS 1 ML, I... 125.932 ML IV (21:08)
[2025-02-16] MEDS: INSULIN GLARGINE 100 UNIT/ML 3ML PEN 8 UNIT SUBCUT (21:18)
[2025-02-17] VITALS: BP 122/75; PULSE 101; RESP 16; TEMP 36.7; O2SAT 100
[2025-02-17] MEDS: HYDROmorphone 2 MG/ML SYRINGE IV ×8 (00:41→14:13)
[2025-02-17] MEDS: INSULIN LISPRO 100 UNIT/ML 3ML VIAL SUBCUT (01:09)
[2025-02-17] MEDS: diphenhydrAMINE 50 MG/ML VIAL IV ×4 (02:39→14:13)
[2025-02-17 04:00] VITALS: BP 107/65; PULSE 99; RESP 16; TEMP 36.8; O2SAT 100
[2025-02-17 06:56] LABS: HEMOLYSIS < 15 (0-50)
[2025-02-17 06:57] LABS: Hemoglobin A1C% w Est Avg Glu 8.3 % (4.0-6.0)
[2025-02-17 06:59] LABS: Alanine Aminotransferase 9 IU/L (<35); Albumin 3.6 g/dL (3.5-5.0); Albumin Globulin Ratio 1.1 (1.0-2.8); Alkaline Phosphatase 76 U/L (38-126); Blood Urea Nitrogen 13 mg/dL (7-17); Calcium 9.0 mg/dL (8.4-10.2); Carbon Dioxide 31 mmol/L (22-32); Chloride 99 mmol/L (98-107); Estimated Glomerular Filt Rate > 60 mL/min (>60); Globulin 3.2 g/dL (1.7-4.1); Glucose 100 mg/dL (70-99); Magnesium 1.4 mg/dL (1.6-2.3); Phosphorous 5.0 mg/dL (2.5-4.5); Potassium 4.3 mmol/L (3.4-5.1); Sodium 136 mmol/L (137-145); Total Protein 6.8 g/dL (6.3-8.2); Triglycerides 53 mg/dL (35-150)
[2025-02-17 07:09] LABS: Prealbumin 16.5 mg/dL (17.6-36.0)
[2025-02-17 08:00] VITALS: BP 102/62; PULSE 99; RESP 19; TEMP 36.7; O2SAT 100
[2025-02-17] MEDS: MAGNESIUM SULFATE 2 GM/50 ML PIGGYBACK IV (08:39)
[2025-02-17] MEDS: PANTOPRAZOLE 40 MG VIAL IV (08:47)
[2025-02-17] MEDS: SODIUM CHLORIDE 0.9% FLUSH 10 ML IV (08:49)
[2025-02-17 09:04] LABS: Hematocrit 24.3 % (36-46); Hemoglobin 7.9 g/dL (12.0-16.0)
--- NOTE | 2025-02-17 09:49 | P.DS_ITS ---
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 Extensive ED workup - VBG shows a pH of 7.65 pCO2 22, PO2 of 53, bicarb of 23. Labs show a white count 5.9, hemoglobin 10.5 and platelets of 287. Chemistries shows a sodium of 132, K of 5.1, chloride 94, CO2 of 24, BUN 18, creatinine 0.54, glucose is 458, lactate is 2.4 with an AST of 39, normal bilirubin, ALT, alk-phos and a lipase less than 10. Procalcitonin is 0.059. Blood cultures done. She received 2 L of fluid and a repeat lactate did trend upwards to 3.1. Urine preg is negative, urine shows glucose, no nitrates, no leuks, no protein, no urobilinogen, negative for blood and ketones. EKG shows sinus tachycardia rate of 117, no prior for comparison. CT abdomen and pelvis, gallbladder surgically absent prior Whipple, surgically absent spleen, normal colonic caliber without significant wall thickening no abnormal intraperitoneal fluid or free air. No acute findings with the abdomen or pelvis. She has been taking the Protonix for the last 2 weeks but says that her nausea/vomiting/abdominal pain began flaring again within 3 days returning home from her last hospitalization at [facility] where she had the EGD done that diagnosed her with the gastritis/ulcer disease. She continues to have occasional blood in her stool and says that GI at [facility] is planning a sigmoidoscopy. Her colon cancer was stage III and she recalls that per last imaging she now has only scarring in that location. She is on TPN for 12 hours at night and uses her pancreatic enzymes only when she tries to eat. Her concern is that a recurrent cycling febrile condition has not been clarified. At home her temperature was 100.7?. Since arrival here the max has been 99.1. She will need to be ruled out for hyperthyroidism and for pulmonary embolism along with UTI. The procalcitonin is not significantly elevated and the white blood count is 5.9. My review of the CT film shows additionally a very enlarged liver and a normal-appearing uterus with a Mirena type IUD in place. She has chronic tachycardia, usually just above 100, which has also not been clarified. She has a cardiology consult pending. We will check her TSH again. She is opioid dependent, with home oxycodone, and says she was recently referred to a specialist in opioid use disorder who told her that she does not have OUD but instead has some abdominal process causing the pain. She is tender in the epigastric area consistent with the known gastritis and also has some bladder level tenderness. Her UDS is negative for THC. Discharge Providers Provider Date of admission: 02/15/25 12:24 Discharge Date: 02/17/25 Consults: 02/14/25 22:16 Consult to General Surgery Stat Comment: Consulting Provider: Anshul Dias Reason for consultation: abdominal pain, elevated lactate Has provider been notified: Yes Discharge provider: Cuco Lyn MD Summary Hospital Course Hospital Course: Intractable nausea / vomiting / abdominal pain / blood in stools / Pencil Thin Stools / Obstipation - Hx of diabetic gastroparesis/Gastritis/Ulcer/Pancreatectomy/Colon Cancer - Surgery suspects she will need anal dilation and/or Diverting colostomy. She has been accepted by GS at [facility] so will be transfering as soon as a bed is confirmed. - review of admitting CT shows stool backed up/filling the sigmoid colon, likely accounting for her complaint of sacral pain radiating to the left buttock area. No signs of tumor recurrence. Not an ideal candidate for Relistor due to the anal mechanical narrowing. - IV Protonix for gastritis - Bowel Rest - Dietary following on TPN - UDS ruled out THC related GI condition Home Fevers - WBC 5.9, Procalcitonin 0.059, CXR negative - 100.8 at home, 99.1 here on admission. No fevers since admission. - it's possible that her ongoing subjective sensation of fever/sunburn is an opioid withdrawal symptom. - No signs of Lymphoma or RCC on CT scan - Blood Cultures NG X 24 H so doubt port/line infection - Ruled out UTI/PE/Hyperthyroidism - D dimer 491 - UA 5-10 WBC, No UC done - TSH is high at 8.51. T4 0.95. Normocytic Anemia - Hgb on admission of 10.5, down to 8.6 and then 8.3 and then 7.9 on recheck. Follow. MCV 91. - B12 559 and Iron 71. - Components of Chronic Disease and reports of blood in stool - Recent EGD done showing Gastritis/Ulcer - Sigmoid/Anoscopy pending at [facility] after transfer today. DM secondary to Pancreatectomy - SS Insulin - Pancreatic Enzymes Protein Calorie Malnutrition/Malabsorption - TPN - Dietary Consult - Pancreatic Enzymes (when resumes PO) Chronic Opioid Dependence - Recent eval for possible OUD - Oxycodone effective at home - IV Dilaudid effective here - Interesting history of high dose IV/topical Fentanyl pain treatment failure. Relates needing very high doses of dental anesthesia and spinal/epidural anesthesia in the past. Sick Euthyroid syndrome -no singular/isolated symptoms of hypothyroidism. -TSH 8.51 with T4 0.95 -Follow, consider supplementing if TSH continues to rise. Disposition: Appreciate Dr. Lambert coordinating transfer with [facility] general surgery for tonight or tomorrow, hoping for bed availability iesha. Status at Discharge Cognitive/behavioral status at discharge: at baseline, oriented Functional status at discharge: independent ambulation Overall status at discharge: patient is not back to baseline Exam Vital Signs (past 8 hours): - 02/17/25 04:00 02/17/25 08:00 Temperature 98.2 F 98.0 F Pulse Rate 99 H 99 H Respiratory Rate 16 19 Blood Pressure 107/65 102/62 Pulse Oximetry 100 100 Oxygen Flow Rate 0 Oxygen Delivery Method Room Air Oxygen Flow Rate 0 Narrative Exam Narrative: Alert and oriented x3. Much calmer now that a clear pathway of potential treatment is opening up. Heart is regular rate and rhythm without murmur lungs are clear to auscultation bilaterally and abdomen is less tender, still quite scaphoid. Extremities have no ankle edema. Objective Labs 02/17/25 06:30 02/17/25 06:30 Labs: Laboratory Results - last 24 hr 02/16/25 02/16/25 02/16/25 15:08 18:31 20:55 Hgb Hct Sodium Potassium Chloride Carbon Dioxide BUN Creatinine Estimated GFR BUN/Creatinine Ratio Glucose POC Whole Bld Glucose 408 H 352 H 164 H D Hemoglobin A1c Calcium Phosphorus Magnesium Total Bilirubin AST ALT Alkaline Phosphatase Total Protein Albumin Globulin Albumin/Globulin Ratio Prealbumin Triglycerides 02/17/25 02/17/25 02/17/25 00:46 06:24 06:30 Hgb 7.9 L Hct 24.3 L Sodium 136 L Potassium 4.3 Chloride 99 Carbon Dioxide 31 BUN 13 Creatinine 0.47 L Estimated GFR > 60 BUN/Creatinine Ratio 27.7 H Glucose 100 H D POC Whole Bld Glucose 225 H 114 H D Hemoglobin A1c 8.3 H Calcium 9.0 Phosphorus 5.0 H Magnesium 1.4 L Total Bilirubin 0.2 AST 25 ALT 9 Alkaline Phosphatase 76 Total Protein 6.8 Albumin 3.6 Globulin 3.2 Albumin/Globulin Ratio 1.1 Prealbumin 16.5 L Triglycerides 53 PFSH Medical History (Updated 02/15/25 @ 12:03 by Cuco Lyn MD) TSS (toxic shock syndrome) IUD (intrauterine device) in place Gastritis Chronic tachycardia Colon cancer Fever of undetermined origin On total parenteral nutrition (TPN) Endometriosis Gastroparesis Pancreatitis Surgical History (Updated 02/15/25 @ 12:03 by Cuco Lyn MD) History of splenectomy History of pancreatectomy H/O Whipple procedure H/O laparoscopy Hx of cholecystectomy Family History (Updated 02/15/25 @ 12:04 by Cuco Lyn MD) Son No problems noted. Social History marital status: household members: spouse and children Smoking Status: Unknown if ever smoked Discharge Plan Discharge Plan Patient Disposition: [facility] Other facility: [facility] Under care of provider: Dr. Wolf Nuñez Diet/Activity/Treatments Diet: Diet as Tolerated Liquid consistency: Normal/Thin Food texture: Regular Quality VTE Deep Vein Thrombosis/Pulmonary Embolism Present on Admission: No
--- NOTE | 2025-02-17 10:02 | PM.PN.IH.1 ---
Subjective Subjective Date Patient Seen: 02/17/25 Time Patient Seen: 09:35 Interval history: Patient is resting comfortably in bed does have some epigastric discomfort but more concerned about the pressure and pain in her pelvis patient has had no bowel movements today. Admits to nausea but denies any vomiting. 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 Patient has been set up for transfer to [facility] awaiting bed. Patient is comfortable all questions were answered patient's satisfaction. We have tried multiple other hospitals including [place] which refused the patient also 2 other hospitals [place] and [place] which they failed to return calls after all information was sent. Hemoglobin is 7.9 hematocrit is 24.3 sodium is 136 potassium 4.3 chloride 99 bicarb is 31 BUN 13 creatinine 0.47 random blood sugar is 100 normal LFTs. Vitals: Temperature is 98.0? pulse is 99 respirations 19 BP is 102/62 SaO2 is 100% on room air. Heart regular rate and rhythm without murmurs. Lungs clear to auscultation diminished in the bases poor inspiratory and expiratory effort. Abdomen hypoactive bowel sounds with some epigastric and low pelvic discomfort but no rebound or guarding no incisional hernias are noted. Impression: Chronic abdominal pain with history of chronic pancreatitis status post total pancreatectomy and splenectomy Pelvic rectal pain with severe anal stenosis ribbon like stools history of squamous cell anal cancer stage III treated with radiation and chemo possible reoccurrence versus radiation damage Insulin-dependent diabetes mellitus status post total pancreatectomy Protein calorie malnutrition on TPN Severe chronic anemia Plan: The patient has been accepted at [facility] at just awaiting bed for transfer all questions were answered patient's satisfaction no need for emergent surgical intervention at this time. Exam Vital Signs (past 8 hours): - 02/17/25 04:00 02/17/25 08:00 Temperature 98.2 F 98.0 F Pulse Rate 99 H 99 H Respiratory Rate 16 19 Blood Pressure 107/65 102/62 Pulse Oximetry 100 100 Oxygen Flow Rate 0 Oxygen Delivery Method Room Air Oxygen Flow Rate 0 Objective Labs 02/17/25 06:30 02/17/25 06:30 Labs: Laboratory Results - last 24 hr 02/16/25 02/16/25 02/16/25 15:08 18:31 20:55 Hgb Hct Sodium Potassium Chloride Carbon Dioxide BUN Creatinine Estimated GFR BUN/Creatinine Ratio Glucose POC Whole Bld Glucose 408 H 352 H 164 H D Hemoglobin A1c Calcium Phosphorus Magnesium Total Bilirubin AST ALT Alkaline Phosphatase Total Protein Albumin Globulin Albumin/Globulin Ratio Prealbumin Triglycerides 02/17/25 02/17/25 02/17/25 00:46 06:24 06:30 Hgb 7.9 L Hct 24.3 L Sodium 136 L Potassium 4.3 Chloride 99 Carbon Dioxide 31 BUN 13 Creatinine 0.47 L Estimated GFR > 60 BUN/Creatinine Ratio 27.7 H Glucose 100 H D POC Whole Bld Glucose 225 H 114 H D Hemoglobin A1c 8.3 H Calcium 9.0 Phosphorus 5.0 H Magnesium 1.4 L Total Bilirubin 0.2 AST 25 ALT 9 Alkaline Phosphatase 76 Total Protein 6.8 Albumin 3.6 Globulin 3.2 Albumin/Globulin Ratio 1.1 Prealbumin 16.5 L Triglycerides 53 PFSH Medical History (Updated 02/15/25 @ 12:03 by Cuco Lyn MD) TSS (toxic shock syndrome) IUD (intrauterine device) in place Gastritis Chronic tachycardia Colon cancer Fever of undetermined origin On total parenteral nutrition (TPN) Endometriosis Gastroparesis Pancreatitis Surgical History (Updated 02/15/25 @ 12:03 by Cuco Lyn MD) History of splenectomy History of pancreatectomy H/O Whipple procedure H/O laparoscopy Hx of cholecystectomy Family History (Updated 02/15/25 @ 12:04 by Cuco Lyn MD) Son No problems noted. Social History marital status: household members: spouse and children Smoking Status: Unknown if ever smoked Assessment & Plan Time-Based Coding :: [TOTAL MINUTES] spent with patient and on the chart (including review of chart, obtaining history, exam, reviewing outside data, placing orders, documenting exam and treatment plan, and counseling patient) on [DATE]. 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
[2025-02-17 12:00] VITALS: BP 103/64; PULSE 95; RESP 18; TEMP 36.8; O2SAT 100
[2025-02-17] MEDS: DEXTROSE 5%-0.9% NS 1,000 ML 100 ML IV (13:07)
--- NOTE | 2025-02-17 13:27 | PC.NURSE ---
Addendum entered by Bhavna Fleming RN 02/17/25 14:14: Med just prior to D/C w/ didaludid & benadryl Addendum entered by Bhavna Fleming RN 02/17/25 14:12: [facility] here for transport. Pt to at this time D/C in stable status, Original Note: Pt continues w/ abdominal pain. Med q 2 hours w/ Dilaudid and q 4 w/ benadryl with minimal relief. IVF D5NS @ 100 infusing into right chest cath. w/o incidence. CBG 175 @ 1200 Pt transferring to [facility] in [place] Awaiting transportations.
== END 2025-02-17 14:14 | disposition short-term general hospital (02) | DRG 378 ==
LOC: ED 23:21 → AC 23:22
PROVIDERS: Emergency Medicine; Family Medicine; Admitting Provider Internal Medicine; Emergency Provider Emergency Medicine; Visit Provider Internal Medicine
DX: K92.1 Melena (principal); E46 Unspecified protein-calorie malnutrition; F11.23 Opioid dependence with withdrawal; Z68.1 Body mass index [BMI] 19.9 or less, adult; E89.1 Postprocedural hypoinsulinemia; E87.20 Acidosis, unspecified; R00.0 Tachycardia, unspecified; D64.9 Anemia, unspecified; K62.4 Stenosis of anus and rectum; E07.81 Sick-euthyroid syndrome; K59.00 Constipation, unspecified; K86.81 Exocrine pancreatic insufficiency; R11.2 Nausea with vomiting, unspecified; E13.65 Other specified diabetes mellitus with hyperglycemia; Z90.410 Acquired total absence of pancreas; Z90.49 Acquired absence of other specified parts of digestive tract; Z90.81 Acquired absence of spleen; Z79.4 Long term (current) use of insulin; Z85.038 Personal history of other malignant neoplasm of large intestine; Z87.19 Personal history of other diseases of the digestive system; Z87.11 Personal history of peptic ulcer disease
CPT/HCPCS: 36415; 71045; 74177; 80048; 80053; 80305; 81003; 81025; 82607; 82805; 82962; 83036; 83540; 83550; 83605; 83690; 83735; 84100; 84134; 84145; 84439; 84443; 84478; 84703; 85007; 85014; 85018; 85025; 85379; 87040; 93005; 96361; 96372; 96374; 96375; 96376; 99284; G0378; B4185; B4189; J1171; J1200; J1642; J1815; J2405; J2470; J2997; J3475; J7030; J7042; Q9967

== ENCOUNTER 2025-02-24 05:35 | Inpatient (IN) | payer OTHER, SELFPAY ==
[2025-02-14 23:48] VITALS: BMI 19.8
[2025-02-24] VITALS (18 sets, daily range): BP systolic 111–139; BP diastolic 68–89; PULSE 96–132; RESP 15–29; TEMP 36.9–37.1; O2SAT 91–100; BMI 20.1
[2025-02-24 06:04] LABS: Bilirubin Urine UA NEGATIVE (NEGATIVE); Color Urine UA YELLOW; Glucose Urine UA NEGATIVE (Negative); Ketones Urine UA NEGATIVE (NEGATIVE); Leukocyte Esterase Urine UA 2+ (NEGATIVE); Nitrite Urine UA NEGATIVE (Negative); Occult Blood Urine UA NEGATIVE (Negative); Protein Urine UA 1+ (Negative); Specific Gravity Urine UA 1.020 (1.000-1.035); Urobilinogen Urine UA 0.2 E.U./dL (0.2)
[2025-02-24 06:05] LABS: Appearance Urine UA Slightly Cloudy; pH Urine UA 7.0 (4.5-8.0)
[2025-02-24 06:07] LABS: Culture Indicated Urine Specimen Cultured
--- NOTE | 2025-02-24 06:13 | EKG_ITS ---
[address] [address] Test Date: 2025-02-24 Pat Name: Gogo Rosenberg Department: [facility] Room: Gender: Female Orthopedic Nurse: RYLAN MATTHEW : 1990 Requested By: Order Number: [id number] Reading MD: Thomas Canas MD Measurements Intervals [place] Rate: 123 P: 64 NE: 116 QRS: 75 QRSD: 64 T: 39 QT: 310 QTc: 443 Interpretive Statements Sinus tachycardia Electronically Signed On 02-24-2025 7:26:14 PDT by Thomas Canas MD
[2025-02-24] MEDS: SODIUM CHLORIDE 0.9% 1,000 ML 1000 ML IV (06:18)
[2025-02-24 06:19] LABS: Add Manual Diff / Slide Review NO; Hematocrit 26.8 % (36-46); Hemoglobin 8.7 g/dL (12.0-16.0); Lymphocytes Absolute Auto 1400 /uL (1100-4500); Mean Corpuscular HGB Conc 32.6 % (30-36); Mean Corpuscular Hemoglobin 29.3 PG (26-34); Mean Corpuscular Volume 89.9 fL (80-100); Platelet Count 288 X10^3/uL (150-400)
[2025-02-24 06:28] LABS: Alanine Aminotransferase 15 IU/L (<35); Albumin 4.4 g/dL (3.5-5.0); Albumin Globulin Ratio 1.2 (1.0-2.8); Alkaline Phosphatase 88 U/L (38-126); Blood Urea Nitrogen 16 mg/dL (7-17); Calcium 9.0 mg/dL (8.4-10.2); Carbon Dioxide 24 mmol/L (22-32); Chloride 102 mmol/L (98-107); Estimated Glomerular Filt Rate > 60 mL/min (>60); Globulin 3.6 g/dL (1.7-4.1); Glucose 237 mg/dL (70-99); HEMOLYSIS < 15 (0-50); Lipase 10 U/L (23-300); Potassium 4.4 mmol/L (3.4-5.1); Sodium 138 mmol/L (137-145); Total Protein 8.0 g/dL (6.3-8.2)
[2025-02-24 06:29] LABS: Lactate (Lactic Acid) 3.4 mmol/L (0.7-2.1)
--- NOTE | 2025-02-24 06:45 | DI.CT.S_ITS ---
PROCEDURE: CT ABDOMEN PELVIS W CON INDICATIONS: abd pain, HCG neg TECHNIQUE: After the administration of intravenous contrast, axial sections acquired from the lung bases to the pubic symphysis. Coronal and sagittal reformats were performed. For radiation dose reduction, the following was used: automated exposure control, adjustment of mA and/or kV according to patient size. COMPARISON: [facility], CT, CT ABDOMEN PELVIS W CON, 02/14/2025, 20:06. FINDINGS: Image quality: Diagnostic. Lower Chest: No significant findings. ABDOMEN: Liver: No solid mass. Gallbladder: Surgically absent. Biliary ducts: No biliary dilation. Pancreas: No pancreatic ductal dilatation. Distal pancreas is not seen.. Spleen: Absent Adrenal Glands: No adrenal nodules. Kidneys and Ureters: No hydronephrosis. No solid mass. No complex renal cystic lesion which requires follow up. Stomach and Bowel: Partial gastrectomy Mild wall thickening of the sigmoid colon. No evidence of small-bowel obstruction. Prior appendectomy. Peritoneum: No abnormal intraperitoneal fluid. No free air. Ventral Wall: No significant ventral hernia. Abdominal Nodes: No retroperitoneal or mesenteric adenopathy by size criteria. Vessels: Aorta and inferior vena cava are normal in size. PELVIS: Pelvic Organs: Intrauterine device in place. Bladder: No bladder wall thickening, accounting for underdistention. Pelvic Nodes: No enlarged lymph nodes. Miscellaneous: No inguinal hernias are seen. Bones: No aggressive osseous abnormality. IMPRESSION: 1. Mild wall thickening of the sigmoid colon, correlate for signs of colitis. 2. Otherwise, no acute findings within the abdomen or pelvis. 3. Stable postoperative changes. Dictated by: Murtaza Hubbard M.D. on 02/24/2025 at 9:09 Approved by: Murtaza Hubbard M.D. on 02/24/2025 at 9:13
[2025-02-24 06:46] LABS: Procalcitonin 0.048 ng/mL (<0.5)
--- NOTE | 2025-02-24 07:14 | ED.ABDPAIN ---
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 She reports that she has had on and off rectal bleeding since December. She was seen evaluated here February 14 through the . She was transferred to [facility] where she had flex/sig, biopsy was taken. She reports it cobblestoning was seen they are suspicious for Crohn's disease but she has no official diagnosis of Crohn's disease. She also reports she can not have any steroids due to transplant of islet cells. She reports that she has had fevers off and on for the last 2 weeks she is chronically on TPN. She is having right lower quadrant pain. Initially they thought she had some narrowing there as well. She had a very poor experience at [facility] does not wish to return there. She has thrown up many times. Related Data Home Medications ?Medication ?Instructions ?Recorded ?Confirmed insulin glargine 100 unit/mL (3 7 unit SUBCUT QPM 02/17/25 02/24/25 mL) subcutaneous pen insulin lispro 100 unit/mL 1 sliding scale dose SUBCUT 02/17/25 02/24/25 subcutaneous solution (Humalog USEASDIRECTD U-100 Insulin) levonorgestrel 1 device intrauterine .once 02/17/25 02/24/25 [id number] 1 cap PO TID 02/17/25 02/24/25 24,000-76,000-120,000 unit capsule,delayed rel (Creon) ondansetron 4 mg disintegrating 4 mg PO PRN 02/17/25 02/24/25 tablet pantoprazole 20 mg tablet,delayed 40 mg PO BID 02/17/25 02/24/25 release (Protonix) Previous Rx's ?Medication ?Instructions ?Recorded metoclopramide HCl 10 mg tablet 10 mg PO Q6H PRN nausea and 05/31/19 (Reglan) vomiting #10 tabs oxycodone 5 mg tablet 5 mg PO Q4HR PRN Pain, Moderate 06/21/19 (4-6) #10 tabs Allergies Allergy/AdvReac Type Severity Reaction Status Date / Time clindamycin Allergy Rash Verified 02/14/25 17:58 guaifenesin (From Mucinex) Allergy Rash Verified 02/14/25 17:58 morphine Allergy Verified 02/14/25 17:58 haloperidol (From Haldol) AdvReac Irritable Verified 02/14/25 17:58 ketorolac (From Toradol) AdvReac Anxiety Verified 02/14/25 17:58 metoclopramide (From Reglan) AdvReac Anxiety Verified 02/14/25 17:58 promethazine (From Phenergan) AdvReac Anxiety Verified 02/14/25 17:58 zolpidem (From Ambien) AdvReac Hallucinati Verified 02/14/25 17:58 ng Patient History Medical History (Updated 02/24/25 @ 13:04 by Perri Yeboah DO) TSS (toxic shock syndrome) IUD (intrauterine device) in place Gastritis Chronic tachycardia Colon cancer Fever of undetermined origin On total parenteral nutrition (TPN) Endometriosis Gastroparesis Pancreatitis Surgical History (Updated 02/15/25 @ 12:03 by Cuco Lyn MD) History of splenectomy History of pancreatectomy H/O Whipple procedure H/O laparoscopy Hx of cholecystectomy Family History (Updated 02/15/25 @ 12:04 by Cuco Lyn MD) Son No problems noted. Social History marital status: household members: spouse and children Smoking Status: Never smoker Smoking Status: Never smoker alcohol intake frequency: a few times a month Exam Initial Vital Signs Initial Vital Signs: Vital Signs Temperature 98.8 F 02/24/25 05:49 Pulse Rate 132 H 02/24/25 05:49 Respiratory Rate 26 H 02/24/25 05:49 Blood Pressure 139/89 02/24/25 05:49 Pulse Oximetry 100 02/24/25 05:49 Oxygen Delivery Method Room Air 02/24/25 05:49 GENERAL: Tearful 35-year-old female appears pain and in no acute distress. HEENT: Head atraumatic,EOMI, pupils reactive, face symmetric, moist mucous membranes CARDIOVASCULAR: Regular rate and rhythm without murmurs, rubs or gallops. RESPIRATORY: Breath sounds equal bilaterally, no wheezes rales or rhonchi. ABDOMEN: No significant distention but tender right lower quadrant multiple surgical scar EXTREMITIES: Normal range of motion, no clubbing or edema. Neurovascularly intact NEUROLOGICAL: Alert and oriented x4.Normal gait and speech. Cranial nerves II through XII grossly intact. SKIN: Warm, dry, no laceration, no petechiae, no rashes or lesions. Course Orders Ordered: ED Orders 02/24/25 05:45 Test Urine Stat Urinalysis and Microscopic Stat Urine Culture Stat 02/24/25 06:00 Blood Culture Stat Complete Blood Count AUTO DIFF Stat Comprehensive Metabolic Panel Stat Lactate (Lactic Acid) Stat Lipase Stat Procalcitonin Stat 02/24/25 06:03 EKG-12 Lead Stat 02/24/25 06:45 CT abdomen pelvis w con Stat Amino Acids/Electrolytes (Tpn Per Pharmacy) 1 request IV 1800 DHIRAJ Stop: 02/25/25 17:59 Diphenhydramine HCl (Diphenhydramine 50 Mg/Ml Vial) 50 mg IV Q4HR PRN PRN Reason: Nausea And Vomiting Hydromorphone HCl (Hydromorphone 1 Mg/Ml Syringe) 1 mg IV Q2HR PRN PRN Reason: Pain, Moderate (4-6) Last Admin: 02/24/25 11:15 Dose: 1 mg Documented By: RB Hydromorphone HCl (Hydromorphone 2 Mg/Ml Syringe) 2 mg IV Q2H PRN PRN Reason: Pain, Severe (7-10) Sodium Chloride (Normal Saline 0.9%) 1,000 mls @ 125 mls/hr IV CONT DHIRAJ Metoclopramide HCl (Metoclopramide Hcl 5 Mg Tablet) 10 mg PO Q6H PRN PRN Reason: nausea and vomiting Naloxone HCl (Naloxone 0.4 Mg/Ml Vial) 0.2 mg IV Q2MIN PRN PRN Reason: Opiate Reversal Ondansetron HCl (Ondansetron 4 Mg/2 Ml Inj) 4 mg IV Q6HR DHIRAJ Ondansetron HCl (Ondansetron 4 Mg Odt) 4 mg PO PRN DHIRAJ Oxycodone HCl (Oxycodone Ir 5 Mg Tablet) 5 mg PO Q4HR PRN PRN Reason: Pain, Moderate (4-6) Pantoprazole Sodium (Pantoprazole Dr 20 Mg Tablet) 40 mg PO BID DHIRAJ Discontinued Medications Diphenhydramine HCl (Diphenhydramine 50 Mg/Ml Vial) 50 mg IV NOW ONE Stop: 02/24/25 07:40 Last Admin: 02/24/25 08:19 Dose: 50 mg Documented By: RB Diphenhydramine HCl (Diphenhydramine 50 Mg/Ml Vial) 50 mg IV Q4HR DHIRAJ Hydromorphone HCl (Hydromorphone Hcl 0.5 Mg/0.5 Ml Syringe) 0.5 mg IV NOW ONE Stop: 02/24/25 06:55 Last Admin: 02/24/25 07:35 Dose: 0.5 mg Documented By: RB Hydromorphone HCl (Hydromorphone 1 Mg/Ml Syringe) 1 mg IV NOW ONE Stop: 02/24/25 07:40 Last Admin: 02/24/25 08:20 Dose: 1 mg Documented By: RB Hydromorphone HCl (Hydromorphone 1 Mg/Ml Syringe) 1 mg IV NOW ONE Stop: 02/24/25 09:26 Last Admin: 02/24/25 09:27 Dose: 1 mg Documented By: RB Hydromorphone HCl (Hydromorphone 1 Mg/Ml Syringe) 1 mg IV NOW ONE Stop: 02/24/25 10:16 Last Admin: 02/24/25 10:20 Dose: 1 mg Documented By: RB Hydromorphone HCl (Hydromorphone Hcl 0.5 Mg/0.5 Ml Syringe) 2 mg IV NOW ONE Stop: 02/24/25 12:15 Last Admin: 02/24/25 12:24 Dose: 2 mg Documented By: RB Sodium Chloride (Normal Saline 0.9%) 1,000 mls @ 1,700 mls/hr IV BOLUS ONE Stop: 02/24/25 06:38 Last Infusion: 02/24/25 07:33 Dose: Infused Documented By: Admin: 02/24/25 06:18 Dose: 1,000 mls/hr Documented By: LS Ceftriaxone Sodium 1,000 mg/ (Sodium Chloride) 100 mls @ 200 mls/hr IV NOW ONE Stop: 02/24/25 06:44 Last Infusion: 02/24/25 09:21 Dose: Infused Documented By: Admin: 02/24/25 08:20 Dose: 200 mls/hr Documented By: RB Dextrose/Sodium Chloride (Dextrose 5%-0.9% Ns) 1,000 mls @ 100 mls/hr IV CONT DHIRAJ Last Admin: 02/24/25 12:44 Dose: Not Given Documented By: RB Lorazepam (Lorazepam 2 Mg/Ml Inj) 0.5 mg IV NOW ONE Stop: 02/24/25 10:16 Last Admin: 02/24/25 10:20 Dose: 0.5 mg Documented By: LORA Ondansetron HCl (Ondansetron 4 Mg/2 Ml Inj) 4 mg IV NOW ONE Stop: 02/24/25 06:55 Last Admin: 02/24/25 07:35 Dose: 4 mg Documented By: LORA Vital Signs Vital signs: Vital Signs - 8 hr 02/24/25 05:49 02/24/25 07:47 02/24/25 07:47 Temperature 98.8 F Pulse Rate 132 H 111 H Respiratory Rate 26 H Blood Pressure 139/89 119/72 Pulse Oximetry 100 99 Oxygen Delivery Method Room Air 02/24/25 08:00 02/24/25 08:00 02/24/25 08:30 Temperature Pulse Rate 117 H 113 H Respiratory Rate Blood Pressure 122/86 Pulse Oximetry 100 99 Oxygen Delivery Method 02/24/25 08:30 02/24/25 08:53 02/24/25 08:53 Temperature Pulse Rate 105 H Respiratory Rate Blood Pressure 134/86 113/71 Pulse Oximetry 100 Oxygen Delivery Method 02/24/25 09:00 02/24/25 09:00 02/24/25 09:13 Temperature Pulse Rate 113 H 114 H Respiratory Rate 25 H Blood Pressure 117/77 Pulse Oximetry 99 99 Oxygen Delivery Method 02/24/25 09:13 02/24/25 09:30 02/24/25 09:30 Temperature Pulse Rate 110 H Respiratory Rate 29 H Blood Pressure 119/73 126/81 Pulse Oximetry 99 Oxygen Delivery Method 02/24/25 10:00 02/24/25 10:00 02/24/25 10:30 Temperature Pulse Rate 110 H 110 H Respiratory Rate Blood Pressure 114/77 Pulse Oximetry 98 98 Oxygen Delivery Method 02/24/25 10:30 02/24/25 11:00 02/24/25 11:00 Temperature Pulse Rate 110 H Respiratory Rate 18 Blood Pressure 118/81 111/74 Pulse Oximetry 98 Oxygen Delivery Method Room Air MDM - Abdominal Pain Lab Data 02/24/25 06:00 02/24/25 06:00 Labs: Lab Results 02/24/25 02/24/25 02/24/25 Range/Units 05:45 06:00 08:25 WBC 4.6 (4.5-11.0) X10^3/uL RBC 2.98 L (4.0-5.2) X10^6/uL Hgb 8.7 L (12.0-16.0) g/dL Hct 26.8 L (36-46) % MCV 89.9 (80-100) fL MCH 29.3 (26-34) PG MCHC 32.6 (30-36) % RDW 17.1 H (11.6-14.8) % Plt Count 288 (150-400) X10^3/uL Neut % (Auto) 42.0 L (50-75) % Lymph % (Auto) 31.3 (25-40) % Cass % (Auto) 20.9 H (3-14) % Eos % (Auto) 4.7 H (2-4) % Baso % (Auto) 1.1 (0-2) % Neut # (Auto) 1900 (2568-4765) /uL Lymph # (Auto) 1400 (5396-5649) /uL Cass # (Auto) 1000 H (0-900) /uL Eos # (Auto) 200 (0-450) /uL Baso # (Auto) 100 (0-100) /uL Sodium 138 (137-145) mmol/L Potassium 4.4 (3.4-5.1) mmol/L Chloride 102 (98-107) mmol/L Carbon Dioxide 24 (22-32) mmol/L BUN 16 (7-17) mg/dL Creatinine 0.56 (0.52-1.04) mg/dL Estimated GFR > 60 (>60) mL/min BUN/Creatinine Ratio 28.6 H (6-22) Glucose 237 H D (70-99) mg/dL Lactate 3.4 H 1.7 (0.7-2.1) mmol/L Calcium 9.0 (8.4-10.2) mg/dL Total Bilirubin 0.3 (0.2-1.3) mg/dL AST 31 (14-36) IU/L ALT 15 (<35) IU/L Alkaline Phosphatase 88 (38-126) U/L Total Protein 8.0 (6.3-8.2) g/dL Albumin 4.4 (3.5-5.0) g/dL Globulin 3.6 (1.7-4.1) g/dL Albumin/Globulin Ratio 1.2 (1.0-2.8) Lipase 10 L (23-300) U/L Procalcitonin 0.048 (<0.5) ng/mL Urine Color Yellow Urine Appearance Slightly cloudy Urine pH 7.0 (4.5-8.0) Ur Specific [place] 1.020 (1.000-1.035) Urine Protein 1+ H (Negative) Urine Glucose (UA) Negative (Negative) g/dL Urine Ketones Negative (NEGATIVE) Urine Occult Blood Negative (Negative) Urine Nitrate Negative (Negative) Urine Bilirubin Negative (NEGATIVE) Urine Urobilinogen 0.2 (0.2) E.U./dL Ur Leukocyte Esterase 2+ H (NEGATIVE) Urine RBC None seen (0-5/HPF) Urine WBC 30-100/hpf H (0-5/HPF) Ur Squamous Epith Cells 5-10 /hpf H (0-5/HPF) Ur Transition Epith Cell 0-1/hpf (0-5/HPF) Urine Bacteria Few (2-10) H (None) Ur Culture Indicated? Specimen cultured Vol Urine Centrifuged Low vol <10ml (spun) A Urine Test Negative (Negative) Point of care testing: Point of Care Testing Glucose POC [address] scan - abdomen/pelvis: Radiologist's Impression: PROCEDURE: CT ABDOMEN PELVIS W CON INDICATIONS: abd pain, HCG neg TECHNIQUE: After the administration of intravenous contrast, axial sections acquired from the lung bases to the pubic symphysis. Coronal and sagittal reformats were performed. For radiation dose reduction, the following was used: automated exposure control, adjustment of mA and/or kV according to patient size. COMPARISON: [facility], CT, CT ABDOMEN PELVIS W CON, 02/14/2025, 20:06. FINDINGS: Image quality: Diagnostic. Lower Chest: No significant findings. ABDOMEN: Liver: No solid mass. Gallbladder: Surgically absent. Biliary ducts: No biliary dilation. Pancreas: No pancreatic ductal dilatation. Distal pancreas is not seen.. Spleen: Absent Adrenal Glands: No adrenal nodules. Kidneys and Ureters: No hydronephrosis. No solid mass. No complex renal cystic lesion which requires follow up. Stomach and Bowel: Partial gastrectomy Mild wall thickening of the sigmoid colon. No evidence of small-bowel obstruction. Prior appendectomy. Peritoneum: No abnormal intraperitoneal fluid. No free air. Ventral Wall: No significant ventral hernia. Abdominal Nodes: No retroperitoneal or mesenteric adenopathy by size criteria. Vessels: Aorta and inferior vena cava are normal in size. PELVIS: Pelvic Organs: Intrauterine device in place. Bladder: No bladder wall thickening, accounting for underdistention. Pelvic Nodes: No enlarged lymph nodes. Miscellaneous: No inguinal hernias are seen. Bones: No aggressive osseous abnormality. IMPRESSION: 1. Mild wall thickening of the sigmoid colon, correlate for signs of colitis. 2. Otherwise, no acute findings within the abdomen or pelvis. 3. Stable postoperative changes. Dictated by: Murtaza Hubbard M.D. on 02/24/2025 at 9:09 Approved by: Murtaza Hubbard M.D. on 02/24/2025 at 9:13 [facility] Narrative Medical decision making narrative: MDM CC: Abdominal pain nausea Complicating co-morbidities: Multiple surgeries chronic pancreatitis with pancreatectomy, splenectomy, chronic TPN, Data collected from: Patient and partner Medical records reviewed: [facility] records 02/20/2025 flexible sigmoidoscopy: Rectal mucosal findings concerning for radiation proctitis biopsy sent. No strictures or structural cause for abdominal pain identified on exam 2 transverse colon. Cobbled appearing mucosa on the distal rectum. Multiple nonbleeding colonic angioectasias biopsied. Recommend continue aggressive bowel regimen to avoid constipation as case may have reflected severe obstipation. Differential considered: Colitis radiation versus inflammatory versus infectious, versus bowel obstruction versus other Exam documented above, pertinent findings include: Patient tearful is appears to be in severe pain uncomfortable Lab Test results independently reviewed as above. Pertinent findings: CBC WBC sore 0.6 hemoglobin 8.7 hematocrit 26.8 previously 7.9/24.3 platelets 288 CMP no electrolyte abnormality glucose is 237 creatinine 0.56 Lactate 3.4, procalcitonin 0.048 Bilirubin liver enzymes within normal limits, lipase 10 Imaging studies independently reviewed: CT abdomen pelvis mild wall thickening of sigmoid colon correlate sign of colitis Dr. Lyn in ED to see and evaluate patient, agrees to admit for intractable abdominal pain Treatments: Multiple doses of Dilaudid, Benadryl she reports it is only thing that works for her nausea she is also given a dose of Ativan Re-evaluations: Patient continues to have pain despite multiple doses Dilaudid. Discussion: Patient 35-year-old female male complicated medical history presenting today with ongoing abdominal pain. Blood work shows stable anemia no leukocytosis electrolytes are within normal limits. A CT shows concern for possible colitis. medical records reviewed concern for radiation proctitis. CT today does not show any significant constipation or obstipation. Patient will be admitted to hospitalist for ongoing pain control Patient does have elevated lactate no leukocytosis she is afebrile here. Concern for chronic TPN possible fungal infection however I do think lactate is elevated due to ongoing pain and some hyperventilation that is also happening. Discharge Plan Departure Patient Disposition: Admitted as Observation Clinical Impression: Intractable abdominal pain, Colitis Admit Date/Time: 02/24/25 11:26 Admit Provider: Cuco Lyn
[2025-02-24] MEDS: ONDANSETRON 4 MG/2 ML INJ IV (07:35)
[2025-02-24 07:40] LABS: Reflexed Lactate in 2 Hours Y
[2025-02-24] MEDS: diphenhydrAMINE 50 MG/ML VIAL IV ×4 (08:19→21:35)
[2025-02-24 08:53] LABS: Lactate 2HR (Lactic Acid Rflx) 1.7 mmol/L (0.7-2.1)
--- NOTE | 2025-02-24 11:47 | PM.HP.1 ---
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 Also visualized were multiple small localized angiectasias without bleeding in the distal rectum. No stricture was seen that would match the exam findings of a stricture on digital rectal exam done by General surgery the last time she was here. She says that her nausea/vomiting/abdominal pain were already present and flaring on the day she was discharged in [place] 4 days ago. Her colon cancer was diagnosed at stage III earlier this year. She is on TPN for 12 hours at night and uses her pancreatic enzymes only when she tries to eat. There are no reports of fevers at home on this admission. Last time she was here she was ruled out for PE, renal cell carcinoma and hyperthyroidism due to reports cyclic fevers at home. She has chronic tachycardia, usually just above 100, which has also not been clarified. She has a cardiology consult pending. She is opioid dependent, with home oxycodone, and says she was recently referred to a specialist in opioid use disorder who told her that she does not have OUD but instead has some abdominal process causing the pain. She was recently diagnosed with gastritis on an EGD at [facility]. She does not use THC at this time. I encouraged her to be transferred to [facility] or some other tertiary referral center where specialty GI is available to help with her care but she emphatically refused. She would like a 2 day trial here of IV fluid support, IV pain medicine and IV antiemetic. She agrees to be transferred if no relief in the next 2 days to another location, preferring to try [facility] and refusing [facility], [facility] and [facility] despite their GI expertise. The cobblestoning and angiectasias are likely from radiation scarring and unlikely to be Crohn's disease. Path reports from the recent sigmoidoscopy at [facility] are not available yet. Assessment and plan: Recurrent abdominal pain with intractable vomiting, present on admission. Active. -it is not clear how to establish control of her symptoms. There appears to be a functional component, based solely on the fact that no direct GI cause has been recently identified. -she has extensive GI history that is indisputable but recent upper endoscopy and sigmoidoscopy do not clarify the cause of her symptoms -plan IV fluid support, IV Dilaudid, IV Benadryl, IV ondansetron for 48 hours and then transfer to a larger hospital system with GI Consultants, if symptoms do not relent. Patient declines strong recommendation for immediate transfer and treatment. -review pathology/biopsy reports once available from [facility]. -patient likely has radiation proctitis, and is unlikely to have Crohn's disease. -obstipation was suspected contributing to her pain at her last admission here but with a colon prep clearing at [facility] she does not seem on current imaging to have received any improvement in her chronic symptoms. Normocytic Anemia - Hgb on admission of 8.7, most recently here was 7.9. Follow. - B12 559 and Iron 71 here last week - Components of Chronic Disease and reports of blood in stool with angiectasias seen in the rectum. - Recent EGD done showing Gastritis/Ulcer DM secondary to Pancreatectomy - SS Insulin - Pancreatic Enzymes Protein Calorie Malnutrition/Malabsorption - TPN - Dietary Consult - Pancreatic Enzymes (when resumes PO) Chronic Opioid Dependence - Recent eval for possible OUD - Oxycodone effective at home - IV Dilaudid effective here - Interesting history of high dose IV/topical Fentanyl pain treatment failure. Relates needing very high doses of dental anesthesia and spinal/epidural anesthesia in the past. Sick Euthyroid syndrome -no singular/isolated symptoms of hypothyroidism. -TSH 8.51 with T4 0.95 -Follow, consider supplementing if TSH continues to rise. Chronic sinus tachycardia, present on admission. Chronic. Recent reports of intermittent fevers, not present on this admission. SCD for DVT prevention is her backup decision maker. [facility] Medical History (Updated 02/24/25 @ 13:04 by Perri Yeboah DO) TSS (toxic shock syndrome) IUD (intrauterine device) in place Gastritis Chronic tachycardia Colon cancer Fever of undetermined origin On total parenteral nutrition (TPN) Endometriosis Gastroparesis Pancreatitis Surgical History (Updated 02/15/25 @ 12:03 by Cuco Lyn MD) History of splenectomy History of pancreatectomy H/O Whipple procedure H/O laparoscopy Hx of cholecystectomy Family History (Updated 02/15/25 @ 12:04 by Cuco Lyn MD) Son No problems noted. Social History marital status: household members: spouse and children Smoking Status: Never smoker Meds Home Medications and Allergies Home Medications ?Medication ?Instructions ?Recorded ?Confirmed ?Type metoclopramide HCl 10 mg tablet 10 mg PO Q6H PRN nausea and 05/31/19 02/24/25 Rx (Reglan) vomiting #10 tabs oxycodone 5 mg tablet 5 mg PO Q4HR PRN Pain, Moderate 06/21/19 02/24/25 Rx (4-6) #10 tabs insulin glargine 100 unit/mL (3 7 unit SUBCUT QPM 02/17/25 02/24/25 History mL) subcutaneous pen insulin lispro 100 unit/mL 1 sliding scale dose SUBCUT 02/17/25 02/24/25 History subcutaneous solution (Humalog USEASDIRECTD U-100 Insulin) levonorgestrel 1 device intrauterine .once 02/17/25 02/24/25 History uydnji-uonttgsv-emmnhoa 1 cap PO TID 02/17/25 02/24/25 History 24,000-76,000-120,000 unit capsule,delayed rel (Creon) ondansetron 4 mg disintegrating 4 mg PO PRN 02/17/25 02/24/25 History tablet pantoprazole 20 mg tablet,delayed 40 mg PO BID 02/17/25 02/24/25 History release (Protonix) Allergies Allergy/AdvReac Type Severity Reaction Status Date / Time clindamycin Allergy Rash Verified 02/14/25 17:58 guaifenesin (From Mucinex) Allergy Rash Verified 02/14/25 17:58 morphine Allergy Verified 02/14/25 17:58 haloperidol (From Haldol) AdvReac Irritable Verified 02/14/25 17:58 ketorolac (From Toradol) AdvReac Anxiety Verified 02/14/25 17:58 metoclopramide (From Reglan) AdvReac Anxiety Verified 02/14/25 17:58 promethazine (From Phenergan) AdvReac Anxiety Verified 02/14/25 17:58 zolpidem (From Ambien) AdvReac Hallucinati Verified 02/14/25 17:58 ng Review of Systems Review of Systems Narrative: Positive for vomiting, abdominal pain and nausea. Negative for fevers, chills, sweats, chest pain, coughing, dysuria, rashes, headaches, sore throat, new allergies. Exam Vital Signs (past 8 hours): - 02/24/25 05:49 02/24/25 07:47 02/24/25 07:47 Temperature 98.8 F Pulse Rate 132 H 111 H Respiratory Rate 26 H Blood Pressure 139/89 119/72 Pulse Oximetry 100 99 Oxygen Delivery Method Room Air 02/24/25 08:00 02/24/25 08:00 02/24/25 08:30 Temperature Pulse Rate 117 H 113 H Respiratory Rate Blood Pressure 122/86 Pulse Oximetry 100 99 Oxygen Delivery Method 02/24/25 08:30 02/24/25 08:53 02/24/25 08:53 Temperature Pulse Rate 105 H Respiratory Rate Blood Pressure 134/86 113/71 Pulse Oximetry 100 Oxygen Delivery Method 02/24/25 09:00 02/24/25 09:00 02/24/25 09:13 Temperature Pulse Rate 113 H 114 H Respiratory Rate 25 H Blood Pressure 117/77 Pulse Oximetry 99 99 Oxygen Delivery Method 02/24/25 09:13 02/24/25 09:30 02/24/25 09:30 Temperature Pulse Rate 110 H Respiratory Rate 29 H Blood Pressure 119/73 126/81 Pulse Oximetry 99 Oxygen Delivery Method 02/24/25 10:00 02/24/25 10:00 02/24/25 10:30 Temperature Pulse Rate 110 H 110 H Respiratory Rate Blood Pressure 114/77 Pulse Oximetry 98 98 Oxygen Delivery Method 02/24/25 10:30 02/24/25 11:00 02/24/25 11:00 Temperature Pulse Rate 110 H Respiratory Rate 18 Blood Pressure 118/81 111/74 Pulse Oximetry 98 Oxygen Delivery Method Room Air Oxygen Delivery Method Room Air Narrative Exam Narrative: Alert and oriented x3. She appears to be in severe distress from ongoing nausea and abdominal pain. Pupils are equally round and reactive to light and accommodation. Extraocular muscles are intact. Sclerae are pink and nonicteric. Throat looks normal. No lymph nodes are felt head, neck, supraclavicular area. There is no thyromegaly. JVD is less than 6 cm. No carotid bruits are heard. Heart is tachycardic with regular rhythm without murmur. Lungs are clear to auscultation bilaterally. Abdomen is significant for guarding, scaphoid appearance, extensive well-healed scarring. Tenderness is moderate and diffuse. Extremities have no ankle edema. Neuro exam is normal without tremor, increased reflexes, cranial nerves abnormality or asymmetric weakness. Skin is very pale, without rash. Objective Labs 02/24/25 06:00 02/24/25 06:00 Labs: Laboratory Results - last 24 hr 02/24/25 02/24/25 02/24/25 05:45 06:00 08:25 WBC 4.6 RBC 2.98 L Hgb 8.7 L Hct 26.8 L MCV 89.9 MCH 29.3 MCHC 32.6 RDW 17.1 H Plt Count 288 Neut % (Auto) 42.0 L Lymph % (Auto) 31.3 [place] % (Auto) 20.9 H Eos % (Auto) 4.7 H Baso % (Auto) 1.1 Neut # (Auto) 1900 Lymph # (Auto) 1400 [place] # (Auto) 1000 H Eos # (Auto) 200 Baso # (Auto) 100 Sodium 138 Potassium 4.4 Chloride 102 Carbon Dioxide 24 BUN 16 Creatinine 0.56 Estimated GFR > 60 BUN/Creatinine Ratio 28.6 H Glucose 237 H D Lactate 3.4 H 1.7 Calcium 9.0 Total Bilirubin 0.3 AST 31 ALT 15 Alkaline Phosphatase 88 Total Protein 8.0 Albumin 4.4 Globulin 3.6 Albumin/Globulin Ratio 1.2 Lipase 10 L Procalcitonin 0.048 Urine Color Yellow Urine Appearance Slightly cloudy Urine pH 7.0 Ur Specific [place] 1.020 Urine Protein 1+ H Urine Glucose (UA) Negative Urine Ketones Negative Urine Occult Blood Negative Urine Nitrate Negative Urine Bilirubin Negative Urine Urobilinogen 0.2 Ur Leukocyte Esterase 2+ H Urine RBC None seen Urine WBC 30-100/hpf H Ur Squamous Epith Cells 5-10 /hpf H Ur Transition Epith Cell 0-1/hpf Urine Bacteria Few (2-10) H Ur Culture Indicated? Specimen cultured Vol Urine Centrifuged Low vol <10ml (spun) A Urine Test Negative Assessment & Plan Time-Based Coding :: [TOTAL MINUTES] spent with patient and on the chart (including review of chart, obtaining history, exam, reviewing outside data, placing orders, documenting exam and treatment plan, and counseling patient) on [DATE].
--- NOTE | 2025-02-24 12:30 | PC.NURSE ---
This RN talked to Dr. Lyn at 12:13pm about patient pain and provider ordered verbal order 2mg Dilaudid this RN placed verbal order and medicated the patient. This RN also informed provider patient is a diabetic with a current blood sugar of 275 and asked him if he still wanted the dextrose 5% with half normal saline maintainence infusion and provider stated no cancel that and I'll order something else. This RN placed verbal cancel order per provider.
--- NOTE | 2025-02-24 12:45 | PC.NURSE ---
This RN called and gave report to LORI Gonzáles and informed him about the lack of maintainence fluid order that provider states that he would order a new one so that RN could follow up.
[2025-02-24] MEDS: HYDROmorphone 2 MG/ML SYRINGE IV ×6 (13:28→23:33)
[2025-02-24] MEDS: SODIUM CHLORIDE 0.9% 1,000 ML 80 ML IV (14:06)
[2025-02-24] MEDS: INSULIN LISPRO 100 UNIT/ML 3ML VIAL SUBCUT (14:06)
--- NOTE | 2025-02-24 15:22 | PC.NURSE ---
Day shift: Pt wants the TPN started at 2100.
[2025-02-24] MEDS: PANTOPRAZOLE DR 20 MG TABLET 40 MG PO (21:05)
--- NOTE | 2025-02-24 22:18 | PC.NURSE ---
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
[2025-02-25] MEDS: diphenhydrAMINE 50 MG/ML VIAL IV ×6 (01:27→21:00)
[2025-02-25] MEDS: HYDROmorphone 2 MG/ML SYRINGE IV ×11 (01:28→22:57)
[2025-02-25] MEDS: AA 5 %/CALCIUM/LYTES/DEXT 20 % 1,000 ML with MULTIVITAMIN 10 ML, TRACE ELEMENTS 1 ML 42.125 ML IV (01:28)
[2025-02-25] MEDS: INSULIN LISPRO 100 UNIT/ML 3ML VIAL SUBCUT ×3 (05:53→19:29)
--- NOTE | 2025-02-25 05:57 | PC.NURSE ---
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 Patient refused the 0130 check since her monitor showed her BG being 160. Patient started her TPN and now her BG went to 327, night time protocol meets the 3 units for correction. Patient requested correction due to not feeling well and getting the nausea and headache from the 327 BG.
--- NOTE | 2025-02-25 07:27 | P.PN_ITS ---
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 Also visualized were multiple small localized angiectasias without bleeding in the distal rectum. No stricture was seen that would match the exam findings of a stricture on digital rectal exam done by General surgery the last time she was here. She says that her nausea/vomiting/abdominal pain were already present and flaring on the day she was discharged in [place] 4 days ago. Her colon cancer was diagnosed at stage III earlier this year. She is on TPN for 12 hours at night and uses her pancreatic enzymes only when she tries to eat. There are no reports of fevers at home on this admission. Last time she was here she was ruled out for PE, renal cell carcinoma and hyperthyroidism due to reports cyclic fevers at home. She has chronic tachycardia, usually just above 100, which has also not been clarified. She has a cardiology consult pending. She is opioid dependent, with home oxycodone, and says she was recently referred to a specialist in opioid use disorder who told her that she does not have OUD but instead has some abdominal process causing the pain. She was recently diagnosed with gastritis on an EGD at [facility]. She does not use THC at this time. I encouraged her to be transferred to [facility] or some other tertiary referral center where specialty GI is available to help with her care but she emphatically refused. She would like a 2 day trial here of IV fluid support, IV pain medicine and IV antiemetic. She agrees to be transferred if no relief in the next 2 days to another location, preferring to try [facility] and refusing [facility], [facility] and [facility] despite their GI expertise. The cobblestoning and angiectasias are likely from radiation scarring and unlikely to be Crohn's disease. Path reports from the recent sigmoidoscopy at [facility] are not available yet. 02/25: She is sitting up in bed, coloring in her coloring books, looking quite relaxed, definitely less tense than yesterday. The sodium is 131 and the potassium is 4.0. The BMP is otherwise normal. We talked more about her tardive dyskinesia which developed when she was taking multiple phenothiazines including Compazine, Reglan and Phenergan years ago. She says she has tried olanzapine for nausea but it provoked the opposite effect. She is found that Benadryl works better for her nausea than anything else. Her voice is very gravelly and she has continued to talk slowly so we will go ahead and start her on levothyroxine. Her blood sugars have been in the 200s and 300s so the Lantus will be resumed. She is back on her TPN at night. Assessment and plan: Recurrent abdominal pain with intractable vomiting, present on admission. Active. -it is not clear how to establish control of her symptoms. There appears to be a functional component, based solely on the fact that no direct GI cause has been recently identified. -she has extensive GI history that is indisputable but recent upper endoscopy and sigmoidoscopy do not clarify the cause of her symptoms -plan IV fluid support, IV Dilaudid, IV Benadryl, IV ondansetron for 48 hours and then transfer to a larger hospital system with GI Consultants, if symptoms do not relent. Patient declines strong recommendation for immediate transfer and treatment. -review pathology/biopsy reports once available from [facility]. -patient likely has radiation proctitis, and is unlikely to have Crohn's disease. -obstipation was suspected contributing to her pain at her last admission here but with a colon prep clearing at [facility] she does not seem on current imaging to have received any improvement in her chronic symptoms. Normocytic Anemia - Hgb on admission of 8.7, most recently here was 7.9. Follow. - B12 559 and Iron 71 here last week - Components of Chronic Disease and reports of blood in stool with angiectasias seen in the rectum. - Recent EGD done showing Gastritis/Ulcer DM secondary to Pancreatectomy - SS Insulin - restarting Lantus - Pancreatic Enzymes Protein Calorie Malnutrition/Malabsorption - TPN - Dietary Consult - Pancreatic Enzymes (when resumes PO) Chronic Opioid Dependence - Recent eval for possible OUD - Oxycodone effective at home - IV Dilaudid effective here - Interesting history of high dose IV/topical Fentanyl pain treatment failure. Relates needing very high doses of dental anesthesia and spinal/epidural anesthesia in the past. Sick Euthyroid syndrome -to this point no singular/isolated symptoms of hypothyroidism. -TSH 8.51 with T4 0.95 -Follow, consider supplementing if TSH continues to rise. -Bradyarthria with Gravelly voice noted on 02/25 so will start on Levothyroxine. Chronic sinus tachycardia, present on admission. Chronic. Recent reports of intermittent fevers, not present on this admission. SCD for DVT prevention is her backup decision maker. Exam Vital Signs (past 8 hours): Oxygen Delivery Method Room Air Oxygen Flow Rate 0 Objective Labs 02/24/25 06:00 02/25/25 07:00 Labs: Laboratory Results - last 24 hr 02/24/25 02/24/25 02/25/25 08:25 13:30 05:50 POC Whole Bld Glucose 277 H D 327 H Lactate 1.7 PFSH Medical History (Updated 02/24/25 @ 13:04 by Perri Yeboah DO) TSS (toxic shock syndrome) IUD (intrauterine device) in place Gastritis Chronic tachycardia Colon cancer Fever of undetermined origin On total parenteral nutrition (TPN) Endometriosis Gastroparesis Pancreatitis Surgical History (Updated 02/15/25 @ 12:03 by Cuco Lyn MD) History of splenectomy History of pancreatectomy H/O Whipple procedure H/O laparoscopy Hx of cholecystectomy Family History (Updated 02/15/25 @ 12:04 by Cuco Lyn MD) Son No problems noted. Social History marital status: household members: spouse and children Smoking Status: Never smoker Assessment & Plan Time-Based Coding :: [TOTAL MINUTES] spent with patient and on the chart (including review of chart, obtaining history, exam, reviewing outside data, placing orders, documenting exam and treatment plan, and counseling patient) on [DATE].
[2025-02-25 08:50] LABS: Blood Urea Nitrogen 9 mg/dL (7-17); Calcium 8.9 mg/dL (8.4-10.2); Carbon Dioxide 28 mmol/L (22-32); Chloride 99 mmol/L (98-107); Estimated Glomerular Filt Rate > 60 mL/min (>60); Glucose 284 mg/dL (70-99); HEMOLYSIS 22 (0-50); Magnesium 1.3 mg/dL (1.6-2.3); Phosphorous 4.7 mg/dL (2.5-4.5); Potassium 4.0 mmol/L (3.4-5.1); Sodium 133 mmol/L (137-145)
[2025-02-25 09:00] VITALS: BP 121/95; PULSE 102; RESP 15; TEMP 36.6; O2SAT 100
[2025-02-25] MEDS: PANTOPRAZOLE DR 20 MG TABLET 40 MG PO ×2 (09:10→21:00)
[2025-02-25] MEDS: MAGNESIUM SULFATE 4 GM/100 ML PIGGYBACK IV (12:11)
--- NOTE | 2025-02-25 12:58 | CM.DANOTE ---
B DCP Assessment note pt is a 35yo F admitted with pancreatitis. on chronic TPN at home. 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 per chart review, pt lives indep with partner and family in [place]. works for [employer]? indep at baseline with chronic TPN that she manages. per provider in morning rounds, potential transfer to [facility] if not better by tomorrow for GI specialist. pt refusing to go to other higher level of care hospitals. no obvious CM needs identified at this time P: dc home when medically stable vs potential tx to higher level of care. CM team will continue to follow as needed in case any additional DCP needs should arise FLORENCE Arias Discharge Planning/Care Management Advanced directive, confirm from FAMILY Start: 02/24/25 15:08 Freq: Q24H Status: Active Protocol: Document 02/24/25 15:08 YAD (Rec: 02/24/25 15:08 YAD [id number]) Advance Directive, confirm on record Time 15:08 Person contacted Pt Copy received No CM Discharge Assessment Start: 02/24/25 13:23 Freq: Status: Active Protocol: Document 02/25/25 12:57 SL (Rec: 02/25/25 12:58 SL [id number]) Discharge Planning Assessment Assigned Discharge FLORENCE Ortiz [employer] Insurance [place] DPOA/Assigned spousePastor Designee Name Contact Information [phone] Advance Directives? No Advance Directives No on File History Provided By Patient,Medical Record Prior Living House Arrangements Household Members spouse,children Type of Drives own vehicle transporation used prior to admit Independent with ADL Yes 's Is patient alert and Yes oriented? Discharge Plan Transfer to Higher Level of Care Transportation transfer vs dc home from here, Family available for Arrangement transport at d/c if pt safe for return home Referrals Initiated None needed Review Status In Process Please Provide Date 02/25/25 Initial DC Assessment Was Performed Next Review Type Continued Stay Review
[2025-02-25] MEDS: LEVOTHYROXINE 75 MCG TABLET PO (17:25)
[2025-02-25 17:28] VITALS: BP 108/82; PULSE 85; RESP 14; TEMP 36.8; O2SAT 92
--- NOTE | 2025-02-25 17:37 | PC.NURSE ---
1330 Day note: IH glucometer used for 0730 BG check, and referenced with patients own CGM. 1330 BG 360mg/dl per patients CGB (per protocol 4Units Insulin admin, please see MAR)
[2025-02-25] MEDS: SODIUM CHLORIDE 0.9% 1,000 ML 63 ML IV (17:45)
--- NOTE | 2025-02-25 18:56 | PC.NURSE ---
1850 Pain controlled with IV Dilaudid as ordered. Pain management measures explores, including repositioning and distraction.
[2025-02-25 20:39] VITALS: BP 107/74; PULSE 94; RESP 18; O2SAT 99
[2025-02-25] MEDS: AA 5 %/CALCIUM/LYTES/DEXT 20 % 1,500 ML with MULTIVITAMIN 10 ML, TRACE ELEMENTS 1 ML, I... 63.129 ML IV (20:52)
[2025-02-25] MEDS: INSULIN GLARGINE 100 UNIT/ML 3ML PEN 7 UNIT SUBCUT (20:52)
[2025-02-25] MEDS: ONDANSETRON 4 MG/2 ML INJ IV (21:00)
[2025-02-26] MEDS: HYDROmorphone 2 MG/ML SYRINGE IV ×9 (01:00→17:29)
[2025-02-26] MEDS: diphenhydrAMINE 50 MG/ML VIAL IV ×5 (01:01→17:30)
[2025-02-26] MEDS: INSULIN LISPRO 100 UNIT/ML 3ML VIAL SUBCUT ×3 (01:08→13:55)
[2025-02-26] MEDS: ONDANSETRON 4 MG/2 ML INJ IV (03:03)
[2025-02-26] MEDS: LEVOTHYROXINE 75 MCG TABLET PO (05:12)
[2025-02-26 06:53] LABS: Blood Urea Nitrogen 8 mg/dL (7-17); Calcium 8.6 mg/dL (8.4-10.2); Carbon Dioxide 31 mmol/L (22-32); Chloride 95 mmol/L (98-107); Estimated Glomerular Filt Rate > 60 mL/min (>60); Glucose 379 mg/dL (70-99); HEMOLYSIS < 15 (0-50); Magnesium 1.6 mg/dL (1.6-2.3); Phosphorous 5.1 mg/dL (2.5-4.5); Potassium 4.2 mmol/L (3.4-5.1); Sodium 132 mmol/L (137-145)
--- NOTE | 2025-02-26 07:03 | P.DS_ITS ---
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 Also visualized were multiple small localized angiectasias without bleeding in the distal rectum. No stricture was seen at [facility] that would match the exam findings of a stricture on digital rectal exam done by General surgery the last time she was here. She says that her nausea/vomiting/abdominal pain were already present and flaring on the day she was discharged in [place] 4 days ago. Her colon cancer was diagnosed at stage III earlier this year. She is on TPN for 12 hours at night and uses her pancreatic enzymes only when she tries to eat. There are no reports of fevers at home on this admission. Last time she was here she was ruled out for PE, renal cell carcinoma and hyperthyroidism due to reports of cyclic fevers at home. She has chronic tachycardia, usually just above 100, which has also not been clarified. She has a cardiology consult pending. She is opioid dependent, with home oxycodone, and says she was recently referred to a specialist in opioid use disorder who told her that she does not have OUD but instead has some abdominal process causing the pain. She was recently diagnosed with gastritis on an EGD at [facility]. She does not use THC at this time. I encouraged her to be transferred to [facility] or some other tertiary referral center where specialty GI is available to help with her care but she emphatically refused. She would like a 2 day trial here of IV fluid support, IV pain medicine and IV antiemetic. She agrees to be transferred if no relief in the next 2 days to another location, preferring to try [place] [facility] and refusing [facility], [facility] and [facility] despite their GI expertise. The cobblestoning and angiectasias are likely from radiation scarring and unlikely to be Crohn's disease. Path reports from the recent sigmoidoscopy at [facility] are not available yet. Discharge Providers Provider Date of admission: 02/24/25 11:26 Discharge Date: 02/26/25 Consults: 02/24/25 12:01 Consult to Dietitian, Adult Routine Comment: Reason For Exam: TPN 02/24/25 12:47 Consult to Dietitian, Adult Routine Comment: Reason For Exam: New TPN start Discharge provider: Cuco Lyn MD Summary Hospital Course Hospital Course: Recurrent abdominal pain with intractable vomiting -it is not clear how to establish control of her symptoms. There appears to be a functional component, based solely on the fact that no direct GI cause has been recently identified. -she has extensive GI history that is indisputable but recent upper endoscopy and sigmoidoscopy do not clarify the cause of her symptoms -plan IV fluid support, IV Dilaudid, IV Benadryl, IV ondansetron for 48 hours and then transfer to a larger hospital system with GI Consultants, if symptoms do not relent. Patient declines strong recommendation for immediate transfer and treatment. -review pathology/biopsy reports once available from [facility]. -patient likely has radiation proctitis, and is unlikely to have Crohn's or UC. -obstipation was suspected contributing to her pain at her last admission here but with a colon prep clearing at [facility] she does not seem on current imaging to have received any improvement in her chronic symptoms. Normocytic Anemia - Hgb on admission of 8.7, most recently here was 7.9. - B12 559 and Iron 71 here last week - Components of Chronic Disease and reports of blood in stool with angiectasias seen in the rectum. - Recent EGD done at [facility] showing Gastritis/Ulcer DM secondary to Pancreatectomy - SS Insulin - resumed Lantus 7 units daily and 10 units regular insulin in the TPN. Blood sugars remained in the 200s and 300s. She is likely to need more insulin. - Pancreatic Enzymes when taking PO (not currently) Protein Calorie Malnutrition/Malabsorption - TPN 9 pm to 9 am (home regimen) - Dietary Consult - Pancreatic Enzymes (when resumes PO) Chronic Opioid Dependence - Recent eval for possible OUD - Oxycodone effective at home - IV Dilaudid effective here - Interesting history of high dose IV/topical Fentanyl pain treatment failure. Relates needing very high doses of dental anesthesia and spinal/epidural anesthesia in the past. Sick Euthyroid syndrome -TSH 8.51 with T4 0.95 -Bradyarthria with Gravelly voice noted on 02/25 so was started on Levothyroxine. Chronic sinus tachycardia Recent reports of intermittent fevers, not present on this admission. In summary: On the day of transfer the patient appeared symptomatically to be improved, better hydrated, less distressed but subjectively stated she did not feel any better. It is interesting that when the levothyroxine was started yesterday due to the elevated TSH and the slowed speech/gravelly voice that this morning both those symptoms appear slightly improved. That likely has little to do with her primary complaint however. She was discussed with Dr. Nuñez, on-call hospitalist at [facility] and accepted for transfer there due to lack of expert GI care availability at this more remote location. She continues with persistent intractable nausea and retching despite not being able to take anything by mouth. She continues with abdominal pain that improves with each Dilaudid dose and then flares up an hour before her next dose is allowed. Status at Discharge Cognitive/behavioral status at discharge: at baseline, oriented Functional status at discharge: independent ambulation Overall status at discharge: patient is not back to baseline Time Spent with Patient Time spent: Greater than 30 minutes Exam Vital Signs (past 8 hours): Oxygen Delivery Method Room Air Oxygen Flow Rate 0 Narrative Exam Narrative: Alert and oriented x3. Moderate distress from ongoing abdominal pain and nausea. Heart is regular rate and rhythm without murmur. Lungs are clear to auscultation bilaterally. Abdomen is soft, scaphoid, diffusely tender and reactive/guarding. Bowel sounds active. Extremities have no ankle edema. Objective Labs 02/24/25 06:00 02/26/25 06:25 Labs: Laboratory Results - last 24 hr 02/25/25 02/25/25 02/25/25 07:00 07:38 19:22 Sodium 133 L Potassium 4.0 Chloride 99 Carbon Dioxide 28 BUN 9 Creatinine 0.51 L Estimated GFR > 60 BUN/Creatinine Ratio 17.6 Glucose 284 H POC Whole Bld Glucose 215 H D 293 H Calcium 8.9 Phosphorus 4.7 H Magnesium 1.3 L 02/26/25 02/26/25 00:10 06:25 Sodium 132 L Potassium 4.2 Chloride 95 L Carbon Dioxide 31 BUN 8 Creatinine 0.58 Estimated GFR > 60 BUN/Creatinine Ratio 13.8 Glucose 379 H POC Whole Bld Glucose 236 H Calcium 8.6 Phosphorus 5.1 H Magnesium 1.6 PFSH Medical History (Updated 02/24/25 @ 13:04 by Perri Yeboah DO) TSS (toxic shock syndrome) IUD (intrauterine device) in place Gastritis Chronic tachycardia Colon cancer Fever of undetermined origin On total parenteral nutrition (TPN) Endometriosis Gastroparesis Pancreatitis Surgical History (Updated 02/15/25 @ 12:03 by Cuco Lyn MD) History of splenectomy History of pancreatectomy H/O Whipple procedure H/O laparoscopy Hx of cholecystectomy Family History (Updated 02/15/25 @ 12:04 by Cuco Lyn MD) Son No problems noted. Social History marital status: household members: spouse and children Smoking Status: Never smoker Discharge Plan Discharge Plan Patient Disposition: [facility] Other facility: [facility] Under care of provider: Hospitalist Dr. Nuñez Diet/Activity/Treatments Diet: Nothing by Mouth
[2025-02-26 08:00] VITALS: BP 117/86; PULSE 98; RESP 15; TEMP 36.9; O2SAT 100
--- NOTE | 2025-02-26 11:39 | PC.NURSE ---
Patient is asking for dilaudid every 2 hours, and benadryl every 4 hours, Up in room independently.. Getting tpn and lipids tonight... Resting comfortably...Patient colors in her coloring book for most of the day. Pleasant with care, tolerating current TPN dose.
[2025-02-26] MEDS: PANTOPRAZOLE DR 20 MG TABLET 40 MG PO (11:45)
--- NOTE | 2025-02-26 11:47 | DIET.CONS ---
Dietary Consultation Note Admission Date: 02/24/2025 11:26 Assessment: 35 y F admitted for recurrent abd pain with vomiting. Dietitian consulted for TPN. Pt previously seen at last admission and home TPN order received from infusion [facility]: 12 hours infusion of 1.55 L providing 1450 calories, 180 g dextrose, 85 g amino acids, 50 g lipids. Pt may d/c to higher level of care. Ht: 166.37 cm Wt: 55.792 kg BMI: 20.1 Last BM: 02/24/25 (02/24/25 14:56) MNA: 10 Ignacio Score: 19 Diet: 02/24/25 06:02 NPO Diet Diet Modifications: NPO Type: NPO except for Meds 02/24/25 Dinner Clear Liquid Diet Diet Modifications: Nutrition Percent Meal Consumed 25% 02/25/25 12:18 Percent Meal Consumed 100% 02/24/25 18:34 Labs: RBC 2.98 X10^6/uL (4.0-5.2) L 02/24/25 06:00 Hgb 8.7 g/dL (12.0-16.0) L 02/24/25 06:00 Hct 26.8 % (36-46) L 02/24/25 06:00 Creatinine 0.58 mg/dL (0.52-1.04) 02/26/25 06:25 Lactate 1.7 mmol/L (0.7-2.1) 02/24/25 08:25 Nutrition Diagnosis: Altered GI function r/t altercation in GI tract structure/function aeb needing chronic TPN; hx of gastroparesis Interventions: -Recc start of TPN 1.5 L Clinimix 5/20 continuous at 63 mL/hr over 24 hours (goal rate). 250 mL IVFE 3x/wk. -Based on formulary available, to meet pt calorie and protein needs adequately, above reccs will provide 75 g more dextrose per day than her home formula, discussed with pharmacy regarding insulin coverage Goal rate plus lipids provides 1534 kcals and 75 g protein meeting 106% energy needs and 88% protein needs. EER: 1450 kcals, 85 g protein, 180 g dextrose, 50 g lipids daily per infusion solutions; fluid needs 6215-2644 mL/day (35 mL/kg vs Safford-segar formula), pt also on clear liquid diet wit 25-100% PO intake recorded Monitoring/Evaluations: TPN tolerance, BG Electronically Signed by: Altagracia Chandler 02/26/25 11:47 Clinical Dietitian [address] [address]
--- NOTE | 2025-02-26 18:12 | PC.NURSE ---
Report called to LORI Kulkarni at [place]. Patient left around 1750 via ALS.
== END 2025-02-26 18:14 | disposition short-term general hospital (02) | DRG 394 ==
LOC: ED 07:01 → AC 11:27
PROVIDERS: Emergency Medicine; Admitting Provider Family Medicine; Emergency Provider Emergency Medicine; Referring Provider Emergency Medicine; Visit Provider Family Medicine
DX: K62.7 Radiation proctitis (principal); E46 Unspecified protein-calorie malnutrition; E89.1 Postprocedural hypoinsulinemia; F11.20 Opioid dependence, uncomplicated; R11.2 Nausea with vomiting, unspecified; E07.81 Sick-euthyroid syndrome; E13.9 Other specified diabetes mellitus without complications; D64.9 Anemia, unspecified; K86.81 Exocrine pancreatic insufficiency; R00.0 Tachycardia, unspecified; Y84.2 Radiological procedure and radiotherapy as the cause of abnormal reaction of the patient, or of later complication, without mention of misadventure at the time of the procedure; Z90.81 Acquired absence of spleen; Z90.410 Acquired total absence of pancreas; Z68.20 Body mass index [BMI] 20.0-20.9, adult; Z79.4 Long term (current) use of insulin; Z87.19 Personal history of other diseases of the digestive system; Z85.038 Personal history of other malignant neoplasm of large intestine; Z95.828 Presence of other vascular implants and grafts
CPT/HCPCS: 36415; 74177; 80048; 80053; 81001; 81025; 82962; 83605; 83690; 83735; 84100; 84145; 85025; 87040; 87077; 87086; 87186; 93005; 93010; 96361; 96365; 96375; 96376; 99284; B4189; J0696; J1171; J1200; J1815; J2060; J2405; J3475; J7030; J7050; Q9967

== ENCOUNTER 2025-03-11 16:31 | Emergency (ER) | payer OTHER, SELFPAY ==
[2025-02-24 14:56] VITALS: BMI 20.1
[2025-03-11] VITALS (17 sets, daily range): BP systolic 101–144; BP diastolic 63–95; PULSE 113–138; RESP 5–43; TEMP 36.7; O2SAT 87–100; BMI 19.8
[2025-03-11 17:20] LABS: INR 1.1 (0.9-1.3); Prothrombin Time 12.4 SECONDS (9.4-12.5)
[2025-03-11 17:23] LABS: Alanine Aminotransferase 17 IU/L (<35); Albumin 4.3 g/dL (3.5-5.0); Albumin Globulin Ratio 1.2 (1.0-2.8); Alkaline Phosphatase 136 U/L (38-126); Blood Urea Nitrogen 13 mg/dL (7-17); Calcium 8.9 mg/dL (8.4-10.2); Carbon Dioxide 26 mmol/L (22-32); Chloride 98 mmol/L (98-107); Estimated Glomerular Filt Rate > 60 mL/min (>60); Globulin 3.6 g/dL (1.7-4.1); Glucose 312 mg/dL (70-99); HEMOLYSIS < 15 (0-50); Potassium 4.5 mmol/L (3.4-5.1); Sodium 136 mmol/L (137-145); Total Protein 7.9 g/dL (6.3-8.2)
[2025-03-11 17:38] LABS: Add Manual Diff / Slide Review NO; Hematocrit 26.2 % (36-46); Hemoglobin 8.8 g/dL (12.0-16.0); Lymphocytes Absolute Auto 1600 /uL (1100-4500); Mean Corpuscular HGB Conc 33.7 % (30-36); Mean Corpuscular Hemoglobin 28.7 PG (26-34); Mean Corpuscular Volume 85.2 fL (80-100); Platelet Count 337 X10^3/uL (150-400)
[2025-03-11] MEDS: ONDANSETRON 4 MG/2 ML INJ IV (18:09)
--- NOTE | 2025-03-11 18:24 | ED_ITS ---
HPI - GI Bleed
--- NOTE | 2025-03-11 18:24 | ED.GIBLEED ---
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 She has been having some dark black stools for the past 2 days daily. She is chronically on TPN. Since yesterday, she has been having increased lower abdominal pain again and in the right lower quadrant along with some nausea and vomiting. She has also been having some tachycardia that has been worsening all the way up into the 170s at home. She has also had a new Garcia line placed during her recent admission over a at [facility] that she thinks could be potentially infected. Related Data Home Medications ?Medication ?Instructions ?Recorded ?Confirmed insulin glargine 100 unit/mL (3 7 unit SUBCUT QPM 02/17/25 02/24/25 mL) subcutaneous pen insulin lispro 100 unit/mL 1 sliding scale dose SUBCUT 02/17/25 02/24/25 subcutaneous solution (Humalog USEASDIRECTD U-100 Insulin) levonorgestrel 1 device intrauterine .once 02/17/25 02/24/25 [id number] 1 cap PO TID 02/17/25 02/24/25 24,000-76,000-120,000 unit capsule,delayed rel (Creon) ondansetron 4 mg disintegrating 4 mg PO PRN 02/17/25 02/24/25 tablet pantoprazole 20 mg tablet,delayed 40 mg PO BID 02/17/25 02/24/25 release (Protonix) Previous Rx's ?Medication ?Instructions ?Recorded metoclopramide HCl 10 mg tablet 10 mg PO Q6H PRN nausea and 05/31/19 (Reglan) vomiting #10 tabs oxycodone 5 mg tablet 5 mg PO Q4HR PRN Pain, Moderate 06/21/19 (4-6) #10 tabs Allergies Allergy/AdvReac Type Severity Reaction Status Date / Time clindamycin Allergy Rash Verified 02/14/25 17:58 guaifenesin (From Mucinex) Allergy Rash Verified 02/14/25 17:58 morphine Allergy Verified 02/14/25 17:58 haloperidol (From Haldol) AdvReac Irritable Verified 02/14/25 17:58 ketorolac (From Toradol) AdvReac Anxiety Verified 02/14/25 17:58 metoclopramide (From Reglan) AdvReac Anxiety Verified 02/14/25 17:58 promethazine (From Phenergan) AdvReac Anxiety Verified 02/14/25 17:58 zolpidem (From Ambien) AdvReac Hallucinati Verified 02/14/25 17:58 ng Review of Systems Review of Systems ROS Unobtainable: All systems reviewed & are unremarkable except as noted in HPI and below Patient History Medical History (Updated 03/12/25 @ 01:02 by Rodney Mosley MD) TSS (toxic shock syndrome) IUD (intrauterine device) in place Gastritis Chronic tachycardia Colon cancer Fever of undetermined origin On total parenteral nutrition (TPN) Endometriosis Gastroparesis Pancreatitis Surgical History (Updated 02/15/25 @ 12:03 by Cuco Lyn MD) History of splenectomy History of pancreatectomy H/O Whipple procedure H/O laparoscopy Hx of cholecystectomy Family History (Updated 02/15/25 @ 12:04 by Cuco Lyn MD) Son No problems noted. Social History marital status: household members: spouse and children alcohol intake frequency: a few times a month Exam Narrative Exam Narrative: General: Patient appears to be in no acute distress, acting appropriately Head: normocephalic, atraumatic, HEENT: Pupils equal round reactive, eyes tracking well, neck supple, no JVD Heart: regular rate and rhythm, no murmurs, rubs, or gallops heard chest has garcia line placed on right side of chest , no obvious sign of infection Lungs: clear to auscultation, no adventitious sounds Abdomen: soft , tender to palpation in lower abd area and rigth lower quadrant, nondistended, positive bowel sounds Neurological: no focal neurological signs, moving all extremities well, alert and oriented x3, Psych: good judgment ,good insight, mood is normal. Initial Vital Signs Initial Vital Signs: Vital Signs Temperature 98.1 F 03/11/25 16:44 Pulse Rate 138 H 03/11/25 16:44 Respiratory Rate 16 03/11/25 16:44 Blood Pressure 144/95 H 03/11/25 16:44 Pulse Oximetry 98 03/11/25 16:44 Oxygen Delivery Method Room Air 03/11/25 16:44 Course Orders Ordered: Discontinued Medications Diphenhydramine HCl (Diphenhydramine 50 Mg/Ml Vial) 25 mg IV NOW ONE Stop: 03/11/25 20:18 Last Admin: 03/11/25 20:35 Dose: 25 mg Documented By: KENNY Diphenhydramine HCl (Diphenhydramine 50 Mg/Ml Vial) 25 mg IV NOW ONE Stop: 03/11/25 22:42 Last Admin: 03/11/25 23:26 Dose: 25 mg Documented By: MICHAEL Droperidol (Droperidol 2.5 Mg/Ml Vial) 1.25 mg IV NOW ONE Stop: 03/11/25 20:04 Last Admin: 03/11/25 20:29 Dose: Not Given Documented By: STACEY Hydromorphone HCl (Hydromorphone 1 Mg/Ml Syringe) 1 mg IV NOW ONE Stop: 03/11/25 17:59 Last Admin: 03/11/25 18:08 Dose: 1 mg Documented By: STACEY Hydromorphone HCl (Hydromorphone 1 Mg/Ml Syringe) 1 mg IV NOW ONE Stop: 03/11/25 20:18 Last Admin: 03/11/25 20:35 Dose: 1 mg Documented By: KENNY Hydromorphone HCl (Hydromorphone 1 Mg/Ml Syringe) 1 mg IV Q1H PRN PRN Reason: Pain, Moderate (4-6) Last Admin: 03/11/25 23:26 Dose: 1 mg Documented By: MICHAEL Sodium Chloride (Normal Saline 0.9%) 500 mls @ 1,000 mls/hr IV BOLUS ONE Stop: 03/11/25 19:16 Last Infusion: 03/11/25 20:37 Dose: Infused Documented By: Admin: 03/11/25 19:28 Dose: 1,000 mls/hr Documented By: STACEY Vancomycin HCl 1,000 mg/ (Sodium Chloride) 100 mls @ 100 mls/hr IV NOW ONE Stop: 03/11/25 19:14 Last Admin: 03/11/25 23:25 Dose: Not Given Documented By: MICHAEL Piperacillin Sod/Tazobactam (Sod 4.5 gm/ Sodium Chloride) 100 mls @ 200 mls/hr IV NOW ONE Stop: 03/11/25 19:14 Last Infusion: 03/11/25 20:32 Dose: Infused Documented By: Admin: 03/11/25 19:27 Dose: 200 mls/hr Documented By: STACEY Vancomycin HCl (Vancomycin) 1,000 mg in 200 mls @ 200 mls/hr IV NOW ONE Stop: 03/11/25 22:36 Last Infusion: 03/11/25 22:52 Dose: Infused Documented By: Admin: 03/11/25 21:41 Dose: 200 mls/hr Documented By: STACEY Insulin Human Regular (Insulin Regular 100 Unit/Ml 3 Ml Vial) 5 unit IV NOW ONE Stop: 03/11/25 18:58 Last Admin: 03/11/25 19:26 Dose: 5 unit Documented By: STACEY Co-signed By: GHAZAL Ondansetron HCl (Ondansetron 4 Mg/2 Ml Inj) 4 mg IV NOW ONE Stop: 03/11/25 18:00 Last Admin: 03/11/25 18:09 Dose: 4 mg Documented By: STACEY Pantoprazole Sodium (Pantoprazole 40 Mg Vial) 40 mg IV NOW ONE Stop: 03/11/25 18:46 Last Admin: 03/11/25 19:27 Dose: 40 mg Documented By: STACEY Reevaluation(s) Reevaluation #1: Patient needed several doses of Benadryl and Dilaudid to control her her pain and nausea. Consultations Consultation #1: Dr. iglesias gi physician at [facility] and dr medina hopsitalist consulted who graciously accepted the patient for transfer for potential intervention for this upper GI bleed. Vital Signs Vital signs: Vital Signs - 8 hr 03/11/25 22:30 03/11/25 23:00 03/11/25 23:30 Pulse Rate 119 H 119 H 114 H Respiratory Rate 25 H 20 23 Blood Pressure Pulse Oximetry 98 100 95 Oxygen Delivery Method 03/11/25 23:38 03/11/25 23:38 03/12/25 00:00 Pulse Rate 113 H Respiratory Rate 20 Blood Pressure 121/77 102/63 Pulse Oximetry 96 Oxygen Delivery Method 03/12/25 00:00 03/12/25 00:30 03/12/25 00:30 Pulse Rate 111 H 110 H Respiratory Rate 19 21 Blood Pressure 110/66 Pulse Oximetry 96 98 Oxygen Delivery Method Room Air Room Air 03/12/25 01:00 03/12/25 01:00 Pulse Rate 110 H Respiratory Rate 19 Blood Pressure 117/86 Pulse Oximetry 99 Oxygen Delivery Method Room Air MDM - GI Bleed Lab Data 03/11/25 16:54 03/11/25 16:54 Labs: Lab Results 03/11/25 03/11/25 03/11/25 Range/Units 16:54 17:27 21:18 WBC 6.0 (4.5-11.0) X10^3/uL RBC 3.08 L (4.0-5.2) X10^6/uL Hgb 8.8 L (12.0-16.0) g/dL Hct 26.2 L (36-46) % MCV 85.2 (80-100) fL MCH 28.7 (26-34) PG MCHC 33.7 (30-36) % RDW 18.2 H (11.6-14.8) % Plt Count 337 (150-400) X10^3/uL Neut % (Auto) 58.5 (50-75) % Lymph % (Auto) 26.0 (25-40) % [place] % (Auto) 12.6 (3-14) % Eos % (Auto) 1.9 L (2-4) % Baso % (Auto) 1.0 (0-2) % Neut # (Auto) 3500 (2357-5814) /uL Lymph # (Auto) 1600 (5744-2356) /uL [place] # (Auto) 800 (0-900) /uL Eos # (Auto) 100 (0-450) /uL Baso # (Auto) 100 (0-100) /uL PT 12.4 (9.4-12.5) SECONDS INR 1.1 (0.9-1.3) Sodium 136 L (137-145) mmol/L Potassium 4.5 (3.4-5.1) mmol/L Chloride 98 (98-107) mmol/L Carbon Dioxide 26 (22-32) mmol/L BUN 13 (7-17) mg/dL Creatinine 0.63 (0.52-1.04) mg/dL Estimated GFR > 60 (>60) mL/min BUN/Creatinine Ratio 20.6 (6-22) Glucose 312 H (70-99) mg/dL POC Whole Bld Glucose 116 H (70-99) mg/dL Calcium 8.9 (8.4-10.2) mg/dL Total Bilirubin 0.5 (0.2-1.3) mg/dL AST 35 (14-36) IU/L ALT 17 (<35) IU/L Alkaline Phosphatase 136 H (38-126) U/L Total Protein 7.9 (6.3-8.2) g/dL Albumin 4.3 (3.5-5.0) g/dL Globulin 3.6 (1.7-4.1) g/dL Albumin/Globulin Ratio 1.2 (1.0-2.8) Blood Type A Positive Antibody Screen Negative Imaging Data CT scan - abdomen/pelvis: Radiologist's Impression: CT abdomen and pelvis without acute abnormalities. No findings to suggest presence of GI bleed. Stable postsurgical changes. Other chronic/non-acute findings as above. 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 She has been having some dark black stools for the past 2 days daily. She is chronically on TPN. Since yesterday, she has been having increased lower abdominal pain again and in the right lower quadrant along with some nausea and vomiting. She has also been having some tachycardia that has been worsening all the way up into the 170s at home. She has also had a new Garcia line placed during her recent admission over a at [facility] that she thinks could be potentially infected. Here in the ED, she did not have a dark stool. Her guaiac was positive. Considering her complications and acute on chronic anemia, patient was transferred back to [place] in case a procedure may need to occur. Her pain was controlled using Dilaudid and Benadryl was used for her nausea. The new Garcia line will be explored for potential infection as well. Discharge Plan Departure Patient Disposition: [facility] Clinical Impression: GI (gastrointestinal bleed) Qualifiers: GI bleed type/associated pathology: gastric ulcer Qualified Code(s): K25.4 - Chronic or unspecified gastric ulcer with hemorrhage Prescriptions: No Action metoclopramide HCl [Reglan] 10 mg tablet 10 mg PO Q6H PRN (Reason: nausea and vomiting) Qty: 10 0RF oxycodone 5 mg Tablet 5 mg PO Q4HR PRN (Reason: Pain, Moderate (4-6)) Qty: 10 0RF levonorgestrel 21 mcg/24hr (up to 8 yrs) 52 mg intrauterine device 1 device intrauterine .once pantoprazole [Protonix] 20 mg tablet,delayed release (DR/EC) 40 mg PO BID insulin lispro [Humalog U-100 Insulin] 100 unit/mL solution 1 sliding scale dose SUBCUT USEASDIRECTD ondansetron 4 mg tablet,disintegrating 4 mg PO PRN insulin glargine 100 unit/mL (3 mL) insulin pen 7 unit SUBCUT QPM Creon 24,000-76,000 -120,000 unit capsule,delayed release(DR/EC) 1 cap PO TID Rx Instructions: administer with meals and/or snacks
--- NOTE | 2025-03-11 18:45 | DI.CT.S_ITS ---
PROCEDURE: CT ANGIO ABD/PEL GI BLEED
[2025-03-11] MEDS: INSULIN REGULAR 100 UNIT/ML 3 ML VIAL IV (19:26)
[2025-03-11] MEDS: PIPERACILLIN/TAZO 4.5 GM in SODIUM CHLORIDE 0.9% 100 ML IV (19:27)
[2025-03-11] MEDS: PANTOPRAZOLE 40 MG VIAL IV (19:27)
[2025-03-11] MEDS: SODIUM CHLORIDE 0.9% 500 ML 1000 ML IV (19:28)
[2025-03-11] MEDS: diphenhydrAMINE 50 MG/ML VIAL 25 MG IV ×2 (20:35→23:26)
[2025-03-11] MEDS: VANCOMYCIN 1,000 MG/200 ML PIGGYBACK 200 MG IV (21:41)
--- NOTE | 2025-03-11 23:23 | PC.NURSE ---
Pt ambulatory to restroom without difficulty or assistance
--- NOTE | 2025-03-11 23:45 | PC.NURSE ---
Report given, care relinquished
[2025-03-12] VITALS: BP 102/63; PULSE 111; RESP 19; O2SAT 96
[2025-03-12 00:30] VITALS: BP 110/66; PULSE 110; RESP 21; O2SAT 98
[2025-03-12 01:00] VITALS: BP 117/86; PULSE 110; RESP 19; O2SAT 99
== END 2025-03-12 01:31 | disposition short-term general hospital (02) ==
PROVIDERS: Emergency Provider Family Medicine
DX: K25.4 Chronic or unspecified gastric ulcer with hemorrhage (principal); R10.31 Right lower quadrant pain; R11.2 Nausea with vomiting, unspecified; R00.0 Tachycardia, unspecified; E11.9 Type 2 diabetes mellitus without complications; Z79.4 Long term (current) use of insulin; C18.9 Malignant neoplasm of colon, unspecified; Z92.21 Personal history of antineoplastic chemotherapy
CPT/HCPCS: 74174; 80053; 82962; 85025; 85610; 86850; 86900; 86901; 93005; 96365; 96367; 96375; 96376; 99283; 99285; J1171; J1200; J1790; J2405; J2470; J2543; J3375; J7040; J7050; Q9967

== ENCOUNTER 2025-03-26 09:50 | Emergency (ER) | payer OTHER, SELFPAY ==
[2025-02-24 14:56] VITALS: BMI 20.1
[2025-03-26] VITALS (18 sets, daily range): BP systolic 114–158; BP diastolic 72–109; PULSE 91–130; RESP 16–46; TEMP 37.5; O2SAT 95–100; BMI 20.1
--- NOTE | 2025-03-26 | DI.CT.S_ITS ---
PROCEDURE: CT ABDOMEN PELVIS W CON INDICATIONS: LOWER ABDOMEN PAIN TECHNIQUE: After the administration of intravenous contrast, axial sections acquired from the lung bases to the pubic symphysis. Coronal and sagittal reformats were performed. For radiation dose reduction, the following was used: automated exposure control, adjustment of mA and/or kV according to patient size. COMPARISON: [facility], CT, CT ABDOMEN PELVIS W CON, 02/14/2025, 20:06. [facility], CT, CT ANGIO CHEST PE PROTOCOL, 03/26/2025, 12:55. [facility], CT, CT ANGIO ABD/PEL GI BLEED, 03/11/2025, 19:03. [facility], CT, CT ABDOMEN PELVIS W CON, 02/24/2025, 6:53. FINDINGS: Image quality: Diagnostic. Lower Chest: No significant findings. ABDOMEN: Liver: No solid mass. Gallbladder: Absent Biliary ducts: No biliary dilation. Pancreas: Prior Whipple procedure Spleen: Absent Adrenal Glands: No adrenal nodules. Kidneys and Ureters: No hydronephrosis. No solid mass. No complex renal cystic lesion which requires follow up. Stomach and Bowel: Suspect luminal mass in the ascending colon. Reference axial image 59 of series 12 and coronal image 47 of series 13. Question mild colitis involving the proximal and mid rectum. Peritoneum: No abnormal intraperitoneal fluid. No free air. Ventral Wall: No significant ventral hernia. Abdominal Nodes: No retroperitoneal or mesenteric adenopathy by size criteria. Vessels: Aorta and inferior vena cava are normal in size. PELVIS: Pelvic Organs: IUD. Bladder: No bladder wall thickening, accounting for underdistention. Pelvic Nodes: No enlarged lymph nodes. Miscellaneous: No inguinal hernias are seen. Bones: No aggressive osseous abnormality. IMPRESSION: 1. Suspect possible ascending colonic mass. 2. Question mild proctitis involving the proximal and mid rectum. 3. Postoperative changes as described above. Dictated by: Winston Bae M.D. on 03/26/2025 at 14:22 Approved by: Winston Bae M.D. on 03/26/2025 at 14:30
--- NOTE | 2025-03-26 10:26 | EKG_ITS ---
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
--- NOTE | 2025-03-26 10:32 | DI.CT.S_ITS ---
PROCEDURE: CT ANGIO CHEST PE PROTOCOL INDICATIONS: known dvt r/o pe TECHNIQUE: After the administration of intravenous contrast, 2 mm thick sections acquired from the pulmonary apices to the posterior costophrenic angles. 3-dimensional maximum intensity projection (MIP) coronal and sagittal reformats were then acquired through the thorax. For radiation dose reduction, the following was used: automated exposure control, adjustment of mA and/or kV according to patient size. COMPARISON: [facility], CT, CT ANGIO CHEST PE, 01/23/2025, 0:08. FINDINGS: Image quality: Diagnostic. Pulmonary arteries: Pulmonary arteries are normal in size, and demonstrate no intraluminal filling defects to suggest central pulmonary embolism. Lower Neck: No enlarged lymph nodes. Thyroid: No thyroid nodules which require sonographic follow up, per consensus guidelines. Axillae: No enlarged lymph nodes. Chest Wall: Unremarkable. Bones: Unremarkable. Lungs and Pleura: No pneumothorax or pleural effusions. No consolidation or suspicious nodules. Heart: Heart size is normal. No pericardial effusion. Thoracic Vessels: No aortic aneurysm. Mediastinum and Lisset: No enlarged lymph nodes. Esophagus: No wall thickening. No hiatal hernia. Upper Abdomen: Visualized upper abdomen solid organs and bowel loops appear normal. IMPRESSION: No pulmonary embolus. No acute cardiopulmonary process. Dictated by: Winston Bae M.D. on 03/26/2025 at 14:20 Approved by: Winston Bae M.D. on 03/26/2025 at 14:22
--- NOTE | 2025-03-26 10:43 | ED.GENADULT ---
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 Presenting today with some left-sided neck pain. She had an extended stay at [facility] March 12 through the . Records are as follows: 1. Bacteremia associated with intravascular line Abdominal pain chronic intermittent Intractable nausea and vomiting Hypothyroid Type 1 diabetes Left IJ vein thromboembolism currently on Lovenox, secondary to central line placement She had a new Garcia line placed on 03/19/2025 the other was removed on March 15 for infection. Blood cultures remained negative. She was on vancomycin the through the She has presenting today with some ongoing neck pain. She has ongoing abdominal pain nausea which seems chronic for her. She does not feel like she is in DKA. She has no fever or chills. Related Data Home Medications ?Medication ?Instructions ?Recorded ?Confirmed insulin glargine 100 unit/mL (3 7 unit SUBCUT QPM 02/17/25 02/24/25 mL) subcutaneous pen insulin lispro 100 unit/mL 1 sliding scale dose SUBCUT 02/17/25 02/24/25 subcutaneous solution (Humalog USEASDIRECTD U-100 Insulin) levonorgestrel 1 device intrauterine .once 02/17/25 02/24/25 [id number] 1 cap PO TID 02/17/25 02/24/25 24,000-76,000-120,000 unit capsule,delayed rel (Creon) ondansetron 4 mg disintegrating 4 mg PO PRN 02/17/25 02/24/25 tablet pantoprazole 20 mg tablet,delayed 40 mg PO BID 02/17/25 02/24/25 release (Protonix) Previous Rx's ?Medication ?Instructions ?Recorded metoclopramide HCl 10 mg tablet 10 mg PO Q6H PRN nausea and 05/31/19 (Reglan) vomiting #10 tabs oxycodone 5 mg tablet 5 mg PO Q4HR PRN Pain, Moderate 06/21/19 (4-6) #10 tabs Allergies Allergy/AdvReac Type Severity Reaction Status Date / Time clindamycin Allergy Rash Verified 02/14/25 17:58 guaifenesin (From Mucinex) Allergy Rash Verified 02/14/25 17:58 morphine Allergy Verified 02/14/25 17:58 haloperidol (From Haldol) AdvReac Irritable Verified 02/14/25 17:58 ketorolac (From Toradol) AdvReac Anxiety Verified 02/14/25 17:58 metoclopramide (From Reglan) AdvReac Anxiety Verified 02/14/25 17:58 promethazine (From Phenergan) AdvReac Anxiety Verified 02/14/25 17:58 zolpidem (From Ambien) AdvReac Hallucinati Verified 02/14/25 17:58 ng Patient History Medical History (Updated 03/26/25 @ 15:11 by Perri Yeboah DO) TSS (toxic shock syndrome) IUD (intrauterine device) in place Gastritis Chronic tachycardia Colon cancer Fever of undetermined origin On total parenteral nutrition (TPN) Endometriosis Gastroparesis Pancreatitis Surgical History (Updated 02/15/25 @ 12:03 by Cuco Lyn MD) History of splenectomy History of pancreatectomy H/O Whipple procedure H/O laparoscopy Hx of cholecystectomy Family History (Updated 02/15/25 @ 12:04 by Cuco Lyn MD) Son No problems noted. Social History marital status: household members: spouse and children alcohol intake frequency: a few times a month Exam Initial Vital Signs Initial Vital Signs: Vital Signs Temperature 99.5 F 03/26/25 10:09 Pulse Rate 130 H 03/26/25 10:09 Respiratory Rate 16 03/26/25 10:09 Blood Pressure 145/97 H 03/26/25 10:09 Pulse Oximetry 100 03/26/25 10:09 Oxygen Delivery Method Room Air 03/26/25 10:09 GENERAL: Well-appearing, well-nourished and in no acute distress. HEENT: Head atraumatic,EOMI, pupils reactive, face symmetric, moist mucous membranes NECK: Patient has healing wound from recent central line in the left IJ no significant erythema, there is no obvious swelling managing her own secretions airway is patent CARDIOVASCULAR: Regular rate and rhythm without murmurs, rubs or gallops. RESPIRATORY: Breath sounds equal bilaterally, no wheezes rales or rhonchi. ABDOMEN: Soft, nontender. Normoactive bowel sounds all 4 quadrants. No guarding or rebound. EXTREMITIES: Normal range of motion, no clubbing or edema. Neurovascularly intact NEUROLOGICAL: Alert and oriented x4.Normal gait and speech. Cranial nerves II through XII grossly intact. SKIN: Warm, dry, no laceration, no petechiae, no rashes or lesions. Course Orders Ordered: ED Orders 03/26/25 10:14 EKG-12 Lead Stat Venous Blood Gas STAT 03/26/25 10:32 CT angio chest PE protocol Stat 03/26/25 10:40 Blood Culture Stat CBC Auto Diff [Complete Blood Count AUTO DIFF] Stat Lactate (Lactic Acid) Stat PT [Prothrombin Time INR] Stat PTT Partial Thromboplastin Agustin Stat Test Serum,Qual Stat 03/26/25 10:46 Venous Blood Gas Routine 03/26/25 11:12 CMP [Comprehensive Metabolic Panel] Stat Troponin & CK Cardiac Panel Stat Discontinued Medications Diphenhydramine HCl (Diphenhydramine 50 Mg/Ml Vial) 25 mg IV NOW ONE Stop: 03/26/25 15:09 Last Admin: 03/26/25 15:19 Dose: 25 mg Hydromorphone HCl (Hydromorphone 1 Mg/Ml Syringe) 1 mg IV Q2HR PRN PRN Reason: Pain, Moderate (4-6) Last Admin: 03/26/25 12:45 Dose: 1 mg Documented By: Admin: 03/26/25 10:53 Dose: 1 mg Documented By: NICK Hydromorphone HCl (Hydromorphone 1 Mg/Ml Syringe) 2 mg IV NOW ONE Stop: 03/26/25 15:09 Last Admin: 03/26/25 15:19 Dose: 2 mg Sodium Chloride (Normal Saline 0.9%) 1,000 mls @ 1,000 mls/hr IV BOLUS ONE Stop: 03/26/25 11:15 Last Infusion: 03/26/25 11:53 Dose: Infused Documented By: Admin: 03/26/25 10:53 Dose: 1,000 mls/hr Documented By: NICK Ondansetron HCl (Ondansetron 4 Mg/2 Ml Inj) 4 mg IV NOW ONE Stop: 03/26/25 10:17 Last Admin: 03/26/25 10:53 Dose: 4 mg Documented By: BS Vital Signs Vital signs: Vital Signs - 8 hr 03/26/25 10:09 03/26/25 10:19 03/26/25 10:30 Temperature 99.5 F Pulse Rate 130 H 116 H 119 H Respiratory Rate 16 16 32 H Blood Pressure 145/97 H Pulse Oximetry 100 Oxygen Delivery Method Room Air 03/26/25 10:33 03/26/25 10:33 03/26/25 11:00 Temperature Pulse Rate 114 H 107 H Respiratory Rate 34 H 31 H Blood Pressure 114/79 Pulse Oximetry 99 98 Oxygen Delivery Method 03/26/25 11:00 03/26/25 11:30 03/26/25 11:31 Temperature Pulse Rate 112 H Respiratory Rate 32 H Blood Pressure 120/85 156/90 H Pulse Oximetry 96 Oxygen Delivery Method 03/26/25 11:31 03/26/25 12:00 03/26/25 12:00 Temperature Pulse Rate 105 H 109 H Respiratory Rate 26 H 46 H Blood Pressure 151/109 H Pulse Oximetry 97 98 Oxygen Delivery Method 03/26/25 12:49 03/26/25 12:50 03/26/25 12:50 Temperature Pulse Rate 110 H 110 H Respiratory Rate 38 H 23 Blood Pressure 124/72 Pulse Oximetry 96 96 Oxygen Delivery Method 03/26/25 13:10 03/26/25 13:11 03/26/25 13:11 Temperature Pulse Rate 91 H 92 H Respiratory Rate 24 23 Blood Pressure 158/99 H Pulse Oximetry 95 100 Oxygen Delivery Method 03/26/25 13:30 03/26/25 13:30 03/26/25 14:00 Temperature Pulse Rate 97 H Respiratory Rate 27 H Blood Pressure 142/97 H 132/92 H Pulse Oximetry 98 Oxygen Delivery Method 03/26/25 14:00 03/26/25 14:30 03/26/25 14:30 Temperature Pulse Rate 105 H 100 H Respiratory Rate 34 H 28 H Blood Pressure 140/84 Pulse Oximetry 98 98 Oxygen Delivery Method 03/26/25 15:00 03/26/25 15:00 03/26/25 15:30 Temperature Pulse Rate 108 H 103 H Respiratory Rate 30 H 25 H Blood Pressure 121/91 H Pulse Oximetry 97 96 Oxygen Delivery Method 03/26/25 15:54 03/26/25 15:54 Temperature Pulse Rate 97 H Respiratory Rate 16 Blood Pressure 122/88 Pulse Oximetry 97 Oxygen Delivery Method Medical Decision Making Lab Data 03/26/25 10:40 03/26/25 11:12 Labs: Lab Results 03/26/25 03/26/25 03/26/25 Range/Units 10:40 10:46 11:12 WBC 5.0 (4.5-11.0) X10^3/uL RBC 3.66 L (4.0-5.2) X10^6/uL Hgb 10.0 L (12.0-16.0) g/dL Hct 30.7 L (36-46) % MCV 83.9 (80-100) fL MCH 27.3 (26-34) PG MCHC 32.6 (30-36) % RDW 17.9 H (11.6-14.8) % Plt Count 278 (150-400) X10^3/uL Neut % (Auto) 65.6 (50-75) % Lymph % (Auto) 9.2 L (25-40) % [place] % (Auto) 19.1 H (3-14) % Eos % (Auto) 5.2 H (2-4) % Baso % (Auto) 0.9 (0-2) % Neut # (Auto) 3300 (3688-2587) /uL Lymph # (Auto) 500 L (1037-2466) /uL [place] # (Auto) 1000 H (0-900) /uL Eos # (Auto) 300 (0-450) /uL Baso # (Auto) 0 (0-100) /uL PT 12.5 (9.4-12.5) SECONDS INR 1.1 (0.9-1.3) APTT 27 (25.1-36.5) SECONDS VBG pH 7.49 H (7.33-7.43) VBG pCO2 36.1 L (45-50) mmHg VBG pO2 41 (35-45) mmHg VBG HCO3 28 (24-28) mmol/L VBG Total CO2 26 (24-29) mmol/L VBG O2 Saturation 81 H (70-75) % VBG Base Excess 4.4 H (0-4) mmol/L Sodium 135 L (137-145) mmol/L Potassium 4.1 (3.4-5.1) mmol/L Chloride 99 (98-107) mmol/L Carbon Dioxide 25 (22-32) mmol/L BUN 13 (7-17) mg/dL Creatinine 0.57 (0.52-1.04) mg/dL Estimated GFR > 60 (>60) mL/min BUN/Creatinine Ratio 22.8 H (6-22) Glucose 234 H (70-99) mg/dL Lactate 1.7 (0.7-2.1) mmol/L Calcium 9.1 (8.4-10.2) mg/dL Total Bilirubin 0.4 (0.2-1.3) mg/dL AST 46 H (14-36) IU/L ALT 14 (<35) IU/L Alkaline Phosphatase 116 (38-126) U/L Total Creatine Kinase 30 (30-135) U/L Troponin I < 0.012 (0.01-0.034) ng/mL Total Protein 7.7 (6.3-8.2) g/dL Albumin 4.2 (3.5-5.0) g/dL Globulin 3.5 (1.7-4.1) g/dL Albumin/Globulin Ratio 1.2 (1.0-2.8) Serum , Qual Negative (Negative) Urine Dip Bedside Urine Glucose Negative Bedside Urine Bilirubin - Negative Bedside Urine Ketone - Negative Urine Specific [place] 1.010 Bedside Urine Occult Blood - Negative Bedside Urine pH 7.5 Bedside Urine Protein - Negative Bedside Urine Urobilinogen - Negative Bedside Urine Nitrite - Negative Bedside Urine Leukocytes - Negative Esterase Point of care testing: Urine Dip Bedside Urine Glucose Negative Bedside Urine Bilirubin - Negative Bedside Urine Ketone - Negative Urine Specific [place] 1.010 Bedside Urine Occult Blood - Negative Bedside Urine pH 7.5 Bedside Urine Protein - Negative Bedside Urine Urobilinogen - Negative Bedside Urine Nitrite - Negative Bedside Urine Leukocytes - Negative Esterase Imaging Data CT scan - chest: Radiologist's Impression: PROCEDURE: CT ANGIO CHEST PE PROTOCOL INDICATIONS: known dvt r/o pe TECHNIQUE: After the administration of intravenous contrast, 2 mm thick sections acquired from the pulmonary apices to the posterior costophrenic angles. 3-dimensional maximum intensity projection (MIP) coronal and sagittal reformats were then acquired through the thorax. For radiation dose reduction, the following was used: automated exposure control, adjustment of mA and/or kV according to patient size. COMPARISON: [facility], CT, CT ANGIO CHEST PE, 01/23/2025, 0:08. FINDINGS: Image quality: Diagnostic. Pulmonary arteries: Pulmonary arteries are normal in size, and demonstrate no intraluminal filling defects to suggest central pulmonary embolism. Lower Neck: No enlarged lymph nodes. Thyroid: No thyroid nodules which require sonographic follow up, per consensus guidelines. Axillae: No enlarged lymph nodes. Chest Wall: Unremarkable. Bones: Unremarkable. Lungs and Pleura: No pneumothorax or pleural effusions. No consolidation or suspicious nodules. Heart: Heart size is normal. No pericardial effusion. Thoracic Vessels: No aortic aneurysm. Mediastinum and Lisset: No enlarged lymph nodes. Esophagus: No wall thickening. No hiatal hernia. Upper Abdomen: Visualized upper abdomen solid organs and bowel loops appear normal. IMPRESSION: No pulmonary embolus. No acute cardiopulmonary process. Dictated by: Winston Bae M.D. on 03/26/2025 at 14:20 CT scan - abdomen/pelvis: Radiologist's Impression: PROCEDURE: CT ABDOMEN PELVIS W CON INDICATIONS: LOWER ABDOMEN PAIN TECHNIQUE: After the administration of intravenous contrast, axial sections acquired from the lung bases to the pubic symphysis. Coronal and sagittal reformats were performed. For radiation dose reduction, the following was used: automated exposure control, adjustment of mA and/or kV according to patient size. COMPARISON: [facility], CT, CT ABDOMEN PELVIS W CON, 02/14/2025, 20:06. [facility], CT, CT ANGIO CHEST PE PROTOCOL, 03/26/2025, 12:55. [facility], CT, CT ANGIO ABD/PEL GI BLEED, 03/11/2025, 19:03. [facility], CT, CT ABDOMEN PELVIS W CON, 02/24/2025, 6:53. FINDINGS: Image quality: Diagnostic. Lower Chest: No significant findings. ABDOMEN: Liver: No solid mass. Gallbladder: Absent Biliary ducts: No biliary dilation. Pancreas: Prior Whipple procedure Spleen: Absent Adrenal Glands: No adrenal nodules. Kidneys and Ureters: No hydronephrosis. No solid mass. No complex renal cystic lesion which requires follow up. Stomach and Bowel: Suspect luminal mass in the ascending colon. Reference axial image 59 of series 12 and coronal image 47 of series 13. Question mild colitis involving the proximal and mid rectum. Peritoneum: No abnormal intraperitoneal fluid. No free air. Ventral Wall: No significant ventral hernia. Abdominal Nodes: No retroperitoneal or mesenteric adenopathy by size criteria. Vessels: Aorta and inferior vena cava are normal in size. PELVIS: Pelvic Organs: IUD. Bladder: No bladder wall thickening, accounting for underdistention. Pelvic Nodes: No enlarged lymph nodes. Miscellaneous: No inguinal hernias are seen. Bones: No aggressive osseous abnormality. IMPRESSION: 1. Suspect possible ascending colonic mass. 2. Question mild proctitis involving the proximal and mid rectum. 3. Postoperative changes as described above. Dictated by: Winston Bae M.D. on 03/26/2025 at 14:22 [facility] Narrative Medical decision making narrative: MDM CC: Neck pain belly pain Complicating co-morbidities: Multiple see above Data collected from: Patient previous Medical records reviewed: 02/20/25 flexible sigmoidoscopy with history of rectal narrowing on CT. Digital rectal exam was normal. Multiple small localized angio ectasias without bleeding were found in the distal rectum. This was biopsied with cold forceps for histology. Impression rectal mucosal findings concerning for radiation proctitis. Biopsies sent. No strictures or structural cause for abdominal pain identified on exam to transverse colon. Calmed appearing mucosa in the distal rectum. Differential considered: PE, obstruction electrolyte abnormality when he anemia Exam documented above, pertinent findings include: Patient complaining of left-sided neck pain there is no significant swelling or erythema there is a small area where central line was placed. Garcia left chest is working no evidence of cellulitis or infection. Breath sounds clear abdomen mildly tender. Lab Test results independently reviewed as above. Pertinent findings: CBC within normal limits no leukocytosis hemoglobin is 10 hematocrit 30.7 CMP electrolytes within normal limits close to 3 for Lactate 1.7 Troponin negative Bilirubin liver enzymes within normal limits negative Independently reviewed EKG as above Imaging studies independently reviewed: CT chest no pulmonary embolus CT abdomen pelvis questionable colonic mass Consultations: [ ] Treatments: IV fluids Dilaudid Zofran Re-evaluations: [ ] Discussion: Patient 35-year-old female with multiple chronic ongoing medical problems presenting today with pain in the left side of her neck. She has a known DVT secondary to central line placement. She is on Lovenox. There is no evidence of worsening clot she has no PE. CT abdomen does suggest possible colonic mass however she recently had a flex sig 1 month ago which did not show any masses records for chronic ongoing abdominal pain. No evidence of infection she has a normal leukocytosis in her normal lactic acid. Given multiple doses of Dilaudid here in the ED. At this time blood work is overall stable there is no need for admission. Discharge Plan Departure Patient Disposition: Home Clinical Impression: Acute exacerbation of chronic abdominal pain, Internal jugular (IJ) vein thromboembolism, acute Instructions: DI for Abdominal Pain-Adult Activity Restrictions/Additional Instructions: *You have been diagnosed with acute on chronic abdominal pain, left in her normal jugular thromboemboli *What to do: At this time follow up with your primary care provider as scheduled tomorrow. You will likely need a pain management adjustment in your medications. Continue Lovenox Overall blood work and imaging today are reassuring *Continue to take medications as directed *Follow up with your primary care provider in 2-3 days or call [phone] *Return to ER if you should have increasing pain swelling shortness of breath weakness or any new, worsening or concerning symptoms Prescriptions: No Action metoclopramide HCl [Reglan] 10 mg tablet 10 mg PO Q6H PRN (Reason: nausea and vomiting) Qty: 10 0RF oxycodone 5 mg Tablet 5 mg PO Q4HR PRN (Reason: Pain, Moderate (4-6)) Qty: 10 0RF levonorgestrel 21 mcg/24hr (up to 8 yrs) 52 mg intrauterine device 1 device intrauterine .once pantoprazole [Protonix] 20 mg tablet,delayed release (DR/EC) 40 mg PO BID insulin lispro [Humalog U-100 Insulin] 100 unit/mL solution 1 sliding scale dose SUBCUT USEASDIRECTD ondansetron 4 mg tablet,disintegrating 4 mg PO PRN insulin glargine 100 unit/mL (3 mL) insulin pen 7 unit SUBCUT QPM Creon 24,000-76,000 -120,000 unit capsule,delayed release(DR/EC) 1 cap PO TID Rx Instructions: administer with meals and/or snacks Stand Alone Forms: Patient Portal/API
[2025-03-26 10:49] LABS: Base Excess VBG 4.4 mmol/L (0-4); HCO3 VBG 28 mmol/L (24-28); Oxygen Saturation VBG 81 % (70-75); PCO2 VBG 36.1 mmHg (45-50); PO2 VBG 41 mmHg (35-45); Total CO2 VBG 26 mmol/L (24-29); pH VBG 7.49 (7.33-7.43)
[2025-03-26] MEDS: SODIUM CHLORIDE 0.9% 1,000 ML 1000 ML IV (10:53)
[2025-03-26] MEDS: ONDANSETRON 4 MG/2 ML INJ IV (10:53)
[2025-03-26 11:16] LABS: INR 1.1 (0.9-1.3); Prothrombin Time 12.5 SECONDS (9.4-12.5)
[2025-03-26 11:19] LABS: PTT Partial Thromboplastin Tim 27 SECONDS (25.1-36.5)
[2025-03-26 11:24] LABS: Add Manual Diff / Slide Review NO; Hematocrit 30.7 % (36-46); Hemoglobin 10.0 g/dL (12.0-16.0); Lymphocytes Absolute Auto 500 /uL (1100-4500); Mean Corpuscular HGB Conc 32.6 % (30-36); Mean Corpuscular Hemoglobin 27.3 PG (26-34); Mean Corpuscular Volume 83.9 fL (80-100); Platelet Count 278 X10^3/uL (150-400)
[2025-03-26 11:25] LABS: Pregnancy Test Serum,Qual Negative (Negative)
[2025-03-26 11:31] LABS: Lactate (Lactic Acid) 1.7 mmol/L (0.7-2.1)
[2025-03-26 11:33] LABS: Alanine Aminotransferase 14 IU/L (<35); Albumin 4.2 g/dL (3.5-5.0); Albumin Globulin Ratio 1.2 (1.0-2.8); Alkaline Phosphatase 116 U/L (38-126); Blood Urea Nitrogen 13 mg/dL (7-17); Calcium 9.1 mg/dL (8.4-10.2); Carbon Dioxide 25 mmol/L (22-32); Chloride 99 mmol/L (98-107); Creatine Kinase 30 U/L (30-135); Estimated Glomerular Filt Rate > 60 mL/min (>60); Globulin 3.5 g/dL (1.7-4.1); Glucose 234 mg/dL (70-99); HEMOLYSIS < 15 (0-50); Potassium 4.1 mmol/L (3.4-5.1); Sodium 135 mmol/L (137-145); Total Protein 7.7 g/dL (6.3-8.2)
[2025-03-26 11:44] LABS: Troponin I < 0.012 ng/mL (0.01-0.034)
--- NOTE | 2025-03-26 12:30 | PC.NURSE ---
1130: Physician aware of pt continued pain and nausea, no additional orders given
[2025-03-26] MEDS: diphenhydrAMINE 50 MG/ML VIAL 25 MG IV (15:19)
== END 2025-03-26 16:00 | disposition home or self-care (01) ==
PROVIDERS: Emergency Provider Emergency Medicine
DX: I82.C12 Acute embolism and thrombosis of left internal jugular vein (principal); R10.9 Unspecified abdominal pain; G89.29 Other chronic pain; T82.818A Embolism due to vascular prosthetic devices, implants and grafts, initial encounter; Y71.1 Therapeutic (nonsurgical) and rehabilitative cardiovascular devices associated with adverse incidents; Z90.410 Acquired total absence of pancreas
CPT/HCPCS: 36415; 71275; 74177; 80053; 81003; 82550; 82805; 83605; 84484; 84703; 85025; 85610; 85730; 87040; 93005; 96374; 96375; 96376; 99284; J1171; J1200; J2405; J7030; Q9967